=== PATIENT | female | born 1945 | race Caucasian/White ===

== ENCOUNTER 2023-07-30 09:13 | Outpatient (OUT) | payer MEDICARE, OTHER, SELFPAY ==
--- NOTE | 2023-07-30 09:42 | XR_ITS ---
The [address] [address] Patient Name: RAQUEL DEL VALLE MRN: [id number] date: 1945 Sex: F Assigned Patient Location: [facility] Current Patient Location: Accession/Order Number: [id number] Exam Date: 07/30/2023 09:35 Report Date: 07/31/2023 06:53 At the request of: KARL KENNEDY Procedure: XR hand RT min 3V PROCEDURE: XR hand RT min 3V HISTORY: Right Hand Pain M79.641 , acute; no known injury COMPARISON: None. FINDINGS: BONES:No fracture, acute abnormality, or significant arthropathy. SOFT TISSUES:No visible soft tissue swelling. EFFUSION:None visible. OTHER: Negative. XR/XR hand RT min 3V IMPRESSION: 1. No acute bone abnormality. 2. Mild age-related changes. No significant degenerative joint disease or erosive changes. Electronically authenticated by: MELLY PATE Date: 07/31/2023 06:53
== END 2023-07-30 09:14 | disposition home or self-care (01) ==
LOC: RAD 09:19
PROVIDERS: PCP Family Medicine; Visit Provider Family Medicine
DX: M79.641 Pain in right hand (principal)
CPT/HCPCS: 73130

== ENCOUNTER 2024-01-28 09:49 | Outpatient (OUT) | payer MEDICARE, OTHER, SELFPAY ==
--- NOTE | 2024-01-28 09:58 | MM_ITS ---
Patient Name: RAQUEL DEL VALLE MR#: [id number] : 1945 Exam Date: 01/28/2024 Ordering Doctor: DR Becca Jolly M.D. RADIOLOGY REPORT PROCEDURE: MM TOMOSYNTHESIS SCREENING BI COMPARISON: MG MAMM DIAGNOSTIC 3D SOPHIA CAD, 02/19/2021. MG MAMM SCREEN 3D SOPHIA CAD, 01/23/2023. INDICATIONS: screening Calculator Name NCI Breast Cancer Risk Assessment Tool 5 Year Breast Cancer Risk n/a% Lifetime Breast Cancer Risk n/a% Personal Breast Cancer Yes, Right lumpectomy, age 69 Personal Ovarian Cancer No Treatments None Family Cancers None LOCATION: [facility] BREAST COMPOSITION: Extremely dense, which lowers the sensitivity of mammography. FINDINGS: DIAGNOSTIC CATEGORY 2--BENIGN FINDING. NO CHANGE FROM COMPARISON. Scattered benign-appearing nodules are present. Scattered benign-appearing calcifications are present. Scattered benign-appearing lymph nodes are present. RIGHT BREAST: No significant suspicious finding. Stable asymmetrically small. Stable area of architectural distortion deep to a linear scar marker with multiple surgical clips LEFT BREAST: No significant suspicious finding. RECOMMENDATIONS: ROUTINE MAMMOGRAM AND CLINICAL EVALUATION IN 12 MONTHS. PLEASE NOTE: A NORMAL MAMMOGRAM DOES NOT EXCLUDE THE POSSIBILITY OF BREAST CANCER. A CLINICALLY SUSPICIOUS PALPABLE LUMP SHOULD BE BIOPSIED. Dictated by: Carlos A Kamara MD on 01/28/2024 at 11:47 Approved by: Carlos A Kamara MD on 01/28/2024 at 11:49
== END 2024-01-28 09:50 | disposition home or self-care (01) ==
LOC: MAMMO 09:50
PROVIDERS: PCP Family Medicine; Visit Provider Family Medicine
DX: Z12.31 Encounter for screening mammogram for malignant neoplasm of breast (principal); Z85.3 Personal history of malignant neoplasm of breast
CPT/HCPCS: 77063; 77067

== ENCOUNTER 2024-02-02 09:16 | Emergency (ER) | payer MEDICARE, OTHER, SELFPAY ==
[2024-02-02] VITALS (16 sets, daily range): BP systolic 133–164; BP diastolic 79–91; PULSE 63–70; O2SAT 95–99; BMI 26.0
--- NOTE | 2024-02-02 09:30 | ECG_ITS ---
The [facility] Test Date: 2024-02-02 Pat Name: RAQUEL DEL VALLE Department: Room: - Gender: Female Picker Packer: : 1945 Requested By: KARL KENNEDY Order Number: [id number] Reading MD: JAIRO MOREL Measurements Intervals [place] Rate: 62 P: 73 WA: 204 QRS: 43 QRSD: 82 T: 71 QT: 408 QTc: 413 Interpretive Statements 1100 Sinus rhythm 0102 ARTIFACT PRESENT 9110 normal ECG Compared to ECG 01/29/2022 11:47:11 No significant changes Electronically Signed On 02-02-2024 23:06:28 EDT by JAIRO MOREL
--- NOTE | 2024-02-02 09:31 | ED_ITS ---
HPI HPI - General Adult General Chief complaint: Neuro Symptoms/Deficit Stated complaint: CVA SYMPTOMS Time Seen by Provider: 02/02/24 09:24 Source: patient Mode of arrival: walk-in Limitations: no limitations History of Present Illness HPI narrative: 78-year-old female presents from her PCPs office for a 1 month history of tingling on the left side of her face and left arm. It is continuous. She does not have a headache and there is been no trauma. She had remote neck surgery and has hardware present. Sometimes she will have involuntary muscle contractions in her left arm and in particular hand. She has no symptoms in her legs. Related Data Home Medications ?Medication ?Instructions ?Recorded ?Confirmed aspirin 81 mg tablet,delayed 81 mg PO DAILY 02/02/24 02/02/24 release atenolol 25 mg tablet 50 mg PO DAILY 02/02/24 02/02/24 clopidogrel 75 mg tablet 75 mg PO DAILY 02/02/24 02/02/24 lisinopril 5 mg tablet 5 mg PO DAILY 02/02/24 02/02/24 Allergies Allergy/AdvReac Type Severity Reaction Status Date / Time codeine AdvReac Intermediate Vomiting Verified 02/02/24 09:32 Opioid HPI Opioid Management Most Recent Opioid Data: No Data to Display Review of Systems ROS Narrative A ten point review of systems is negative except as noted above. Exam Narrative Exam Narrative: Nurses note and vital signs reviewed and patient is not hypoxic. General: The patient appears well and in no apparent distress. Patient is resting comfortably on cart. Skin: Warm, dry, no pallor noted. There is no rash noted. Head: Normocephalic, atraumatic Eye: Normal conjunctiva, no drainage Ears, Nose, Mouth, and Throat: oral mucosa is moist. Nares patent. Cardiovascular: Regular Rate and Rhythm Respiratory: Patient is in no distress, no accessory muscle use, lungs are clear to auscultation, no wheezing, rales or rhonchi Back: non-tender GI: Soft and nontender Musculoskeletal: The patient has no evidence of calf tenderness, no pitting edema, symmetrical pulses noted bilaterally Neurological: A&O x4, normal speech; cranial nerves II through XII are intact. Upper and lower extremity strength 5 out of 5 and symmetric. She has subjective tingling in her left arm and the left side of her face. Psychiatric: Cooperative Constitutional Vital Signs, click to edit/add: Last Vital Signs Resp 16 02/02/24 09:24 BP 153/81 H 02/02/24 09:24 Pulse Ox 99 02/02/24 09:24 O2 Del Method Room Air 02/02/24 09:24 Course Vital Signs Vital signs: Vital Signs Respiratory Rate 16 02/02/24 09:24 Blood Pressure 153/81 H 02/02/24 09:24 Pulse Oximetry 99 02/02/24 09:24 Oxygen Delivery Method Room Air 02/02/24 09:24 Respiratory Rate 16 02/02/24 09:24 Blood Pressure 153/81 H 02/02/24 09:24 Pulse Oximetry 99 02/02/24 09:24 Oxygen Delivery Method Room Air 02/02/24 09:24 Medical Decision Making MDM Narrative Medical decision making narrative: The patient's workup including CT C-spine and CT brain is negative. Findings are discussed with the patient's PCP and the patient is being referred to neurology for follow-up. Treatment diagnosis and follow-up were discussed thoroughly with the patient. Differential Diagnosis Differential Diagnosis: Paresthesia, stroke, cervical disc disease Lab Data Lab results reviewed: Yes I reviewed the patient's lab results Labs: Lab Results 02/02/24 Range/Units 09:42 WBC 6.2 (4.0-11.0) 10^3/uL RBC 4.24 (4.20-5.40) 10^6/uL Hgb 12.4 (12.0-16.0) g/dL Hct 39.3 (36.0-48.0) % MCV 92.7 (81.0-99.0) fL MCH 29.2 (26.7-34.0) pg MCHC 31.6 (29.9-35.2) g/dL RDW 12.7 (11.0-15.0) % Plt Count 206 (150-450) 10^3/uL MPV 11.8 (9.5-13.5) fL Neut % (Auto) 58.9 (43.0-75.0) % Lymph % (Auto) 30.8 (20.5-60.0) % Citrus % (Auto) 7.9 (1.7-12.0) % Eos % (Auto) 1.0 (0.9-7.0) % Baso % (Auto) 1.1 (0.2-2.0) % Neut # (Auto) 3.7 (1.4-6.5) 10^3/uL Lymph # (Auto) 1.9 (1.2-3.8) 10^3/uL Citrus # (Auto) 0.5 (0.3-0.8) 10^3/uL Eos # (Auto) 0.1 (0.0-0.7) 10^3/uL Baso # (Auto) 0.1 (0.0-0.1) 10^3/uL Abs Immat Gran (auto) 0.02 (0.00-0.03) 10^3/uL Imm/Tot Granulo (auto) 0.3 (0.0-0.5) % Sodium 142 (136-145) mmol/L Potassium 4.3 (3.5-5.1) mmol/L Chloride 106 (98-107) mmol/L Carbon Dioxide 26.8 (21.0-32.0) mmol/L Anion Gap 13.5 BUN 16.0 (7.0-18.0) mg/dL Creatinine 0.90 (0.55-1.02) mg/dL Est GFR ( Amer) >60 (>=60) Est GFR (Non-Af Amer) >60 (>=60) BUN/Creatinine Ratio 17.8 Glucose 100 (74-106) mg/dL Calcium 9.7 (8.5-10.1) mg/dL Imaging Data CT scan - head: Radiologist's impression: ITS Impressions Cervical Spine CT 02/02/24 10:04 IMPRESSION: No acute abnormality of the cervical spine. Chronic changes as above. Consider further evaluation with nonemergent cervical spine MRI without and with contrast given the patient's symptomatology. Electronically authenticated by: MIRANDA HALL Date: 02/02/2024 10:[address] 02/02/24 10:04 IMPRESSION: 1. No acute intracranial abnormality. MRI is more sensitive for the evaluation of acute ischemia. 2. Senescent changes. Electronically authenticated by: MIRANDA HERNANDEZ Date: 02/02/2024 10:18 ECG Data Attestation: I personally reviewed and interpreted this ECG as follows: (EKG on my interpretation shows sinus rhythm without acute change) Discharge Plan Discharge Stand Alone Forms: Portal Instructions Chief Complaint: Neuro Symptoms/Deficit Clinical Impression: Paresthesia Patient Disposition: Home, Self-Care Time of Disposition Decision: 11:18 Mode of Transportation: Private Vehicle Prescriptions / Home Meds: No Action clopidogrel 75 mg tablet 75 mg PO DAILY atenolol 25 mg tablet 50 mg PO DAILY lisinopril 5 mg tablet 5 mg PO DAILY aspirin 81 mg tablet,delayed release (DR/EC) 81 mg PO DAILY Print Language: Japanese Instructions: Paresthesia (ED) Additional Instructions: Dr. Jolly is referring you to a neurologist and they will be contacting you about an appointment time. Referrals: Becca Jolly MD [Primary Care Provider] - 1 week
[2024-02-02 09:57] LABS: Basophils Absolute Auto 0.1 10^3/uL (0.0-0.1); Basophils Percent Auto 1.1 % (0.2-2.0); Eosinophils Absolute Auto 0.1 10^3/uL (0.0-0.7); Hematocrit 39.3 % (36.0-48.0); Hemoglobin 12.4 g/dL (12.0-16.0); Immature Granulocytes Abs Auto 0.02 10^3/uL (0.00-0.03); Immature Granulocytes Pct Auto 0.3 % (0.0-0.5); Lymphocytes Absolute Auto 1.9 10^3/uL (1.2-3.8); Lymphocytes Percent Auto 30.8 % (20.5-60.0); Mean Corpuscular HGB Conc 31.6 g/dL (29.9-35.2); Mean Corpuscular Hemoglobin 29.2 pg (26.7-34.0); Mean Corpuscular Volume 92.7 fL (81.0-99.0); Mean Platelet Volume 11.8 fL (9.5-13.5); Monocytes Absolute Auto 0.5 10^3/uL (0.3-0.8); Monocytes Percent Auto 7.9 % (1.7-12.0); Neutrophils Absolute Auto 3.7 10^3/uL (1.4-6.5); Neutrophils Percent Auto 58.9 % (43.0-75.0); Platelet Count 206 10^3/uL (150-450); Red Blood Count 4.24 10^6/uL (4.20-5.40); Red Cell Distribution Width 12.7 % (11.0-15.0); White Blood Count 6.2 10^3/uL (4.0-11.0)
[2024-02-02 10:04] LABS: Anion Gap 13.5; BUN Creatinine Ratio 17.8; Calcium 9.7 mg/dL (8.5-10.1); Carbon Dioxide 26.8 mmol/L (21.0-32.0); Chloride 106 mmol/L (98-107); Estimated GFR (African America >60 (>=60); Estimated GFR (Non-African Ame >60 (>=60); Glucose 100 mg/dL (74-106); Potassium 4.3 mmol/L (3.5-5.1); Sodium 142 mmol/L (136-145)
--- NOTE | 2024-02-02 10:04 | CT_ITS ---
The [address] [address] Patient Name: RAQUEL DEL VALLE MRN: [id number] date: 1945 Sex: F Assigned Patient Location: ER Current Patient Location: ER Accession/Order Number: [id number] Exam Date: 02/02/2024 09:56 Report Date: 02/02/2024 10:18 At the request of: GEORGINA NICOLAS Procedure: CT head/brain wo con EXAM: CT head/brain wo con HISTORY: Left arm and left face paresthesia COMPARISON: None. TECHNIQUE: Axial soft tissue and bone windows through the calvarium with coronal and sagittal reformats. CT dose reduction technique was used including Automated Exposure Control. Findings: The paranasal sinuses and mastoid air cells are well aerated. No air-fluid levels. No extra-axial fluid collection. No intra-axial or extra-axial bleed. Redemonstrated is a small region of cortical calcification within the posterior left frontal lobe which may relate to laminar necrosis. No mass effect or midline shift. The dhillon-white matter differentiation is preserved. There are are subtle white matter low attenuation lesions which are nonspecific but commonly attributed to chronic small vessel ischemic disease. The brain parenchymal volume is reduced yet likely age-appropriate. The ventricles are nondilated. The basal cisterns are patent. The craniovertebral junction is unremarkable. CT/CT head/brain wo con IMPRESSION: 1. No acute intracranial abnormality. MRI is more sensitive for the evaluation of acute ischemia. 2. Senescent changes. Electronically authenticated by: MIRANDA HERNANDZE Date: 02/02/2024 10:18
--- NOTE | 2024-02-02 10:04 | CT_ITS ---
The [address] [address] Patient Name: RAQUEL DEL VALLE MRN: [id number] date: 1945 Sex: F Assigned Patient Location: ER Current Patient Location: ER Accession/Order Number: [id number] Exam Date: 02/02/2024 09:56 Report Date: 02/02/2024 10:30 At the request of: GEORGINA NICOLAS Procedure: CT cervical spine wo con EXAM: CT cervical spine wo con HISTORY: Left arm paresthesia, previous surgery COMPARISON: MRI from 06/27/2021. TECHNIQUE: CT cervical spine wo con FINDINGS: SKULL BASE AND CERVICOCRANIAL JUNCTION: Visualized portions of skull base including occipital bone and occipital condyles are normal. No evidence of skull base fracture. ATLANTODENTAL INTERVAL: Normal (<3mm). BASION-DENS INTERVAL: Normal (<10mm). VERTEBRA: No fracture. ACDF changes spanning C3-C6 with interbody spacers at the intervening levels. DISC SPACES AND FACET JOINTS: No acute injury. Severe degenerative disc height loss and associated discogenic vertebral endplate change at C3-C7. PREVERTEBRAL SOFT TISSUES: Normal. ALIGNMENT: Kyphotic angulation of the cervical spine centered at C6. CT/CT cervical spine wo con IMPRESSION: No acute abnormality of the cervical spine. Chronic changes as above. Consider further evaluation with nonemergent cervical spine MRI without and with contrast given the patient's symptomatology. Electronically authenticated by: MIRANDA HALL Date: 02/02/2024 10:30
== END 2024-02-02 11:48 | disposition home or self-care (01) ==
PROVIDERS: Emergency Provider Emergency Medicine; PCP Family Medicine
DX: R20.2 Paresthesia of skin (principal); Z79.82 Long term (current) use of aspirin; Z79.899 Other long term (current) drug therapy
CPT/HCPCS: 36415; 70450; 72125; 80048; 85025; 93005; 99285

== ENCOUNTER 2024-07-01 19:37 | Emergency (ER) | payer MEDICARE, OTHER, SELFPAY ==
[2024-07-01 20:00] VITALS: BP 178/95; PULSE 68; TEMP 36.8; O2SAT 95; BMI 25.5
--- NOTE | 2024-07-01 20:18 | CT_ITS ---
[address] [address] Patient Name: RAQUEL DEL VALLE MRN: [id number] date: 1945 Sex: F Assigned Patient Location: ER Current Patient Location: [facility] Accession/Order Number: [id number] Exam Date: 07/01/2024 20:30 Report Date: 07/01/2024 21:32 At the request of: TRACY MCDUFFIE Procedure: CT cervical spine wo con EXAM: CT cervical spine wo con HISTORY: Fall with laceration above the left eyebrow. TECHNIQUE: Axial CT scans through the cervical spine were obtained without contrast administration. Sagittal and coronal reconstruction images were obtained. Dose reduction techniques were achieved by using: automated exposure control and/or adjustment of mA and /or kV according to patient size and/or the use of an iterative reconstruction technique. COMPARISON: CT of cervical spine on 02/02/2024. CT of the chest on 01/29/2021. FINDINGS: No acute fracture or posttraumatic malalignment is shown. Reversal of cervical lordosis is present. Solid anterior cervical fusion from C3 to C6 with placement of disc spacers, anterior plate and screws. Moderate stenosis of bilateral neural foramina at C4-C5 and C5-C6 secondary to decreased disc height and uncovertebral hypertrophy without interval change. Posterior endplate spur at C5-C6 results in mild central spinal stenosis without interval change. At C6-C7, decreased disc height is unchanged. Posterior discovertebral complex results in moderate to severe central spinal stenosis without interval change. Moderate to severe stenosis of bilateral C6-C7 neural foramina secondary to decreased disc height and uncovertebral hypertrophy is unchanged. The prevertebral soft tissue space appears normal. Visualized intracranial contents appear normal. The left thyroid nodule has minimally increased from about 1.4 x 1.4 cm on 01/29/2021 to the current size of bile 1.2 x 1.6 cm, likely due to a benign process. No adenopathy in the neck. Visualized lung apices are clear. CT/CT cervical spine wo con IMPRESSION: No acute fracture or posttraumatic malalignment. Reversal of cervical lordosis, likely due to positioning or muscle spasm. Solid anterior cervical fusion from C3 to C6. Mild central spinal stenosis at C5-C6 is unchanged. At the C6-C7, posterior discovertebral complex results in moderate-severe central spinal stenosis without interval change. Moderate to severe stenosis of bilateral C6-C7 neural foramina without change. Electronically authenticated by: SALOMÓN THOMPSON Date: 07/01/2024 21:32
--- NOTE | 2024-07-01 20:18 | CT_ITS ---
The [address] [address] Patient Name: RAQUEL DEL VALLE MRN: [id number] date: 1945 Sex: F Assigned Patient Location: ER Current Patient Location: ER Accession/Order Number: [id number] Exam Date: 07/01/2024 20:30 Report Date: 07/01/2024 21:07 At the request of: TRACY MCDUFFIE Procedure: CT head/brain wo con EXAM: CT head/brain wo con, CT facial bones wo con HISTORY: Fall with a laceration above the left eyebrow. TECHNIQUE: Axial CT scans through the head and maxillofacial structures were obtained without IV contrast administration. Coronal and sagittal reformations were performed. Dose reduction techniques were achieved by using: automated exposure control and/or adjustment of mA and /or kV according to patient size and/or the use of an iterative reconstruction technique. HEAD CT COMPARISON: 02/02/2024. FINDINGS: The cerebral hemispheres have normal white and dhillon matter and corticomedullary differentiation. To the limit of CT, the posterior fossa appears unremarkable. The ventricular system and cortical sulci are normal for the patient's age. No area of abnormal mass-effect or edema or intracranial hemorrhage. CT/CT head/brain wo con IMPRESSION: No acute intracranial process. -- MAXILLOFACIAL CT FINDINGS: No acute maxillofacial fracture is present. Paranasal sinuses are clear. Left periorbital soft tissue contusion superiorly. The intraorbital contents appear normal. Visualized coroner/medical examiner spaces appear normal. Parapharyngeal spaces appear clear. The visualized neck shows no adenopathy. The craniovertebral junction appears normal. Middle ear cavities are clear. Mastoids are clear. IMPRESSION: No acute maxillofacial fracture. Left periorbital soft tissue contusion superiorly. Electronically authenticated by: SALOMÓN THOMPSON Date: 07/01/2024 21:07
--- NOTE | 2024-07-01 20:18 | CT_ITS ---
The [address] [address] Patient Name: RAQUEL DEL VALLE MRN: [id number] date: 1945 Sex: F Assigned Patient Location: ER Current Patient Location: ER Accession/Order Number: [id number] Exam Date: 07/01/2024 20:30 Report Date: 07/01/2024 21:07 At the request of: TRACY MCDUFFIE Procedure: CT facial bones wo con EXAM: CT head/brain wo con, CT facial bones wo con HISTORY: Fall with a laceration above the left eyebrow. TECHNIQUE: Axial CT scans through the head and maxillofacial structures were obtained without IV contrast administration. Coronal and sagittal reformations were performed. Dose reduction techniques were achieved by using: automated exposure control and/or adjustment of mA and /or kV according to patient size and/or the use of an iterative reconstruction technique. HEAD CT COMPARISON: 02/02/2024. FINDINGS: The cerebral hemispheres have normal white and dhillon matter and corticomedullary differentiation. To the limit of CT, the posterior fossa appears unremarkable. The ventricular system and cortical sulci are normal for the patient's age. No area of abnormal mass-effect or edema or intracranial hemorrhage. CT/CT facial bones wo con IMPRESSION: No acute intracranial process. -- MAXILLOFACIAL CT FINDINGS: No acute maxillofacial fracture is present. Paranasal sinuses are clear. Left periorbital soft tissue contusion superiorly. The intraorbital contents appear normal. Visualized patternmaker grader spaces appear normal. Parapharyngeal spaces appear clear. The visualized neck shows no adenopathy. The craniovertebral junction appears normal. Middle ear cavities are clear. Mastoids are clear. IMPRESSION: No acute maxillofacial fracture. Left periorbital soft tissue contusion superiorly. Electronically authenticated by: SALOMÓN THOMPSON Date: 07/01/2024 21:07
--- NOTE | 2024-07-01 20:20 | ED.FALL1 ---
HPI HPI - Fall General Chief Complaint: Fall Stated Complaint: FALL Time Seen by Provider: 07/01/24 20:12 Source: patient Mode of arrival: walk-in Limitations: no limitations History of Present Illness HPI Narrative: patient fell forward walking up cement stairs striking her face. lac to left eyebrow and zygoma. No LOC. Also sustained minor abrasion left knee. States only mild left knee pain and able to ambulate normally. States her tetanus is UTD. No complaint of neck pain or extremity numbness or weakness. Normal vision Related Data Home Medications ?Medication ?Instructions ?Recorded ?Confirmed aspirin 81 mg tablet,delayed 81 mg PO DAILY 02/02/24 07/01/24 release atenolol 25 mg tablet 50 mg PO DAILY 02/02/24 07/01/24 clopidogrel 75 mg tablet 75 mg PO DAILY 02/02/24 07/01/24 lisinopril 5 mg tablet 5 mg PO DAILY 02/02/24 07/01/24 Allergies Allergy/AdvReac Type Severity Reaction Status Date / Time codeine AdvReac Intermediate Vomiting Verified 07/01/24 20:00 Opioid HPI Opioid Management Most Recent Pain and Opioid Data: No Data to Display Review of Systems ROS Status of ROS 10 or more systems reviewed and unremarkable except as noted in history and below PFSH PFSH Social History Little interest or pleasure in doing things: not at all Feeling down, depressed, or hopeless: not at all Exam Constitutional Vital Signs, click to edit/add: Last Vital Signs Temp 98.3 F 07/01/24 20:00 Pulse 68 07/01/24 20:00 Resp 18 07/01/24 20:00 BP 178/95 H 07/01/24 20:00 Pulse Ox 95 07/01/24 20:00 O2 Del Method Room Air 07/01/24 20:00 Common normals: no apparent distress, average body habitus, oriented x3, no limitations, healthy appearing, alert and well nourished [facility] Common normals: hearing grossly normal bilaterally Face and sinus images: 1. lac left eyebrow 2. lac left zygoma Eye Common normals: PERRL, EOMs intact bilaterally and conjunctivae normal Neck & C-Spine Common normals: full ROM Respiratory Common normals: normal respiratory effort, no retractions, no use of accessory muscles and clear to auscultation bilaterally Cardio Common normals: regular rate, regular rhythm, S1 normal heart sound and S2 normal heart sound GI Common normals: Normal to inspection, nondistended, normoactive bowel sounds present, soft to palpation and non-tender Extremity Common normals: normal to inspection and full ROM Neuro Common normals: oriented x3, CN's II-XII intact bilaterally, moves all extremities and no focal motor deficits Psych Appearance: grossly normal Course Vital Signs Vital signs: Vital Signs Temperature 98.3 F 07/01/24 20:00 Pulse Rate 68 07/01/24 20:00 Respiratory Rate 18 07/01/24 20:00 Blood Pressure 178/95 H 07/01/24 20:00 Pulse Oximetry 95 07/01/24 20:00 Oxygen Delivery Method Room Air 07/01/24 20:00 Temperature 98.3 F 07/01/24 20:00 Pulse Rate 68 07/01/24 20:00 Respiratory Rate 18 07/01/24 20:00 Blood Pressure 178/95 H 07/01/24 20:00 Pulse Oximetry 95 07/01/24 20:00 Oxygen Delivery Method Room Air 07/01/24 20:00 MDM - Fall MDM Narrative Medical decision making narrative: presents after fall walking up cement stairs and striking her face. sustained 2 left facial laceration( left eyebrown and zygoma). Minor abrasion left knee. xray left knee not ordered as it is minor injury CT face, BRAIN and C-spine pending CT results returned without acute findings. Patient discharged home Imaging Data Chest x-ray: Radiologist's impression: ITS Impressions Cervical Spine CT 07/01/24 20:18 IMPRESSION: No acute fracture or posttraumatic malalignment. Reversal of cervical lordosis, likely due to positioning or muscle spasm. Solid anterior cervical fusion from C3 to C6. Mild central spinal stenosis at C5-C6 is unchanged. At the C6-C7, posterior discovertebral complex results in moderate-severe central spinal stenosis without interval change. Moderate to severe stenosis of bilateral C6-C7 neural foramina without change. Electronically authenticated by: SALOMÓN THOMPSON Date: 07/01/2024 21:[address] 07/01/24 20:18 IMPRESSION: No acute intracranial process. -- MAXILLOFACIAL CT FINDINGS: No acute maxillofacial fracture is present. Paranasal sinuses are clear. Left periorbital soft tissue contusion superiorly. The intraorbital contents appear normal. Visualized oyster opener spaces appear normal. Parapharyngeal spaces appear clear. The visualized neck shows no adenopathy. The craniovertebral junction appears normal. Middle ear cavities are clear. Mastoids are clear. IMPRESSION: No acute maxillofacial fracture. Left periorbital soft tissue contusion superiorly. Electronically authenticated by: [employer] THOMPSON Date: 07/01/2024 21:[address] 07/01/24 20:18 IMPRESSION: No acute intracranial process. -- MAXILLOFACIAL CT FINDINGS: No acute maxillofacial fracture is present. Paranasal sinuses are clear. Left periorbital soft tissue contusion superiorly. The intraorbital contents appear normal. Visualized oyster opener spaces appear normal. Parapharyngeal spaces appear clear. The visualized neck shows no adenopathy. The craniovertebral junction appears normal. Middle ear cavities are clear. Mastoids are clear. IMPRESSION: No acute maxillofacial fracture. Left periorbital soft tissue contusion superiorly. Electronically authenticated by: [employer] THOMPSON Date: 07/01/2024 21:07 Discharge Plan Discharge Chief Complaint: Fall Clinical Impression: Abrasion of knee, left, Face lacerations, Head injury Patient Disposition: Home, Self-Care Prescriptions / Home Meds: No Action clopidogrel 75 mg tablet 75 mg PO DAILY atenolol 25 mg tablet 50 mg PO DAILY lisinopril 5 mg tablet 5 mg PO DAILY aspirin 81 mg tablet,delayed release (DR/EC) 81 mg PO DAILY Print Language: Indonesian Instructions: Laceration (ED), Head Injury (ED), Abrasion (ED) Additional Instructions: have wound rechecked in 2-3 days and stitches removed in 5-6 days Referrals: Becca Jolly MD [Primary Care Provider] - 1 week Procedures ED Procedure Instructions Procedures Procedures: facial la 2.3 cm lac left eye brow. 1% lidocaine with epi. site cleaned with betadine and rinsed with saline. Closed with # 4 5.0 nylon stitches left zygoma lac. 12mm superficial. repaired with # 2 5.0 nylon stitches. no complications
[2024-07-01] MEDS: LIDOCAINE HCL 1%-EPINEPHRINE 1:100,000 20 ML MDV INJ (20:47)
--- NOTE | 2024-07-01 20:56 | PC.NURSE ---
Laceration above left eye, bleeding controlled, area cleansed with Hibicleanse and ice applied at site.
== END 2024-07-01 22:04 | disposition home or self-care (01) ==
PROVIDERS: Emergency Provider Internal Medicine; PCP Family Medicine
DX: S01.112A Laceration without foreign body of left eyelid and periocular area, initial encounter (principal); S80.212A Abrasion, left knee, initial encounter; S01.81XA Laceration without foreign body of other part of head, initial encounter; S09.90XA Unspecified injury of head, initial encounter; W10.9XXA Fall (on) (from) unspecified stairs and steps, initial encounter
CPT/HCPCS: 12013; 70450; 70486; 72125; 99284

== ENCOUNTER 2024-07-23 12:09 | Outpatient (OUT) | payer MEDICARE, OTHER, SELFPAY ==
--- NOTE | 2024-07-23 12:14 | XR_ITS ---
The [address] [address] Patient Name: RAQUEL DEL VALLE MRN: [id number] date: 1945 Sex: F Assigned Patient Location: [facility] Current Patient Location: Accession/Order Number: [id number] Exam Date: 07/23/2024 12:20 Report Date: 07/25/2024 08:06 At the request of: RONALD LEWIS Procedure: XR knee RT 4V PROCEDURE: XR knee RT 4V HISTORY: Right Knee Pain, Recent Fall COMPARISON: None. FINDINGS: BONES:Moderate narrowing of the medial joint space and likely involving the anterior joint space.. Large periarticular degenerative osteophytes involving all 3 compartments. No fracture, dislocation, bone lesion. SOFT TISSUES:No visible soft tissue swelling. EFFUSION:Moderate joint effusion. OTHER: Negative. XR/XR knee RT 4V IMPRESSION: 1. Moderate to marked degenerative changes and moderate joint effusion. 2. No appreciable acute bone abnormality. Electronically authenticated by: MELLY PATE Date: 07/25/2024 08:06
== END 2024-07-23 12:10 | disposition home or self-care (01) ==
LOC: RAD 12:10
PROVIDERS: PCP Family Medicine; Visit Provider Nurse Practitioner Family
DX: M25.561 Pain in right knee (principal); Z91.81 History of falling
CPT/HCPCS: 73564

== ENCOUNTER 2024-11-25 11:38 | Emergency (ER) | payer MEDICARE, OTHER, SELFPAY ==
[2024-11-25 11:47] VITALS: BP 172/101; PULSE 84; TEMP 36.9; O2SAT 95; BMI 25.1
--- OUTSIDE RECORDS SUMMARY | 2024-11-25 11:47 | XMS_ITS | CCD ---
Author Organization [facility] Care Team Providers Care Child Care Sitter Name Role Phone PHYSICIAN, DEFAULT Unavailable Unavailable PHYSICIAN, DEFAULT Unavailable Unavailable MD Karl Kennedy Primary Care Provider MD Jos Kennedy Attending Provider Jos Kennedy Unavailable MD Karl Kennedy Primary Care Provider MD Jos Kennedy Attending Provider [phone] Karl Kennedy Primary Care Unavailable Jos Kennedy Attending Unavailable Jos Kennedy Admitting Unavailable Karl Kennedy Primary Care Unavailable Jos Kennedy Attending Unavailable Jos Kennedy Admitting Unavailable Karl Kennedy Primary Care Unavailable KennedyJos E Admitting Unavailable Jos Kennedy Attending Unavailable Jos Kennedy Admitting Unavailable Karl Kennedy Primary Care Unavailable Jos Kennedy Attending Unavailable Jos Kennedy E Admitting Unavailable Karl Kennedy Primary Care Unavailable Jos Kennedy Attending Unavailable Jos Kennedy E Admitting Unavailable Karl Kennedy Primary Care Unavailable Jos Kennedy Attending Unavailable Karl Kennedy Unavailable Karl Kennedy MD Primary Care Provider REQUEST, NONE LISTED Primary Care Unavaila ble KENNEDY, DR KARL Neumann Admitting Unavailable KENNEDY, DR KARL Neumann Attending Unavailable KENNEDY, DR KARL Neumann Consulting Unavailable REQUEST, NONE LISTED Primary Care Unavaila ble KARASIK ., DR ALVARADO Admitting Unavailabl e KARASIK ., DR ALVARADO Attending Unavailabl e KARASIK ., DR ALVARADO Consulting Unavailabl e MISC, DR HINKLE Admitting Unavailable REQUEST, NONE LISTED Primary Care Unavaila ble MISC, DR HINKLE Attending Unavailable REQUEST, NONE LISTED Primary Care Unavaila ble KARASIK ., DR ALVARADO Admitting Unavailabl e KARASIK ., DR ALVARADO Attending Unavailabl e KARASIK ., DR ALVARADO Consulting Unavailabl e CONCEPCION, DR DAVIS Rodriguez Consulting Unavailable RIO, DR MELLY Prado Consulting Unavailable RUBY SULLIVAN Referring Unavailab le KENNEDY, AKRL E Primary Care Unavailable RUBY SULLIVAN Attending Unavailab le BRENT, KARL E Primary Care Unavailable BRENT, KARL Neumann Primary Care Unavailable RUBY SULLIVAN Attending Unavailab CHRISTIANO Bunn Referring Unavailable RUBY SULLIVAN Attending Unavailab le KENNEDY, KARL E Primary Care Unavailable NATE, RUBY KHALIL Attending Unavailab le KENNEDY, KARL E Primary Care Unavailable RUBY SULLIVAN Referring Unavailab le KENNEDY, KARL E Primary Care Unavailable Rubi Jain Unavailable Karl Kennedy MD Primary Care Provider [phone] TOM EVANS Attending Unavailable KARL KENNEDY Referring Unavailable TOM EVANS Referring Unavailable APLINGCHRISTINA Attending Unavailable KARL KENNEDY Referring Unavailable APLINGCHRISTINA Referring Unavailable RAMAN RODRIGES Attending Unavailable APLINGCHRISTINA Referring Unavailable APLINGCHRISTINA Attending Unavailable Allergies Allergy Classification Reported Allergen(s) Allergy Type Date of Onset Reaction(s) Facility (20 sources) Codeine; Translations: [codeine] Drug Allergy 12-22-19 16 Vomiting [facility] (9 sources) Codeine Drug Allergy 06-28-20 14 Unknown [facility] [email or web address] Other (9 sources) Vicodin HP *ANALGESICS - OPIOID* Propensity to adverse reactions Unknown [facility] [email or web address] Other (7 sources) Acetaminophen Drug Allergy 02-02-20 24 Unknown Reaction [facility] (13 sources) HYDROcodone Drug Allergy 02-02-20 24 Unknown Reaction [facility] Medications Current Medications Medication Drug Class(es) Dates Sig (Normalized) Sig (Original) aspirin 81 mg delayed release oral tablet (20 sources) Platelet Aggregation Inhibitor, Nonsteroidal Anti-inflammatory Drug Start: 09-20-2021 take 81 mg by mouth once daily in the morning Aspirin Active 81 MG PO Every morning September 20, 2021 1:00am take 1 tablet by luly th every twenty-four hours Aspirin 81 MG 1 tablet Orally Once a day Active Comment on above: Take 81 mg by mouth once daily. cefdinir 300 mg oral capsule (3 sources) Cephalosporin Antibacterial Start: 3 Cefdinir 300 MG as directed Orally bid for 7 days Nov, Active clopidogrel 75 mg oral tablet (20 sources) P2Y12 Platelet Inhibitor Start: 4 End: take 1 tablet by mouth once daily Clopidogrel Active 0 .ROUTE .COMPLEX May 21, 2024 1:57pm Take 1 tablet by mouth once daily Start: 05-15-2024 End: 05-21-2024 take 1 tablet by mouth once daily Clopidogrel Discontinued 0 .ROUTE .COMPLEX May 15, 2024 7:39am May 21, 2024 11:13am Take 1 tablet by mouth once daily Start: 09-20-2021 End: 05-15-2024 take 1 tablet by mouth once daily clopidogrel (Plavix) 75 MG tablet Take 75 mg by mouth Daily 01/30/2024 Active Comment on above: Take 75 mg by mouth once daily. Diclofenac (9 sources) Nonsteroidal Anti-inflammatory Drug Voltaren 1 % apply 1 -2 grams to affected area Externally up to four times daily for 30 days Active Voltaren 1 % belem ly 1-2 grams to affected area Externally up to four times daily for 30 days Active Completed/Discontinued Medications Medication Drug Class(es) Dates Sig (Normalized) Sig (Original) atenolol 25 mg oral tablet (20 sources) beta-Adrenergic Syeda Start: 09-20-2021 End: 05-21-2024 take 25 mg by mouth twice daily Atenolol Discontinued 25 MG PO Twice daily 180 May 21, 2024 11:13am May 21, 2024 1:58pm take 1 tablet by mouth once kyle y atenolol (TENORMIN) 25 mg tablet Take 25 mg by mouth once daily. 0 Active Comment on above: Take 25 mg by mouth once daily. Azithromycin (5 sources) Macrolide Antimicrobial Start: 02-16-2024 End: 07-23-2024 Azithromycin Discontinued 0 PO .COMPLEX February 16, 2024 12:00am July 23, 2024 11:32am For 250 mg dose pack: take 500 mg today (day 1), then 250 mg for 4 days (days 2-5) PO Start: 02-16-2024 Azithromycin A ctive 0 PO .COMPLEX 6 February 16, 2024 12:00am For 250 mg dose pack: take 500 mg today (day 1), then 250 mg for 4 days (days 2-5) PO cephalexin 500 mg oral capsule (9 sources) Cephalosporin Antibacterial Start: 10-02-2021 End: 01-30-2024 take 500 mg by mouth three times daily Cephalexin Discontinued 500 MG PO Three times daily October 02, 2021 1:00am January 30, 2024 10:41am cyclobenzaprine hydrochloride 10 mg oral tablet (9 sources) Muscle Relaxant Start: 10-02-2021 End: 01-30-2024 take 10 mg by mouth three times daily Cyclobenzaprine Discontinued 10 MG PO Three times daily October 02, 2021 1:00am January 30, 2024 10:41am ibuprofen 600 mg oral tablet (5 sources) Nonsteroidal Anti-inflammatory Drug Start: 04-25-2023 take 1 tablet by mouth every eight hours as needed ibuprofen (MOTRIN) 600 mg tablet Take 1 tablet by mouth every 8 hours as needed for pain. 21 tablet 0 04/25/2023 Active Ibuprofen Active Comment on above: Take 1 tablet by luly th every 8 hours as needed for pain. lisinopril 5 mg oral tablet (20 sources) Angiotensin Converting Enzyme Inhibitor Start: 2018 End: 2023 take 5 mg by mouth once daily in the morning Lisinopril Discontinued 5 MG PO Every morning September 20, 2021 1:00am May 21, 2024 11:13am 1 ml methylPREDNISolone acetate 40 mg/ml injection (4 sources) Corticosteroid Start: 2023 End: 2023 methylPREDNISolone acetate (DEPO-Medrol) injection 40 mg Start: 07-28-2024 End: 07-28-2024 40 mg, Intra-articular, Once PRN Procedure, Starting on Fri07/28/24 at 0941, For 1 dose oxyCODONE hydrochloride 5 mg oral tablet (11 sources) Opioid Agonist Start: 04-25-2023 take 1 tablet by mouth every eight hours as needed for pain oxyCODONE IR (ROXICODONE) 5 mg immediate release tablet Indications: Post-op pain Take 1 tablet by mouth every 8 hours as needed for pain. 9 tablet 0 04/25/2023 Active Start: 10-02-2021 End: 01-30-2024 take 5-10 mg by mouth every six hours Oxycodone Discontinued 5 - 10 MG PO Q6H 40 8 October 02, 2021 January 30, 2024 10:41am Comment on above: Take 1 tablet by luly th every 8 hours as needed for pain. sennosides, nursing home 8.6 mg oral tablet (2 sources) Start: 3 take 1 tablet by mouth twice daily Senna 8.6 mg tab Take 1 tablet by mouth twice daily. 60 tablet 1 04/25/2023 Active Comment on above: Take 1 tablet by luly th twice daily. triamcinolone acetonide 40 mg/ml injectable suspension (3 sources) Corticosteroid Start: 3 Kenalog-40 Jul, 40 mg Problems Active Problems Problem Classification Problem Date Documented Date Episodic/Chronic Abdominal pain (20 sources) Unspecified abdominal pain; Translations: [Generalized abdominal pain] Episodic Anxiety disorders (9 sources) Generalized anxiety disorder; Translations: [Generalized anxiety disorder] Chronic Cancer of breast (20 sources) Malignant neoplasm of female breast; Translations: [Malignant neoplasm of unspecified site of right female breast] Onset: 02-05-2017 02-05-2017 Chronic Chronic obstructive pulmonary disease and bronchiectasis (4 sources) Bronchitis; Translations: [Bronchitis, not specified as acute or chronic] 02-16-2024 Episodic Deficiency and other anemia (9 sources) Anemia; Translations: [Anemia, unspecified] Episodic Diabetes mellitus without complication (9 sources) Hyperglycemia; Translations: [Hyperglycemia, unspecified] Episodic Esophageal disorders (9 sources) Haas's esophagus; Translations: [Haas's esophagus without dysplasia] Chronic Essential hypertension (14 sources) Hypertensive disorder; Translations: [Essential (primary) hypertension] Onset: 04-09-2023 Chronic Fluid and electrolyte disorders (9 sources) Hypokalemia; Translations: [Hypokalemia] Episodic Genitourinary symptoms and ill-defined conditions (18 sources) Dysuria; Translations: [Painful micturition, unspecified] Onset: 02-27-2018 Resolved: 01-23-2022 Episodic Immunizations and screening for infectious disease (1 source) Encounter for screening for human papillomavirus (HPV); Translations: [ENC SCREENING HUMAN PAPILLOMAVIRUS] Onset: 01-22-2023 Episodic Malaise and fatigue (13 sources) Fatigue; Translations: [Chronic fatigue, unspecified] Chronic Malaise and fatigue (14 sources) Other fatigue; Translations: [Fatigue] Onset: 12-27-2022 Episodic Noninfectious gastroenteritis (9 sources) Non-infective enteritis and colitis; Translations: [Noninfective gastroenteritis and colitis, unspecified] Episodic Osteoarthritis (15 sources) Osteoarthritis; Translations: [Unspecified osteoarthritis, unspecified site] 07-27-2024 Chronic Other aftercare (9 sources) History and physical examination, follow-up; Translations: [Encounter for follow-up examination after completed treatment for conditions other than malignant neoplasm] Episodic Other aftercare (2 sources) Surgical follow-up; Translations: [Encounter for removal of sutures] 07-12-2024 Episodic Other aftercare (2 sources) Encounter for removal of sutures; Translations: [Encounter for removal of sutures] 07-12-2024 Episodic Other and unspecified benign neoplasm (9 sources) Polyp of colon; Translations: [Polyp of colon] Episodic Other bone disease and musculoskeletal deformities (1 source) Other specified disorders of bone density and structure, unspecified site; Translations: [OTH D/O BONE DEN STRUCT UNS SITE] Onset: 01-31-2023 Episodic Other circulatory disease (9 sources) Elevated blood-pressure reading without diagnosis of hypertension; Translations: [Elevated blood-pressure reading, without diagnosis of hypertension] Episodic Other circulatory disease (6 sources) History of transient ischemic attack; Translations: [Personal history of transient ischemic attack (TIA), and cerebral infarction without residual deficits] 02-07-2024 Episodic Other circulatory disease (5 sources) Personal history of transient ischemic attack (TIA), and cerebral infarction without residual deficits; Translations: [Personal history of transient ischemic attack (TIA), and cerebral infarction without residual deficits] 02-02-2024 Episodic Other connective tissue disease (2 sources) Radial styloid tenosynovitis [de Quervain] Episodic Other connective tissue disease (2 sources) Pain in right hand Episodic Other connective tissue disease (3 sources) Dupuytren contracture of right palm; Translations: [Palmar fascial fibromatosis [Dupuytren]] Episodic Other connective tissue disease (1 source) Palmar fascial fibromatosis [Dupuytren] Episodic Other ear and sense organ disorders (9 sources) Cholesteatoma of attic; Translations: [Cholesteatoma of attic, unspecified ear] Episodic Other female genital disorders (8 sources) Vaginal bleeding; Translations: [Abnormal uterine and vaginal bleeding, unspecified] Onset: 04-02-2023 Chronic Other female genital disorders (1 source) Hypertrophy of uterus Episodic Other female genital disorders (9 sources) Other noninflammatory disorders of ovary, fallopian tube and broad ligament; Translations: [Other noninflammatory disorders of ovary, fallopian tube and broad ligament] Episodic Other female genital disorders (9 sources) Hypertrophy of uterus; Translations: [Hypertrophy of uterus] Episodic Other hereditary and degenerative nervous system conditions (20 sources) Myelopathy due to another disorder; Translations: [Myelopathy in diseases classified elsewhere] Chronic Other injuries and conditions due to external causes (2 sources) History of fall; Translations: [History of falling] 07-23-2024 Episodic Other injuries and conditions due to external causes (2 sources) History of falling; Translations: [History of fall] 07-23-2024 Episodic Other lower respiratory disease (9 sources) Lung field abnormal; Translations: [Other nonspecific abnormal finding of lung field] Episodic Other lower respiratory disease (9 sources) Chronic cough; Translations: [Chronic cough] Episodic Other nervous system disorders (9 sources) Cervical myelopathy; Translations: [Disease of spinal cord, unspecified] 10-02-2021 Chronic Other nervous system disorders (9 sources) Hereditary disorder of nervous system; Translations: [Hereditary and idiopathic neuropathy, unspecified] Chronic Other nervous system disorders (6 sources) Numbness of face; Translations: [Anesthesia of skin] 02-07-2024 Episodic Other nervous system disorders (6 sources) Numbness of upper limb; Translations: [Anesthesia of skin] 02-07-2024 Episodic Other nervous system disorders (6 sources) Anesthesia of skin; Translations: [Disturbance of skin sensation] 02-02-2024 Episodic Other non-traumatic joint disorders (8 sources) Pain in right knee; Translations: [Right knee pain] 07-23-2024 Episodic Other non-traumatic joint disorders (1 source) Effusion of right knee joint; Translations: [Effusion, right knee] 07-27-2024 Episodic Other nutritional; endocrine; and metabolic disorders (9 sources) Overweight; Translations: [Overweight] Episodic Other nutritional; endocrine; and metabolic disorders (9 sources) Abnormal weight loss; Translations: [Abnormal weight loss] Episodic Other screening for suspected conditions (not mental disorders or infectious disease) (20 sources) Endometrium thickened; Translations: [Abnormal findings on diagnostic imaging of other specified body structures] Chronic Other screening for suspected conditions (not mental disorders or infectious disease) (8 sources) Encounter for screening mammogram for malignant neoplasm of breast; Translations: [Encounter for screening for malignant neoplasm of cervix] Onset: 01-16-2023 Episodic Other upper respiratory infections (1 source) Acute maxillary sinusitis, unspecified Episodic Residual codes; unclassified (1 source) Asymptomatic menopausal state; Translations: [ASYMPTOMATIC MENOPAUSAL STATE] Onset: 01-31-2023 Episodic Residual codes; unclassified (1 source) Postoperative state; Translations: [Other specified postprocedural states] 05-28-2023 Episodic Residual codes; unclassified (9 sources) Tobacco user; Translations: [Tobacco use] Episodic Residual codes; unclassified (9 sources) Postprocedural state finding; Translations: [Other specified postprocedural states] Episodic Spondylosis; intervertebral disc disorders; other back problems (20 sources) Intervertebral disc disorder of cervical region with myelopathy; Translations: [Cervical disc disorder at C4-C5 level with myelopathy] Onset: 07-24-2021 Resolved: 04-18-2022 Chronic Spondylosis; intervertebral disc disorders; other back problems (9 sources) Neck pain; Translations: [Cervicalgia] Episodic Thyroid disorders (9 sources) Simple goiter; 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 Transient cerebral ischemia (5 sources) Transient cerebral ischemia; Translations: [Transient cerebral ischemic attack, unspecified] Onset: 04-04-2023 Chronic Unclassified (1 source) Cervical disc disorder at C6-C7 level with myelopathy; Translations: [Cervical disc disorder at C6-C7 level with myelopathy] Onset: 07-18-2022 Unclassified (1 source) M50.022 - Cervical disc disorder at C5-C6 level with myelopathy; Translations: [M50.022 - Cervical disc disorder at C5-C6 level with myelopathy] Onset: 04-18-2022 Unclassified (1 source) M50.023 - Cervical disc disorder at C6-C7 level with myelopathy; Translations: [M50.023 - Cervical disc disorder at C6-C7 level with myelopathy] Onset: 01-10-2022 Unclassified (1 source) M50.021 - Cervical disc disorder at C4-C5 level with myelopathy; Translations: [M50.021 - Cervical disc disorder at C4-C5 level with myelopathy] Onset: 10-01-2021 Unclassified (1 source) Z01.812 - Encounter for preprocedural laboratory examination; Translations: [Z01.812 - Encounter for preprocedural laboratory examination] Onset: 09-20-2021 Past or Other Problems Problem Classification Problem Date Documented Da te Episodic/Chronic Acute bronchitis (9 sources) Acute bronchitis; Translations: [Acute bronchitis, unspecified] Onset: 06-28-2014 Episodic Acute posthemorrhagic anemia (9 sources) Acute posthemorrhagic anemia; Translations: [Acute posthemorrhagic anemia] Onset: 01-22-2016 Episodic Conditions associated with dizziness or vertigo (18 sources) Dizziness; Translations: [Dizziness and giddiness] Onset: 03-03-2024 07-15-2024 Episodic Gastrointestinal hemorrhage (9 sources) Hemorrhage of rectum and anus; Translations: [Hemorrhage of anus and rectum] Onset: 09-23-2018 Resolved: 01-23-2022 Episodic Other circulatory disease (9 sources) History of cerebrovascular accident without residual deficits; Translations: [Personal history of transient ischemic attack (TIA), and cerebral infarction without residual deficits] Onset: 06-28-2014 Episodic Results Test Name Value Interpretation Reference Range Facility XR Knee - bilateral AP W sta ndingon 07-29-2024 Imaging Result: Xrays AP B/L WB of the knees performed on July 28, 2024 reveals bone on bone medial compartment and osteophytes lateral compartment of the right knee. LT knee medial compartment narrowing with less than 50% joint space and osteophytes lateral compartment. No fractures appreciated. Impressions Arthritis bilateral knees greatest in the medial compartments. Christina Paris DRAFTER [employer]OLOGICAL [facility] XR Knee - bilateral AP W sta ndingOrdered By: Navi Camacho on 07-29-2024 [facility] Work Phone: No Panel Informationon 07-28 Christina Paris, TATYANA 07/29/2024 11:44 AM L Inj/Asp: R knee on 07/28/2024 9:41 AM Indications: pain Details: 20 G needle, anterolateral approach Medications: 40 mg methylPREDNISolone acetate 40 MG/ML UTILIZING ASEPTIC TECHNIQUE PT GIVEN INJECTION IN RIGHT KNEE, NEUROVASC INTACT S/P INJ, TOLERATED WELL Procedure, treatment alternatives, risks and benefits explained, specific risks discussed. Consent was given by the patient. [facility] XR Knee - bilateral AP W sta ndingon 07-28-2024 Radiology Study observation (narrative) [facility] Basophils Auto (Bld) [#/Vol] on 02-02-2024 Basophils (Bld) [#/Vol] 0.1 10 3/uL 0.0-0.1 [facility] Basophils/100 WBC Auto (Bld) on 02-02-2024 Basophils/100 WBC (Bld) 1.1 % 0.2-2.0 [facility] Eosinophils/100 WBC Auto (Bl d)on 02-02-2024 Eosinophils/100 WBC (Bld) 1.0 % 0.9-7.0 [facility] Erythrocyte distribution wid th Auto (RBC) [Ratio]on 02-02-2024 Erythrocyte distribution width (RBC) [Ratio] 12.7 % 11.0-15.0 [facility] Estimated glomerular filtrat ion rate (GFR) non- Americanon 02-02-2024 GFR/1.73 sq M.predicted among non-blacks MDRD (S/P/Bld) [Vol rate/Area] mL/min/{1.73_m2} >=60 [facility] Hematocrit Auto (Bld) [Volum e fraction]on 02-02-2024 Hematocrit (Bld) [Volume fraction] 39.3 % 36.0-48.0 [facility] Hemoglobin [Mass/volume] in Bloodon 02-02-2024 Hemoglobin (Bld) [Mass/Vol] 12.4 g/dL 12.0-16.0 [facility] Laboratory - Chemistry and C hemistry - challengeon 02-02-2024 Calcium [Mass/Vol] 9.7 mg/dL 8.5-10.1 [facility] Chloride [Moles/Vol] 106 mmol/L 98-107 [facility] CO2 [Moles/Vol] 26.8 mmol/L 21.0-32.0 [facility] Creatinine [Mass/Vol] 0.90 mg/dL 0.55-1.02 [facility] GFR/1.73 sq M.predicted MDRD (S/P/Bld) [Vol rate/Area] mL/min/{1.73_m2} >=60 [facility] Glucose [Mass/Vol] 100 mg/dL 74-106 [facility] Potassium [Moles/Vol] 4.3 mmol/L 3.5-5.1 [facility] Sodium [Moles/Vol] 142 mmol/L 136-145 [facility] Urea nitrogen [Mass/Vol] 16.0 mg/dL 7.0-18.0 [facility] Urea nitrogen/Creatinine [Mass ratio] 17.8 mg/mg [facility] Laboratory - Hematology and Cell countson 02-02-2024 Immature granulocytes/100 WBC (Bld) 0.3 % 0.0-0.5 [facility] Leukocytes [#/volume] correc master for nucleated erythrocytes in Blood by Automated counon 02-02-2024 WBC corrected for nucl RBC Auto (Bld) [#/Vol] 6.2 10 3/uL 4.0-11.0 [facility] Lymphocytes Auto (Bld) [#/Vo l]on 02-02-2024 Lymphocytes (Bld) [#/Vol] 1.9 10 3/uL 1.2-3.8 [facility] Lymphocytes/100 WBC Auto (Bl d)on 02-02-2024 Lymphocytes/100 WBC (Bld) 30.8 % 20.5-60.0 [facility] MCH Auto (RBC) [Entitic mass ]on 02-02-2024 MCH (RBC) [Entitic mass] 29.2 pg 26.7-34.0 [facility] MCHC Auto (RBC) [Mass/Vol]on 02-02-2024 MCHC (RBC) [Mass/Vol] 31.6 g/dL 29.9-35.2 [facility] MCV Auto (RBC) [Entitic vol] on 02-02-2024 MCV (RBC) [Entitic vol] 92.7 fL 81.0-99.0 [facility] Monocytes Auto (Bld) [#/Vol] on 02-02-2024 Monocytes (Bld) [#/Vol] 0.5 10 3/uL 0.3-0.8 [facility] Monocytes/100 WBC Auto (Bld) on 02-02-2024 Monocytes/100 WBC (Bld) 7.9 % 1.7-12.0 [facility] Neutrophils Auto (Bld) [#/Vo l]on 02-02-2024 Neutrophils (Bld) [#/Vol] 3.7 10 3/uL 1.4-6.5 [facility] Neutrophils/100 WBC Auto (Bl d)on 02-02-2024 Neutrophils/100 WBC (Bld) 58.9 % 43.0-75.0 [facility] No Panel Informationon 02-01 Eosinophils # (Auto) 0.1 10 3/uL 0.0-0.7 [facility] Immature Granulocyte # (Auto) 0.02 10 3/uL 0.00-0.03 [facility] Platelet mean volume Auto (B ld) [Entitic vol]on 02-02-2024 Platelet mean volume (Bld) [Entitic vol] 11.8 fL 9.5-13.5 [facility] Platelets Auto (Bld) [#/Vol] on 02-02-2024 Platelets (Bld) [#/Vol] 206 10 3/uL 150-450 [facility] RBC Auto (Bld) [#/Vol]on RBC (Bld) [#/Vol] 4.24 10 6/uL 4.20-5.40 [facility] Serum or plasma anion gap de terminationon 02-02-2024 Anion gap [Moles/Vol] 13.5 mmol/L [facility] CNPNon 09-16-2023 YEMI Telephone (REFAIR) FARRAH DEL VALLE ([id number]) 1945 F Date Time Provider Department 09/16/23 NATALIA LIMA During your visit today, we recorded the following information about you: Rhiannon Vines 09/16/2023 3:24 PM Signed IRB# [id number]: Vascular events in patients undergoing same-day nonCardiac surgery - VALIANCE PI: Natalia Lima MD, LISBETH, FASA. Outcomes Research Department. Anesthesia Mica. [facility]. This is a research study note. Patient assessments recorded here should not guide either clinical care or clinical decision-making. I spoke with Farrah Del Valle regarding the 90-day follow-up for the VALIANCE study. The 90-day follow-up, 90-day Functional capacity, 90-day Quality of life, and 90-day Frailty forms were asked and completed by the patient over the phone. All other relevant forms were also completed if applicable to the patient. Everything was entered directly into [employer] during this telephone encounter. The study period is now complete. Rhianonn Vines Research Water/Wastewater Project Manager Outcomes Research [facility] Allergies As of Date: 09/16/2023 Noted Allergy Reaction CODEINE 02/22/2016 11 - Vomiting Date Reviewed: 04/25/2023 Reviewed by: Keesha Mccallum, ETELVINA - Fully Assessed Reason for Visit: Research Follow-Up [Other] Prescriptions as of 09/16/2023 - oxyCODONE IR (ROXICODONE) 5 mg immediate release tablet Take 1 tablet by mouth every 8 hours as needed for pain. - ibuprofen (MOTRIN) 600 mg tablet Take 1 tablet by mouth every 8 hours as needed for pain. - Senna 8.6 mg tab Take 1 tablet by mouth twice daily. - lisinopril (ZESTRIL, PRINIVIL) 5 mg tablet - clopidogrel (PLAVIX) 75 mg tablet Take 75 mg by mouth once daily. - atenolol (TENORMIN) 25 mg tablet Take 25 mg by mouth once daily. - aspirin, enteric coated (ASPIRIN, ENTERIC COATED) 81 mg EC tablet Take 81 mg by mouth once daily. Problem List As Of Date 09/16/2023 Noted Resolved Malignant neoplasm of right female breast (HCC)*02/05/2017 Malignant neoplasm of lower-inner quadrant of r*06/11/2017 Malignant neoplasm involving both nipple and ar*10/01/2017 Vaginal bleeding [N93.9] 04/02/2023 TIA (transient ischemic attack) [G45.9] 04/04/2023 Hypertension [I10] 04/09/2023 Encounter Status:Closed by RHIANNON VINES on 09/16/23 [facility] CNOVSPon 05-28-2023 CNOVSP Visit (SP) Office (GYNOSA) FARRAH DEL VALLE ([id number]) 1945 F Date Time Provider Department 05/28/23 2:15 PM RUBY SULLIVAN During your visit today, we recorded the following information about you: Temperature Pulse Respiration Blood pressure 97.6 degrees 74/minute 18/minute 143/72 Weight 72.2 kg Ruby Sullivan MD 05/28/2023 3:03 PM Signed DATE OF SERVICE: 05/28/2023 REASON FOR VISIT: Thickened endometrium, post op follow up DIAGNOSIS: Thickened endometrium HPI: 1.Farrah Del Valle is a 77 year old female with pmh of HTN, breast CA, sensorineural hearing loss and TIA who was evaluated by FRAMING CONSULTANT for a thickened endometrium noted on CT on 11/2021 and on follow up US in 01/2022. [facility] completed on 02/11/22 with benign findings. Patient having persistent abdominal pain and intermittent pink vaginal discharge presents for discussion of management. She reports normal appetite, normal bowel movements. 2. 04/25/2023 SURGERY DATE OF LAST VISIT: 04/30/23 OBSTETRIC/ GYNECOLOGY HISTORY: Last Pap: 01/16/23 negative PAST MEDICAL HISTORY Diagnosis Date Hypertension TIA (transient ischemic attack) PAST SURGICAL HISTORY Procedure Laterality Date BACK SURGERY HX disc surgery BIOPSY BREAST right breast CHOLECYSTECTOMY HX Neck surgery 09/2021 Family History Problem Relation Age of Onset Lipids Mother Diabetes Father Ischemic Heart Disease Father Skin Cancer Maternal Uncle Breast cancer - right lumpectomy with right axillary biopsy - s/p adjuvant radiation RECENT PATHOLOGY: 04/25/2023 FINAL DIAGNOSIS Uterus, cervix, bilateral ovaries and fallopian tubes, hysterectomy with bilateral salpingo-oophorectomy: - Cervix: No significant pathologic abnormality. - Endometrium: Atrophy, benign endometrial polyp. - Myometrium: Adenomyosis, leiomyomas. - Left fallopian tube: No significant pathologic abnormality. - Left ovary: Epithelial inclusion cysts, stromal hyperplasia. - Right fallopian tube: Paratubal cyst. - Right ovary: Calcified fibroma in a background of stromal hyperplasia. 02/11/2022 RECENT IMAGING: Date: 03/05/2023 Date: 01/21/2022 12/08/2021 CT A/P HEALTH MAINTENANCE: Last mammogram: not discussed today Last colonoscopy: Patient reports that she had a colonoscopy in the past few years that was normal ECOG performance status ECOG PERFORMANCE STATUS: 0- Fully active, able to carry on all pre-disease performance w/o restriction. SUBJECTIVE/INTERVAL HISTORY: Farrah Del Valle reports that she feels well. No vaginal bleeding or discharge. No shortness of breath, cough, or chest pain. No abdominal pain, nausea, vomiting, diarrhea, or constipation. No dysuria, gross hematuria, urinary frequency, urinary urgency, or incontinence. Her ECOG performance status is zero (fully active, able to carry on all pre-disease performance without restriction). OBJECTIVE: VITALS: BP 143/72 Pulse 74 Temp (Src) 97.6 (Temporal) Resp 18 Wt 159 lb 3.2 oz (72.2kg) SpO2 97% GENERAL: alert, oriented, pleasant, and cooperative. HEENT: Normocephalic, atraumatic, and no lesions. ABDOMEN: Abdomen soft, non-tender PELVIC: External genitalia, anus and urethral meatus are normal in appearance and without lesions. Vagina normal in appearance on speculum examination. Vaginal cuff well healed Cervix surgically absent. LOWER EXTREMITIES: No pitting edema and no skin changes ASSESSMENT: 78 year old y/o female with PMH TIAs, HTN, on plavix, hx Breast cancer 2015 s/p lumpectomy and radiation presenting for further evaluation of persistent abdominal/pelvic pain and pink vaginal discharge. Presents s/p TLH, BSO, doing well post op, pathology reviewed, benign. Restarted on Plavix. Reviewed pathology benign. Doing well post op PLAN: Return to rigging helper onc prn for new or worsening symptoms Ruby Sullivan MD Allergies As of Date: 05/28/2023 Noted Allergy Reaction CODEINE 02/22/2016 11 - Vomiting Date Reviewed: 04/25/2023 Reviewed by: Keesha Mccallum RN - Fully Assessed Reason for Visit: Post Op [174] Primary Visit Diagnosis:Post-operati ve state [Z98.890] [Z98.890] Prescriptions as of 05/28/2023 - oxyCODONE IR (ROXICODONE) 5 mg immediate release tablet Take 1 tablet by mouth every 8 hours as needed for pain. - ibuprofen (MOTRIN) 600 mg tablet Take 1 tablet by mouth every 8 hours as needed for pain. - Senna 8.6 mg tab Take 1 tablet by mouth twice daily. - lisinopril (ZESTRIL, PRINIVIL) 5 mg tablet - clopidogrel (PLAVIX) 75 mg tablet Take 75 mg by mouth once daily. - atenolol (TENORMIN) 25 mg tablet Take 25 mg by mouth once daily. - aspirin, enteric coated (ASPIRIN, ENTERIC COATED) 81 mg EC tablet Take 81 mg by mouth once daily. Problem List As Of Date 05/28/2023 Noted Resolved Malignant neoplasm of right female breast (HCC)*02/05/2017 Malignant ne (more content not included)... Normal [facility] CNOVSPon 04-30-2023 CNOVS Visit (SP) Office (GYNOSA) FARRAH DEL VALLE ([id number]) 1945 F Date Time Provider Department 04/30/23 3:45 PM RUBY SULLIVAN During your visit today, we recorded the following information about you: Temperature Pulse Respiration Blood pressure 97.4 degrees 76/minute 16/minute 174/85 Weight Height 72.8 kg 1.702 m Ruby Sullivan MD 04/30/2023 4:35 PM Signed DATE OF SERVICE: 04/30/2023 REASON FOR VISIT: Thickened endometrium, post op follow up DIAGNOSIS: Thickened endometrium HPI: 1.Farrah Del Valle is a 77 year old female with pmh of HTN, breast CA, sensorineural hearing loss and TIA who was evaluated by FRAMING CONSULTANT for a thickened endometrium noted on CT on 11/2021 and on follow up US in 01/2022. [facility] completed on 02/11/22 with benign findings. Patient having persistent abdominal pain and intermittent pink vaginal discharge presents for discussion of management. She reports normal appetite, normal bowel movements. 2. 04/25/2023 SURGERY DATE OF LAST VISIT: 04/02/23 OBSTETRIC/ GYNECOLOGY HISTORY: Last Pap: 01/16/23 negative PAST MEDICAL HISTORY Diagnosis Date Hypertension TIA (transient ischemic attack) PAST SURGICAL HISTORY Procedure Laterality Date BACK SURGERY HX disc surgery BIOPSY BREAST right breast CHOLECYSTECTOMY HX Neck surgery 09/2021 Family History Problem Relation Age of Onset Lipids Mother Diabetes Father Ischemic Heart Disease Father Skin Cancer Maternal Uncle Breast cancer - right lumpectomy with right axillary biopsy - s/p adjuvant radiation RECENT PATHOLOGY: 04/25/2023 FINAL DIAGNOSIS Uterus, cervix, bilateral ovaries and fallopian tubes, hysterectomy with bilateral salpingo-oophorectomy: - Cervix: No significant pathologic abnormality. - Endometrium: Atrophy, benign endometrial polyp. - Myometrium: Adenomyosis, leiomyomas. - Left fallopian tube: No significant pathologic abnormality. - Left ovary: Epithelial inclusion cysts, stromal hyperplasia. - Right fallopian tube: Paratubal cyst. - Right ovary: Calcified fibroma in a background of stromal hyperplasia. 02/11/2022 RECENT IMAGING: Date: 03/05/2023 Date: 01/21/2022 12/08/2021 CT A/P HEALTH MAINTENANCE: Last mammogram: not discussed today Last colonoscopy: Patient reports that she had a colonoscopy in the past few years that was normal ECOG performance status ECOG PERFORMANCE STATUS: 0- Fully active, able to carry on all pre-disease performance w/o restriction. SUBJECTIVE/INTERVAL HISTORY: Farrah Del Valle is doing well since surgery. Off pain medication, no bleeding, reports some abdominal bruising. Tolerating regular diet without nasuea/vomiting. Her ECOG performance status is zero (fully active, able to carry on all pre-disease performance without restriction). OBJECTIVE: VITALS: BP 174/85[recheck[ Pulse 76 Temp (Src) 97.4 (Temporal) Resp 16 Ht 5' 7.008 (1.70m) Wt 160 lb 6.4 oz (72.8kg) SpO2 95% BMI 25.12 kg/(m2). GENERAL: alert, oriented, pleasant, and cooperative. HEENT: Normocephalic, atraumatic, and no lesions. ABDOMEN: Abdomen soft, non-tender, laparoscopic incisions healing well - significant bruising surrounding RLQ port site - denies pain in this area. PELVIC: deferred LOWER EXTREMITIES: No pitting edema and no skin changes ASSESSMENT: 78 year old y/o female with PMH TIAs, HTN, on plavix, hx Breast cancer 2015 s/p lumpectomy and radiation presenting for further evaluation of persistent abdominal/pelvic pain and pink vaginal discharge. Presents s/p TLH, BSO, doing well post op, pathology reviewed, benign. Restarted on Plavix. Significant bruising around RLQ site. Reviewed pathology benign. PLAN: Return for 4 week post op visit MD Sayra Durbin MA 04/30/2023 3:56 PM Signed Patient states she feels good, states no pain but very colorful in abdominal area. Sayra Hernandez MA Allergies As of Date: 04/30/2023 Noted Allergy Reaction CODEINE 02/22/2016 11 - Vomiting Date Reviewed: 04/25/2023 Reviewed by: Keesha Mccallum RN - Fully Assessed Reason for Visit: post op [Other] Primary Visit Diagnosis:Post-operati ve state [Z98.890] [Z98.890] Follow-up and Disposition History for Encounter Date Provider Department Center 04/30/2023 [id number], MICHELL*URI COELHO Prescriptions as of 04/30/2023 - oxyCODONE IR (ROXICODONE) 5 mg immediate release tablet Take 1 tablet by mouth every 8 hours as needed for pain. - ibuprofen (MOTRIN) 600 mg tablet Take 1 tablet by mouth every 8 hours as needed for pain. - Senna 8.6 mg tab Take 1 tablet by mouth twice daily. - lisinopril (ZESTRIL, PRINIVIL) 5 mg tablet - clopidogrel (PLAVIX) 75 mg tablet Take 75 mg by mouth once daily. - atenolol (TENORMIN) 25 mg tablet Take 25 mg by mouth once daily. - aspirin, enteric coated (ASPI (more content not included)... Normal [facility] 04-28-2023 CNPN Telephone (GYNML) FARRAH DEL VALLE ([id number]) 1945 F Date Time Provider Department 04/28/23 JENNY CONDON [facility] During your visit today, we recorded the following information about you: Jenny Condon RN 04/28/2023 11:30 AM Signed April 28, 2023 11:24 AM Patient called for post op follow up assessment. Reports she is doing well. Pain: Patient rates pain 4 on a scale of 0-10. 0 being no pain and 10 being worst pain imaginable. Patient states pain is tolerable. Diet: Patient is able tolerate fluids and normal diet. Bowel Movement: Patient is able to pass gas and has had a bowel movement. Voiding: Patient is able to void without difficult.. Vaginal Discharge: Denies heavy vaginal bleeding Skin Incision: Denies drainage, redness, or signs of infection. - radha present: No - sutures present: No - adhesive present: Yes - steri-strips present: No Medication: Denies questions or concerns about medication. Post op restrictions reviewed with patient including - activity- no heavy lifting, on pelvic rest - keep incision clean and dry. Ok to use mild antibacterial soap. - reviewed signs and symptoms to notify office including signs of infection, fever, heavy vaginal bleeding. - she is aware of post op appointment with Doctor Patient verbalized understanding and denies further questions at this time. Understands to call the office with further concerns/questions. Survivorship treatment summary initiated: path pending Jenny Condon RN Allergies As of Date: 04/28/2023 Noted Allergy Reaction CODEINE 02/22/2016 11 - Vomiting Date Reviewed: 04/25/2023 Reviewed by: Keesha Mccallum RN - Fully Assessed Reason for Visit: Post Op Follow Up [3947] Prescriptions as of 04/28/2023 - oxyCODONE IR (ROXICODONE) 5 mg immediate release tablet Take 1 tablet by mouth every 8 hours as needed for pain. - ibuprofen (MOTRIN) 600 mg tablet Take 1 tablet by mouth every 8 hours as needed for pain. - Senna 8.6 mg tab Take 1 tablet by mouth twice daily. - lisinopril (ZESTRIL, PRINIVIL) 5 mg tablet - clopidogrel (PLAVIX) 75 mg tablet Take 75 mg by mouth once daily. - atenolol (TENORMIN) 25 mg tablet Take 25 mg by mouth once daily. - aspirin, enteric coated (ASPIRIN, ENTERIC COATED) 81 mg EC tablet Take 81 mg by mouth once daily. Problem List As Of Date 04/28/2023 Noted Resolved Malignant neoplasm of right female breast (HCC)*02/05/2017 Malignant neoplasm of lower-inner quadrant of r*06/11/2017 Malignant neoplasm involving both nipple and ar*10/01/2017 Vaginal bleeding [N93.9] 04/02/2023 TIA (transient ischemic attack) [G45.9] 04/04/2023 Hypertension [I10] 04/09/2023 Encounter Status:Closed by JENNY CONDON on 04/28/23 [facility] ANES POSTPROC EVALon 023 ANES POSTPROC EVAL HNO ID: [id number] Author: Vincent Bradford MD Service: Anesthesiology Author Type: Physician Type: Anesthesia Postprocedure Evaluation Filed: 04/25/2023 12:50 PM Note Text: POST ANESTHESIA EVALUATION NOTE : 1945 Procedure Summary Date: 04/25/23 Room / Location: [facility] OR04 / [facility] OR Anesthesia Start: 1029 Anesthesia Stop: 1235 Procedure: LAPAROSCOPIC HYSTERECTOMY TOTAL FOR UTERUS 250 G OR LESS W/REMOVAL TUBE(S) AND/OR OVARY(S) (Bilateral: Pelvis) Diagnosis: Malignant neoplasm of lower-inner quadrant of right female breast, unspecified estrogen receptor status (HCC) Vaginal bleeding Thickened endometrium (Malignant neoplasm of lower-inner quadrant of right female breast, unspecified estrogen receptor status (HCC) [C50.311]) (Vaginal bleeding [N93.9]) (Thickened endometrium [R93.89]) Surgeons: Ruby Sullivan MD Responsible Provider: Vincent Bradford MD Anesthesia Type: general ASA Status: 3 Anesthesia Type: general Airway Type: ETT Last Vitals Vitals Value Taken Time BP 155/82 04/25/23 1245 Temp 36.8 04/25/23 1249 Pulse 57 04/25/23 1249 Resp 18 04/25/23 1249 SpO2 98 % 04/25/23 1249 Vitals shown include unvalidated device data. Post Anesthesia Patient Status Patient Evaluation: PACU. PACU/ICU Patient Condition: stable. Anticipated Disposition: phase 2 then home. Neurological Status: aware and responsive. Pulmonary Status: breathing comfortably on room air Airway Control: returned to baseline unsupported. Cardiovascular Status: stable. Pain Management: clinically adequate Postoperative Hydration: acceptable. Intraoperative Events: no significant anesthesia events Post Operative Nausea/Vomiting Status: no significant post operative nausea or vomiting Recommendation: continue current plan of care. Anesthesia Observations No Documentation SIGNATURE: Vincent Bradford MD PATIENT NAME: Farrah Del Valle DATE: April 25, 2023 TIME: 12:49 PM CSN: [id number] [facility] ANES PRE-OPon 04-25-2023 ANES PRE-OP HNO ID: [id number] Author: Vincent Bradford MD Service: Anesthesiology Author Type: Physician Type: Anesthesia Preprocedure Evaluation Filed: 04/25/2023 9:57 AM Note Text: ANESTHESIOLOGY DAY OF SURGERY NOTE : 1945 Procedure Information Date/Time: 04/25/23 1000 Procedure: LAPAROSCOPIC HYSTERECTOMY TOTAL FOR UTERUS 250 G OR LESS W/REMOVAL TUBE(S) AND/OR OVARY(S) (Bilateral: Pelvis) Location: [facility] OR04 / [facility] OR Surgeons: Ruby Sullivan MD Estimated body mass index is 25.37 kg/m? as calculated from the following: Height as of 04/04/23: 170.2 cm (5' 7 ). Weight as of 04/04/23: 73.5 kg (162 lb). Most recent hematocrit and potassium results: Hematocrit 42.5 04/04/2023 Potassium 3.8 04/04/2023 Relevant Problems CARDIO (+) Hypertension NEURO-PSYCH (+) TIA (transient ischemic attack) I - PHYSICAL EVALUATION AIRWAY Patient intubated: No. Tracheostomy tube not present Mallampati: II. TM distance: >3 FB. Neck ROM: full ROM without neurological symptoms. Mouth opening: adequate. Short neck: no. Thick neck: no DENTAL Dental findings: teeth intact. Dentures, upper: partial. Additional exam findings: yes. CARDIOVASCULAR Normal cardiovascular observations. Rhythm: regular PULMONARY Normal pulmonary observations. Breath sounds clear to auscultation. II - ANESTHESIA PLAN ASA Score: 3 Anesthetic Plan: general Airway type: ETT The patient is not a current smoker. NPO Status: adequate Beta Syeda Administration of chronic beta syeda medication planned. Monitoring Plan Monitoring plan: standard ASA. Post Procedure Analgesic Plan Postoperative analgesic plan: multimodal analgesia. Informed Consent Anesthetic risks, benefits, alternatives, personnel and consent discussed: yes. Patient / Responsible Alliance Party agrees to proceed: yes Patient / Surrogate agrees to blood products: Yes Significant changes in the patient condition since the History and Physical, not otherwise documented in primary service progress note: no. Potential Anesthesia issues that may suggest increased risk of complications or contraindication to planned procedure: none. Vitals Value Taken Time BP 175/84 04/25/23 0906 Pulse 68 04/25/23 0906 Resp 16 04/25/23 09 Temp 36.3 ?C (97.3 ?F) 04/25/23 09 SpO2 99 % 04/25/23 0906 Facility-Administered Medications as of 04/25/2023 Medication Dose Route Frequency - lidocaine (PF) 10 mg/mL (1 %) 1-2 mg injection (XYLOCAINE) 0.1-0.2 mL INTRADERMAL PRN - lactated ringers iv infusion 5-30 mL/hr INTRAVENOUS CONTINUOUS - NaCl 0.9% iv flush bag 20 mL INTRAVENOUS PRN - ceFAZolin iv piggyback 2 g in D5W (iso-osmotic) 100 mL (ANCEF) 2 g INTRAVENOUS Pre-Op Once Outpatient Medications as of 04/25/2023 Medication Sig - lisinopril (ZESTRIL, PRINIVIL) 5 mg tablet - atenolol (TENORMIN) 25 mg tablet Take 25 mg by mouth once daily. - clopidogrel (PLAVIX) 75 mg tablet Take 75 mg by mouth once daily. - aspirin, enteric coated (ASPIRIN, ENTERIC COATED) 81 mg EC tablet Take 81 mg by mouth once daily. I have interviewed and examined the patient. I have reviewed the medical record and/or the pre-anesthesia evaluation, pertinent labs, and test results. This contains updated information obtained within 48 hours of Surgery/Procedure. SIGNATURE: Vincent Bradford MD PATIENT NAME: Farrah Del Valle DATE: April 25, 2023 TIME: 9:45 AM CSN: [id number] [facility] NURSING PROGon 04-25-2023 NURSING PROG HNO ID: [id number] Author: Kira Nazario RN Service: Nursing Author Type: Registered Nurse Type: Nursing Progress Note Filed: 04/25/2023 3:07 PM Note Text: 1455: Page sent to Dr. Sullivan- PACU- Farrah Del Valle- just wanted to check when patient could resume plavix and aspirin? Thank you! Kira [id number] [phone]: Call returned from Dr. Sullivan- in for patient to resume Plavix and ASA abhay as long as she is feeling okay. Patient educated. [facility] NURSING PROG HNO ID: [id number] Author: Renay Bishop RN Service: Nursing Author Type: Registered Nurse Type: Nursing Progress Note Filed: 04/25/2023 8:52 AM Note Text: PATIENT EDUCATION TOPIC: PROCEDURE / SURGERY: Pre-op Teaching: Surgical Safety Principles READINESS TO LEARN COGNITIVE ABILITY: Alert and oriented MOTIVATION TO LEARN: Interested FAMILY SUPPORT: Unable to assess - Family not present INSTRUCTION PROVIDED TO: Patient PATIENT LEARNS BEST BY: Individual Instruction FACTORS AFFECTING LEARNING: None PHYSICAL LIMITATIONS AFFECTING LEARNING: None LEARNING RESPONSE DIAGNOSIS: ADULT: Well Adult PATIENT/FAMILY RESPONSE: Information received as demonstrated by interest and questions METHOD OF INSTRUCTION: Individual instruction FOLLOW-UP PLAN: Complete - No need for follow-up INSTRUCTIONAL AIDS USED: NA SUPPLEMENTAL MATERIAL PROVIDED TO PATIENT: None REFERRAL (RECOMMENDATION): None Electronically Signed By: Renay Bishop [facility] OPERATIVE NOon 04-25-2023 OPERATIVE NO HNO ID: [id number] Author: Ruby Sullivan MD Service: Gynecology Oncology Author Type: Physician Type: Operative Report Filed: 04/25/2023 12:21 PM Note Text: OPERATIVE/PROCEDURE REPORT LOG ID: [id number] SURGERY/PROCEDURE DATE: 04/25/2023 INCISION/PROCEDURE START TIME: 11:04 AM INCISION CLOSE/PROCEDURE END TIME: 12:17 PM SURGEON(S)/PROCEDURALI ST(S) AND DOBBY LOOM FIXER(S): Surgeon(s) and Role: * Ruby Sullivan MD - Primary Physician Water/Wastewater Project Manager: Jasmyn Goldberg PA-C; Debby Lauren PA-C certified medical technician assistant : Debby Lauren SURGERY/PROCEDURE(S): Total laparoscopic hysterectomy with bilateral salpingo-oophorectomy ANESTHESIA: Choice - Anesthesia Consult INDICATION FOR PROCEDURE: 78 y/o female with history of recurrent endometrial polyps and pelvic pain presents for definitive surgical management. INTRAOPERATIVE FINDINGS: Exam under anesthesia revealed normal vagina and cervix, cystocele and moderate prolapse of the cervix. Intraabdominal exam was normal without evidence of extrauterine disease. Normal appearing tubes ovaries and uterus. Following hysterectomy endometrium was grossly examined with benign appearing polyp noted without any visible myometrial invasion in this area. SURGERY/PROCEDURE DETAILS: After informed consent was obtained patient was taken to the operating room and placed under general anesthesia. She was positioned in dorsal lithotomy position with legs in earnestine stirrups with care taken to avoid excessive pressure on the lateral leg or hyperextension/flexion of the hip. Arms were tucked at the side padded and secured. She was prepped and draped in a normal sterile fashion. Saul catheter was placed into the bladder. Patient received prophylactic antibiotics prior to incision. SCDs were in place for DVT prophylaxis. Surgical time out was performed confirming patient and procedure. Findings from exam under anesthesia were as above. A speculum was placed into the vagina and cervix grasped with single tooth tenaculum. The uterus sounded to 8cm and was serially dilated. A rn hemodialysis uterine manipulator was carefully placed into the endometrial cavity without complication. We then turned attention to the abdomen, due to prior midline vertical infraumbilical incision, A 5mm incision was made in the LUQ after injection of marcaine. Veress needle was used for entry into the peritoneal cavity on a single attempt and abdomen was insufflated up to 15mmhg. A 5mm port was placed under direct visualization. Initial survey of the abdomen was noted as above. One additional 5mm port was placed in the left lower quadrant, one additional 5mm port was placed on the right lower quadrant and one additional 5mm port was placed on the in the umbilicus under direct visualization with care taken to avoid the inferior epigastric vasculature. Following this a peritoneal incision was made lateral to the left gonadal vessels to enter the retroperitoneal space. The left ureter was identified and the IP ligament was ligated and transected using ligasure device above the ureter, the posterior leaf of the broad ligament was taken down towards the uterus. The left round ligament was then ligated and transected and the anterior leaf of the broad ligament was taken down towards the bladder. The uterine artery was skeletonized, ligated and transected at the level of the colpotomy cup. Dissection occurred in the same fashion on the right side. Uterine artery pedicles were lateralized away from the colpotomy cup . Bladder flap was taken down below the level of the colpotomy cup. A colpotomy was then created using monopolar energy. The uterus,cervix, tubes and ovaries were delivered through the vagina and sent to pathology. The vagina was closed laparoscopically in a running fashion with 0 vloc suture. The pelvis was thoroughly irrigated and hemostasis was achieved without difficulty. Abdomen was deflated, all ports were removed from the abdomen, Skin was closed with 4-0 monocryl in a running fashion. Counts were correct x 2 at the end of the procedure, patient tolerated the procedure well and was transferred to PACU in stable condition. PRE-OP/PRE-PROCEDURE DIAGNOSIS: Endometrial polyp, pelvic pain POST-OP/POST-PROCEDURE DIAGNOSIS: Same as Preop ESTIMATED BLOOD LOSS: 20 mls SPECIMENS: ID Type Source Tests Collected by Time Destination A : Tissue UTERUS, CERVIX, BILATERAL FALLOPIAN TUBES AND BILATERAL OVARIES SURGICAL PATHOLOGY Ruby Sullivan MD 04/25/2023 11:54 AM IMPLANTABLE DEVICES: NONE DRAINS: None HEMOSTATIC AGENTS: None COMPLICATIONS: None PARTICIPATION IN SURGERY/PROCEDURE: I/primary surgeon/proceduralist performed the procedure with assistance. Debby ANDERS assisted with visulization and as needed for the entire procedure. No qualified resident/fellow was available. SIGNATURE: Ruby Sullivan MD PATIENT NAME: Farrah Del Valle DATE: April 25, (more content not included)... [facility] PT EDon 04-25-2023 PT ED HNO ID: [id number] Author: Keesha Mccallum RN Service: Nursing Author Type: Registered Nurse Type: Patient Education Filed: 04/25/2023 3:23 PM Note Text: PATIENT EDUCATION TOPIC: PROCEDURE / SURGERY: Post-op Teaching: Med Administration, Symptom Management, and Wound Care PATIENT NAME: Farrah Del Valle PATIENT LOCATION: [facility] OR POOL/[facility] OR POOL READINESS TO LEARN COGNITIVE ABILITY: Alert and oriented MOTIVATION TO LEARN: Interested FAMILY SUPPORT: High - Very involved in pt care INSTRUCTION PROVIDED TO: Patient PATIENT LEARNS BEST BY: Written Instruction - Hand-outs FACTORS AFFECTING LEARNING: None PHYSICAL LIMITATIONS AFFECTING LEARNING: None LEARNING RESPONSE DIAGNOSIS: ADULT: Well Adult PATIENT/FAMILY RESPONSE: Verbalizes understanding of: POST-OPERATIVE INSTRUCTIONS-Correct actions to take to reduce postoperative complications METHOD OF INSTRUCTION: Written instruction - handouts FOLLOW-UP PLAN: Patient instructed to call with any further issues INSTRUCTIONAL AIDS USED: NA SUPPLEMENTAL MATERIAL PROVIDED TO PATIENT: Post op discharge instructions REFERRAL (RECOMMENDATION): None Electronically Signed By: Keesha Mccallum [facility] SURGICAL PATHOLOGYon 023 CASE REPORT [facility] Comment on above: Order Comment: Speci men Type: TISSUE SPECIMEN Ordering Facility: [facility] Address: [address] [place] [id number] Result Comment: Surg ica Pathology Report Case: [id number] Authorizing Provider: Ruby Sullivan MD Collected: 04/25/2023 11:54 AM Ordering Location: [facility] Received: 04/25/2023 12:27 PM Operating Room Pathologist: Lissy Mace MD Specimen: UTERUS, CERVIX, BILATERAL FALLOPIAN TUBES AND BILATERAL OVARIES Performed By: #### S #### [facility] CLIA [id number] [address] [facility] [id number] [facility] CLIA [id number] CLINICAL HISTORY [facility] Comment on above: Order Comment: Speci men Type: TISSUE SPECIMEN Ordering Facility: [facility] Address: [address] [place] [phone] Result Comment: Pre- op diagnosis: Malignant neoplasm of lower-inner quadrant of right female breast, unspecified estrogen receptor status (HCC) [C50.311] Vaginal bleeding [N93.9] Thickened endometrium [R93.89] Performed By: #### S #### [facility] CLIA [id number] [facility] LABORATORY CLIA [id number] [address] [place] [address] FINAL DIAGNOSIS Normal [facility] Comment on above: Order Comment: Speci men Type: TISSUE SPECIMEN Ordering Facility: [facility] Address: [address] [address] Result Comment: Uter us, cervix, bilateral ovaries and fallopian tubes, hysterectomy with bilateral salpingo-oophorectomy: - Cervix: No significant pathologic abnormality. - Endometrium: Atrophy, benign endometrial polyp. - Myometrium: Adenomyosis, leiomyomas. - Left fallopian tube: No significant pathologic abnormality. - Left ovary: Epithelial inclusion cysts, stromal hyperplasia. - Right fallopian tube: Paratubal cyst. - Right ovary: Calcified fibroma in a background of stromal hyperplasia. Performed By: #### S #### [facility] CLIA [id number] [address] [place] [address] LABORATORY CLIA [id number] [address] [place] [address] OF [facility] FINAL PERFORMING LAB Normal [facility] Comment on above: Order Comment: Speci men Type: TISSUE SPECIMEN Ordering Facility: [facility] Address: [address] [address] Result Comment: Diag nostic interpretation performed at [place] [address] CLIA# [id number] Daycare Assistant: Mark Dave M.D. Performed By: #### S #### [facility] CLIA [id number] [address] [place] [address] [place] [facility] CLIA [id number] [address] [place] GROSS DESCRIPTION Normal [facility] Comment on above: Order Comment: Speci men Type: TISSUE SPECIMEN Ordering Facility: [facility] Address: [place] [address] Result Comment: A. U TERUS, CERVIX, BILATERAL FALLOPIAN TUBES AND BILATERAL OVARIES Received fresh designated uterus, cervix, bilateral fallopian tubes and bilateral ovaries is a previously opened in the OR uterus with attached cervix that weighs 168 g and measures 10 x 6 x 4 cm. The ectocervix is pink-garcia and smooth. The cervical os is round. The endocervical canal is pink-garcia and smooth measuring 3.5 cm in greatest dimension. The endometrial cavity measures 5.2 x 3.8 cm. The endometrium is pink-garcia hemorrhagic and thickened with a gelatinous polyp that measures 1.5 cm in greatest dimension. The polyp is located on the anterior endometrial wall, 4.5 cm from the lower uterine segment. The endometrium measures 0.3 cm in thickness. The myometrium measures 2.5 cm in thickness. The serosal surface is pink-garcia and smooth. Attached to the uterus is the left fallopian tube that measures 3.5 cm in length and 0.4 cm in diameter. The outer surface is pink-garcia and smooth. The fimbriated end is unremarkable. Sectioning through the tube reveals a patent lumen. Attached to the fallopian tube is an ovary that measures 1.5 x 1.2 x 1 cm. The outer surface is garcia and smooth. Sectioning through the ovary reveals unremarkable ovarian parenchyma. Also attached to the uterus is the right fallopian tube that measures 1.5 cm in length and 0.6 cm in diameter. The outer surface is pink-garcia and smooth. The fimbriated end is unremarkable. Sectioning through the tube reveals a patent lumen. Attached to the fallopian tube is an ovary that measures 2 x 1.8 x 1.5 cm. The outer surface is garcia-white and smooth. Sectioning to the ovary reveals a cyst that measures 0.6 cm in greatest dimension. Within the cyst clear serous fluid. There are areas of calcification present. Remaining ovarian parenchyma is unremarkable. [employer] Specialist sections are submitted as follows: A1. Endocervical canal 12:00. A2. Endocervical canal 6:00. A3-A5. Anterior endomyometrium with entire polyp. A6. Posterior endomyometrium with serosa. A7. 3 largest intramural nodules. A8-A9. Entire left fallopian tube. A10-A11. Entire left ovary. A12-A13. Entire right fallopian tube. A14-A17. Entire right ovary. WE April 25, 2023 12:57 PM Gross examination performed at [facility], [address] [place] [address] Performed By: #### S #### [facility] CLIA [id number] LABORATORY CLIA [id number] [address] [place] [address] Campbell 04-18-2023 CNPN Telephone (GYNML) FARRAH DEL VALLE ([id number]) 1945 F Date Time Provider Department 04/18/23 JENNY CONDON [facility] During your visit today, we recorded the following information about you: Jenny Condon RN 04/18/2023 11:14 AM Signed Attempted to call pt for preop teaching. Phone number not set up for VM. Will try back later. Janie Lopez RN 04/21/2023 10:22 AM Signed Procedure: lap Hyster BSO Physician: Nate Location: [facility]: [phone] Date AND Time: 04/25/23 MEDICAL CLEARANCE: No CARDIAC CLEARANCE: your ADMINISTRATIVE SERVICES ASSISTANT PRE ADMISSION TESTING: Yes THE FOLLOWING WAS EVALUATED Motivation To Learn: Interested Family/Significant Other Support: Unable to assess - Family not present Cognitive Ability: Alert and oriented Patient Learns Best By: Individual Instruction Written Instruction - Hand-outs Verbal Instruction Multiple Methods The Following Influencing Factors Were Barriers To This Education Session: None The Following Physical Limitations Were Barriers To This Education Session: None Instruction Provided To: Patient MEDICATION INFORMATION ASPIRIN and ADVIL can make you more prone to bleeding after surgery. Please STOP taking these medications at least (5) days before and for (3) days after surgery or procedure. Some common medications that contain ASPIRIN or act like Aspirin are TO BE AVOIDED: This is a list of the medications you should avoid: Advill Celebrex Motrin Aggrenox Clinoril Naprosyn(naproxen) Agrylin NSAIDS Pepto-Bismol Aleve Ecotrin Persantine Daniela-Sussex Excedrin Plaquenil Anacin Heparin Plavix Ascriptin Herbals Pletal Aspergum Ibuprofen Ticlid Radha Indocin Trental Bextra Midol Vanquish Bufferin Gingko Biloba Vitamin E (MVI) STOP Plavix: x 7 days MEDICATIONS YOU MAY SUBSTITUTE Anacin 3 Fioricet * Tylenol with codeine * Darvocet N 100 * Plenadol Percocet * Datril Sine-Aide Tylenol Excedrin PM (*Denotes prescription needed to obtain these medications) Learning Topic: Procedure/Surgery: Instructions reviewed for arrival time, parking and admission. Specific topics reviewed and discussed with all surgical patients include: No eating, drinking, or smoking after midnight prior to surgery. Medications as prescribed by anesthesia or the physician. dalila Review of information contained in surgical packet Pre-operative and intra-operative general activities were reviewed including: Holding Area, assessments, surgical positioning, and Family Waiting Area. Written post-operative instructions were given to the patient regarding post-op activity, pain control, symptoms to report. Post-operative instructions provided and reviewed with patient/family: ACTIVITY - No heavy lifting (>5-10 lbs), no pushing/pulling, OK to climb stairs DRIVING - No driving while taking prescription pain medication, or within 24 hours of anesthesia, OK to ride in a car. DIET - Advance diet as tolerated and as ordered by MD, drink 8 glasses of water a day, eat a diet high in protein and fiber unless otherwise directed by MD. CATHETER - Will be inserted during surgery, you may go home with a catheter. If you go home with a catheter you will have to come back to the office for a voiding trial, UTI symptoms reviewed and patient instructed to notify MD of any of these symptoms. INCISION CARE - Keep incision clean and dry, radha to be removed 7-10 days after surgery, steristrips do not need to be removed by MD BATHING - OK to shower after surgery unless otherwise directed by MD, no tub baths. PAIN MEDICATION - IV pain medication after surgery, IV ADVERTISING LAYOUT WORKER if ordered by MD, discharged home with a prescription for PO pain medication, pain management after surgery, side effects of pain medication (including constipation, dizziness, drowsiness, and medication interactions). DVT PROPHYLAXIS - Early ambulation, SCDs, injectable anticoagulants (heparin, lovenox, etc) RESPIRATORY - Incentive spirometer, coughing/deep breathing exercises, ambulation. RETURN TO WORK - As directed by physician, please send any FMLA papers to physician's safety deposit supervisor. SYMPTOMS TO NOTIFY MD - Fever, chills, nausea, vomiting, increased or severe pain, heavy vaginal bleeding, foul smelling vaginal drainage, pain or swelling in extremities. URGENT SYMPTOMS - Call 911 or go to ER if any shortness of breath, difficulty breathing, or chest pain. HOW TO CONTACT PHYSICIAN - Physician's office phone number given to patient, if after hours patient instructed to call plastic molding operator and ask for the doctor spinning bath person. Patient and family have phone number to call 24 hours/day. Patient Evaluation: Verbalizes understanding Patient and/or family express understanding of upcoming surgery and the operative process. Questions answered. Follow Up Plan: Follow up as directed by MD. Supplemental Material Gi (more content not included)... Normal [facility] CONFIRM BLOOD TYPEon 023 ABO O [facility] Rh Nom (Bld) Positive [facility] CBC panel Auto (Bld)on 04-04 Erythrocyte distribution width (RBC) [Ratio] 12.7 % Normal 11.5-15.0 [facility] Comment on above: Order Comment: Speci men Type: BLOOD SPECIMENOrdering Facility: [facility] Address: [address] [place] [address] Performed By: #### 5 8410-2 ####[facility] [id number] [place] [address] [place] Hematocrit (Bld) [Volume fraction] 42.5 % Normal 36.0-46.0 [facility] Comment on above: Order Comment: Speci men Type: BLOOD SPECIMENOrdering Facility: [facility] Address: [address] [address] Performed By: #### 5 8410-2 ####[facility] [id number] [place] [address] [place] Hemoglobin (Bld) [Mass/Vol] 13.5 g/dL Normal 11.5-15.5 [facility] Comment on above: Order Comment: Speci men Type: BLOOD SPECIMENOrdering Facility: [facility] Address: [address] [address] Performed By: #### 5 8410-2 ####[facility] [id number] [place] [address] [place] MCH (RBC) [Entitic mass] 29.3 pg Normal 26.0-34.0 [facility] Comment on above: Order Comment: Speci men Type: BLOOD SPECIMENOrdering Facility: [facility] Address: [address] Performed By: #### 5 8410-2 ####[facility] [id number] [place] [address] [place] MCHC (RBC) [Mass/Vol] 31.8 g/dL Normal 30.5-36.0 [facility] Comment on above: Order Comment: Speci men Type: BLOOD SPECIMENOrdering Facility: [facility] Address: [address] Performed By: #### 5 8410-2 ####[facility] [id number] [place] [address] [place] MCV (RBC) [Entitic vol] 92.4 fL Normal 80.0-100.0 [facility] Comment on above: Order Comment: Speci men Type: BLOOD SPECIMENOrdering Facility: [facility] Address: [address] [place], [place] [address] Performed By: #### 5 8410-2 ####[facility] [id number] [place] [address] [place] Nucleated RBC (Bld) [#/Vol] 10*3/uL Normal <0.01 [facility] Comment on above: Order Comment: Speci men Type: BLOOD SPECIMENOrdering Facility: [facility] Address: [address] [place] [address] Performed By: #### 5 8410-2 ####[facility] [id number] [place] [address] [place] Platelet mean volume (Bld) [Entitic vol] 11.5 fL Normal 9.0-12.7 [facility] Comment on above: Order Comment: Speci men Type: BLOOD SPECIMENOrdering Facility: [facility] Address: [address] [place] [address] Performed By: #### 5 8410-2 ####[facility] [id number] [place] [address] [place] Platelets (Bld) [#/Vol] 234 10*3/uL Normal 150-400 [facility] Comment on above: Order Comment: Speci men Type: BLOOD SPECIMENOrdering Facility: [facility] Address: [address] [place], [place] [address] Performed By: #### 5 8410-2 ####[facility] [id number] [place] [address] [place] RBC (Bld) [#/Vol] 4.60 10*6/uL Normal 3.90-5.20 [facility] Comment on above: Order Comment: Speci men Type: BLOOD SPECIMENOrdering Facility: [facility] Address: [address] [place], [place] [address] Performed By: #### 5 8410-2 ####[facility] [id number] [place] [address] [place] WBC (Bld) [#/Vol] 6.72 10*3/uL Normal 3.70-11.00 [facility] Comment on above: Order Comment: Speci men Type: BLOOD SPECIMENOrdering Facility: [facility] Address: [address] [place] [address] Performed By: #### 5 8410-2 ####[facility] [id number] [address] OF [facility] CONFIRM BLOOD TYPEon 023 ABO O Normal [facility] Comment on above: Order Comment: Speci men Type: BLOOD SPECIMENOrdering Facility: [facility] Address: [address] [place] [address] Performed By: #### C ONABO ####[facility] BLOOD BANKCLIA [id number] [place] [address] [place] Rh Nom (Bld) Positive Normal [facility] Comment on above: Order Comment: Speci men Type: BLOOD SPECIMENOrdering Facility: [facility] Address: [address] [place] [address] Performed By: #### C ONABO ####[facility] BLOOD BANKCLIA [id number] [place] [address] [place] Comprehensive metabolic 2000 panelon 04-04-2023 Albumin [Mass/Vol] 4.1 g/dL Normal 3.9-4.9 [facility] Comment on above: Order Comment: Speci men Type: BLOOD SPECIMENOrdering Facility: [facility] Address: [address] [place], [place] [address] Performed By: #### 2 4323-8 ####[facility] [id number] [address] [place] ALP [Catalytic activity/Vol] 88 U/L Normal 34-123 [facility] Comment on above: Order Comment: Speci men Type: BLOOD SPECIMENOrdering Facility: [facility] Address: [address] Performed By: #### 2 4323-8 ####[facility] [id number] [place] [address] [place] ALT [Catalytic activity/Vol] 10 U/L Normal 7-38 [facility] Comment on above: Order Comment: Speci men Type: BLOOD SPECIMENOrdering Facility: [facility] Address: [address] Performed By: #### 2 4323-8 ####[facility] [id number] [place] [address] [place] Anion gap [Moles/Vol] 11 mmol/L Normal 9-18 [facility] Comment on above: Order Comment: Speci men Type: BLOOD SPECIMENOrdering Facility: [facility] Address: [address] [place], [place] [address] Performed By: #### 2 4323-8 ####[facility] [id number] [place] [address] [place] AST [Catalytic activity/Vol] 14 U/L Normal 13-35 [facility] Comment on above: Order Comment: Speci men Type: BLOOD SPECIMENOrdering Facility: [facility] Address: [address] [place], [place] [address] Performed By: #### 2 4323-8 ####[facility] [id number] [place] [address] [place] Bilirubin [Mass/Vol] 0.9 mg/dL Normal 0.2-1.[address] [facility] Comment on above: Order Comment: Speci men Type: BLOOD SPECIMENOrdering Facility: [facility] Address: [address] Performed By: #### 2 4323-8 ####[facility] [id number] [place] [address] [place] Calcium [Mass/Vol] 9.7 mg/dL Normal 8.5-10.2 [facility] Comment on above: Order Comment: Speci men Type: BLOOD SPECIMENOrdering Facility: [facility] Address: [address] [place] [address] Performed By: #### 2 4323-8 ####[facility] [id number] [place] [address] [place] Chloride [Moles/Vol] 106 mmol/L High 97-[address] [facility] Comment on above: Order Comment: Speci men Type: BLOOD SPECIMENOrdering Facility: [facility] Address: [address] [place] [address] Performed By: #### 2 4323-8 ####[facility] [id number] [place] [address] [place] CO2 [Moles/Vol] 25 mmol/L Normal 22-30 [facility] Comment on above: Order Comment: Speci men Type: BLOOD SPECIMENOrdering Facility: [facility] Address: [address] [place], [place] [address] Performed By: #### 2 4323-8 ####[facility] [id number] [place] [address] [place] Creatinine [Mass/Vol] 0.80 mg/dL Normal 0.58-0.96 [facility] Comment on above: Order Comment: Speci men Type: BLOOD SPECIMENOrdering Facility: [facility] Address: [address] [place], [place] [address] Performed By: #### 2 4323-8 ####[facility] [id number] [place] [address] [place] ESTIMATED GLOMERULAR FILTRATION RATE 76 mL/min/1.73m??? Normal >=60 [facility] Comment on above: Order Comment: Speci men Type: BLOOD SPECIMENOrdering Facility: [facility] Address: [address] [address] Result Comment: Allison mated Glomerular Filtration Rate (eGFR) is calculated using the 2020 CKD-EPI creatinine equation. This equation utilizes serum creatinine, sex, and age as parameters. The creatinine assay has traceable calibration to isotope dilution-mass spectrometry. Refer to KDIGO guidelines for clinical interpretation. In patients with unstable renal function, e.g. those with acute kidney injury, the eGFR may not accurately reflect actual GFR. Performed By: #### 2 4323-8 ####[facility] [id number] [place] [address] [place] Glucose [Mass/Vol] 89 mg/dL Normal 74-99 [facility] Comment on above: Order Comment: Nova au Type: BLOOD SPECIMENOrdering Facility: [facility] Address: [address] [place] [address] Result Comment: The [place] Diabetes Association (ADA) provides guidance for cutoff values for fasting glucose and random glucose. The ADA defines fasting as no caloric intake for at least 8 hours. Fasting plasma glucose results between 100 to 125 mg/dL indicate increased risk for diabetes (prediabetes). Fasting plasma glucose results greater than or equal to 126 mg/dL meet the criteria for diagnosis of diabetes. In the absence of unequivocal hyperglycemia, results should be confirmed by repeat testing. In a patient with classic symptoms of hyperglycemia or hyperglycemic crisis, random plasma glucose results greater than or equal to 200 mg/dL meet the criteria for diagnosis of diabetes. Reference: Standards of Medical Care in Diabetes 2016, [place] [employer]. Diabetes Care. 2016.39(Suppl 1). Performed By: #### 2 4323-8 ####[facility] [id number] [place] [address] [place] Potassium [Moles/Vol] 3.8 mmol/L Normal 3.7-5.1 [facility] Comment on above: Order Comment: Nova au Type: BLOOD SPECIMENOrdering Facility: [facility] Address: [address] [address] Performed By: #### 2 4323-8 ####[place] [facility] [id number] [address] [place] Protein [Mass/Vol] 6.8 g/dL Normal 6.3-8.0 [facility] Comment on above: Order Comment: Speci men Type: BLOOD SPECIMENOrdering Facility: [facility] Address: [address] [place] [address] Performed By: #### 2 4323-8 ####[place] [facility] [id number] [address] [place] Sodium [Moles/Vol] 142 mmol/L Normal 136-144 [facility] Comment on above: Order Comment: Speci men Type: BLOOD SPECIMENOrdering Facility: [facility] Address: [address] [place] [address] Performed By: #### 2 4323-8 ####[facility] [facility] [id number] [address] [place] Urea nitrogen [Mass/Vol] 14 mg/dL Normal 7-21 [facility] Comment on above: Order Comment: Speci men Type: BLOOD SPECIMENOrdering Facility: [facility] Address: [address] [place] [address] Performed By: #### 2 4323-8 ####[facility] [facility] [id number] [address] [place] HISTORY PHYSICALon HISTORY PHYSICAL HNO ID: [id number] Author: Karina Juarez APRN.KENYATTA Service: ? Author Type: Nurse Practitioner Type: HANDP Filed: 04/09/2023 2:26 PM Note Text: HISTORY AND PHYSICAL EXAMINATION SERVICE DATE: 04/04/2023 SERVICE TIME: 2:24 PM PRIMARY CARE PHYSICIAN: Karl Kennedy MD REASON FOR VISIT: Farrah Del Valle is a 78 year old female who is scheduled for Procedure(s) (LRB): LAPAROSCOPIC HYSTERECTOMY TOTAL FOR UTERUS 250 G OR LESS W/REMOVAL TUBE(S) AND/OR OVARY(S) (Bilateral) at the request of Dr. Ruby Sullivan for consultation. My final recommendation will be communicated back to the requesting physician by way of shared medical record or letter. The patient has the following: ACTIVE PROBLEM LIST Malignant Neoplasm of Right Female Breast (Hcc) Malignant Neoplasm of Lower-Inner Quadrant of Right Female Breast (Hcc) Malignant Neoplasm Involving Both Nipple and Areola of Right Breast in Female (Hcc) Vaginal Bleeding Tia (Transient Ischemic Attack) Hypertension Subjective CHIEF COMPLAINT: Vaginal bleeding, thickened endometrium, HPI: 78 year old year old presents to [facility] for evaluation. Patient was seen by FRAMING CONSULTANT for thickened endometrium. She had a DANDC 01/2022. She reports persistent abdominal pain and intermittent pink discharge. Has elected for surgical intervention. PAST MEDICAL HISTORY Diagnosis Date Hypertension TIA (transient ischemic attack) PAST SURGICAL HISTORY Procedure Laterality Date BACK SURGERY HX disc surgery BIOPSY BREAST right breast CHOLECYSTECTOMY HX FAMILY HISTORY Problem Relation Age of Onset Lipids Mother Diabetes Father Ischemic Heart Disease Father Skin Cancer Maternal Uncle SOCIAL HISTORY: Social History Tobacco Use Smoking status: Never Smokeless tobacco: Never Vaping Use Vaping Use: Never used Substance Use Topics Alcohol use: No Drug use: No Prior to Admission medications as of 04/04/23 1442 Medication Sig Last Dose Taking lisinopril (ZESTRIL, PRINIVIL) 5 mg tablet Taking Yes clopidogrel (PLAVIX) 75 mg tablet Take 75 mg by mouth once daily. Taking Yes atenolol (TENORMIN) 25 mg tablet Take 25 mg by mouth once daily. Taking Yes aspirin, enteric coated (ASPIRIN, ENTERIC COATED) 81 mg EC tablet Take 81 mg by mouth once daily. Taking Yes No medication comments found. ALLERGIES Allergen Reactions Codeine Vomiting COVID VACCINATION STATUS: Fully vaccinated REVIEW OF SYSTEMS: PAIN ASSESSMENT: General: No weight loss, malaise or fevers. Neuro: Negative for Headaches Seizures Stroke-residual deficit Stroke-No residual deficit +TIA Respiratory: No history of current cough or dyspnea, or pneumonia in the past 6 weeks. No history of respiratory/pulmonary symptoms or problems. Cardiovascular: Negative for Recent FL, Angina, Chest Pain, PVD, DVT/PE +HTN GI: No history of GI symptoms or problems. No history of esophageal varices, recent ascites, or ETOH greater than 2 drinks per day. : No history of dysuria, frequency or incontinence,, stones or chronic kidney disease FRAMING CONSULTANT: See HPI : Denies, No LMP recorded. Patient is postmenopausal. Endocrine: No history of diabetes. Has not taken steroids within the past 30 days. No history of endocrinological symptoms or problems. Hematology: Chronic anti-coagulation / platelet meds (Aspirin, Plavix) Oncology: + Lumpectomy Right Psych: No history of psychiatric symptoms or problems. Musculoskeletal: Negative for joint pain or swelling, back pain or muscle pain. Skin: Negative for lesions, rash and itching. Objective PHYSICAL EXAM: VITALS: BP 157/79 Pulse 66 Temp (Src) 97.2 (Temporal) Resp 14 Ht 5' 7 (1.70m) Wt 162 lb (73.5kg) SpO2 98% BMI 25.37 kg/(m2). General: Alert and oriented Skin: Normal color, no rash, no lesions. HEENT: EOM, pupils equal, round and reactive. Cardiovascular: Normal S1 AND S2, no rubs, murmurs or gallops. No JVD. Pulse regular. Lungs: Normal breath sounds, no wheezes or crackles. Extremities: No deformity, no edema or tenderness, no joint swelling or clubbing. Neurological: Normal cognition and motor skills. Pulses: Radial pulses normal +2. Diagnostic tests reviewed for today's visit: Lab Value Units Date High Low HB 13.5 g/dL 04/04/2023 15.5 11.5 HCT 42.5 % 04/04/2023 46.0 36.0 WBC 6.72 k/uL 04/04/2023 11.00 3.70 PLT 234 k/uL 04/04/2023 400 150 NA 142 mmol/L 04/04/2023 144 136 K 3.8 mmol/L 04/04/2023 5.1 3.7 GLUC 89 mg/dL 04/04/2023 99 74 BUN 14 mg/dL 04/04/2023 21 7 CREAT 0.80 mg/dL 04/04/2023 0.96 0.58 PTSEC No results within date range. INR No results within date range. APTT No results within date range. ALT 10 U/L 04/04/2023 38 7 AST 14 U/L 04/04/2023 35 13 TBILI 0.9 mg/dL 04/04/2023 1.3 0.2 TSH No results within date range. Assessment/Plan TIA (transient ischemic attack) Assessment: No deficits On DAPT Follows with PCP Hypertension Assessment: Stab (more content not included)... Normal [facility] TYPE AND SCREEN,30 DAYon ABO O Normal [facility] Comment on above: Order Comment: Speci men Type: BLOOD SPECIMEN [facility] Address: [address] [place] [address] Performed By: #### T SCR30 #### [facility] CLIA [id number] HISTORICAL AB SCR STATUS Negative Normal [facility] Comment on above: Order Comment: Speci men Type: BLOOD SPECIMEN [facility]ing [facility] Address: [address] [place] [address] Performed By: #### T SCR30 #### [facility] CLIA [id number] [address] Rh Nom (Bld) Positive Normal [facility] Comment on above: Order Comment: Speci men Type: BLOOD SPECIMEN [facility]ing [facility] Address: [address] [place] [address] Performed By: #### T SCR30 #### [facility] CLIA [id number] [address] CNOVSPon 04-02-2023 CNOVSP Visit (SP) Office (GYNOSA) FARRAH DEL VALLE ([id number]) 1945 F Date Time Provider Department 04/02/23 2:00 PM RUBY SULLIVAN During your visit today, we recorded the following information about you: Temperature Pulse Respiration Blood pressure 97.4 degrees 71/minute 18/minute 153/83 Weight 74.1 kg Ruby Sullivan MD 04/02/2023 2:37 PM Signed DATE OF SERVICE: 04/02/2023 REASON FOR VISIT: Thickened endometrium, review US, review medical clearance pre operatively DIAGNOSIS: Thickened endometrium HPI: 1Sabino Del Valle is a 77 year old female with pmh of HTN, breast CA, sensorineural hearing loss and TIA who was evaluated by FRAMING CONSULTANT for a thickened endometrium noted on CT on 11/2021 and on follow up US in 01/2022. An DANDC ECC completed on 02/11/22 with benign findings. Patient having persistent abdominal pain and intermittent pink vaginal discharge presents for discussion of management. She reports normal appetite, normal bowel movements. Last visit with Dr. Cordoba on 02/04/23: DATE OF LAST VISIT: 02/26/23 Patient states pain comes and goes. She hasn't been active so no pain today.no discharge or bleeding. No trouble with going to the bathroom OBSTETRIC/ GYNECOLOGY HISTORY: Last Pap: 01/16/23 negative PAST MEDICAL HISTORY Diagnosis Date Hypertension TIA (transient ischemic attack) PAST SURGICAL HISTORY Procedure Laterality Date BACK SURGERY HX disc surgery BIOPSY BREAST right breast CHOLECYSTECTOMY HX Neck surgery 09/2021 Family History Problem Relation Age of Onset Lipids Mother Diabetes Father Ischemic Heart Disease Father Skin Cancer Maternal Uncle Breast cancer - right lumpectomy with right axillary biopsy - s/p adjuvant radiation RECENT PATHOLOGY: 02/11/2022 RECENT IMAGING: Date: 03/05/2023 Date: 01/21/2022 12/08/2021 CT A/P HEALTH MAINTENANCE: Last mammogram: not discussed today Last colonoscopy: Patient reports that she had a colonoscopy in the past few years that was normal ECOG performance status ECOG PERFORMANCE STATUS: 0- Fully active, able to carry on all pre-disease performance w/o restriction. SUBJECTIVE/INTERVAL HISTORY: Farrah Del Valle reports that she is having persistent abdominal pain that now is shooting through her lower abdomen. Reports intermittent pain. Reports pink vaginal discharge. No shortness of breath, cough, or chest pain. No abdominal pain, nausea, vomiting, diarrhea, or constipation. No dysuria, gross hematuria, urinary frequency, urinary urgency, or incontinence. Her ECOG performance status is 1 (restricted in physically strenuous activity but ambulatory and able to carry out work of a light or sedentary nature). OBJECTIVE: VITALS: BP 153/83 Pulse 71 Temp (Src) 97.4 (Temporal) Resp 18 Wt 163 lb 6.4 oz (74.1kg) SpO2 95% GENERAL: alert, oriented, pleasant, and cooperative. HEENT: Normocephalic, atraumatic, and no lesions. ASSESSMENT: 78 year old y/o female with PMH TIAs, HTN, on plavix, hx Breast cancer 2015 s/p lumpectomy and radiation presenting for further evaluation of persistent abdominal/pelvic pain and pink vaginal discharge. Last endometrial assessment was ~13 months ago with DANDC completed for thickened endometrium with showed benign endometrial polyps. Patient was scheduled for hysterectomy w/Dr. Cordoba due to ongoing symptoms however he recently is moving practice [place] and she presents today for further discussion of management. Reviewed repeat sono today showing persistent 2cm endometrium. Patient having persistent symptoms of lower abdominal pain and pink discharge. Discussed option for repeat DANDC for polyp removal (consistent with last biopsy) vs definitive management with hysterectomy. Patient opts for definitive management. We discussed the r/b/a to surgery in detail and informed consent was obtained. Will stop plavix 7d pre op Medical clearance from PCP scanned into chart. PLAN: OR at Pre op labs ordered PAT to be scheduled Ruby Sullivan MD Medical Decision Making: Problems: Moderate: 1+ chronic illnesses with change Data: Unique test result(s) reviewed: 1 Unique test(s) ordered: 3+ Risk: High: Decision on elective major surgery w/ risk factors Medical Decision Making Level: 4 - Moderate Letter sent to referring providers including note from today's office visit: MD Christiano Lynch MD [address] [place] [address] [place] [address] Allergies As of Date: 04/02/2023 Noted Allergy Reaction CODEINE 02/22/2016 11 - Vomiting Date Reviewed: 04/02/2023 Reviewed by: Mandy Chan - Fully Assessed Reason for Visit: Pelvic Pain [282] Primary Visit Diagnosis:Pre-op exam [Z01.818] Other Visit Diagnoses:Thickened endometrium [R93.89 (ICD-10-CM)] [R93.89] Vaginal bleeding [N93.9 (ICD-10-CM)] [N93.9] Order( (more content not included)... Normal [facility] 03-14-2023 CNPN Telephone (HEMASA) IVONFARRAH William ([id number]) 1945 F Date Time Provider Department 03/14/23 RUBY SULLIVAN HEMASA During your visit today, we recorded the following information about you: Ed[facility] 03/14/2023 11:12 AM Signed Pre-op clearance note from Dr. Kennedy is scanned now. Mary Beth Gamez APRN.[employer] 03/18/2023 4:44 PM Signed Left voicemail on Dr. Kennedy's nurse clinical line regarding pre-op clearance- office visit clarification. Will await returned call. Mary Beth Gamez APRN.[employer]IC March 18, 2023 4:44 PM Edel Chan RN 03/21/2023 9:14 AM Signed Spoke to Esther at office of Dr. Kennedy. She said she faxed over updated office note 03/20/2023. Confirmed fax # and it was incorrect. Correct fax # provided and she will fax over now. Edel Chan RN 03/21/2023 3:40 PM Signed LVM on nurse clinical line of Dr. Kennedy, requesting clearance to stop Plavix for 7 days prior to upcoming surgery, letter can be faxed, # provided Edel Chan RN 04/01/2023 10:09 AM Signed LVM on nurse clinical line of Dr. Kennedy, requesting clearance to stop Plavix for 7 days prior to upcoming surgery, letter can be faxed, # provided Denise Hamm RN 04/08/2023 9:46 AM Addendum Per 04/04/23 PAT note from Karina Juarez CNP Per PCP: Will stop plavix 7d pre op. Spoke with patient and she is aware. Allergies As of Date: 03/14/2023 Noted Allergy Reaction CODEINE 02/22/2016 11 - Vomiting Date Reviewed: 02/26/2023 Reviewed by: Mandy Chan - Fully Assessed Reason for Visit: Pre-op Clearance Note [Other] Prescriptions as of 04/08/2023 - lisinopril (ZESTRIL, PRINIVIL) 5 mg tablet - clopidogrel (PLAVIX) 75 mg tablet Take 75 mg by mouth once daily. - atenolol (TENORMIN) 25 mg tablet Take 25 mg by mouth once daily. - aspirin, enteric coated (ASPIRIN, ENTERIC COATED) 81 mg EC tablet Take 81 mg by mouth once daily. Problem List As Of Date 03/14/2023 Noted Resolved Malignant neoplasm of right female breast (HCC)*02/05/2017 Malignant neoplasm of lower-inner quadrant of r*06/11/2017 Malignant neoplasm involving both nipple and ar*10/01/2017 Encounter Status:Closed by MARY BETH GAMEZ on 03/18/23 [facility] CNOVSPon 02-26-2023 CNOVS Visit (SP) Office (GYNOSA) FARRAH DEL VALLE ([id number]) 1945 F Date Time Provider Department 02/26/23 10:00 AM RUBY SULLIVAN During your visit today, we recorded the following information about you: Temperature Pulse Respiration Blood pressure 97.1 degrees 64/minute 18/minute 173/81 Weight 73.9 kg Ruby Sullivan MD 02/26/2023 12:44 PM Signed DATE OF SERVICE: 02/26/2023 REASON FOR VISIT: Thickened endometrium Consultation requested by Dr. Cordoba. My final recommendations will be communicated back to the requesting physician by way of shared Medical record or letter to requesting physician via US mail. DIAGNOSIS: Thickened endometrium HPI: Farrah Del Valle is a 77 year old female with pmh of HTN, breast CA, sensorineural hearing loss and TIA who was evaluated by FRAMING CONSULTANT for a thickened endometrium noted on CT on 11/2021 and on follow up US in 01/2022. An DANDC ECC completed on 02/11/22 with benign findings. Patient having persistent abdominal pain and intermittent pink vaginal discharge presents for discussion of management. She reports normal appetite, normal bowel movements. Last visit with Dr. Cordoba on 02/04/23: DATE OF LAST VISIT: NA OBSTETRIC/ GYNECOLOGY HISTORY: Last Pap: 01/16/23 negative PAST MEDICAL HISTORY Diagnosis Date Hypertension TIA (transient ischemic attack) PAST SURGICAL HISTORY Procedure Laterality Date BACK SURGERY HX disc surgery BIOPSY BREAST right breast CHOLECYSTECTOMY HX Neck surgery 09/2021 Appendix during c/s Family History Problem Relation Age of Onset Lipids Mother Diabetes Father Ischemic Heart Disease Father Skin Cancer Maternal Uncle Breast cancer - right lumpectomy with right axillary biopsy - s/p adjuvant radiation RECENT PATHOLOGY: 02/11/2022 RECENT IMAGING: Date: 01/21/2022 12/08/2021 CT A/P HEALTH MAINTENANCE: Last mammogram: not discussed today Last colonoscopy: Patient reports that she had a colonoscopy in the past few years that was normal ECOG performance status ECOG PERFORMANCE STATUS: 0- Fully active, able to carry on all pre-disease performance w/o restriction. OBJECTIVE: VITALS: BP 173/81 Pulse 64 Temp 97.1 Resp 18 Wt 163 lb (73.9kg) SpO2 95% GENERAL: alert, oriented, pleasant, and cooperative. HEENT: Normocephalic, atraumatic, and no lesions. ASSESSMENT: 77 year old y/o female with PMH TIAs, HTN, on plavix, hx Breast cancer 2015 s/p lumpectomy and radiation presenting for further evaluation of persistent abdominal/pelvic pain and pink vaginal discharge. Last endometrial assessment was ~13 months ago with DANDC completed for thickened endometrium with showed benign endometrial polyps. Patient was scheduled for hysterectomy w/Dr. Cordoba due to ongoing symptoms however he recently is moving practice out of [place] and she presents today for further discussion of management. I reviewed outside pathology ,ultrasound report and office records. Patient describing mid abdominal pain which I discussed may not be related to her gynecologic organs. We discussed r/b/a of laparoscopic hysterectomy. Patient is on plavix but is unsure why - I discussed the need for medical clearance for laparoscopic hysterectomy from her PCP Dr. Karl Kennedy and plan for plavix perioperatively. In the interim I recommend repeat ultrasound given her last imaging was >1 year ago. PLAN: Pelvic ultrasound Recommend follow up with PCP for medical clearance prior to surgery Return to review sono and further discuss management pending medical clearance Ruby Sullivan MD Medical Decision Making: Problems: Moderate: 1+ chronic illnesses with change Data: Unique source(s) for external note(s) reviewed: 1 Unique test result(s) reviewed: 2 Risk: High: Decision on elective major surgery w/ risk factors Medical Decision Making Level: 4 - Moderate Letter sent to referring providers including note from today's office visit: MD Christiano Lynch MD [address] [place] [address] [place] [address] Referring Provider: CHRISTIANO CORDOBA [[id number]] Allergies As of Date: 02/26/2023 Noted Allergy Reaction CODEINE 02/22/2016 11 - Vomiting Date Reviewed: 02/26/2023 Reviewed by: Mandy Chna - Fully Assessed Reason for Visit: Consult [173] Primary Visit Diagnosis:Pelvic pain [R10.2] Other Visit Diagnoses:Thickened endometrium [R93.89] Vaginal spotting [N93.9 (ICD-10-CM)] [N93.9] Order(s): FEMALE PELVIS TRANSVAG [9002737] Order #: [id number] FUTURE FEMALE PELVIS TRANSABD COMPLETE [[id number]] Order #: [id number] FUTURE Follow-up and Disposition History for Encounter Date Provider Department Center 02/26/2023 [id number], MICHELL*[facility] [place] [facility] Prescriptions as of 02/26/2023 - lisinopril (ZESTRIL, PRINIVIL) 5 mg tablet - clopidogrel (PLAVIX) 75 mg tablet Take (more content not included)... Normal [facility] 02-26-2023 KENYATTAN Telephone (NCCAP) FARRAH DEL VALLE ([id number]) 1945 F Date Time Provider Department 02/26/23 RUBY SULLIVAN During your visit today, we recorded the following information about you: Aura Krishna 02/26/2023 1:[address] Sullivan is asking if we can send Dr. Karl Kennedy a letter that she is requesting medical clearance for a laparoscopic hysterectomy. Drea: The doctor would like you to request records from Dr. Karl Kennedy. Edel [facility] 02/26/2023 1:26 PM Signed Letter faxed to Dr. Kennedy. Aura Krishna 03/11/2023 7:25 AM Signed PSS: Please call Dr. Karl Kennedy's office to see if the patient has been scheduled for a medical clearance appt. Then send to Drea to request the progress note/letter. Denise Montaño 03/11/2023 8:41 AM Signed Lvm with Dr Karl Kennedy's office at to call back to see if patient was scheduled for patient medical clearance appointment. Denise Montaño 03/11/2023 2:26 PM Signed Spoke to Ines at Dr Karl Kennedy's office AND she stated she would give the letter to Dr Kennedy to review. They will call patient to schedule AND call us back with appointment date AND time. Denise Montaño 03/11/2023 2:34 PM Signed Spoke to Ines AND she scheduled patient for 03/13/2023@8:30 am for medical clearance. DREA: Can you get the progress note/letter from Dr Kennedy's office once complete?? Denise Montaño Allergies As of Date: 02/26/2023 Noted Allergy Reaction CODEINE 02/22/2016 11 - Vomiting Date Reviewed: 02/26/2023 Reviewed by: Mandy Chan - Fully Assessed Reason for Visit: Request Outside Medical Records [[id number]] Prescriptions as of 03/11/2023 - lisinopril (ZESTRIL, PRINIVIL) 5 mg tablet - clopidogrel (PLAVIX) 75 mg tablet Take 75 mg by mouth once daily. - atenolol (TENORMIN) 25 mg tablet Take 25 mg by mouth once daily. - aspirin, enteric coated (ASPIRIN, ENTERIC COATED) 81 mg EC tablet Take 81 mg by mouth once daily. Problem List As Of Date 02/26/2023 Noted Resolved Malignant neoplasm of right female breast (HCC)*02/05/2017 Malignant neoplasm of lower-inner quadrant of r*06/11/2017 Malignant neoplasm involving both nipple and ar*10/01/2017 Encounter Status:Closed by EDEL OLGUIN on 02/26/23 Normal [facility] OUTSIDE SURG PATH SLIDE REVI EWon 02-21-2023 CASE REPORT Normal [facility] Comment on above: Order Comment: Speci men Type: SLIDEOrdering Facility: [facility] Review Address: , , Result Comment: Surg ical Pathology Report Case: [id number] Authorizing Provider: Ruby Sullivan MD Collected: 02/21/2023 10:36 AM Ordering Location: [facility] Main Received: 02/21/2023 10:35 AM Pathologist: Nir Crook MD Specimen: SLIDE(S), 4 SLIDES ([id number]) Performed By: #### L [id number] ####[facility] [id number] [address] FINAL DIAGNOSIS Normal [facility] Comment on above: Order Comment: Speci men Type: SLIDEOrdering Facility: [facility] Review Address: , , Result Comment: 4 sl ides ([id number], 02/11/2022) A. Endocervix, curettings: - Benign squamous and endocervical epithelium. B. Endometrium, curettings: - Benign endometrial polyp. ACV/rw 02/21/2023 Performed By: #### L [id number] ####[facility] [facility] [id number] [address] OF [facility] FINAL PERFORMING LAB Normal [facility] Comment on above: Order Comment: Speci men Type: SLIDEOrdering Facility: [facility] Outside Review Address: , , Result Comment: Diag nostic interpretation performed at [facility], [address] [address] CLIA# [id number] Daycare Assistant: Mark Dave M.D. Performed By: #### L [id number] ####[facility] [facility] [id number] ED [facility] [id number] [id number] [place] MG MAMM SCREEN 3D SOPHIA CADon 01-23-2023 MG MAMM SCREEN 3D SOPHIA CAD Patient: FARRAH DEL VALLE Exam Date: 01/23/2023 : 1945 Gender:F Ordering : DR CHRISTIANO CORDOBA . Admission #: [id number] Family : Order #: [id number] CLICK HERE TO VIEW EXAM RADIOLOGY REPORT PROCEDURE: MAMMOGRAM SCREENING 3D BILATERAL CAD COMPARISON: MG MAMM SOPHIA DIAG W CAD, 02/22/2020. MG MAMM DIAGNOSTIC 3D SOPHIA CAD, 02/19/2021. INDICATIONS: Screening mammography Calculator Name NCI Breast Cancer Risk Assessment Tool 5 Year Breast Cancer Risk n/a% Lifetime Breast Cancer Risk n/a% Personal Breast Cancer Yes, Right lumpectomy, age 69 Personal Ovarian Cancer No Treatments None Family Cancers None LOCATION: [facility] BREAST COMPOSITION: Extremely dense, which lowers the sensitivity of mammography. FINDINGS: DIAGNOSTIC CATEGORY 2--BENIGN FINDING. NO CHANGE FROM COMPARISON. Scattered benign-appearing nodules are present. Scattered benign-appearing calcifications are present. Scattered benign-appearing lymph nodes are present. RIGHT BREAST: No significant suspicious finding. Area of architectural distortion deep to a linear scar marker with surgical clips, stable postsurgical change. Right breast is asymmetrically small, stable LEFT BREAST: No significant suspicious finding. RECOMMENDATIONS: ROUTINE MAMMOGRAM AND CLINICAL EVALUATION IN 12 MONTHS. PLEASE NOTE: A NORMAL MAMMOGRAM DOES NOT EXCLUDE THE POSSIBILITY OF BREAST CANCER. A CLINICALLY SUSPICIOUS PALPABLE LUMP SHOULD BE BIOPSIED. Dictated by: Davis Kamara MD on 01/23/2023 at 10:06 Approved by: Davis Kamara MD on 01/23/2023 at 10:13 Normal [facility] PAP ACOG PANEL 2: 30 to 65on 01-23-2023 . . Normal [facility] Comment on above: Performed By: #### [id number] #### [facility] [address] [place] [address] Dr. Cristian Raza Age Gdln ACOG Testing Comment Normal [facility] Comment on above: Result Comment: <21 or >65 or no age provided Performed By: #### [id number] #### [facility] [address] [place] [address] Dr. Cristian Raza DIAGNOSIS: Comment Normal [facility] Comment on above: Result Comment: NEGA TIVE FOR INTRAEPITHELIAL LESION OR MALIGNANCY. CELLULAR CHANGES ASSOCIATED WITH ATROPHY ARE PRESENT. Performed By: #### [id number] #### [facility] [address] [place] [address] Dr. Cristian Raza Methodology: Comment [facility] Comment on above: Result Comment: This liquid based ThinPrep(R) pap test was screened with the use of an image guided system. Performed By: #### [id number] #### [facility] [address] [place] [address] Dr. Cristian Raza Note: Comment [facility] Comment on above: Result Comment: The Pap smear is a screening test designed to aid in the detection of premalignant and malignant conditions of the uterine cervix. It is not a diagnostic procedure and should not be used as the sole means of detecting cervical cancer. Both false-positive and false-negative reports do occur. . Performed By: #### [id number] #### [facility] [address] [place] [address] Dr. Cristian Raza Performed by: Comment Normal [facility] Comment on above: Result Comment: Dagmar Calvo, Curator [employer] (ASCP) Performed By: #### [id number] #### [facility] [address] [place] [address] Dr. Cristian Raza Specimen adequacy: Comment [facility] Comment on above: Result Comment: Sati sfactory for evaluation. Endocervical and/or squamous metaplastic cells (endocervical component) are present. Performed By: #### [id number] #### [facility] [address] [place] [address] Dr. Cristian Raza XR DEXA BONE DENSITYon 01-23 XR DEXA BONE DENSITY EXAMINATION: XR DEX A BONE DENSITY, 01/23/2023 8:21 AM EDT HISTORY: Menopause present COMPARISON: None. TECHNIQUE: Dual-energy X-ray absorptiometry (DEXA) bone density study performed for the axial skeleton. FINDINGS: SPINE ANALYSIS: Average bone mineral density is 1.174 g/cm2. T-score (standard deviation relative to young adult mean): 0.0 . HIP ANALYSIS: Lowest bone mineral density is within the left femoral neck, 0.796 g/cm2. T-score (standard deviation relative to young adult mean): -1.7 . IMPRESSION: [employer] Classification: Osteopenia - Moderate Fracture Risk Electronically authenticated by: MELLY PATE Date: 2023-01-23 09:35 Normal [facility] CBC AUTO DIFFon 12-27-2022 BASO # 0.1 103/ul Normal 0.0-0.1 [facility] Comment on above: Performed By: #### C BC #### [facility] [address] [place] [address] Dr. Cristian Raza Basophils/100 WBC (Bld) 0.8 % Normal 0.2-2.0 [facility] Comment on above: Performed By: #### C BC #### [facility] [address] [address] [address] Cristian Raza EO # 0.1 103/ul Normal 0.0-0.7 [facility] Comment on above: Performed By: #### C BC #### [facility] [address] [address] [address] Cirstian Raza Eosinophils/100 WBC (Bld) 0.9 % Normal 0.9-7.0 [facility] Comment on above: Performed By: #### C BC #### [facility] [address] [address] [address] Cristian Raza Erythrocyte distribution width (RBC) [Ratio] 12.7 % Normal 11.0-15.0 [facility] Comment on above: Performed By: #### C BC #### [facility] [address] [place] [address] Dr. Cristian Raza Hematocrit (Bld) [Volume fraction] 39.7 % Normal 36.0-48.0 [facility] Comment on above: Performed By: #### C BC #### [facility] [address] [address] [address] Cristian Raza Hemoglobin (Bld) [Mass/Vol] 13.3 g/dL Normal 12.0-16.0 [facility] Comment on above: Performed By: #### C BC #### [facility] [address] [address] [address] Cristian Raza IG # 0.02 10e3/ul Normal 0.00-0.03 [facility] Comment on above: Performed By: #### C BC #### [facility] [address] [place] [address] Dr. Cristian Raza IG % 0.2 % Normal 0.0-0.5 [facility] Comment on above: Performed By: #### C BC #### [facility] [address] [place] [address] Dr. Cristian Raza LYMPH # 2.2 103/ul Normal 1.2-3.8 [facility] Comment on above: Performed By: #### C BC #### [facility] [address] [place] [address] Dr. Cristian Raza Lymphocytes/100 WBC (Bld) 26.5 % Normal 20.5-60.0 [facility] Comment on above: Performed By: #### C BC #### [facility] [address] [place] [address] Dr. Cristian Raza MANUAL DIFF REQ NO Normal [facility] Comment on above: Performed By: #### C BC #### [facility] [address] [place] [address] Dr. Cristian Raza MCH (RBC) [Entitic mass] 29.5 pg Normal 26.7-34.0 [facility] Comment on above: Performed By: #### C BC #### [facility] [address] [place] [address] Dr. Cristian Raza MCHC (RBC) [Mass/Vol] 33.5 g/dL Normal 29.9-35.2 [facility] Comment on above: Performed By: #### C BC #### [facility] [address] [address] [address] Cristian Raza MCV (RBC) [Entitic vol] 88.0 fL Normal 81.0-99.0 [facility] Comment on above: Performed By: #### C BC #### [facility] [address] [address] [address] Cristian Raza MONO # 0.5 103/ul Normal 0.3-0.8 [facility] Comment on above: Performed By: #### C BC #### [facility] [address] [place] [address] Dr. Cristian Raza Monocytes/100 WBC (Bld) 6.4 % Normal 1.7-12.0 [facility] Comment on above: Performed By: #### C BC #### [facility] [address] [place] [address] Dr. Cristian Raza NEUT # 5.5 103/ul Normal 1.4-6.5 [facility] Comment on above: Performed By: #### C BC #### [facility] [address] [place] [address] Dr. Cristian Raza Neutrophils/100 WBC (Bld) 65.2 % Normal 43.0-75.0 [facility] Comment on above: Performed By: #### C BC #### [facility] [address] [place] [address] Dr. Cristian Raza Platelet mean volume (Bld) [Entitic vol] 11.0 fL Normal 9.5-13.5 [facility] Comment on above: Performed By: #### C BC #### [facility] [address] [place] [address] Dr. Cristian Raza PLT 264 103/ul Normal 150-450 [facility] Comment on above: Performed By: #### C BC #### [facility] [address] [place] [address] Dr. Cristian Raza RBC 4.51 106/ul Normal 4.20-5.40 [facility] Comment on above: Performed By: #### C BC #### [facility] [address] [place] [address] Dr. Cristian Raza WBC 8.4 103/ul Normal 4.0-11.0 [facility] Comment on above: Performed By: #### C BC #### [facility] [address] [place] [address] Dr. Cristian Raza PROF 14(COMP METB)on 023 Albumin [Mass/Vol] 3.6 g/dL Normal 3.4-5.0 [facility] Comment on above: Performed By: #### T SH, CMP #### [facility] [address] [place] [address] Dr. Cristian Raza Albumin/Globulin [Mass ratio] 1.0 {ratio} Normal [facility] Comment on above: Performed By: #### T SH, CMP #### [facility] [address] [place] [address] Dr. Cristian Raza ALP [Catalytic activity/Vol] 84 U/L Normal 46-116 [facility] Comment on above: Performed By: #### T SH, CMP #### [facility] [address] [place] [address] Dr. Cristian Raza ALT [Catalytic activity/Vol] 16 U/L Normal 14-59 [facility] Comment on above: Performed By: #### T SH, CMP #### [facility] [address] [place] [address] Dr. Cristian Raza Anion gap [Moles/Vol] 13.4 mmol/L Normal [facility] Comment on above: Performed By: #### T SH, CMP #### [facility] [address] [place] [address] Dr. Cristian Raza AST [Catalytic activity/Vol] 16 U/L Normal 15-37 [facility] Comment on above: Performed By: #### T SH, CMP #### [facility] [address] [place] [address] Dr. Cristian Raza Bilirubin [Mass/Vol] 0.9 mg/dL Normal 0.2-1.0 [facility] Comment on above: Performed By: #### T SH, CMP #### [facility] [address] [address] [address] Cristian Raza Calcium [Mass/Vol] 9.5 mg/dL Normal 8.5-10.1 [facility] Comment on above: Performed By: #### T SH, CMP #### [facility] [address] [address] [address] Cristian Raza Chloride [Moles/Vol] 110 mmol/L Critically high 98-107 [facility] Comment on above: Performed By: #### T SH, CMP #### [facility] [address] [address] [address] Cristian Raza CO2 [Moles/Vol] 26.5 mmol/L Normal 21.0-32.0 [facility] Comment on above: Performed By: #### T SH, CMP #### [facility] [address] [address] [address] Cristian Raza Creatinine [Mass/Vol] 0.94 mg/dL Normal 0.55-1.02 [facility] Comment on above: Performed By: #### T SH, CMP #### [facility] [address] [address] [address] Cristian Raza EGFR-AF MALAYSIAN >60 Normal >=60 [facility] Comment on above: Performed By: #### T SH, CMP #### [facility] [address] [address] [address] Cristian Raza EGFR-NON AF MALAYSIAN 58 mL/min/1.73m2 Critically low >=60 [facility] Comment on above: Performed By: #### T SH, CMP #### [facility] [address] [address] [address] Cristian Raza Globulin (S) [Mass/Vol] 3.6 g/dL Normal [facility] Comment on above: Performed By: #### T SH, CMP #### [facility] [address] [address] [address] Cristian Raza Glucose [Mass/Vol] 122 mg/dL Critically high 74-106 [facility] Comment on above: Performed By: #### T SH, CMP #### [facility] [address] [address] [address] Cristian Raza Potassium [Moles/Vol] 3.9 mmol/L Normal 3.5-5.1 [facility] Comment on above: Performed By: #### T SH, CMP #### [facility] [address] [address] [address] Cristian Raza Protein [Mass/Vol] 7.2 g/dL Normal 6.4-8.2 [facility] Comment on above: Performed By: #### T SH, CMP #### [facility] [address] [address] [address] Cristian Raza Sodium [Moles/Vol] 146 mmol/L Critically high 136-145 [facility] Comment on above: Performed By: #### T SH, CMP #### [facility] [address] [place] [address] Dr. Cristian Raza Urea nitrogen [Mass/Vol] 12.0 mg/dL Normal 7.0-18.0 [facility] Comment on above: Performed By: #### T SH, CMP #### [facility] [address] [address] [address] Cristian Raza Urea nitrogen/Creatinine [Mass ratio] 12.8 mg/mg Normal [facility] Comment on above: Performed By: #### T SH, CMP #### [facility] [address] [place] [address] Dr. Cristian Raza TSHon 12-27-2022 TSH 1.044 uIU/mL Normal 0.358-3.740 [facility] Comment on above: Performed By: #### T SH, CMP #### [facility] [address] [place] [address] Dr. Cristian Raza XR cerv spine AP/LAT/FLX/EXT on 07-18-2022 XR cerv spine AP/LAT/FLX/EXT [facility] Main [address] [address] XRay Report Signed Patient: Farrah Del Valle MR#: [id number] : 1945 Acct:[id number] Age/Sex: 77 / F ADM Date: 07/18/22 Loc: XD Room: Type: [facility] CLI Attending Dr: Jos Kennedy MD Copies to: Jos Kennedy MD Ordering Provider: Jos Kennedy MD Date of Service: 07/18/22 XR/XR cerv spine AP/LAT/FLX/EXT: M50.023 CERVICAL SPINE 4 views: CLINICAL HISTORY: Follow-up from surgery. COMPARISON: Cervical spine 04/18/2022 FINDINGS: Anterior fusion C3-C6 without radiographic complication. Moderate disc space narrowing C6-7, unchanged. No pathological motion. Diffuse facet joint degenerative change. XR/XR cerv spine AP/LAT/FLX/EXT IMPRESSION: NO EVIDENCE OF HARDWARE COMPLICATION. Impression dictated by: Chintan Saha Jr., D.O.07/18/2022 10:16 AM Dictation Location: [place] [address] Transcribed By: [facility] 07/18/22 1016 Dictated By: Chintan Saha Jr, DO 07/18/22 1015 Signed By: 07/18/22 1016 [facility] XR cerv spine AP/LAT/FLX/EXT on 04-18-2022 XR cerv spine AP/LAT/FLX/EXT [facility] Main [place] [address] [place] [address] XRay Report Signed Patient: Farrah Del Valle MR#: [id number] : 1945 Acct:[id number] Age/Sex: 77 / F ADM Date: 04/18/22 Loc: XD Room: Type: [facility] CLI Attending Dr: Jos Kennedy MD Copies to: Jos Kennedy MD Ordering Provider: Jos Kennedy MD Date of Service: 04/18/22 XR/XR cerv spine AP/LAT/FLX/EXT: M50.022 AP with lateral neutral, flexion and extension views of thecervical spine HISTORY: Status post ACDF C3-C6 COMPARISON: 01/10/22 Bony alignment unchanged. C3-C6 anterior interbody fusion changes are stable. No hardware failure. No acute cervical spine fracture identified. Mild C6-7 degenerative retrolisthesis measures 3 mm. Advanced C6-7 spondylosis identified. This is unchanged. Facets are in adequate alignment. No hypermobility seen with flexion and extension views. The dens is intact. The craniocervical junction is unremarkable. No paraspinal soft tissue abnormality seen. XR/XR cerv spine AP/LAT/FLX/EXT IMPRESSION: No hypermobility. Stable postsurgical changes. Stable C6-7 degenerative changes. Impression dictated by: Dick Turcios M.D.04/18/2022 9:08 AM Dictation Location: [place] [address] Transcribed By: [facility] 04/18/22 0908 Dictated By: Dick Turcios DO 04/18/22 0900 Signed By: 04/18/22 0908 Normal [facility] XR cervical spine 2Von 01-10 XR cervical spine 2V [facility] Main [place] [address] [place] [address] XRay Report Signed Patient: Farrah Del Valle MR#: [id number] : 1945 Acct:[id number] Age/Sex: 76 / F ADM Date: 01/10/22 Loc: XD Room: Type: [facility] Attending Dr: Jos Kennedy MD Ordering Provider: Jos Kennedy MD Date of Service: 01/10/22 XR/XR cervical spine 2V: M50.023 Copies to: Jos Kennedy MD CERVICAL SPINE - 2 VIEWS COMPARISON: 06/11/2021 and 10/01/2021 (intraoperative) CLINICAL DATA: Follow-up cervical fusion. AP and lateral views were obtained. There is an anterior plate and screws extending from C3 through C6. There is grafting material within the intervening disc spaces. There are no developing fractures. There is straightening of the normal cervical lordosis. There is still 2 to 3 mm of retrolisthesis of C6 on C7 where moderate disc space narrowing and mild endplate spurring are again noted. There is posterior endplate spurring at C5-6. There is mild facet disease. There is slight prevertebral soft tissue swelling anterior to the plate when compared to the prior. XR/XR cervical spine 2V IMPRESSION: POSTOPERATIVE AND DEGENERATIVE CHANGES, DESCRIBED. Impression dictated by: Sofia Bailey M.D.01/10/2022 2:43 PM Dictation Location: [facility]IO-PC-02 Transcribed By: [facility] 01/10/221442 Dictated By: Sofia Bailey MD 01/10/221435 Signed By: 01/10/221442 [facility] Fabien 10-01-2021 L -- ---- Specimen: [id number] Received: 10/01/21 Status: PRETTY Roblero Num: [id number] Spec Type: Surgical Subm Dr: Jos Kennedy MD Tissues: A Disc - Intervertebral/Lumbar/ Cervical (CERVICAL DISC) Procedures: HE Stain, Gross/Micro L3 ---- Patient Age/Sex Location Account Attending Physician ---- Farrah Del Valle 76/F 4N [id number] Jos Kennedy MD ---- SPEC NUM: [id number] RECD: 10/01/21 STATUS: PRETTY ROBLERO NUM: [id number] KELSEY: 10/01/21 [facility] DR: Jos Kennedy MD ENTERED: 10/01/[address] [facility] DR: SPEC TYPE: Surgical DEPT: S ORDERED: HE Stain, Gross/Micro L3 ORDERED: HE Stain, Gross/Micro L3 Pathological Diagnosis Cervical intervertebral disc, excision: - Fibrocartilage showing degenerative and reactive changes - Fragments of benign bone and skeletal muscle Clinical Information C3-C6 stenosis Gross Description Received in 10% neutral buffered formalin, labeled with the patient's name, number and cervical disc is a 3.5 x 3.5 x 0.7 cm aggregate of garcia-white, rubbery, ragged and slightly cauterized fibrous tissue. [employer] sections are submitted in one cassette labeled A1. (SM/JS) Microscopic Description One glass slide with H E stained material has been examined. The microscopic findings support the above pathologic diagnosis. [id number] ---- ---- Specimen: [id number] Received: 10/01/21 Status: PRETTY Roblero Num: [id number] Spec Type: Surgical Subm Dr: Jos Kennedy MD Tissues: A Disc - Intervertebral/Lumbar/ Cervical (CERVICAL DISC) Procedures: HE Stain, Gross/Micro L3 ---- Patient: Farrah Del Valle [id number] (Continued) ---- Signed (signature on file) Alaina Reyes MD 10/02/21 1725 [facility] XR cervical spine 1Von 10-01 XR cervical spine 1V [facility] [place] [address] XRay Report Signed Patient: Farrah Del Valle MR#: [id number] : 1945 Acct:[id number] Age/Sex: 76 / F ADM Date: 10/01/21 Loc: [place] Room: Type: [facility] Attending Dr: Jos Kennedy MD Ordering Provider: Jos Kennedy MD Date of Service: 10/01/21 XR/XR cervical spine 1V: ACF C3-C6 Copies to: Jos Kennedy MD XR cervical spine 1V 10/01/2021 12:43 PM SIGNS AND SYMPTOMS: ACF C3-C6 PROTOCOLS: Intraoperative views of the cervical spine COMPARISON: None FINDINGS: Intraoperative views of the cervical spine demonstrate hardware localization at the level of the C3-C4 intervertebral disc. Number of images: 1 Fluoroscopic time: 2 seconds. XR/XR cervical spine 1V IMPRESSION: Intraoperative views of the cervical spine demonstrate hardware localization at the level of the C3- C4 intervertebral disc. Impression dictated by: Don Lanier M.D.10/01/2021 5:12 PM Dictation Location: [place] [address] Transcribed By: [facility] 10/01/211711 Dictated By: Don Lanier II, MD 10/01/211708 Signed By: 10/01/211711 Normal [facility] COVID-19 FRMCon 09-27-2021 SARS-CoV-2 (COVID-19) RNA EDMUNDO+probe Ql (Unsp spec) Negative Normal Negative [facility] Comment on above: Order Comment: Healt hcare Worker?: N Result Comment: Testing for SARS-CoV-2 by RT-PCR This test was developed and its performance characteristics determined by [employer] and validated at the [facility]. This test has not been FDA cleared or approved. This test has been authorized by FDA under an Emergency Use Authorization (EUA). This test has been validated in accordance with the FDA's Guidance Document (Policy for Diagnostics Testing in Laboratories Certified to Perform High Complexity Testing under CLIA prior to Emergency Use Authorization for Coronavirus Disease-2019 during the Public Health Emergency) issued on January 20, 2020. This test is only authorized for the duration of time the declaration that circumstances exist justifying the authorization of the emergency use of in vitro diagnostic tests for detection of SARS-CoV-2 virus and/or diagnosis of COVID-19 infection under section 564(b)(1) of the Act, 21 U.S.C. 360bbb-3(b)(1), unless the authorization is terminated or revoked sooner. PERFORMED BY: [place] [address] PATHOLOGIST [employer]ER [employer]ERRAPIN ALAINA REYES M.D. Performed By: #### C OVID 19 [facility] #### [address] Basic Metabolic Panelon 12- Calcium [Mass/Vol] 9.2 mg/dL Normal 8.2-10.2 [facility] Comment on above: Result Comment: PERF ORMED BY: [place] [id number] PATHOLOGIST FISHER TERRAPIN ALAINA REYES M.D. Performed By: #### C BC, BMP #### [address] Chloride [Moles/Vol] 107 mmol/L Normal 95-114 [facility] Comment on above: Performed By: #### C BC, BMP #### [address] CO2 [Moles/Vol] 24.2 mmol/L Normal 22.0-30.0 [facility] Comment on above: Performed By: #### C BC, BMP #### [address] Creatinine [Mass/Vol] 0.89 mg/dL Normal 0.44-1.03 [facility] Comment on above: Performed By: #### C BC, BMP #### [address] Estimated GFR ( Vladislav > 60 Normal [facility] Comment on above: Result Comment: GFR estimated reference range: According to KDOQI guidelines, <60 ml/min/1.73m2 is sufficient to diagnose a patient with chronic kidney disease. Performed By: #### C BC, BMP #### [address] Estimated GFR (Non- Am > 60 Normal [facility] Comment on above: Performed By: #### C BC, BMP #### [address] Glucose [Mass/Vol] 83 mg/dL Normal 70-100 [facility] Comment on above: Result Comment: [place] om Glucose Reference Range is dependent on time and content of last meal. Glucose of more than 200 mg/dL in a nonstressed, ambulatory subject supports the diagnosis of Diabetes Mellitus. ADA recommended reference range Performed By: #### C BC, BMP #### [address] Potassium [Moles/Vol] 3.7 mmol/L Normal 3.5-5.1 [facility] Comment on above: Performed By: #### C BC, BMP #### [address] Sodium [Moles/Vol] 140 mmol/L Normal 136-146 [facility] Comment on above: Performed By: #### C BC, BMP #### [address] Urea nitrogen [Mass/Vol] 14 mg/dL Normal 9-23 [facility] Comment on above: Performed By: #### C BC, BMP #### [address] Complete Blood Count Auto Di ffon 09-20-2021 Basophils (Bld) [#/Vol] 0.1 10*3/uL Normal 0.0-0.2 [facility] Comment on above: Result Comment: PERF ORMED BY: [place] [address] PATHOLOGIST FISHER TERRAPIN ALAINA REYES M.D. Performed By: #### C BC, BMP #### [address] Basophils/100 WBC (Bld) 0.8 % Normal . [facility] Comment on above: Performed By: #### C BC, BMP #### [address] Eosinophils (Bld) [#/Vol] 0.0 10*3/uL Normal 0.0-0.45 [facility] Comment on above: Performed By: #### C BC, BMP #### [address] Eosinophils/100 WBC (Bld) 0.6 % Normal . [facility] Comment on above: Performed By: #### C BC, BMP #### [address] Erythrocyte distribution width (RBC) [Ratio] 13.3 % Normal 11.9-15.3 [facility] [facility] Comment on above: Performed By: #### C BC, BMP #### [address] [place] [address] [place] Hematocrit (Bld) [Volume fraction] 39.9 % Normal 34.0-46.4 [facility] Comment on above: Performed By: #### C BC, BMP #### [facility] [address] Hemoglobin (Bld) [Mass/Vol] 13.5 g/dL Normal 11.8-15.4 [facility] Comment on above: Performed By: #### C BC, BMP #### [facility] [address] [place] [address] [place] Lymphocytes (Bld) [#/Vol] 2.2 10*3/uL Normal 1.00-4.8 [facility] Comment on above: Performed By: #### C BC, BMP #### [address] Lymphocytes/100 WBC (Bld) 29.2 % Normal . [facility] Comment on above: Performed By: #### C BC, BMP #### [address] MCH (RBC) [Entitic mass] 29.5 pg Normal 24.7-34.3 [facility] Comment on above: Performed By: #### C BC, BMP #### [address] MCV (RBC) [Entitic vol] 87.3 fL Normal 80-100 [facility] Comment on above: Performed By: #### C BC, BMP #### [address] Mean Corpuscular HGB Conc 33.8 g/dL Normal 32.0-35.0 [facility] Comment on above: Performed By: #### C BC, BMP #### [address] Monocytes (Bld) [#/Vol] 0.5 10*3/uL Normal 0.0-0.8 [facility] Comment on above: Performed By: #### C BC, BMP #### [address] [place] [address] [place] Monocytes/100 WBC (Bld) 6.8 % Normal . [facility] Comment on above: Performed By: #### C BC, BMP #### [facility] [address] Neutrophils (Bld) [#/Vol] 4.6 10*3/uL Normal 1.8-7.7 [facility] Comment on above: Performed By: #### C BC, BMP #### [facility] [address] Neutrophils/100 WBC (Bld) 62.6 % Normal . [facility] Comment on above: Performed By: #### C BC, BMP #### [facility] [address] Nucleated RBC/100 WBC (Bld) [Ratio] 0.0 % Normal 0-0.5 [facility] Comment on above: Performed By: #### C BC, BMP #### [facility] [address] Platelet mean volume (Bld) [Entitic vol] 9.4 fL Normal 6.3-10.7 [facility] Comment on above: Performed By: #### C BC, BMP #### [facility] [address] [place] [address] [place] Platelets (Bld) [#/Vol] 217 10*3/uL Normal 150-450 [facility] Comment on above: Performed By: #### C BC, BMP #### [facility] [address] [place] [address] [place] RBC (Bld) [#/Vol] 4.57 10*6/uL Normal 3.60-5.00 [facility] Comment on above: Performed By: #### C BC, BMP #### [facility] [address] [place] [address] [place] WBC (Bld) [#/Vol] 7.4 10*3/uL Normal 4.5-11.0 [facility] Comment on above: Performed By: #### C BC, BMP #### [facility] [address] [place] [id number] [facility] Vital Signs Date Time Vital Sign Value Performing Clinician Facility 07-23-2024 11:040 Body height 168.91 cm [facility] 07-23-2024 11:040 Body mass index (BMI) [Ratio] 25.1 kg/m2 [facility] 07-23-2024 11:040 Body weight 71.75 kg [facility] 07-23-2024 11:040 Diastolic blood pressure 80 mm[Hg] [facility] 07-23-2024 11:040 Heart rate 68 /min [facility] 07-23-2024 11:040 SaO2% (BldA) [Mass fraction] 97 % [facility] 07-23-2024 11:040 Systolic blood pressure 144 mm[Hg] [facility] 07-12-2024 11:450400 Body height 168.91 cm [facility] 07-12-2024 11:45-0400 Body mass index (BMI) [Ratio] 25.2 kg/m2 [facility] 07-12-2024 11:45-0400 Body weight 72 kg [facility] 07-09-2024 11:040 Body height 168.91 cm [facility] 07-09-2024 11:21-0400 Body mass index (BMI) [Ratio] 25.2 kg/m2 [facility] 07-09-2024 11:21-0400 Body weight 72.12 kg [facility] 07-09-2024 11:21-0400 Diastolic blood pressure 89 mm[Hg] [facility] 07-09-2024 11:-0400 Heart rate 64 /min [facility] 07-09-2024 11:0400 Systolic blood pressure 150 mm[Hg] [facility] 02-16-2024 11:090400 Body height 168.91 cm [facility] 02-16-2024 11:09-0400 Body mass index (BMI) [Ratio] 25.6 kg/m2 [facility] 02-16-2024 11:09-0400 Body temperature 97.8 [degF] [facility] 02-16-2024 11:09-0400 Body weight 73.19 kg [facility] 02-16-2024 11:09-0400 Diastolic blood pressure 77 mm[Hg] [facility] 02-16-2024 11:09-0400 Heart rate 73 /min [facility] 02-16-2024 11:09-0400 SaO2% (BldA) [Mass fraction] 97 % [facility] 02-16-2024 11:09-0400 Systolic blood pressure 142 mm[Hg] [facility] 02-09-2024 11:07-0400 Body height 168.91 cm [facility] 02-09-2024 11:07-0400 Body mass index (BMI) [Ratio] 25.9 kg/m2 [facility] 02-09-2024 11:07-0400 Body weight 74.16 kg [facility] 02-09-2024 11:07-0400 Diastolic blood pressure 81 mm[Hg] [facility] 02-09-2024 11:07-0400 Heart rate 63 /min [facility] 02-09-2024 11:07-0400 Systolic blood pressure 145 mm[Hg] [facility] 02-02-2024 08:42-0400 Body height 168.91 cm [facility] 02-02-2024 08:42-0400 Body mass index (BMI) [Ratio] 26.4 kg/m2 [facility] 02-02-2024 08:42-0400 Body weight 75.4 kg [facility] 02-02-2024 08:42-0400 Diastolic blood pressure 74 mm[Hg] [facility] 02-02-2024 08:42-0400 Heart rate 65 /min [facility] 02-02-2024 08:42-0400 Systolic blood pressure 155 mm[Hg] [facility] 06-10-2023 11:15-0400 Body height 168.91 cm Karl Kennedy Other [employer] Other 06-10-2023 11:15-0400 Body mass index (BMI) [Ratio] 24.48 kg/m2 Karl Kennedy Other [employer] Other 06-10-2023 11:15-0400 Body weight 69.85 kg Karl Kennedy Other [employer] Other 06-10-2023 11:15-0400 Diastolic blood pressure 80 mm[Hg] Karl Kennedy Other [employer] Other 06-10-2023 11:15-0400 SaO2% (BldA) [Mass fraction] 97 % Karlramiro Kennedy Other [employer] Other 06-10-2023 11:15-0400 Systolic blood pressure 124 mm[Hg] Karl Kennedy Other [employer] Other 05-28-2023 13:53-0400 Body temperature 97.59 [degF] Ruby Sullivan MD Work Phone: [facility] 05-28-2023 13:53-0400 Body weight 72.21 kg Ruby Sullivan MD Work Phone: [facility] 05-28-2023 13:53-0400 Diastolic blood pressure 72 mm[Hg] Ruby Sullivan MD Work Phone: [facility] 05-28-2023 13:53-0400 Heart rate 74 /min Ruby Sullivan MD Work Phone: [facility] 05-28-2023 13:53-0400 Respiratory rate 18 /min Ruby Sullivan MD Work Phone: [facility] 05-28-2023 13:53-0400 SaO2% (BldA) [Mass fraction] 97 % Ruby Sullivan MD Work Phone: [facility] 05-28-2023 13:53-0400 Systolic blood pressure 143 mm[Hg] Ruby Sullivan MD Work Phone: [facility] 04-04-2023 14:31-0400 Body height 170.2 cm Pacc 2 Work Phone: [facility] 04-04-2023 14:31-0400 Body temperature 97.2 [degF] Pacc 2 Work Phone: [facility] 04-04-2023 14:31-0400 Body weight 73.48 kg Pacc 2 Work Phone: [facility] 04-04-2023 14:31-0400 Diastolic blood pressure 79 mm[Hg] Pacc 2 Work Phone: [facility] 04-04-2023 14:31-0400 Heart rate 66 /min Pacc 2 Work Phone: [facility] 04-04-2023 14:31-0400 Respiratory rate 14 /min Pacc 2 Work Phone: [facility] 04-04-2023 14:31-0400 SaO2% (BldA) [Mass fraction] 98 % Pacc 2 Work Phone: [facility] 04-04-2023 14:31-0400 Systolic blood pressure 157 mm[Hg] Pacc 2 Work Phone: [facility] 04-02-2023 13:52-0400 Body temperature 97.39 [degF] Ruby Sullivan MD Work Phone: [facility] 04-02-2023 13:52-0400 Body weight 74.12 kg Ruby Sullivan MD Work Phone: [facility] 04-02-2023 13:52-0400 Diastolic blood pressure 83 mm[Hg] Ruby Sullivan MD Work Phone: [facility] 04-02-2023 13:52-0400 Heart rate 71 /min Ruby Sullivan MD Work Phone: [facility] 04-02-2023 13:52-0400 Respiratory rate 18 /min Ruby Sullivan MD Work Phone: [facility] 04-02-2023 13:52-0400 SaO2% (BldA) [Mass fraction] 95 % Ruby Sullivan MD Work Phone: [facility] 04-02-2023 13:52-0400 Systolic blood pressure 153 mm[Hg] Ruby Sullivan MD Work Phone: [facility] 01-07-2023 10:00-0400 Body height 170.18 cm Karl Kennedy Other [employer] Other 01-07-2023 10:00-0400 Body mass index (BMI) [Ratio] 24.59 kg/m2 Karl Kennedy Other [employer] Other 01-07-2023 10:00-0400 Body weight 71.22 kg Karl Kennedy Other [employer] Other 01-07-2023 10:00-0400 Diastolic blood pressure 80 mm[Hg] Karl Kennedy Other [employer] Other 01-07-2023 10:00-0400 SaO2% (BldA) [Mass fraction] 97 % Karl Kennedy Other [employer] Other 01-07-2023 10:00-0400 Systolic blood pressure 132 mm[Hg] Karl Kennedy Other [employer] Other 07-18-2022 10:00-0400 Body height 171.45 cm Jos Kennedy Other [employer] Other 07-18-2022 10:00-0400 Body mass index (BMI) [Ratio] 25.61 kg/m2 Jos Kennedy Other [employer] Other 07-18-2022 10:00-0400 Body weight 75.3 kg Jos Kennedy Other [employer] Other 04-18-2022 10:40-0400 Body height 171.45 cm Jos Kennedy Other [employer] Other 04-18-2022 10:40-0400 Body mass index (BMI) [Ratio] 25.67 kg/m2 Jos Kennedy Other [employer] Other 04-18-2022 10:40-0400 Body weight 75.48 kg Jos Kennedy Other [employer] Other 01-10-2022 12:40-0400 Body height 171.45 cm Jos Kennedy Other [employer] Other 01-10-2022 12:40-0400 Body mass index (BMI) [Ratio] 25.92 kg/m2 Jos Kennedy Other [employer] Other 01-10-2022 12:40-0400 Body weight 76.2 kg Jos Kennedy Other [employer] Other 07-24-2021 17:00-0400 Body height 171.45 cm Jos Kennedy Other [employer] Other 07-24-2021 17:00-0400 Body mass index (BMI) [Ratio] 25.92 kg/m2 Jos Kennedy Other [employer] Other 07-24-2021 17:00-0400 Body weight 76.2 kg Jos Kennedy Other [employer] Other 07-24-2021 17:00-0400 Diastolic blood pressure 77 mm[Hg] Jos Kennedy Other [employer] Other 07-24-2021 17:00-0400 Systolic blood pressure 129 mm[Hg] Jos Kennedy Other [employer] Other Encounters Encounter Date Encounter Type Care Provider Facility Start: 08-11-2024 End: 08-11-2024 Bamboo flowsheet Christina B Apling BENEFITS ASSISTANT Work Phone: [facility] Start: 08-11-2024 End: 08-11-2024 Bamboo flowsheet Christina B Apling BENEFITS ASSISTANT Work Phone: [facility] Start: 08-11-2024 End: 08-11-2024 ambulatory CHRISTINA B APLING Not Available Start: 08-11-2024 End: 08-11-2024 Office outpatient visit 10 minutes Christina B Apling BENEFITS ASSISTANT Work Phone: [facility] Comment on above: Arthritis of right k nee (Primary Dx); Right knee pain, unspecified chronicity Start: 07-28-2024 End: 07-28-2024 Bamboo flowsheet Christina B Apling BENEFITS ASSISTANT Work Phone: [facility] Start: 07-28-2024 End: 07-28-2024 Bamboo flowsheet Christina B Apling BENEFITS ASSISTANT Work Phone: [facility] Start: 07-28-2024 End: 07-28-2024 Office outpatient new 45 minutes Christina B Apling BENEFITS ASSISTANT Work Phone: [facility] Comment on above: Right knee pain, uns pecified chronicity (Primary Dx); Arthritis of right knee Start: 07-28-2024 End: 07-28-2024 ambulatory Raman Rodriges PT Work Phone: [facility] Comment on above: Arthritis of right k nee (Primary Dx) Start: 07-27-2024 ambulatory [facility] Work Phone: Start: 07-27-2024 Non-patient / Non-visit [facility] Work Phone: Start: 07-23-2024 End: 07-23-2024 ambulatory [facility] Work Phone: Start: 07-23-2024 End: 07-23-2024 Patient encounter procedure [facility] Work Phone: Start: 07-12-2024 End: 07-12-2024 ambulatory [facility] Work Phone: Start: 07-12-2024 End: 07-12-2024 Patient encounter procedure [facility] Work Phone: Start: 07-09-2024 End: 07-09-2024 ambulatory [facility] Work Phone: Start: 07-09-2024 End: 07-09-2024 Patient encounter procedure [facility] Work Phone: Start: 03-19-2024 End: 03-19-2024 ambulatory TOM C WINDNAGEL Not Available Start: 03-03-2024 End: 03-03-2024 ambulatory TOM C WINDNAGEL Not Available Start: 02-16-2024 End: 02-16-2024 ambulatory [facility] Work Phone: Start: 02-16-2024 End: 02-16-2024 Patient encounter procedure [facility] Work Phone: Start: 02-09-2024 End: 02-09-2024 ambulatory [facility] Work Phone: Start: 02-09-2024 End: 02-09-2024 Patient encounter procedure [facility] Work Phone: Start: 02-02-2024 End: 02-02-2024 ambulatory [facility] Work Phone: Start: 02-02-2024 End: 02-02-2024 Patient encounter procedure [facility] Work Phone: Start: 11-05-2023 End: 11-05-2023 ambulatory Karl Brent Other [employer] Other Start: 11-05-2023 Telephone encounter Karl Brent [employer] Start: 10-15-2023 End: 10-15-2023 ambulatory Karl Kennedy Other [employer] Other Start: 10-15-2023 Telephone encounter Karl Kennedy [facility] Start: 08-06-2023 End: 08-06-2023 ambulatory Rubi Jain Other [employer] Other Start: 08-06-2023 Office outpatient ne w 30 minutes Rubi Jain [facility] Start: 08-01-2023 End: 08-01-2023 ambulatory Karl Kennedy Other [employer] Other Start: 08-01-2023 Telephone encounter Karl Kennedy [facility] Start: 07-31-2023 End: 07-31-2023 ambulatory Karl Brent Other [employer] Other Start: 07-31-2023 Telephone encounter Karl Kennedy [facility] Start: 07-29-2023 End: 07-29-2023 ambulatory Karl Brent Other [employer] Other Start: 07-29-2023 Telephone encounter Karl Kennedy [facility] Start: 06-19-2023 End: 06-19-2023 ambulatory Karl Brent Other [employer] Other Start: 06-19-2023 Telephone encounter Karl Kennedy [facility] Start: 06-10-2023 End: 06-10-2023 ambulatory Karl Brent Other [employer] Other Start: 06-10-2023 Office outpatient vi sit 15 minutes Karl WOOD [facility] Start: 05-28-2023 End: 05-28-2023 ambulatory RUBY SULLIVAN Facility:[facility] Start: 05-28-2023 End: 05-28-2023 ambulatory Ruby Sullivan MD Work Phone: Gynecology Oncology Comment on above: Post-operative state [Z98.890] (Primary Dx) Start: 05-28-2023 End: 05-28-2023 Patient encounter procedure Ruby Sullivan MD Work Phone: [facility] Start: 04-30-2023 End: 04-30-2023 ambulatory RUBY SULLIVAN Facility:[facility] Start: 04-28-2023 Telephone encounter Jenny Condon RN Gynecology Comment on above: Post Op Follow Up Start: 04-18-2023 Telephone encounter Jenny Condon RN Gynecology Comment on above: Pre-Op Teaching Start: 04-04-2023 End: 04-05-2023 ambulatory RUBY SULLIVAN Facility:[facility] Start: 04-04-2023 Encounter for other preprocedural examination RUBY SULLIVAN [facility] Start: 04-04-2023 End: 04-04-2023 Admission to establishment [facility] [place] 2 Work Phone: [facility] Start: 04-04-2023 End: 04-04-2023 ambulatory Pac [place] 2 Work Phone: Pre Anesthesia Comment on above: Pre-op evaluation (P rimary Dx); TIA (transient ischemic attack); Hypertension, unspecified type Start: 04-04-2023 End: 04-04-2023 Preprocedural examination done Pac [place] 2 Work Phone: Pre Anesthesia Start: 04-02-2023 End: 04-02-2023 ambulatory Ruby Sullivan MD Work Phone: Gynecology Oncology Comment on above: Pre-op exam (Primary Dx); Thickened endometrium [R93.89 (ICD-10-CM)]; Vaginal bleeding [N93.9 (ICD-10-CM)] Start: 04-02-2023 End: 04-02-2023 Patient encounter procedure Ruby Sullivan MD Work Phone: [facility] Start: 04-02-2023 End: 04-02-2023 Preprocedural examination done Ruby Sullivan MD Work Phone: Gynecology Oncology Start: 03-05-[address] [facility] Facility :[facility] Start: 02-26-2023 Telephone encounter Ruby Sullivan MD Work Phone: Cancer Appts Comment on above: Request Outside [facility] Records Start: 02-26-2023 End: 02-27-2023 ambulatory KARL KENNEDY Facility:[facility] Start: 01-23-2023 End: 01-24-2023 ambulatory NONE LISTED REQUEST Facility:[facility] Start: 01-16-2023 End: 01-16-2023 ambulatory NONE LISTED REQUEST Facility:[facility] Start: 01-07-2023 End: 01-07-2023 ambulatory Karl Kennedy Other [employer] Other Start: 01-07-2023 Office outpatient vi sit 15 minutes Karl Kennedy [facility] Start: 12-31-2022 End: 12-31-2022 ambulatory Karl Kennedy Other [employer] Other Start: 12-31-2022 Telephone encounter Karl Kennedy [facility] Start: 12-27-2022 End: 12-28-2022 ambulatory NONE LISTED REQUEST Facility:[facility] Start: 12-25-2022 End: 12-25-2022 ambulatory Jos Kennedy Other [employer] Other Start: 12-25-2022 Telephone encounter Jos Kennedy [facility] Start: 12-11-2022 (Televisit) Televisit Karl Longo [facility] Start: 12-11-2022 End: 12-11-2022 ambulatory Karl Kennedy Other [employer] Other Start: 07-18-2022 Office outpatient vi sit 15 minutes Jos Kennedy [facility] Start: 07-18-2022 End: 07-18-2022 ambulatory Karl Thien Brent [place] [employer] Other Start: 05-16-2022 Adult health examination Mala a Brent Other [employer] Other Start: 05-16-2022 Pre-procedure evalua tion check Karl Kennedy Other [employer] Other Start: 05-16-2022 Problem, abnormal examination Karl Brent Other [employer] Other Start: 04-18-2022 Office outpatient vi sit 15 minutes Jos Kennedy [facility] Start: 04-18-2022 End: 04-18-2022 ambulatory Karl Thien Brent [place] [employer] Other Start: 04-18-2022 End: 04-18-2022 Patient encounter procedure MD Karl Kennedy Work Phone: [facility] Start: 01-10-2022 Postop follow up vis it related to original px Jos Kennedy [facility] Start: 01-10-2022 End: 01-10-2022 ambulatory Jos Kennedy [facility] [email or web address] Other Start: 01-10-2022 End: 01-10-2022 Patient encounter procedure MD Karl Kennedy Work Phone: [facility] Start: 10-08-2021 End: 10-08-2021 ambulatory Jos Kennedy Other [employer] Other Start: 10-08-2021 Telephone encounter Josthien Kennedy [facility] Start: 10-01-2021 Admission to same da y surgery center Jos Kennedy [facility] Start: 10-01-2021 End: 10-02-2021 ambulatory Jos Kennedy [facility] [email or web address] Other Start: 09-27-2021 End: 09-27-2021 ambulatory Jos Kennedy Facility:[facility] Start: 09-20-2021 End: 09-20-2021 ambulatory Karl Kennedy Facility:[facility] Start: 07-24-2021 Office outpatient ne w 60 minutes Jos Kennedy [facility] Start: 03-18-2018 End: 03-19-2018 Ambulatory DEFAULT PHYSICIAN Facility:[facility] Procedures Date Procedure Procedure Detail Performing Clinician Start: 07-28-2024 Arthrocentesis aspir &/inj major jt/bursa w/o us Christina Paris BENEFITS ASSISTANT Work Phone: Start: 07-28-2024 Radiologic exam both knees standing anteropost Christina Paris BENEFITS ASSISTANT Work Phone: Start: 04-04-2023 Antibody screen SARAHI SULLIVAN Comment on above: Order Comment: Speci men Type: BLOOD SPECIMEN Ordering Facility: [facility] Address: [address] [place] [address] Performed By: #### T [id number] #### CC MAIN BLOOD BANK [facility] [id number] [place] [address] Start: 04-18-2022 X-ray of cervical spine MD Karl Kennedy Work Phone: Start: 01-10-2022 X-ray of cervical spine MD Karl Kennedy Work Phone: Plan of Treatment Date Care Activity Detail Author Start: 04-04-2026 DIABETES SCREEN DIABETES SCREEN [facility] Start: 08-11-2024 End: 08-11-2024 Patient encounter procedure 08/11/2024 9:45 AM EDT Office Visit [facility] [address] [facility] [address] [place] [address] Christina Paris, BENEFITS ASSISTANT [address] [place] [address] [facility] Start: 07-28-2024 End: 07-28-2024 Patient encounter procedure 07/28/2024 8:30 AM EDT Office Visit [facility] [address] [facility] [address] [place] [id number] Christina Paris BENEFITS ASSISTANT [address] [facility] [address] [place] [address] Right knee pain, unspecified chronicity (Primary Dx); Arthritis of right knee [facility] Comment on above: Right knee pain, uns pecified chronicity (Primary Dx); Arthritis of right knee Start: 07-27-[address] Patient [address] [facility] Work Phone: Start: 06-20-2024 Influenza vaccination Influenza Vacc ine (#1) [facility] Start: 02-07-[address] [facility] Work Phone: Start: 06-20-2023 Influenza vaccination [facility] Start: 04-02-2023 End: 06-02-2023 CBC panel - Blood by Automated count CBC Lab Routine Pre-op exam Expected: 04/02/2023, Expires: 06/02/2023 [facility] Work Phone: Comment on above: Expected: 04/02/2023 , Expires: 06/02/2023 Start: 04-02-2023 End: 06-02-2023 Comprehensive metabolic 2000 panel - Serum or Plasma COMP METABOLIC PANEL Lab Routine Pre-op exam Expected: 04/02/2023, Expires: 06/02/2023 [facility] Work Phone: Comment on above: Expected: 04/02/2023 , Expires: 06/02/2023 Start: 04-02-2023 End: 06-02-2023 TYPE AND SCREEN,30 DAY TYPE AND SCREEN,30 DAY Blood Bank Routine Pre-op exam Expected: 04/02/2023, Expires: 06/02/2023 [facility] Work Phone: Comment on above: Expected: 04/02/2023 , Expires: 06/02/2023 Start: 10-20-2022 ADVANCE DIRECTIVE DISCUSSION ADVANCE DIRECTIVE DISCUSSION [facility] Start: 10-20-2022 DEPRESSION ASSESSMENT DEPRESSION ASS ESSMENT [facility] Start: 04-14-2021 COVID-19 VACCINE (2 - Booster for Teresa series) COVID-19 VACCINE (2 - Booster for Teresa series) [facility] Start: 2011 BONE DENSITY BONE DENSITY [facility] Start: 2011 Pneumococcal Vaccine : 65+ Years (1 of 1 - PCV) Pneumococcal Vaccine: 65+ Years (1 of 1 - PCV) [facility] Start: 2011 PNEUMOCOCCAL: 65+ (1 - PCV) PNEUMOCOCCAL: 65+ (1 - PCV) [facility] Start: 1996 SHINGRIX VACCINE (1 of 2) SHINGRIX VACCINE (1 of 2) [facility] Start: 1991 DIABETES SCREEN DIABETES SCREEN [facility] Start: 1965 Urine microalbumin profile DTAP,TDAP,TD (1 - Tdap) [facility] Start: 1964 ANNUAL PCP TEAM BETA TESTER MAREK DISEASE VISIT ANNUAL PCP TEAM CHRONIC DISEASE VISIT [facility] Start: 1964 BP CONTROLLED (<130/80) BP CON TROLLED (<130/80) [facility] Start: 1964 HEPATITIS C SCREENING HEPATITIS C [facility] Patient referral [facility] Work Phone: XR Knee - right 4 Views [facility] Immunizations Immunization Date Immunization Notes Care Provider Fa adelitaty 09-20-2020 influenza virus vacc ine, unspecified formulation Christina Paris NP Work Phone: [facility] 08-15-2016 influenza, high dose seasonal, preservative-free Ruby Sullivan MD Work Phone: [facility] Payers Date Payer Category Payer Self-pay [id number] 2015 Private Health Insurance [id number] 2008 Medicare [id number] 1959 Medicare [id number] 1959 Private Health Insurance [id number] 1946 Unknown [id number] 2.16.84 [id number] 1946 Unknown [id number] 2.16.84 [id number] 1946 Unknown [id number] 2.16.84 0.1.454166.3.579.2.593 1946 Unknown [id number] 2.16.84 0.1.998501.3.579.2.593 1946 Unknown [id number] 2.16.84 0.1.548263.3.579.2.1259 1946 Unknown [id number] 2.16.84 0.1.334242.3.579.2.1259 1946 Unknown [id number] 2.16.84 0.1.619956.3.579.2.1259 1946 Unknown [id number] 2.16.84 0.1.059310.3.579.2.1259 1946 Unknown [id number] 2.16.84 0.1.850113.3.579.2.1259 1946 Unknown [id number] 2.16.84 0.1.506176.3.579.2.1259 Unknown Unknown [id number] 2.16.8 40.1.098007.3.579.2.531 Unknown [id number] 2.16.8 [id number] Unknown [id number] 2.16.8 40.1.804572.3.579.2.531 Unknown [id number] 2.16.8 40.1.519027.3.579.2.531 Unknown [id number] 2.16.8 40.1.279900.3.579.2.531 Unknown [id number] 2.16.8 [id number] Social History Date Type Detail Facility Start: 10-01-2021 End: 03-03-2024 Tobacco smoking status NHIS Never smoked tobacco (finding) [facility] Start: 1945 Sex Assigned At Female F [facility] Start: 04-04-2023 End: 07-28-2024 Sex Assigned At [facility] Start: 02-22-2016 End: 03-03-2024 Tobacco use and exposure Smokeless tobacco non-user [facility] Start: 02-26-2023 End: 05-28-2023 Alcohol intake Current non-drinker of alcohol (finding) [facility] Start: 1945 Sex Assigned At Not on file [facility] Start: 04-04-2023 End: 07-28-2024 History of Social function [facility] Adult Depression Screening Assessment 0 [facility] Start: 07-28-2024 End: 08-11-2024 Alcoholic beverage intake Ex-drinker (finding) [facility] Medical Equipment Procedure Code Equipment Code Equipment Origin al Text Equipment Identifier Dates Spinal fixation plate, non-bioabsorbable ()[id number] FDA Start: 10-01-2021 Intervertebral-b tanner internal spinal fixation system [id number] FDA Start: 10-01-2021 Intervertebral-b tanner internal spinal fixation system ()[id number] FDA Start: 10-01-2021 Intervertebral-b tanner internal spinal fixation system ()[id number] FDA Start: 10-01-2021 Spinal fixation plate, non-bioabsorbable ()[id number] FDA Start: 10-01-2021 Clinical Notes 07-24-2021 to 08-11-2024 Christina Paris NP - 08/11/2024 9:45 AM EDArleth Paris NP - 07/28/2024 8:30 AM EDT Note Date & Type Note Facility 08-11-2024 History of Presen t illness Narrative Images from the original note were not included. Subjective Patient ID: Dominga Del Valle is a 79 y.o. female. RT Knee Pain Recent fall *Edel Tao referral 2 weeks s/p FWW and depo medrol injection (07/28/24) with 85-90% improvement, doing a lot better but knee is stiff often, notes she tries to move and bend it a lot. Notes the medicine shop called and told her and said the walker is over $100 so she did not get it. She is pleased with the improvement at this point. Pt states she fell about 5 weeks ago landing on her left side and had to get stitches in her head. Denies hitting or landing on the RT knee. She started having RT knee pain last Friday (07/23/24), denies any other injury. She saw Dr. Stanley on 07/23/24 and had xrays and was referred to ortho. States her daughter had her try to use crutches but she was unable to navigate them. Denies pain at rest. Occas gets a stiffness anterior medial in the knee. Notes she has sciatica and pain has been radiating up her thigh lately. The groin pain has resolved. She is taking Tyl prn, notes she has not needed it in the past week. Admits icy hot with relief. Describes pain as throbbing and can be sharp with certain movements and WB, this has resolved. Admits swelling in knee, this has resolved. Denies N/T. Notes she barely can sleep due to other issues, states the knee does not wake her up. [place]: PCP 07/23/24, XR/TBH/ right knee 07/23/2024, XR AP B/L WB NOMS 07/28/24, TYL, ice, crutches, FWW, depo medrol injection 07/28/24 Objective Ortho Exam Knee Musculoskeletal Exam Inspection Right Erythema: none Effusion: none Edema: mild Ecchymosis: none Deformity: none Alignment: normal Palpation Right Crepitus: patellofemoral Tenderness: none Range of Motion Right Active extension: 0 Active flexion: 115 Neurovascular Neurovascular additional comments: Negative homans sign Assessment/Plan Encounter Diagnoses: ICD-10-CM 1. Arthritis of right knee M17.11 2. Right knee pain, unspecified chronicity M25.561 Activities as tolerated, f/U prn documented in this encounter [facility] 07-28-2024 History of Presen t illness Narrative Associated Order(s): L Inj/Asp: R knee Post-Procedure Diagnose(s): Arthritis of right knee Images from the original note were not included. Subjective Patient ID: Dominga Del Valle is a 79 y.o. female. RT Knee Pain Recent fall *Edel Tao referral She goes by Dominga Pt states she fell about 3 weeks ago landing on her left side and had to get stitches in her head. Denies hitting or landing on the RT knee. She started having RT knee pain last Friday (07/23/24), denies any other injury. She saw Dr. Stanley on 07/23/24 and had xrays and was referred to ortho. States her daughter had her try to use crutches but she was unable to navigate them. Pain is diffuse in knee, mainly anterior today. States pain became constant this past Friday (07/23/24). Notes she has sciatica and pain has been radiating up her thigh and buttock lately. She is taking Tyl for pain. Admits ice pack and states the hot water from her shower gave her relief. Has not used gerson wrap or voltaren. Describes pain as throbbing and can be sharp with certain movements and WB. She limps from the pain. Pain at rest 8/10. Pain at worst 10+/10 walking and certain positions. Admits swelling diffuse in knee. Denies N/T. Admits waking at night, notes she barely can sleep. Notes since she has been limping she has been having a lot of groin pain. [place]: PCP 07/23/24, XR/TBH/ right knee 07/23/2024, XR AP B/L WB NOMS 07/28/24, TYL, ice, crutches Objective Ortho Exam Knee Musculoskeletal Exam Gait Limp: right Inspection Right Erythema: none Effusion: mild Edema: none Ecchymosis: none Deformity: none Alignment: normal Palpation Right Tenderness: present Medial joint line: moderate Range of Motion Right Active extension: 10 Active flexion: 100 Strength Right Extension: 4-/5. Flexion: 4-/5. Instability Right Varus stress grade: normal Valgus stress grade: normal Neurovascular Neurovascular additional comments: Negative homans sign I reviewed the pcp note from , recommended P.T., bracing, gerson wrap, voltaren gel, elevation and ice I reviewed the xrays of the right knee done at [facility] on 07/23/24 reveals moderate arthritis in all three compartments, no fractures noted. L Inj/Asp: R knee on 07/28/2024 9:41 AM Indications: pain Details: 20 G needle, anterolateral approach Medications: 40 mg methylPREDNISolone acetate 40 MG/ML UTILIZING ASEPTIC TECHNIQUE PT GIVEN INJECTION IN RIGHT KNEE, NEUROVASC INTACT S/P INJ, TOLERATED WELL Procedure, treatment alternatives, risks and benefits explained, specific risks discussed. Consent was given by the patient. Assessment/Plan Encounter Diagnoses: ICD-10-CM 1. Right knee pain, unspecified chronicity M25.561 XR knees anteroposterior standing bilateral 2. Arthritis of right knee M17.11 Ambulatory referral to Physical Therapy Discussion of options, pt notes she would like an injection, side effects of bleeding and infection discussed, would like to proceed with the injection, using aspectic technique 40 mg of depo medrol was injected into the right lateral knee, pt tolerated well, bandaid applied, may do activities as tolerated, f/u in 2 weeks. Discussed warmth and also voltaren gel, sent to [facility] today for gait training and [facility] for assistive device, will order a FWW and will fax to [facility] in [place] documented in this encounter [facility] 08-06-2023 Evaluation note Encounter Date Diagnosis Assessment Notes Jul, Dupuytren's contracture of right hand (ICD-10 - M72.0) Patient does appear to have a right-hand contracture, patient is advised to watch her symptoms at this time. Jul, Tendinitis, de Quervain's (ICD-10 - M65.4) Radiographs of the hand was reviewed with the patient today, along with a physical examination. We discussed treatment starting with conservative treatment which includes use of a cortisone injection to reduce inflammation. We performed an injection at the tendon sheath. This was performed under sterile technique. No adverse reactions noted. [employer] Other 10-10-2023 Evaluation note* Encounter Date Diagnosis Assessment Notes Treatment Notes Treatment Clinical Notes Jul, Right hand pain (ICD-10 - M79.641) [employer] Other 08-31-2023 Evaluation note* Encounter Date Diagnosis Assessment Notes Treatment Notes Treatment Clinical Notes May, Right hand pain (ICD-10 - M79.641) [employer] Other 08-22-2023 Evaluation note* Encounter Date Diagnosis Assessment Notes Treatment Notes Treatment Clinical Notes May, De Quervain's tenosynovitis, right (ICD-10 - M65.4) Handout given on problem. Declines ortho referral for potential injection. Try voltaren and heat topically. [employer] Other 08-09-2023 NoteHNO ID: [id number] Author: Ruby Sullivan MD Service: ? Author Type: Physician Type: Progress Notes Filed: 05/28/2023 3:03 PM Note Text: DATE OF SERVICE: 05/28/2023 REASON FOR VISIT: Thickened endometrium, post op follow up DIAGNOSIS: Thickened endometrium HPI: 1.Farrah Del Valle is a 77 year old female with pmh of HTN, breast CA, sensorineural hearing loss and TIA who was evaluated by [facility] for a thickened endometrium noted on CT on 11/2021 and on follow up US in 01/2022. [facility] with benign findings. Patient having persistent abdominal pain and intermittent pink vaginal discharge presents for discussion of management. She reports normal appetite, normal bowel movements. 2. 04/25/2023 SURGERY DATE OF LAST VISIT: 04/30/23 OBSTETRIC/ GYNECOLOGY HISTORY: Last Pap: 01/16/23 negative PAST MEDICAL HISTORY Diagnosis Date Hypertension TIA (transient ischemic attack) PAST SURGICAL HISTORY Procedure Laterality Date BACK SURGERY HX disc surgery BIOPSY BREAST right breast CHOLECYSTECTOMY HX Neck surgery 09/2021 Family History Problem Relation Age of Onset Lipids Mother Diabetes Father Ischemic Heart Disease Father Skin Cancer Maternal Uncle Breast cancer - right lumpectomy with right axillary biopsy - s/p adjuvant radiation RECENT PATHOLOGY: 04/25/2023 FINAL DIAGNOSIS Uterus, cervix, bilateral ovaries and fallopian tubes, hysterectomy with bilateral salpingo-oophorectomy: - Cervix: No significant pathologic abnormality. - Endometrium: Atrophy, benign endometrial polyp. - Myometrium: Adenomyosis, leiomyomas. - Left fallopian tube: No significant pathologic abnormality. - Left ovary: Epithelial inclusion cysts, stromal hyperplasia. - Right fallopian tube: Paratubal cyst. - Right ovary: Calcified fibroma in a background of stromal hyperplasia. 02/11/2022 RECENT IMAGING: Date: 03/05/2023 Date: 01/21/2022 12/08/2021 CT A/P HEALTH MAINTENANCE: Last mammogram: not discussed today Last colonoscopy: Patient reports that she had a colonoscopy in the past few years that was normal ECOG performance status ECOG PERFORMANCE STATUS: 0- Fully active, able to carry on all pre-disease performance w/o restriction. SUBJECTIVE/INTERVAL HISTORY: Farrah Del Valle reports that she feels well. No vaginal bleeding or discharge. No shortness of breath, cough, or chest pain. No abdominal pain, nausea, vomiting, diarrhea, or constipation. No dysuria, gross hematuria, urinary frequency, urinary urgency, or incontinence. Her ECOG performance status is zero (fully active, able to carry on all pre-disease performance without restriction). OBJECTIVE: VITALS: BP 143/72 Pulse 74 Temp (Src) 97.6 (Temporal) Resp 18 Wt 159 lb 3.2 oz (72.2kg) SpO2 97% GENERAL: alert, oriented, pleasant, and cooperative. HEENT: Normocephalic, atraumatic, and no lesions. ABDOMEN: Abdomen soft, non-tender PELVIC: External genitalia, anus and urethral meatus are normal in appearance and without lesions. Vagina normal in appearance on speculum examination. Vaginal cuff well healed Cervix surgically absent. LOWER EXTREMITIES: No pitting edema and no skin changes ASSESSMENT: 78 year old y/o female with PMH TIAs, HTN, on plavix, hx Breast cancer 2015 s/p lumpectomy and radiation presenting for further evaluation of persistent abdominal/pelvic pain and pink vaginal discharge. Presents s/p TLH, BSO, doing well post op, pathology reviewed, benign. Restarted on Plavix. Reviewed pathology benign. Doing well post op PLAN: Return to rigging helper onc prn for new or worsening symptoms Ruby Sullivan, [facility]08-09-2023 History of Present illness Narrative* Ruby Sullivan MD - 05/28/2023 2:15 PM EDT Images from the original note were not included. DATE OF SERVICE: 05/28/2023 REASON FOR VISIT: Thickened endometrium, post op follow up DIAGNOSIS: Thickened endometrium HPI: 1.Farrah Del Valle is a 77 year old female with pmh of HTN, breast CA, sensorineural hearing loss and TIA who was evaluated by [facility] for a thickened endometrium noted on CT on 11/2021 and on follow up US in 01/2022. An [facility] ECC completed on 02/11/22 with benign findings. Patient having persistent abdominal pain and intermittent pink vaginal discharge presents for discussion of management. She reportsnormal appetite, normal bowel movements. 2. 04/25/2023 SURGERY DATE OF LAST VISIT: 04/30/23 OBSTETRIC/ GYNECOLOGY HISTORY: Last Pap: 01/16/23 negative PAST MEDICAL HISTORY Diagnosis Date Hypertension TIA (transient ischemic attack) PAST SURGICAL HISTORY Procedure Laterality Date BACK SURGERY HX disc surgery BIOPSY BREAST right breast CHOLECYSTECTOMY HX Neck surgery 09/2021 Family History Problem Relation Age of Onset Lipids Mother Diabetes Father Ischemic Heart Disease Father Skin Cancer Maternal Uncle Breast cancer - right lumpectomy with right axillary biopsy - s/p adjuvant radiation RECENT PATHOLOGY: 04/25/2023 FINAL DIAGNOSIS Uterus, cervix, bilateral ovaries and fallopian tubes, hysterectomy with bilateral salpingo-oophorectomy: - Cervix: No significant pathologic abnormality. - Endometrium: Atrophy, benign endometrial polyp. - Myometrium: Adenomyosis, leiomyomas. - Left fallopian tube: No significant pathologic abnormality. - Left ovary: Epithelial inclusion cysts, stromal hyperplasia. - Right fallopian tube: Paratubal cyst. - Right ovary: Calcified fibroma in a background of stromal hyperplasia. 02/11/2022 RECENT IMAGING: Date: 03/05/2023 Date: 01/21/2022 12/08/2021 CT A/P HEALTH MAINTENANCE: Last mammogram: not discussed today Last colonoscopy: Patient reports that she had a colonoscopy in the past few years that was normal ECOG performance status ECOG PERFORMANCE STATUS: 0- Fully active, able to carry on all pre-disease performance w/o restriction. SUBJECTIVE/INTERVAL HISTORY: Farrah Del Valle reports that she feels well. No vaginal bleeding or discharge. No shortness of breath, cough, or chest pain. No abdominal pain, nausea, vomiting, diarrhea,or constipation. No dysuria, gross hematuria, urinary frequency, urinary urgency, or incontinence. Her ECOG performance status is zero (fully active, able to carry on all pre-disease performance without restriction). OBJECTIVE: VITALS: BP 143/72 Pulse 74 Temp (Src) 97.6 (Temporal) Resp 18 Wt 159 lb 3.2 oz (72.2kg) SpO2 97% GENERAL: alert, oriented, pleasant, and cooperative. HEENT: Normocephalic, atraumatic, and no lesions. ABDOMEN: Abdomen soft, non-tender PELVIC: External genitalia, anus and urethral meatus are normal in appearance and without lesions. Vagina normal in appearance on speculum examination. Vaginal cuff well healed Cervix surgically absent. LOWER EXTREMITIES: No pitting edema and no skin changes ASSESSMENT: 78 year old y/o female with PMH TIAs, HTN, on plavix, hx Breast cancer 2015 s/p lumpectomy and radiation presenting for further evaluation of persistent abdominal/pelvic pain and pink vaginal discharge. Presents s/p TLH, BSO, doing well post op, pathology reviewed, benign. Restarted on Plavix. Reviewed pathology benign. Doing well post op PLAN: Return to rigging helper onc prn for new or worsening symptoms Ruby Sullivan MD [facility] NoteHNO ID: [id number] Author: Ruby Sullivan MD Service: ? Author Type: Physician Type: Progress Notes Filed: 04/30/2023 4:35 PM Note Text: DATE OF SERVICE: 04/30/2023 REASON FOR VISIT: Thickened endometrium, post op follow up DIAGNOSIS: Thickened endometrium HPI: 1.Farrah Del Valle is a 77 year old female with pmh of HTN, breast CA, sensorineural hearing loss and TIA who was evaluated by [facility] for a thickened endometrium noted on CT on 11/2021 and on follow up US in 01/2022. An [facility] ECC completed on 02/11/22 with benign findings. Patient having persistent abdominal pain and intermittent pink vaginal discharge presents for discussion of management. She reports normal appetite, normal bowel movements. 2. 04/25/2023 SURGERY DATE OF LAST VISIT: 04/02/23 OBSTETRIC/ GYNECOLOGY HISTORY: Last Pap: 01/16/23 negative PAST MEDICAL HISTORY Diagnosis Date Hypertension TIA (transient ischemic attack) PAST SURGICAL HISTORY Procedure Laterality Date BACK SURGERY HX disc surgery BIOPSY BREAST right breast CHOLECYSTECTOMY HX Neck surgery 09/2021 Family History Problem Relation Age of Onset Lipids Mother Diabetes Father Ischemic Heart Disease Father Skin Cancer Maternal Uncle Breast cancer - right lumpectomy with right axillary biopsy - s/p adjuvant radiation RECENT PATHOLOGY: 04/25/2023 FINAL DIAGNOSIS Uterus, cervix, bilateral ovaries and fallopian tubes, hysterectomy with bilateral salpingo-oophorectomy: - Cervix: No significant pathologic abnormality. - Endometrium: Atrophy, benign endometrial polyp. - Myometrium: Adenomyosis, leiomyomas. - Left fallopian tube: No significant pathologic abnormality. - Left ovary: Epithelial inclusion cysts, stromal hyperplasia. - Right fallopian tube: Paratubal cyst. - Right ovary: Calcified fibroma in a background of stromal hyperplasia. 02/11/2022 RECENT IMAGING: Date: 03/05/2023 Date: 01/21/2022 12/08/2021 CT A/P HEALTH MAINTENANCE: Last mammogram: not discussed today Last colonoscopy: Patient reports that she had a colonoscopy in the past few years that was normal ECOG performance status ECOG PERFORMANCE STATUS: 0- Fully active, able to carry on all pre-disease performance w/o restriction. SUBJECTIVE/INTERVAL HISTORY: Farrah Del Valle is doing well since surgery. Off pain medication, no bleeding, reports some abdominal bruising. Tolerating regular diet without nasuea/vomiting. Her ECOG performance status is zero (fully active, able to carry on all pre-disease performance without restriction). OBJECTIVE: VITALS: BP 174/85[recheck[ Pulse 76 Temp (Src) 97.4 (Temporal) Resp 16 Ht 5' 7.008 (1.70m) Wt 160 lb 6.4 oz (72.8kg) SpO2 95% BMI 25.12 kg/(m2). GENERAL: alert, oriented, pleasant, and cooperative. HEENT: Normocephalic, atraumatic, and no lesions. ABDOMEN: Abdomen soft, non-tender, laparoscopic incisions healing well - significant bruising surrounding RLQ port site - denies pain in this area. PELVIC: deferred LOWER EXTREMITIES: No pitting edema and no skin changes ASSESSMENT: 78 year old y/o female with PMH TIAs, HTN, on plavix, hx Breast cancer 2015 s/p lumpectomy and radiation presenting for further evaluation of persistent abdominal/pelvic pain and pink vaginal discharge. Presents s/p TLH, BSO, doing well post op, pathology reviewed, benign. Restarted on Plavix. Significant bruising around RLQ site. Reviewed pathology benign. PLAN: Return for 4 week post op visit Ruby Sullivan [facility]07-10-2023 Miscellaneous Notes* Telephone Encounter - Jenny Condon RN - 04/28/2023 11:23 AM EDT April 28, 2023 11:24 AM Patient called for post op follow up assessment. Reports she is doing well. Pain: Patient rates pain 4 on a scale of 0-10. 0 being no pain and 10 being worst pain imaginable. Patient states pain is tolerable. Diet: Patient is able tolerate fluids and normal diet. Bowel Movement: Patient is able to pass gas and has had a bowel movement. Voiding: Patient is able to void without difficult.. Vaginal Discharge: Denies heavy vaginal bleeding Skin Incision: Denies drainage, redness, or signs of infection. - radha present: No - sutures present: No - adhesive present: Yes - steri-strips present: No Medication: Denies questions or concerns about medication. Post op restrictions reviewed with patient including - activity- no heavy lifting, on pelvic rest - keep incision clean and dry. Ok to use mild antibacterial soap. - reviewed signs and symptoms to notify office including signs of infection, fever, heavy vaginal bleeding. - she is aware of post op appointment with Doctor Patient verbalized understanding and denies further questions at this time. Understands to call theoffice with further concerns/questions. Survivorship treatment summary initiated: path pending [place] Condon, RN [facility] NoteHNO ID: [id number] Author: Christopher Brooks APRN.CRNA Service: Anesthesiology Author Type: Nurse Manager [employer] Type: Anesthesia Procedure Notes Filed: 04/25/2023 11:01 AM Note Text: ANESTHESIOLOGY PROCEDURE NOTE PIV General Information Procedure Start Time/Medication Administration: 04/25/2023 10:50 AM Patient Location: OR Staffing BAG GRADER: Christopher Brooks APRN.BAG GRADER Performed by: HAMILTON Preparation Sterility Preparation: hand hygiene performed prior to procedure, surgical cap used, mask used, skin prep agent completely dried prior to procedure Site Prep: chlorhexidine Procedure Details Indication: need for IV access Needle Size/Type: 18 gauge angiocath Orientation: Left Location: Hand Imaging Guidance Used: No SIGNATURE: Christopher Brooks APRN.CRNA PATIENT NAME: Farrah Del Valle DATE: April 25, 2023 TIME: 11:00 AM CSN: [id number] NoteHNO ID: [id number] Author: Christopher Brooks APRN.CRNA Service: Anesthesiology Author Type: Nurse Manager Managed [employer] Type: Anesthesia Procedure Notes Filed: 04/25/2023 11:00 AM Note Text: ANESTHESIOLOGY PROCEDURE NOTE Airway General Information Procedure Start Time/Medication Administration: 04/25/2023 10:40 AM Patient location during procedure: OR Staffing BAG GRADER: Christopher Brooks APRN.BAG GRADER Performed by: HAMILTON Indications and Patient Condition Indications for airway management: anesthesia Preoxygenated: yes anesthesia circuit Method: sleep Difficult Mask: No Final Airway Details Final airway type: endotracheal airway Final Endotracheal Airway: ETT Cuffed: yes Successful intubation technique: direct laryngoscopy Devices used: Chandler and intubating stylet Endotracheal tube insertion site: oral Blade size: #3 ETT size (mm): 7.0 Measured from: lips Measurement (cm): 22 Placement verified by: chest auscultation and capnometry Cormack-Lehane Classification: grade I - full view of glottis Number of attempts at approach: 1 Airway not difficult SIGNATURE: Christopher Brooks APRN.CRNA PATIENT NAME: Farrah Del Valle DATE: April 25, 2023 TIME: 10:59 AM CSN: [id number] Miscellaneous Notes* Telephone Encounter - Jenny Condon RN - 04/18/2023 11:13 AM EDT Attempted to call pt for preop teaching. Phone number not set up for VM. Will try back later. documented in this encounterMer[facility] History and physical note * Karina Juarez APRN.KENYATTA - 04/04/2023 2:20 PM EDT HISTORY AND PHYSICAL EXAMINATION SERVICE DATE: 04/04/2023 SERVICE TIME: 2:24 PM PRIMARY CARE PHYSICIAN: Karl Kennedy MD REASON FOR VISIT: Farrah Del Valle is a 78 year old female who is scheduled for Procedure(s) (LRB): LAPAROSCOPIC HYSTERECTOMY TOTAL FOR UTERUS 250 G OR LESS W/REMOVAL TUBE(S) AND/OR OVARY(S) (Bilateral) at the request of Dr. Ruby uSllivan for consultation. My final recommendation will be communicated back to the requesting physician by way of shared medical record or letter. The patient has the following: ACTIVE PROBLEM LIST Malignant Neoplasm of Right Female Breast (Hcc) Malignant Neoplasm of Lower-Inner Quadrant of Right Female Breast (Hcc) Malignant Neoplasm Involving Both Nipple and Areola of Right Breast in Female (Hcc) Vaginal Bleeding Tia (Transient Ischemic Attack) Hypertension Subjective CHIEF COMPLAINT: Vaginal bleeding, thickened endometrium, HPI: 78 year old year old presents to [facility] for evaluation. Patient was seen by FRAMING CONSULTANT for thickened endometrium. She had a D&C 01/2022. She reports persistent abdominal pain and intermittent pink discharge. Has elected for surgical intervention. PAST MEDICAL HISTORY Diagnosis Date Hypertension TIA (transient ischemic attack) PAST SURGICAL HISTORY Procedure Laterality Date BACK SURGERY HX disc surgery BIOPSY BREAST right breast CHOLECYSTECTOMY HX FAMILY HISTORY Problem Relation Age of Onset Lipids Mother Diabetes Father Ischemic Heart Disease Father Skin Cancer Maternal Uncle SOCIAL HISTORY: Social History Tobacco Use Smoking status: Never Smokeless tobacco: Never Vaping Use Vaping Use: Never used Substance Use Topics Alcohol use: No Drug use: No Prior to Admission medications as of 04/04/23 1442 Medication Sig Last Dose Taking lisinopril (ZESTRIL, PRINIVIL) 5 mg tablet Taking Yes clopidogrel (PLAVIX) 75 mg tablet Take 75 mg by mouth once daily. Taking Yes atenolol (TENORMIN) 25 mg tablet Take 25 mg by mouth once daily. Taking Yes aspirin, enteric coated (ASPIRIN, ENTERIC COATED) 81 mg EC tablet Take 81 mg by mouth once daily. Taking Yes No medication comments found. ALLERGIES Allergen Reactions Codeine Vomiting COVID VACCINATION STATUS: Fully vaccinated REVIEW OF SYSTEMS: PAIN ASSESSMENT: General: No weight loss, malaise or fevers. Neuro: Negative for Headaches Seizures Stroke-residual deficit Stroke-No residual deficit +TIA Respiratory: No history of current cough or dyspnea, or pneumonia in the past 6 weeks. No history of respiratory/pulmonary symptoms or problems. Cardiovascular: Negative for Recent FL, Angina, Chest Pain, PVD, DVT/PE +HTN GI: No history of GI symptoms or problems. No history of esophageal varices, recent ascites, or ETOH greater than 2 drinks per day. : No history of dysuria, frequency or incontinence,, stones or chronic kidney disease FRAMING CONSULTANT: See HPI : Denies, No LMP recorded. Patient is postmenopausal. Endocrine: No history of diabetes. Has not taken steroids within the past 30 days. No history of endocrinological symptoms or problems. Hematology: Chronic anti-coagulation / platelet meds (Aspirin, Plavix) Oncology: + Lumpectomy Right Psych: No history of psychiatric symptoms or problems. Musculoskeletal: Negative for joint pain or swelling, back pain or muscle pain. Skin: Negative for lesions, rash and itching. Objective PHYSICAL EXAM: VITALS: BP 157/79 Pulse 66 Temp (Src) 97.2 (Temporal) Resp 14 Ht 5' 7 (1.70m) Wt 162 lb (73.5kg) SpO2 98% BMI 25.37 kg/(m^2). General: Alert and oriented Skin: Normal color, no rash, no lesions. HEENT: EOM, pupils equal, round and reactive. Cardiovascular: Normal S1 & S2, no rubs, murmurs or gallops. No JVD. Pulse regular. Lungs: Normal breath sounds, no wheezes or crackles. Extremities: No deformity, no edema or tenderness, no joint swelling or clubbing. Neurological: Normal cognition and motor skills. Pulses: Radial pulses normal +2. Diagnostic tests reviewed for today's visit: Lab Value Units Date High Low HB 13.5 g/dL 04/04/2023 15.5 11.5 HCT 42.5 % 04/04/2023 46.0 36.0 WBC 6.72 k/uL 04/04/2023 11.00 3.70 PLT 234 k/uL 04/04/2023 400 150 NA 142 mmol/L 04/04/2023 144 136 K 3.8 mmol/L 04/04/2023 5.1 3.7 GLUC 89 mg/dL 04/04/2023 99 74 BUN 14 mg/dL 04/04/2023 21 7 CREAT 0.80 mg/dL 04/04/2023 0.96 0.58 PTSEC No results within date range. INR No results within date range. APTT No results within date range. ALT 10 U/L 04/04/2023 38 7 AST 14 U/L 04/04/2023 35 13 TBILI 0.9 mg/dL 04/04/2023 1.3 0.2 TSH No results within date range. Assessment/Plan TIA (transient ischemic attack) Assessment: No deficits On DAPT Follows with PCP Hypertension Assessment: Stable on lisinopril and atenolol Follows with PCP METS: Do moderate work around the house such as vacuuming, sweeping floors, or carrying in groceries (3.50 METs) Climb a flight of stairs or walk up a hill (5.50 METs) Patient denies any chest pain or undue shortness of breath with the above physical activity. ASA Class: 3 ANESTHESIA FINDINGS: Intubation History: No history of difficult intubation Significant Anesthesia Considerations: None Airway Exam: General: Normal appearance Mallampati Score is CLASS II ULBT: Class II - Lower incisors can bite the upper lip below the ministerio line Neck: Normal appearance and function, Distance from hyoid to mentum during neck extension is at least 3 finger breaths Mouth: Normal tongue size and Mouth opening greater than 2 finger breaths Dentition: Partial (Upper) Airway History: No abnormal airway history STOP BANG Score: Criteria: Age over 50 (78 year old) Score = 1 PLAN This patient is optimally prepared for surgery. Per PCP: Will stop plavix 7d pre op (Per surgeon 04/02/2023 Pre-Op note) CONSULTS: Patient does not require consults for optimization at this time. The Following Tests/Procedures Have Been Initiated: Labs not indicated per [facility] protocol, EKG not indicated per [facility] protocol Planned Anesthetic: General Instructions Given to Patient: Instructions located in the after visit summary. Patient given verbal and written preop instructions and voices comprehension and compliance. SIGNATURE: Karina Juarez APRN.CNP PATIENT NAME: Farrah Del Valle DATE: April 04, 2023 TIME: 10:56 AM documented in this encounterMer[facility]06-16-2023 Instructions* Patient Instructions* Karina Juarez APRN.CNP - 04/04/2023 10:56 AM EDT PATIENT PREOPERATIVE INSTRUCTIONS You Surgeon has scheduled you for your procedure at this surgery center: [facility]: [phone] --[id number] [address]. Please check in on the1st floor at registration desk 6. Please read below carefully for your personalized instructions. Dietary Restrictions: - No solid food after midnight. - You may have 12 ounces of clear liquids (water, clear juices such as apple juice or gatorade, carbonated beverages, clear tea, black coffee, jello) until 2 hours before scheduled arrival at facility. Medications: Unless instructed differently below, stay on all of your medications until your surgery. Approved medications to take the morning of surgery with a sip of water: Atenolol DO NOT TAKE YOUR lisinopril THE NIGHT BEFORE OR MORNING OF SURGERY. If you start any new medications after today's visit, please contact the surgeon's office. Blood Thinning Medications: - Stop NSAIDS (Ibuprofen, Advil, Aleve, Motrin, Celebrex, Mobic, etc.) 7 days before surgery, as directed by your surgeon. - Stop Aspirin 7 days before surgery, as directed by your surgeon. - Stop Vitamin E, ALL multi-vitamins, herbals and dietary supplements 7 days before surgery. - You may take Tylenol (Acetaminophen) or any of your pain medications that do not contain aspirin or NSAIDS as needed. -Stop plavix 7 days prior to procedure Important Reminders: - Candy, mints, and tobacco products are NOT permitted the morning of surgery. - Hearing aids, dentures and glasses may be worn the morning of surgery. - NO jewelry, body piercings, makeup, hairpins or contacts are to be worn the day of surgery. If you develop symptoms such as a fever, cold, or flu, or have other changes to your health within TWO DAYS of scheduled surgery or the morning of surgery, please contact the surgery center above. Personal Belongings: -Please have photo ID and insurance cards. -If you do not have a copy of advance directives on file with us, please bring a copy with you on the day of surgery. - Leave ALL valuables and money at home or with family members. For Outpatient Procedures: - YOU MUST HAVE A RESPONSIBLE CORPORATE BOND TRADER TAKE YOU HOME. A NOUGAT CANDY MAKER HELPER OR SECURITY SYSTEM ADMINISTRATOR CANNOT BE MADE A RESPONSIBLE CORPORATE BOND TRADER. - We recommend that a responsible person stays with you overnight to take care of you. - You cannot stay in a hotel alone after outpatient surgery. You will not be permitted to have yoursurgery, if you do not have someone to take care of you. Arrival Time for Surgery: - The Surgery Center or hospital where you are having surgery will call the afternoon before surgery (or Friday for Friday surgery) with a scheduled arrival time. - If you have not heard by 4 pm, please contact the surgery center above. Please be aware that emergency situations arise, which may delay or change your surgical time. If this happens, we will notify you as soon as possible and regret any inconvenience. If you already have an Advance Directive, please fax a copy to [phone] or email to for it to be added to your chart. If you do not have an Advance Directive, you can find the appropriate form and more information at [email or web address]. We recommend that youcomplete the Advance Directive form found on the website and bring it with you the day of your surgery. It can be witnessed and scanned into your chart that day. Karina Juarez APRN.CNP documented in this encounterMer[facility]06-14-2023 NoteHNO ID: [id number] Author: Ruby Sullivan MD Service: ? Author Type: Physician Type: Progress Notes Filed: 04/02/2023 2:37 PM Note Text: DATE OF SERVICE: 04/02/2023 REASON FOR VISIT: Thickened endometrium, review US, review medical clearance pre operatively DIAGNOSIS: Thickened endometrium HPI: 1.Farrah Del Valle is a 77 year old female with pmh of HTN, breast CA, sensorineural hearing loss and TIA who was evaluated by FRAMING CONSULTANT for a thickened endometrium noted on CT on 11/2021 and on follow up US in 01/2022. An DANDC ECC completed on 02/11/22 with benign findings. Patient having persistent abdominal pain and intermittent pink vaginal discharge presents for discussion of management. She reports normal appetite, normal bowel movements. Last visit with Dr. Cordoba on 02/04/23: DATE OF LAST VISIT: 02/26/23 Patient states pain comes and goes. She hasn't been active so no pain today.no discharge or bleeding. No trouble with going to the bathroom OBSTETRIC/ GYNECOLOGY HISTORY: Last Pap: 01/16/23 negative PAST MEDICAL HISTORY Diagnosis Date Hypertension TIA (transient ischemic attack) PAST SURGICAL HISTORY Procedure Laterality Date BACK SURGERY HX disc surgery BIOPSY BREAST right breast CHOLECYSTECTOMY HX Neck surgery 09/2021 Family History Problem Relation Age of Onset Lipids Mother Diabetes Father Ischemic Heart Disease Father Skin Cancer Maternal Uncle Breast cancer - right lumpectomy with right axillary biopsy - s/p adjuvant radiation RECENT PATHOLOGY: 02/11/2022 RECENT IMAGING: Date: 03/05/2023 Date: 01/21/2022 12/08/2021 CT A/P HEALTH MAINTENANCE: Last mammogram: not discussed today Last colonoscopy: Patient reports that she had a colonoscopy in the past few years that was normal ECOG performance status ECOG PERFORMANCE STATUS: 0- Fully active, able to carry on all pre-disease performance w/o restriction. SUBJECTIVE/INTERVAL HISTORY: Farrah Del Valle reports that she is having persistent abdominal pain that now is shooting through her lower abdomen. Reports intermittent pain. Reports pink vaginal discharge. No shortness of breath, cough, or chest pain. No abdominal pain, nausea, vomiting, diarrhea, or constipation. No dysuria, gross hematuria, urinary frequency, urinary urgency, or incontinence. Her ECOG performance status is 1 (restricted in physically strenuous activity but ambulatory and able to carry out work of a light or sedentary nature). OBJECTIVE: VITALS: BP 153/83 Pulse 71 Temp (Src) 97.4 (Temporal) Resp 18 Wt 163 lb 6.4 oz (74.1kg) SpO2 95% GENERAL: alert, oriented, pleasant, and cooperative. HEENT: Normocephalic, atraumatic, and no lesions. ASSESSMENT: 78 year old y/o female with PMH TIAs, HTN, on plavix, hx Breast cancer 2015 s/p lumpectomy and radiation presenting for further evaluation of persistent abdominal/pelvic pain and pink vaginal discharge. Last endometrial assessment was ~13 months ago with DANDC completed for thickened endometrium with showed benign endometrial polyps. Patient was scheduled for hysterectomy w/Dr. Cordoba due to ongoing symptoms however he recently is moving practice [place] and she presents today for further discussion of management. Reviewed repeat sono today showing persistent 2cm endometrium. Patient having persistent symptoms of lower abdominal pain and pink discharge. Discussed option for repeat DANDC for polyp removal (consistent with last biopsy) vs definitive management with hysterectomy. Patient opts for definitive management. We discussed the r/b/a to surgery in detail and informed consent was obtained. Will stop plavix 7d pre op Medical clearance from PCP scanned into chart. PLAN: OR at Pre op labs ordered PAT to be scheduled Ruby Sullivan MD Medical Decision Making: Problems: Moderate: 1+ chronic illnesses with change Data: Unique test result(s) reviewed: 1 Unique test(s) ordered: 3+ Risk: High: Decision on elective major surgery w/ risk factors Medical Decision Making Level: 4 - Moderate Letter sent to referring providers including note from today's office visit: MD Christiano Lynch MD [address] [place] [address] [place] [address]ke[facility] History of Present illness Narrative* Ruby Sullivan MD - 04/02/2023 2:00 PM EDT Images from the original note were not included. DATE OF SERVICE: 04/02/2023 REASON FOR VISIT: Thickened endometrium, review US, review medical clearance pre operatively DIAGNOSIS: Thickened endometrium HPI: 1.Farrah Del Valle is a 77 year old female with pmh of HTN, breast CA, sensorineural hearing loss and TIA who was evaluated by FRAMING CONSULTANT for a thickened endometrium noted on CT on 11/2021 and on follow up US in 01/2022. An D&C ECC completed on 02/11/22 with benign findings. Patient having persistent abdominal pain and intermittent pink vaginal discharge presents for discussion of management. She reportsnormal appetite, normal bowel movements. Last visit with Dr. Cordoba on 02/04/23: DATE OF LAST VISIT: 02/26/23 Patient states pain comes and goes. She hasn't been active so no pain today.no discharge or bleeding. No trouble with going to the bathroom OBSTETRIC/ GYNECOLOGY HISTORY: Last Pap: 01/16/23 negative PAST MEDICAL HISTORY Diagnosis Date Hypertension TIA (transient ischemic attack) PAST SURGICAL HISTORY Procedure Laterality Date BACK SURGERY HX disc surgery BIOPSY BREAST right breast CHOLECYSTECTOMY HX Neck surgery 09/2021 Family History Problem Relation Age of Onset Lipids Mother Diabetes Father Ischemic Heart Disease Father Skin Cancer Maternal Uncle Breast cancer - right lumpectomy with right axillary biopsy - s/p adjuvant radiation RECENT PATHOLOGY: 02/11/2022 RECENT IMAGING: Date: 03/05/2023 Date: 01/21/2022 12/08/2021 CT A/P HEALTH MAINTENANCE: Last mammogram: not discussed today Last colonoscopy: Patient reports that she had a colonoscopy in the past few years that was normal ECOG performance status ECOG PERFORMANCE STATUS: 0- Fully active, able to carry on all pre-disease performance w/o restriction. SUBJECTIVE/INTERVAL HISTORY: Farrah Del Valle reports that she is having persistent abdominal pain that now is shooting through her lower abdomen. Reports intermittent pain. Reports pink vaginal discharge. No shortness of breath, cough, or chest pain. No abdominal pain, nausea, vomiting, diarrhea, or constipation. No dysuria, gross hematuria, urinary frequency, urinary urgency, or incontinence. HerECOG performance status is 1 (restricted in physically strenuous activity but ambulatory and able to carry out work of a light or sedentary nature). OBJECTIVE: VITALS: BP 153/83 Pulse 71 Temp (Src) 97.4 (Temporal) Resp 18 Wt 163 lb 6.4 oz (74.1kg) SpO2 95% GENERAL: alert, oriented, pleasant, and cooperative. HEENT: Normocephalic, atraumatic, and no lesions. ASSESSMENT: 78 year old y/o female with PMH TIAs, HTN, on plavix, hx Breast cancer 2015 s/p lumpectomy and radiation presenting for further evaluation of persistent abdominal/pelvic pain and pink vaginal discharge. Last endometrial assessment was ~13 months ago with D&C completed for thickened endometrium with showed benign endometrial polyps. Patient was scheduled for hysterectomy w/Dr. Cordoba due to ongoing symptoms however he recently is moving practice [place] of [place] and she presents today for further discussion of management. Reviewed repeat sono today showing persistent 2cm endometrium. Patient having persistent symptoms of lower abdominal pain and pink discharge. Discussed option for repeat D&C for polyp removal (consistent with last biopsy) vs definitive management with hysterectomy. Patient opts for definitive management. We discussed the r/b/a to surgery in detail and informed consent was obtained. Will stop plavix 7d pre op Medical clearance from PCP scanned into chart. PLAN: OR at Pre op labs ordered PAT to be scheduled Ruby Sullivan MD Medical Decision Making: Problems: Moderate: 1+ chronic illnesses with change Data: Unique test result(s) reviewed: 1 Unique test(s) ordered: 3+ Risk: High: Decision on elective major surgery w/ risk factors Medical Decision Making Level: 4 - Moderate Letter sent to referring providers including note from today's office visit: MD Christiano Lynch MD [address] [place] [address] [place] [address] documented in this encounterMer[facility]05-10-2023 Miscellaneous Notes* Telephone Encounter - [facility] - 02/26/2023 1:25 PM EDT Letter faxed to Dr. Kennedy. * Telephone Encounter - Aura Krishna - 02/26/2023 12:[address] Sullivan is asking if we can send Dr. Karl Kennedy a letter that she is requesting medical clearance for a laparoscopic hysterectomy. Drea: The doctor would like you to request records from Dr. Karl Kennedy. documented in this encounterMercy Health [facility]05-10-2023 NoteHNO ID: [id number] Author: Ruby Sullivan MD Service: ? Author Type: Physician Type: Progress Notes Filed: 02/26/2023 12:44 PM Note Text: DATE OF SERVICE: 02/26/2023 REASON FOR VISIT: Thickened endometrium Consultation requested by Dr. Cordoba. My final recommendations will be communicated back to the requesting physician by way of shared Medical record or letter to requesting physician via US mail. DIAGNOSIS: Thickened endometrium HPI: Farrah Del Valle is a 77 year old female with pmh of HTN, breast CA, sensorineural hearing loss and TIA who was evaluated by FRAMING CONSULTANT for a thickened endometrium noted on CT on 11/2021 and on follow up US in 01/2022. An DANDC ECC completed on 02/11/22 with benign findings. Patient having persistent abdominal pain and intermittent pink vaginal discharge presents for discussion of management. She reports normal appetite, normal bowel movements. Last visit with Dr. Cordoba on 02/04/23: DATE OF LAST VISIT: NA OBSTETRIC/ GYNECOLOGY HISTORY: Last Pap: 01/16/23 negative PAST MEDICAL HISTORY Diagnosis Date Hypertension TIA (transient ischemic attack) PAST SURGICAL HISTORY Procedure Laterality Date BACK SURGERY HX disc surgery BIOPSY BREAST right breast CHOLECYSTECTOMY HX Neck surgery 09/2021 Appendix during c/s Family History Problem Relation Age of Onset Lipids Mother Diabetes Father Ischemic Heart Disease Father Skin Cancer Maternal Uncle Breast cancer - right lumpectomy with right axillary biopsy - s/p adjuvant radiation RECENT PATHOLOGY: 02/11/2022 RECENT IMAGING: Date: 01/21/2022 12/08/2021 CT A/P HEALTH MAINTENANCE: Last mammogram: not discussed today Last colonoscopy: Patient reports that she had a colonoscopy in the past few years that was normal ECOG performance status ECOG PERFORMANCE STATUS: 0- Fully active, able to carry on all pre-disease performance w/o restriction. OBJECTIVE: VITALS: BP 173/81 Pulse 64 Temp 97.1 Resp 18 Wt 163 lb (73.9kg) SpO2 95% GENERAL: alert, oriented, pleasant, and cooperative. HEENT: Normocephalic, atraumatic, and no lesions. ASSESSMENT: 77 year old y/o female with PMH TIAs, HTN, on plavix, hx Breast cancer 2015 s/p lumpectomy and radiation presenting for further evaluation of persistent abdominal/pelvic pain and pink vaginal discharge. Last endometrial assessment was ~13 months ago with DANDC completed for thickened endometrium with showed benign endometrial polyps. Patient was scheduled for hysterectomy w/Dr. Cordoba due to ongoing symptoms however he recently is moving practice out of state and she presents today for further discussion of management. I reviewed outside pathology ,ultrasound report and office records. Patient describing mid abdominal pain which I discussed may not be related to her gynecologic organs. We discussed r/b/a of laparoscopic hysterectomy. Patient is on plavix but is unsure why - I discussed the need for medical clearance for laparoscopic hysterectomy from her PCP Dr. Karl Kennedy and plan for plavix perioperatively. In the interim I recommend repeat ultrasound given her last imaging was >1 year ago. PLAN: Pelvic ultrasound Recommend follow up with PCP for medical clearance prior to surgery Return to review sono and further discuss management pending medical clearance Ruby Sullivan MD Medical Decision Making: Problems: Moderate: 1+ chronic illnesses with change Data: Unique source(s) for external note(s) reviewed: 1 Unique test result(s) reviewed: 2 Risk: High: Decision on elective major surgery w/ risk factors Medical Decision Making Level: 4 - Moderate Letter sent to referring providers including note from today's office visit: MD Christiano Lynch MD [address] [place] [address] [place] [address]* Encounter Date Diagnosis Assessment Notes Treatment Notes Treatment Clinical Notes Dec, Right sided abdominal pain (ICD-10 - R10.9) Called Dr. Cordoba's office and made appt for 01/10 at 9:50 - gave information to pt Dec, Enlarged uterus (ICD-10 - N85.2) Followup w [facility] Dec, Chronic fatigue (ICD-10 - R53.82) Labs reassuring. Will followup here in 3 months. [employer] Other 2023 Evaluation note* Encounter Date Diagnosis Assessment Notes Treatment Notes Treatment Clinical Notes Dec, Fatigue, unspecified type (ICD-10 - R53.83) [employer] Other 02-22-2023 Evaluation note* Encounter Date Diagnosis Assessment Notes Treatment Notes Treatment Clinical Notes Nov, Acute non-recurrent maxillary sinusitis (ICD-10 - J01.00) Sinus infections can be triggered by a secondary infection from a viral URI or even seasonal allergies. Take medications as directed. Use saline nasal spray prior to presciption nasal spray. Take medications as directed, and complete all doses of medication even if you start to feel better. 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 There is still obvious bone grafts in place it is difficult to tell if there is full bone integration. The plate is not loose. There appears to be a fusion in place. Clinically the patient has absolutely no symptoms. At 9 months postop I will discharge her from my care I think she has made a reasonable recovery. We have a baseline picture to follow. Jun, Cervical disc disorder at C5-C6 level with myelopathy (ICD-10 - M50.022) Jun, Cervical disc disorder at C6-C7 level with myelopathy (ICD-10 - M50.023) [employer] Other 06-30-2022 Evaluation note* Encounter Date Diagnosis Assessment Notes Treatment Notes Treatment Clinical Notes Mar, Cervical disc disorder at C4-C5 level with myelopathy (ICD-10 - M50.021) The patient is now able to lift both arms over her head, she has minimal neck discomfort, if any. I have independently reviewed the AP and lateral cervical x-ray with flexion and extension, there is a question if the upper level at C4-5 is fused. The other segments look good. At this point I would like to see the patient 1 more time in 3 months with another dynamic neck x-ray I have told her to continue using her stimulator which she apparently has not been using in the recent past.The patient is otherwise very happy with her result Mar, Cervical disc disorder at C5-C6 level with myelopathy (ICD-10 - M50.022) Mar, Cervical disc disorder at C6-C7 level with myelopathy (ICD-10 - M50.023) [employer] Other 03-24-2022 Evaluation note* Encounter Date Diagnosis Assessment Notes Treatment Notes Treatment Clinical Notes Dec, Cervical disc disorder at C4-C5 level with myelopathy (ICD-10 - M50.021) 3 months postop the patient has good balance she has improved with surgical intervention. She had some weakness of the left deltoid which seems to be getting better; this was painless. Her voice was not perfect after surgery but is almost back to normal now. I showed her her pre and postoperative films I think she understands that the surgery has overall done well and she agrees. I will see her back in 3 months Dec, Cervical disc disorder at C5-C6 level with myelopathy (ICD-10 - M50.022) Dec, Cervical disc disorder at C6-C7 level with myelopathy (ICD-10 - M50.023) [employer] Other 10-05-2021 Evaluation note* Encounter Date Diagnosis Assessment Notes Treatment Notes Treatment Clinical Notes Jul, Cervical disc disorder at C4-C5 level with myelopathy (ICD-10 - M50.021) I have independently reviewed an MRI of the cervical spine and the report as well as the plain x-ray and the report. This patient has a cervical kyphosis with obvious spinal cord compression C4-5 C5-6 and C6-7 due to disc and osteophyte. Because of the anterior disease she needs an anterior approach C4-5 C5-6 C6-7 with structural allograft fusion and cervical discectomy. Anterior plate C4-7. I spent 60 minutes face to face with the patient reviewing imaging and discussing teatment options and risks and benefits of surgery. She fully understands the indication operation postop course risk and benefits of surgery to include potential paralysis nerve damage hoarseness or swallowing difficulty. Given all the above she understands and desires to proceed with surgical intervention. Jul, Cervical disc disorder at C5-C6 level with myelopathy (ICD-10 - M50.022) Jul, Cervical disc disorder at C6-C7 level with myelopathy (ICD-10 - M50.023) [facility] [email or web address] Other evaluation noteNo assessment information available [facility] Work Phone: evaluation noteNo InformationNortCommunity [facility] [email or web address] Other evaluation note* Diagnosis Pre-op exam- Primary Preoperative examination, unspecified Thickened endometrium [R93.89 (ICD-10-CM)] Nonspecific (abnormal) findings on radiological and other examination of genitourinary organs Vaginal bleeding [N93.9 (ICD-10-CM)] Other specified noninflammatory disorder of vagina documented [facility]* Diagnosis Vaginal bleeding- Primary Other specified noninflammatory disorder of vagina Malignant neoplasm of lower-inner quadrant of right female breast, unspecified estrogen receptor status (HCC) Thickened endometrium Nonspecific (abnormal) findings on radiological and other examination of genitourinary organs documented in this encounter [facility]* Diagnosis Pre-op evaluation- Primary Preoperative examination, unspecified TIA (transient ischemic attack) Unspecified transient cerebral ischemia Hypertension, unspecified type Malignant neoplasm of lower-inner quadrant of right female breast, unspecified estrogen receptor status (HCC) Vaginal bleeding Other specified noninflammatory disorder of vagina Thickened endometrium Nonspecific (abnormal) findings on radiological and other examination of genitourinary organs documented in [facility] encounter [facility]* Diagnosis Post-operative state [Z98.890]- Primary Other postprocedural status documented in this encounter [facility]* Diagnosis Onset Date Resolution Status History of TIA (transient ischemic attack) acute Left arm numbness acute Left facial numbness acute [facility] Work Phone: Evaluation note* Diagnosis Onset Date Resolution Status History of TIA (transient ischemic attack) acute Left arm numbness acute Left facial numbness acute History of TIA (transient ischemic attack) acute Left arm numbness acute Left facial numbness acute [facility] Work Phone: Evaluation note* Diagnosis Onset Date Resolution Status Dizziness acute History of TIA (transient ischemic attack) acute Visit for suture removal acu te History of recent fall acute Right knee pain acute [facility] Work Phone: Evaluation note* Diagnosis Arthritis of right knee- Primary [facility] Diagnosis Right knee pain, unspecified chronicity- Primary Arthritis of right knee documented in this encounter [facility]* Diagnosis Arthritis of right knee- Primary Right knee pain, unspecified chronicity documented in this encounter [facility] Narrative - Reported* Type Description Date Medical History Hypertension Medical History hyperlipidemia Medical History stroke Surgical History tubal ligation Surgical History back surgery Surgical History breast cancer Hospitalization History See Above [employer] [facility] [email or web address] Other [facility] [email or web address] Other History general Narrative - Reported* Type Description Date Medical History Hypertension Medical History hyperlipidemia Medical History stroke Surgical History tubal ligation Surgical History back surgery Surgical History breast cancer Surgical History Hyst BSO - 2022 - [place] [facility] Hospitalization History See Above [facility] [email or web address] Other Hospital Discharge instructionsAmbulatory Orders* Referral to Orthopedic Surgery Time Frame: 07/27/24, Location: [facility] Work Phone: Reason for referral (narrative)* Consultation (Routine) - Closed Specialty Diagnoses / Procedures Referred By Juvenal copeland Referred To Contact Physical Therapy Diagnoses Arthritis of right knee Procedures [place] OFFICE/OUTPATIENT [facility] HIGH MDM 60 MINUTES Christina [place] NP [address] [facility] [address] [place] [address] Raman Rodriges, PT 112 [facility] [address] [place] [address] Referral ID Status Reason Start Date Expiration Date V isits Requested Visits Authorized [id number] Closed Consult and Treat 07/28/2024 07/29/2024 10 1 * Clinic-Administered Medication (Routine) - Closed Specialty Diagnoses / Procedures Referred By Juvenal copeland Referred To Contact Orthopaedic Surgery Diagnoses Arthritis of right knee Procedures L Inj/Asp: R knee Christina [place] NP [address] [facility] [address] [place] [address] Referral ID Status Reason Start Date Expiration Date Visits Re quested Visits Authorized [id number] Closed 07/28/2024 01/24/[address] [facility] HealthcareReason for visit Narrative* Consultation (Routine) - Closed Specialty Diagnoses / Procedures Referred By Juvenal copeland Referred To Contact Physical Therapy Diagnoses Arthritis of right knee Procedures [place] OFFICE/OUTPATIENT [place] [facility]IGH MDM 60 MINUTES Christina [place], BENEFITS ASSISTANT [address] [place] [address] Raman Rodriges, PT [address] [place] [address] Referral ID Status Reason Start Date Expiration Date V isits Requested Visits Authorized [id number] Closed Consult and Treat 07/28/2024 01/24/[address] [facility] Healthcare Summary Purpose Family History No Family History Records Found Relationship Condition Age at Onset Recorded Date/T vivek father Calculus of kidney Unknown Not Specified History of hysterectomy Unknown sister Heart murmur Unknown sister Dementia Unknown Relationship Condition Age at Onset Recorded Date/T vivek father Calculus of kidney Unknown Not Specified History of hysterectomy Unknown sister Heart murmur Unknown sister Dementia Unknown father Unknown Not Specified Unknown Relationship Condition Age at Onset Recorded Date/T vivek father Calculus of kidney Unknown mother History of hysterectomy Unknown sister Heart murmur Unknown sister Dementia Unknown father Unknown mother Unknown Advance Directives No Advanced Directives Records Found Advance Directive Response Recorded Date/ Time Advance Directives No August 2:26pm Advance Directive Response Recorded Date/ Time Advance Directives No June 11:53am Chief Complaint and Reason for Visit Chief Complaint m50.023 Chief Complaint M50.022 Chief Complaint Dizziness Chief Complaint Dizziness tbh er follow up Reason for Visit History of TIA (dao sient ischemic attack) Left arm numbness Left facial numbness Chief Complaint Dizziness tb er follow up congestion, sick Reason for Visit History of TIA (dao sient ischemic attack) Left arm numbness Left facial numbness History of TIA (transient ischemic attack) Left arm numbness Left facial numbness Chief Complaint TBH, fall Chief Complaint TBH, fall Stiches Removal Chief Complaint TBH, fall Stiches Removal right knee pain/difficulty walking Reason for Visit Dizziness History of TIA (transient ischemic attack) Visit for suture removal History of recent fall Right knee pain Reason for Referral Reason *Waiting for appt [email or web address] - last OV. R hand/wrist pain. thanks Diagnosis 1 Right hand pain (M79 .641) Referral Organization [facility] Referring Provider First Name Karl Referring Provider Last Name Brent Referring Provider Specialty Family Medi cine Referred Organization [facility] Referred Provider Rubi Jain Referred Address [address] [facility] [address] [place],[address] Referred Provider Specialty Orthopedic S urgery Referral Priority Routine General Notes Rowan Mustafa 02:06:01 PM >recieved today, sent P2P Additional Source Comments INFORMATION SOURCE (unrecogn ized section and content) DATE CREATED AUTHOR 04/08/2018 [facility] DATE CREATED AUTHOR AUTHOR'S ORGANIZ ATION 07/31/2022 [facility] DATE CREATED AUTHOR AUTHOR'S ORGANIZ ATION 02/28/2023 [facility] DATE CREATED AUTHOR AUTHOR'S ORGANIZ ATION 05/29/2023 [facility] DATE CREATED AUTHOR AUTHOR'S ORGANIZ ATION 09/18/2023 [facility] DATE CREATED AUTHOR AUTHOR'S ORGANIZ ATION 08/12/2024 [facility] d[facility] Specialists [employer] Care Teams (unrecognized sec tion and content) Team Status: Active Member Role Status Dates Karl Kennedy MD Primary Care Provider Active Team Status: Inactive Member Role Status Dates Karl Kennedy MD Primary Care Provide r, Attending Provider Active Start: February 02, 2024 End: February 02, 2024 Team Status: Inactive Member Role Status Dates Karl Kennedy MD Primary Care Provider Active Jos Kennedy MD Attending Provider Active Child Care Sitter Relationship Specialty Start Date End Date Karl Kennedy MD [address] [place] [address] PCP - General Family Medicine 02/15/16 Child Care Sitter Relationship Specialty Start Date End Date Karl Kennedy MD [address] [place] [phone] PCP - General Family Medicine 02/15/16 Child Care Sitter Relationship Specialty Start Date End Date Karl Kennedy MD [address] [facility] [place] [phone] PCP - General Family Medicine 02/15/16 Child Care Sitter Relationship Specialty Start Date End Date Karl Kennedy MD [address] [facility] [place] [phone] PCP - General Family Medicine 02/15/16 Child Care Sitter Relationship Specialty Start Date End Date Karl Kennedy MD [address] [facility] [place] [phone] PCP - General Family Medicine 02/15/16 Child Care Sitter Relationship Specialty Start Date End Date Karl Kennedy MD [address] [facility] [place] [address] PCP - General Family Medicine 02/15/16 Child Care Sitter Relationship Specialty Start Date End Date Karl Kennedy MD [address] [facility] [place] [address] PCP - General Family Medicine 02/15/16 Team Status: Inactive Member Role Status Dates Karl Kennedy MD Primary Care Provide r, Attending Provider Active Start: February 09, 2024 End: February 09, 2024 Team Status: Inactive Member Role Status Dates Karl Kennedy MD Primary Care Provide r, Attending Provider Active Start: February 16, 2024 End: February 16, 2024 Team Status: Inactive Member Role Status Dates Karl Kennedy MD Primary Care Provide r, Attending Provider Active Start: July 09, 2024 End: July 09, 2024 Team Status: Inactive Member Role Status Dates Karl Kennedy MD Primary Care Provide r, Attending Provider Active Start: July 12, 2024 End: July 12, 2024 Team Status: Inactive Member Role Status Dates Karl Kennedy MD Primary Care Provider Active Start: July 23, 2024 End: July 23, 2024 JUSTIN Stewart Attending Provider Act tita Start: July 23, 2024 End: July 23, 2024 Team Status: Active Member Role Status Dates Karl Kennedy MD Primary Care Provider Active Start: July 27, 2024 Edel Tao APRN NP-Therese Attending Provider Act tita Start: July 27, 2024 Child Care Sitter Relationship Specialty Start Date End Date Karl Kennedy MD [address] [place] [facility] [address] PCP - General Family Medicine 03/03/24 Child Care Sitter Relationship Specialty Start Date End Date Karl Kennedy MD [address] [place] [facility] [address] PCP - General Family Medicine 03/03/24 Child Care Sitter Relationship Specialty Start Date End Date Karl Kennedy MD [address] [place] [facility] [address] PCP - General Family Medicine 03/03/24 Child Care Sitter Relationship Specialty Start Date End Date Karl Kennedy MD [address] [place] [facility] [address] PCP - General Family Medicine 03/03/24 Child Care Sitter Relationship Specialty Start Date End Date Karl Kennedy MD [address] [place] [facility] [address] PCP - General Family Medicine 03/03/24 Goals (unrecognized section and content) Goals may be documented in a n alternate sectionNo InformationNo InformationNo InformationGoals may be documented in an alternate sectionNo InformationNo InformationNo InformationNo InformationNo InformationNo InformationNo InformationNo InformationNo InformationNo InformationNo InformationNo InformationNo InformationNo InformationNo InformationNo InformationNo InformationGoals may be documented in an alternate sectionGoals may be documented in an alternate sectionGoals may be documented in an alternate sectionGoals may be documented in an alternate sectionGoals may be documented in an alternate sectionGoals may be documented in an alternate sectionGoals may be documented in an alternate section REASON FOR VISIT (unrecogniz ed section and content) Reason Comments Request Outside Medical Records Reason Comments Pelvic Pain Reason Comments Anesthesia Consult Reason Comments Pre-Op Teaching Reason Comments Post Op Follow Up Reason Comments Post Op Reason Comments Pain Specialty Diagnoses / Procedures Referred By Contac t Referred To Contact Orthopaedic Surgery Diagnoses Pain in right knee Unilateral primary osteoarthritis, right knee Procedures [place] [facility] Karl [place] MD [address] [place] [address] Navi Camacho, DO [address] [address] Referral ID Status Reason Start Date Expiration Date Visits Re quested Visits Authorized [id number] Closed 07/27/2024 01/23/2025 1 1 Reason Comments Follow-up Source Comments (unrecognize d section and content) In the event this informatio n is protected by the Federal Confidentiality of Alcohol and Drug Abuse Patient Records regulations: The Federal rules restrict any use of the information to criminally investigate or prosecute any alcohol or drug abuse patient.[facility] Hospital[facility] the event this information is protected by the Federal Confidentiality of Alcohol and Drug Abuse Patient Records regulations: The Federal rules restrict any use of the information to criminally investigate or prosecute any alcohol or drug abuse patient.[facility] HospitalIn the event this information is protected by the Federal Confidentiality of Alcohol and Drug Abuse Patient Records regulations: The Federal rules restrict any use of the information to criminally investigate or prosecute any alcohol or drug abuse patient.[facility] HospitalIn the event this information is protected by the Federal Confidentiality of Alcohol and Drug Abuse Patient Records regulations: The Federal rules restrict any use of the information to criminally investigate or prosecute any alcohol or drug abuse patient.[facility] HospitalIn the event this information is protected by the Federal Confidentiality of Alcohol and Drug Abuse Patient Records regulations: The Federal rules restrict any use of the information to criminally investigate or prosecute any alcohol or drug abuse patient.[facility] HospitalIn the event this information is protected by the Federal Confidentiality of Alcohol and Drug Abuse Patient Records regulations: The Federal rules restrict any use of the information to criminally investigate or prosecute any alcohol or drug abuse patient.[facility] HospitalIn the event this information is protected by the Federal Confidentiality of Alcohol and Drug Abuse Patient Records regulations: The Federal rules restrict any use of the information to criminally investigate or prosecute any alcohol or drug abuse patient.[facility] FOR RECORDS PERTAINING TO PATIENTS WHO ARE OR HAVE BEEN ENROLLED IN A CHEMICAL DEPENDENCY/SUBSTANCEABUSE PROGRAM, SOME INFORMATION MAY BE OMITTED. This clinical summary was aggregated from multiple sources. Caution should be exercised in using it in the provision of clinical care. This summary normalizes information from multiple sources, and as a consequence, information in this document may materially change the coding, format and clinical context of patient data. In addition, data may be omitted in some cases. CLINICAL DECISIONS SHOULD BE BASED ON THE PRIMARY CLINICAL RECORDS. [facility] [employer] [facility]. provides no warranty or guarantee of the accuracy or completeness of information in this document.
--- NOTE | 2024-11-25 11:56 | CT_ITS ---
The [address] [address] Patient Name: RAQUEL DEL VALLE MRN: [id number] date: 1945 Sex: F Assigned Patient Location: ER Current Patient Location: ER Accession/Order Number: [id number] Exam Date: 11/25/2024 12:08 Report Date: 11/25/2024 12:33 At the request of: ANAIS STOUT Procedure: CT sinus wo con EXAM: CT sinus wo con HISTORY: sinusitis COMPARISON: None. TECHNIQUE: Axial noncontrast CT imaging of the paranasal sinuses was performed with coronal and sagittal reformats. This CT exam was performed using one or more of the following dose reduction techniques: Automated exposure control, adjustment of the MA and/or kV according to patient size, or use of iterative reconstruction technique. FINDINGS: Maxillary sinuses: Minimal mucosal thickening of the left maxillary sinus. The maxillary infundibulum are widely patent. Ethmoid sinus: Ethmoid sinuses are clear. Frontal sinuses: Frontal sinuses are clear. Frontal sinus drainage pathways are widely patent. Sphenoid sinus: Mild frothy secretion within the dependent right sphenoid sinus. The sphenoethmoidal recesses are widely patent. There is sellar pneumatization of the sphenoid sinus. No onodi cell. Nasal cavity/midline: There is moderate rightward nasal septal deviation. Partial paradoxical internal rotation of the right middle turbinate. Symmetric base of the olfactory fossa. The bilateral anterior ethmoid notches are protected. Additional comments: Intracranial atherosclerosis. Visualized portions of the intracranial structures otherwise appear unremarkable. The orbits are unremarkable. CT/CT sinus wo con IMPRESSION: 1. Mild paranasal sinus disease with mild frothy secretions involving the right sphenoid sinus and minimal mucosal thickening of the left maxillary sinus. While nonspecific this can be seen in the setting of acute sinusitis. 2. Paranasal sinus drainage pathways are widely patent. Electronically authenticated by: CATHY CM Date: 11/25/2024 12:33
[2024-11-25 12:15] LABS: Basophils Absolute Auto 0.1 10^3/uL (0.0-0.1); Basophils Percent Auto 0.5 % (0.2-2.0); Eosinophils Absolute Auto 0.1 10^3/uL (0.0-0.7); Eosinophils Percent Auto 0.5 % (0.9-7.0); Hematocrit 40.2 % (36.0-48.0); Hemoglobin 13.1 g/dL (12.0-16.0); Immature Granulocytes Abs Auto 0.03 10^3/uL (0.00-0.03); Immature Granulocytes Pct Auto 0.3 % (0.0-0.5); Lymphocytes Absolute Auto 1.7 10^3/uL (1.2-3.8); Mean Corpuscular HGB Conc 32.6 g/dL (29.9-35.2); Mean Corpuscular Hemoglobin 29.4 pg (26.7-34.0); Mean Corpuscular Volume 90.1 fL (81.0-99.0); Mean Platelet Volume 11.2 fL (9.5-13.5); Monocytes Absolute Auto 0.8 10^3/uL (0.3-0.8); Monocytes Percent Auto 7.2 % (1.7-12.0); Neutrophils Absolute Auto 8.6 10^3/uL (1.4-6.5); Neutrophils Percent Auto 76.5 % (43.0-75.0); Platelet Count 250 10^3/uL (150-450); Red Blood Count 4.46 10^6/uL (4.20-5.40); Red Cell Distribution Width 12.4 % (11.0-15.0); White Blood Count 11.2 10^3/uL (4.0-11.0)
[2024-11-25 12:23] LABS: SARS-CoV-2 Ag NEGATIVE (NEGATIVE)
[2024-11-25 12:24] LABS: Influenza Virus A Antigen Negative; Influenza Virus B Antigen Negative; Internal Control Within Normal Limits
[2024-11-25] MEDS: KETOROLAC TROMETHAMINE 30 MG/ML VIAL 15 MG IVP (12:26)
[2024-11-25] MEDS: CLINDAMYCIN PHOSPHATE/D5W 600 MG/50 ML PREMIX 100 MG IV (12:26)
[2024-11-25 12:31] LABS: Alanine Aminotransferase 13 U/L (14-59); Albumin Globulin Ratio 0.9; Albumin Level 3.4 g/dL (3.4-5.0); Alkaline Phosphatase 93 U/L (46-116); Anion Gap 14.6; Aspartate Amino Transferase 14 U/L (15-37); BUN Creatinine Ratio 10.4; Bilirubin Total 1.9 mg/dL (0.2-1.0); Calcium 9.4 mg/dL (8.5-10.1); Carbon Dioxide 26.1 mmol/L (21.0-32.0); Chloride 105 mmol/L (98-107); Estimated GFR (African America >60 (>=60 mL/min/1.73m^2); Estimated GFR (Non-African Ame 56 (>=60 mL/min/1.73m^2); Glucose 117 mg/dL (74-106); Potassium 3.7 mmol/L (3.5-5.1); Sodium 142 mmol/L (136-145); Total Protein 7.4 g/dL (6.4-8.2)
[2024-11-25 12:35] VITALS: O2SAT 96
--- NOTE | 2024-11-25 15:17 | ED_ITS ---
HPI HPI - General Adult General Chief complaint: Upper Respiratory Infection Stated complaint: URTI COMPLAINTS Time Seen by Provider: 11/25/24 11:45 Mode of arrival: walk-in History of Present Illness HPI narrative: Patient presents to ED complaining of not feeling well for the past month or so. She said she has had nasal discharge and runny nose and she has been blowing her nose a lot. She then reported that her nose became red and swollen and very tender. She also complains of pain in the upper dentition in the sides of her neck. She said she feels a lot of pressure in her face. She does not really have any shortness of cough. She reports some fever home she does not any fever here. No abdominal pain no UTI symptoms. Related Data Home Medications ?Medication ?Instructions ?Recorded ?Confirmed aspirin 81 mg tablet,delayed 81 mg PO DAILY 02/02/24 11/25/24 release atenolol 25 mg tablet 50 mg PO DAILY 02/02/24 11/25/24 clopidogrel 75 mg tablet 75 mg PO DAILY 02/02/24 11/25/24 lisinopril 5 mg tablet 5 mg PO DAILY 02/02/24 11/25/24 Previous Rx's ?Medication ?Instructions ?Recorded amoxicillin 875 mg-potassium 1 tab PO Q12H 10 days #20 tabs 11/25/24 clavulanate 125 mg tablet Allergies Allergy/AdvReac Type Severity Reaction Status Date / Time codeine AdvReac Intermediate Vomiting Verified 07/01/24 20:00 Opioid HPI Opioid Management Most Recent Opioid Data: Last Pain Scale 5 11/25/24 12:26 11/25/24 Last DEC Pain Assessment 11/25/24 12:26 Review of Systems ROS Status of ROS 10 or more systems reviewed and unremark able except as noted in history and below PFSH PFSH Social History Little interest or pleasure in doing things: not at all Feeling down, depressed, or hopeless: not at all Exam Narrative Exam Narrative: Time Seen: [] Vital Signs: [Per nurse's notes.] General: [Alert] Skin: [Warm, dry, no rash.] Nose is erythematous and inflamed and tender consistent with cellulitis Head: [Normocephalic, atraumatic.] Neck: [Supple, trachea midline.] Eye: [Pupils are equal, round and reactive to light, extraocular movements are intact, normal conjunctiva.] Ears, nose, mouth and throat: oral mucosa moist. No intranasal lesions appreciated patient does have facial tenderness in the maxillary sinuses Cardiovascular: [Regular rate and rhythm, no murmur.] Respiratory: [Lungs are clear to auscultation, respirations are non-labored, breath sounds are equal.] Chest wall: [No tenderness, no deformity.] Gastrointestinal: [Soft, nontender, non distended, normal bowel sounds.] MSK: 5 out of 5 muscle strength x 4 extremities no calf pain or edema Lymphatics: [No lymphadenopathy.] Psychiatric: [Cooperative, appropriate mood & affect.] Neurological: [Alert and oriented to person, place, time, and situation, no focal neurological deficit observed.] Constitutional Vital Signs, click to edit/add: Last Vital Signs Temp 98.5 F 11/25/24 11:47 Pulse 84 11/25/24 11:47 Resp 18 11/25/24 11:47 BP 172/101 H 11/25/24 11:47 Pulse Ox 96 11/25/24 12:35 O2 Del Method Room Air 11/25/24 12:35 Course Vital Signs Vital signs: Vital Signs Temperature 98.5 F 11/25/24 11:47 Pulse Rate 84 11/25/24 11:47 Respiratory Rate 18 11/25/24 11:47 Blood Pressure 172/101 H 11/25/24 11:47 Pulse Oximetry 95 11/25/24 11:47 Temperature 98.5 F 11/25/24 11:47 Pulse Rate 84 11/25/24 11:47 Respiratory Rate 18 11/25/24 11:47 Blood Pressure 172/101 H 11/25/24 11:47 Pulse Oximetry 96 11/25/24 12:35 Oxygen Delivery Method Room Air 11/25/24 12:35 Medical Decision Making MDM Narrative Medical decision making narrative: CT scan shows sinusitis. I gave patient a dose of clindamycin for the nasal genaro lulitis. Most likely she has cellulitis of her nose due to blowing her nose so much and now its become infected as well. Flu and COVID are negative. Labs are nonacute. Patient is to return to ED if worsening symptoms or if the antibiotics are not helping. The Augmentin should cover skin infection as well as sinusitis. I was trying to keep the antibiotics to a minimum as to not cause any C. difficile. However if 1 or both or not getting better please return to the emergency room or follow-up with family doctor for reevaluation. Patient is comfortable with care plan for home Differential Diagnosis Differential Diagnosis: Sinusitis cellulitis flu COVID pneumonia Lab Data Lab results reviewed: Yes I reviewed the patient's lab results Labs: Lab Results 11/25/24 11/25/24 Range/Units 12:01 12:05 WBC 11.2 H (4.0-11.0) 10^3/uL RBC 4.46 (4.20-5.40) 10^6/uL Hgb 13.1 (12.0-16.0) g/dL Hct 40.2 (36.0-48.0) % MCV 90.1 (81.0-99.0) fL MCH 29.4 (26.7-34.0) pg MCHC 32.6 (29.9-35.2) g/dL RDW 12.4 (11.0-15.0) % Plt Count 250 (150-450) 10^3/uL MPV 11.2 (9.5-13.5) fL Neut % (Auto) 76.5 H (43.0-75.0) % Lymph % (Auto) 15.0 L (20.5-60.0) % [facility] % (Auto) 7.2 (1.7-12.0) % Eos % (Auto) 0.5 L (0.9-7.0) % Baso % (Auto) 0.5 (0.2-2.0) % Neut # (Auto) 8.6 H (1.4-6.5) 10^3/uL Lymph # (Auto) 1.7 (1.2-3.8) 10^3/uL [facility] # (Auto) 0.8 (0.3-0.8) 10^3/uL Eos # (Auto) 0.1 (0.0-0.7) 10^3/uL Baso # (Auto) 0.1 (0.0-0.1) 10^3/uL Abs Immat Gran (auto) 0.03 (0.00-0.03) 10^3/uL Imm/Tot Granulo (auto) 0.3 (0.0-0.5) % Sodium 142 (136-145) mmol/L Potassium 3.7 (3.5-5.1) mmol/L Chloride 105 (98-107) mmol/L Carbon Dioxide 26.1 (21.0-32.0) mmol/L Anion Gap 14.6 BUN 10.0 (7.0-18.0) mg/dL Creatinine 0.96 (0.55-1.02) mg/dL Est GFR ( Amer) >60 (>=60 mL/min/1.73m^2) Est GFR (Non-Af Amer) 56 L (>=60 mL/min/1.73m^2) BUN/Creatinine Ratio 10.4 Glucose 117 H (74-106) mg/dL Calcium 9.4 (8.5-10.1) mg/dL Total Bilirubin 1.9 H (0.2-1.0) mg/dL AST 14 L (15-37) U/L ALT 13 L (14-59) U/L Alkaline Phosphatase 93 (46-116) U/L Total Protein 7.4 (6.4-8.2) g/dL Albumin 3.4 (3.4-5.0) g/dL Globulin 4.0 g/dL Albumin/Globulin Ratio 0.9 Influenza Type A Ag Negative Influenza Type B Ag Negative SARS-CoV-2 Ag (CV2AG) Negative (NEGATIVE) Imaging Data Chest x-ray: Radiologist's impression: ITS Impressions Sinuses CT 11/25/24 11:56 IMPRESSION: 1. Mild paranasal sinus disease with mild frothy secretions involving the right sphenoid sinus and minimal mucosal thickening of the left maxillary sinus. While nonspecific this can be seen in the setting of acute sinusitis. 2. Paranasal sinus drainage pathways are widely patent. Electronically authenticated by: CATHY CM Date: 11/25/2024 12:33 Discharge Plan Discharge Chief Complaint: Upper Respiratory Infection Clinical Impression: Sinusitis, Cellulitis of nasal tip Patient Disposition: Home, Self-Care Time of Disposition Decision: 13:05 Condition: Good Mode of Transportation: Private Vehicle Prescriptions / Home Meds: New amoxicillin-pot clavulanate 875-125 mg tablet 1 tab PO Q12H 10 Days Qty: 20 0RF No Action clopidogrel 75 mg tablet 75 mg PO DAILY atenolol 25 mg tablet 50 mg PO DAILY lisinopril 5 mg tablet 5 mg PO DAILY aspirin 81 mg tablet,delayed release (DR/EC) 81 mg PO DAILY Print Language: Pakistani Instructions: Sinusitis (ED) Referrals: Becca Jolly MD [Primary Care Provider] - 1 week Discharge Date/Time: 11/25/24 13:34
== END 2024-11-25 13:34 | disposition home or self-care (01) ==
PROVIDERS: Emergency Provider Emergency Medicine; PCP Family Medicine
DX: J34.0 Abscess, furuncle and carbuncle of nose (principal); J32.9 Chronic sinusitis, unspecified
CPT/HCPCS: 36415; 70486; 80053; 85025; 87804; 87811; 96365; 96375; 99285; J1885

== ENCOUNTER 2025-02-01 08:50 | Outpatient (OUT) | payer MEDICARE, OTHER, SELFPAY ==
--- NOTE | 2025-02-01 08:52 | MM_ITS ---
Patient Name: RAQUEL DEL VALLE MR#: [id number] : 1945 Exam Date: 02/01/2025 Ordering Doctor: DR Becca Jolly M.D. RADIOLOGY REPORT PROCEDURE: MM TOMOSYNTHESIS SCREENING BI COMPARISON: MM TOMOSYNTHESIS SCREENING BI, 01/28/2024. MG MAMM SCREEN 3D SOPHIA CAD, 01/23/2023. MG MAMM DIAGNOSTIC 3D SOPHIA CAD, 02/19/2021. MAMMO SOPHIA SCREEN, 12/30/2006. INDICATIONS: Screening Calculator Name NCI Breast Cancer Risk Assessment Tool 5 Year Breast Cancer Risk n/a% Lifetime Breast Cancer Risk n/a% Personal Breast Cancer Yes, Right lumpectomy, age 69 Personal Ovarian Cancer No Treatments None Family Cancers None LOCATION: [facility] BREAST COMPOSITION: There are scattered areas of fibroglandular density. FINDINGS: DIAGNOSTIC CATEGORY 1--NEGATIVE. LEFT BREAST: No significant suspicious finding. RIGHT BREAST: No significant suspicious finding. RECOMMENDATIONS: ROUTINE MAMMOGRAM AND CLINICAL EVALUATION IN 12 MONTHS. PLEASE NOTE: A NORMAL MAMMOGRAM DOES NOT EXCLUDE THE POSSIBILITY OF BREAST CANCER. A CLINICALLY SUSPICIOUS PALPABLE LUMP SHOULD BE BIOPSIED. Dictated by: Chintan Saha DO on 02/01/2025 at 16:01 Approved by: Chintan Saha DO on 02/01/2025 at 16:07
== END 2025-02-01 08:51 | disposition home or self-care (01) ==
LOC: MAMMO 08:50
PROVIDERS: PCP Family Medicine; Visit Provider Family Medicine
DX: Z12.31 Encounter for screening mammogram for malignant neoplasm of breast (principal); Z85.3 Personal history of malignant neoplasm of breast
CPT/HCPCS: 77063; 77067

== ENCOUNTER 2025-03-15 16:01 | Emergency (ER) | payer MEDICARE, OTHER, SELFPAY ==
--- OUTSIDE RECORDS SUMMARY | 2025-03-15 16:08 | XMS_ITS | Clinical Summary ---
Author Organization [facility] Address [address] [place] [address] Care Team Providers Care Clip Wrapper Name Role Phone Becca Jolly MD Primary Care Provider [phone] Allergies Active Allergy Reactions Criticality Noted Date Comments Codeine Vomiting 02/22/2016 Medications clopidogrel (PLAVIX) 75 mg tablet Take 75 mg by mouth once daily. Active atenolol (TENORMIN) 25 mg tablet Take 25 mg by mouth once daily. Active aspirin, enteric coated (ASPIRIN, ENTERIC COATED) 81 mg EC tablet Take 81 mg by mouth once daily. Active lisinopril (ZESTRIL, PRINIVIL) 5 mg tablet 1 01/15/2019 Active oxyCODONE IR (ROXICODONE) 5 mg immediate release tabletIndication s:Post-op pain Take 1 tablet by mouth every 8 hours as needed for pain. 9 tablet 04/25/2023 Active ibuprofen (MOTRIN) 600 mg tablet Take 1 tablet by mouth every 8 hours as needed for pain. 21 tablet 04/25/2023 Active Senna 8.6 mg tab Take 1 tablet by mouth twice daily. 60 tablet 1 04/25/2023 Active Active Problems Problem Noted Date Diagnosed Date Hypertension 04/09/2023 Assessment & Plan (04/09/2023 2:20 PM EDT): Assessment: Stable on lisinopril and atenolol Follows with PCP TIA (transient ischemic attack) 04/04/2023 Assessment & Plan (04/09/2023 2:19 PM EDT): Assessment: No deficits On DAPT Follows with PCP Vaginal bleeding 04/02/2023 Malignant neoplasm involving both nipple and areola of right breast in female 10/01/2017 Malignant neoplasm of lower- inner quadrant of right female breast 06/11/2017 Malignant neoplasm of right female breast 2016 Immunizations Immunization Administration Dates Next Due influenza (HD-IIV3) vaccine, age 65+ yr, high dose, trivalent, PF (FLUZONE HIGH-DOSE) 08/15/2016 Family History Medical History Relation Comments Diabetes Father Ischemic Heart Disease Father Skin Cancer Maternal Uncle Lipids Mother Relation Status Comments Father Maternal Uncle Mother Social History Tobacco Use Types Packs/Day Years Used Date Smoking Tobacco: Never Smokeless Tobacco: Never Tobacco Cessation:Counseling Given: Not Answered Alcohol Use Standard Drinks/Week Comments No 0 (1 standard drink = 0.6 oz pur e alcohol) PHQ-2 Answer Date Recorded PHQ-2 score 0 02/28/2020 Area Deprivation Index Answer Date Thony rded National Score (1-100), lower number is lower ri sk 86 04/04/2023 State Score (1-10), lower number is lower risk 8 04/04/2023 Data from: https://www.neighborhoodatlas.medicine.[facility].edu/. Last address used for calculation [address] [facility] 04/04/2023 Comments No Sex and Gender Information Value Date Recorded Sex Assigned at Not on file Legal Sex Female 10:45 AM EDT Gender Identity Not on file Sexual Orientation Not on file Last Filed Vital Signs Vital Sign Reading Time Taken Comments Blood Pressure 143/72 05/28/2023 1:53 PM EDT Pulse 74 05/28/2023 1:53 PM EDT Temperature 36.4 C (97.6 F) 05/28/2023 1:53 PM EDT Respiratory Rate 18 05/28/2023 1:53 PM EDT Oxygen Saturation 97% 05/28/2023 1:53 PM EDT Inhaled Oxygen Concentration - - Weight 72.2 kg (159 lb 3.2 oz) 05/28/2023 1:53 P M EDT Height 170.2 cm (5' 7.01 ) 04/30/2023 3:49 PM ED T Body Mass Index 24.93 04/30/2023 3:49 PM EDT Plan of Treatment Health Maintenance Due Date Last Done Comments Annual PCP Team Chronic Dise ase Visit 1963 Anxiety Screening 1963 BP Controlled (<130/80) 1964 Depression Screening 1964 DTaP,Tdap,Td Vaccine (1 - Tdap) 1965 Pneumococcal Vaccine: 50+ (1 of 1 - PCV) 1996 Shingrix Vaccine (1 of 2) 1996 Bone Density Screening 2011 RSV Vaccine (1 - 1-dose 75+ series) 2021 Covid-19 Vaccine (2 - 2023-2 5 season) 2024 02/17/2021 Advance Directive Discussion 10/20/2024 Influenza Vaccine (Season Ended) 2025 09/20/2020, 12/07/2019, 08/15/2016 Diabetes Screening 04/04/2026 04/04/2023 Mammogram Screening Discontinued 01/23/2023 Procedures Procedure Name Priority Date/Time Associated Diagnosis Comments COMPREHENSIVE METABOLIC PANEL Routine 04/04/2023 3:05 PM EDT Pre-op exam from Last 3 Months or Most Recently Relevant to Health Maintenance Results * (ABNORMAL) COMP METABOLIC PANEL (04/04/2023 3:05 PM EDT) Protein, Total 6.8 6.3 - 8.0 g/dL 04/05/2023 12:03 AM T [facility] Albumin 4.1 3.9 - 4.9 g/dL 04/05/2023 12:03 AM [facility] Calcium, Total 9.7 8.5 - 10.2 mg/dL 04/05/2023 12:03 AM T [facility] Bilirubin, Total 0.9 0.2 - 1.3 mg/dL 04/05/2023 12:03 AM [facility] Alkaline Phosphatase 88 34 - 123 U/L 04/05/2023 12:03 AM T [facility] AST 14 13 - 35 U/L 04/05/2023 12:03 AM [facility] ALT 10 7 - 38 U/L 04/05/2023 12:03 AM [facility] Glucose 89 74 - 99 mg/dL 04/05/2023 12:03 AM [facility] Comment: The [place] Diabetes Association (ADA) provides guidance for cutoff [...] Standards of Medical Care in Diabetes 2016, [place] [employer] Association. Diabetes Care. 2016.39(Suppl 1). BUN 14 7 - 21 mg/dL 04/05/2023 12:03 AM [facility] Creatinine 0.80 0.58 - 0.96 mg/dL 04/05/2023 12:03 AM [facility] Sodium 142 136 - 144 mmol/L 04/05/2023 12:03 AM [facility] Potassium 3.8 3.7 - 5.1 mmol/L 04/05/2023 12:03 AM [facility] Chloride 106(H) 97 - 105 mmol/L 04/05/2023 12:03 AM [facility] CO2 25 22 - 30 mmol/L 04/05/2023 12:03 AM [facility] Anion Gap 11 9 - 18 mmol/L 04/05/2023 12:03 AM [facility] Estimated Glomerular Filtration Rate 76 >=60 mL/min/1.7 3m 04/05/2023 12:03 AM [facility] Comment:Estimated Glomerular Filtration Rate (eGFR) is calculated using the 2020 CKD-EPI creatinine equation. This equation utilizes serum creatinine, sex, and age as parameters. The creatinine assay has traceable calibration to isotope dilution- mass spectrometry. Refer to KDIGO guidelines for clinical interpretation. In patients with unstable renal function, e.g. those with acute kidney injury, the eGFR may not accurately reflect actual GFR. Blood BLOOD SPECIMEN / Unknown Venipuncture / Unknown 04/04/2023 3:05 PM EDT 04/04/2023 3:09 PM EDT us Xuan Sullivan MD LABORATORY Final R esult [facility] [address] [place] [address], [place] from Last 3 Months or Most Recently Relevant to Health Maintenance Insurance MEDICARE [address] CHOICE PLUS Care Teams Clip Wrapper Relationship Specialty Start Date End Date Becca Jolly MD [address] [facility] [place] [id number] PCP - General Family Medicine 02/15/16
--- OUTSIDE RECORDS SUMMARY | 2025-03-15 16:08 | XMS_ITS | Encounter Summary ---
Author Organization [facility] Address [address] [place], [place] [id number] Care Team Providers Care Stunt Driver Name Role Phone Becca Jolly MD Primary Care Provider Source Comments In the event this information is protected by the Federal Confidentiality of Alcohol and Drug AbusePatient Records regulations: The Federal rules restrict any use of the information to criminally investigate or prosecute any alcohol or drug abuse patient.[facility] Encounter Details Date Type Department Care Team (Late st Contact Info) Description 02/21/2023 Lab Requisition [facility] [place] [address] Xuan Sullivan MD [address] [place] [address] Person encountering health services to consult on behalf of another person Social History Tobacco Use Types Packs/Day Years Used Date Smoking Tobacco: Never Smokeless Tobacco: Never Alcohol Use Standard Drinks/Week Comments No 0 (1 standard drink = 0.6 oz pur e alcohol) PHQ-2 Answer Date Recorded PHQ-2 score 0 02/28/2020 Area Deprivation Index Answer Date Thony rded National Score (1-100), lower number is lower ri sk Not on file 09/27/2020 State Score (1-10), lower number is lower risk N ot on file 09/27/2020 Data from: https://www.neighborhoodatlas.medicine.[facility]/. Last address used for calculation Not on file 09/27/2020 Comments No Sex and Gender Information Value Date Recorded Sex Assigned at Not on file Legal Sex Female 10:45 AM EDT Gender Identity Not on file Sexual Orientation Not on file documented as of this encounter Plan of Treatment Not on file documented as of this encounter Procedures Procedure Name Priority Date/Time Associated Diagnosis Comments OUTSIDE SURG PATH SLIDE REVIEW Routine 02/21/2023 10:36 AM EDT Person encountering health services to consult on behalf of another person documented in this encounter Results * OUTSIDE SURG PATH SLIDE REVIEW (02/21/2023 10:36 AM EDT) Case Report Surgical Pathology Report Case: [id number] Authorizing Provider: Xuan Sullivan MD Collected: 02/21/2023 10:36 AM Ordering Location: [facility] Main Received: 02/21/2023 10:35 AM Pathologist: Nir Crook MD Specimen: SLIDE(S), 4 SLIDES ([id number]) 02/24/2023 10:29 AM EDT [facility] FINAL DIAGNOSIS 4 slides ([id number], 02/11/2022) A. Endocervix, curettings: - Benign squamous and endocervical epithelium. B. Endometrium, curettings: - Benign endometrial polyp. ACV/rw 02/21/2023 02/24/2023 10:29 AM EDT [facility] at 1029 EDT Performing Lab Diagnostic interpretation performed at [facility], [address] [place], [place] [address]IA# [id number] Truck Headlight Assembler: Mark Dave M.D. 02/24/2023 10:29 AM EDT [facility] Blocks or Slides MICROSCOPE SLIDE / Unknown 02/21/2023 10:36 AM EDT 02/21/2023 10:35 AM EDT us Xuan Sullivan MD SURGICAL PATHOLOGY Nila cardenas Result [facility] [address] [facility] [address] [place] [address], documented in this encounter Visit Diagnoses Diagnosis Person encountering health services to consult on behalf of another person Other person consulting on behalf of another person documented in this encounter Care Teams Stunt Driver Relationship Specialty Start Date End Date Becca Jolly MD [address] [place] [address] PCP - General Family Medicine 02/15/16 documented as of this encounter
--- OUTSIDE RECORDS SUMMARY | 2025-03-15 16:08 | XMS_ITS | Encounter Summary ---
Author Organization [facility] Address [address] [place] [address] Care Team Providers Care Construction Plumber Name Role Phone Becca Jolly MD Primary Care Provider [phone] Source Comments In the event this information is protected by the Federal Confidentiality of Alcohol and Drug AbusePatient Records regulations: The Federal rules restrict any use of the information to criminally investigate or prosecute any alcohol or drug abuse patient.[facility] Encounter Details Date Type Department Care Team (Latest Contact Info) Description 03/14/2023 H&P External-NonCCF Provider, External, PA-C Do not enter address information under generic External Provider. Social History Tobacco Use Types Packs/Day Years Used Date Smoking Tobacco: Never Smokeless Tobacco: Never Alcohol Use Standard Drinks/Week Comments No 0 (1 standard drink = 0.6 oz pur e alcohol) PHQ-2 Answer Date Recorded PHQ-2 score 0 02/28/2020 Area Deprivation Index Answer Date Thony rded National Score (1-100), lower number is lower ri sk 86 02/26/2023 State Score (1-10), lower number is lower risk 8 02/26/2023 Data from: https://www.neighborhoodatlas.medicine.[facility].edu/. Last address used for calculation [address] [facility] 02/26/2023 Comments No Sex and Gender Information Value Date Recorded Sex Assigned at Not on file Legal Sex Female 10:45 AM EDT Gender Identity Not on file Sexual Orientation Not on file documented as of this encounter Plan of Treatment Not on file documented as of this encounter Visit Diagnoses Not on filedocumented in this encounter Care Teams Construction Plumber Relationship Specialty Start Date End Date Becca Jolly MD [address] [place] [phone] PCP - General Family Medicine 02/15/16 documented as of this encounter
--- OUTSIDE RECORDS SUMMARY | 2025-03-15 16:08 | XMS_ITS | Clinical Summary ---
Author Organization [employer] Address [id number] [address] [place] [address] Care Team Providers Care Leather Sprayer Name Role Phone Becca Jolly MD Primary Care Provider Allergies Active Allergy Reactions Criticality Noted Date Comments Codeine Vomiting 02/22/2016 Medications aspirin 81 mg Take 81 mg by mouth daily. Active atenoloL (TENORMIN) 25 mg tablet 11/18/2020 Active clopidogreL (PLAVIX) 75 mg tablet Take 75 mg by mouth daily. 12/05/2020 Active lisinopriL (PRINIVIL,ZESTRI L) 20 mg tablet Take 20 mg by mouth daily. Active Active Problems Problem Noted Date Diagnosed Date Malignant neoplasm of lower- inner quadrant of right female breast 02/05/2017 Family History Relation Name Status Comments Father Mother Paternal Uncle Social History Tobacco Use Types Packs/Day Years Used Date Smoking Tobacco: Never Smokeless Tobacco: Never Alcohol Use Standard Drinks/Week Comments Never 0 (1 standard drink = 0.6 oz pur e alcohol) AUDIT-C Answer Date Recorded Q1: How often do you have a drink containing alc ohol? Never 01/02/2021 Average Number of Drinks Not on file 021 Frequency of Binge Drinking Not on file 12/18 Childcare Answer Date Recorded Childcare Unknown 03/25/2019 Employment Answer Date Recorded Employment Unknown 03/25/2019 Purpose - Life Answer Date Recorded Purpose and direction in life Unknown Comments Unknown Sex and Gender Information Value Date Recorded Sex Assigned at Not on file Legal Sex Female 3:55 PM EDT Gender Identity Not on file Sexual Orientation Not on file Last Filed Vital Signs Vital Sign Reading Time Taken Comments Blood Pressure - - Pulse - - Temperature - - Respiratory Rate - - Oxygen Saturation - - Inhaled Oxygen Concentration - - Weight 77.1 kg (170 lb) 01/02/2021 10:10 AM EDT Height 171.5 cm (5' 7.5 ) 01/02/2021 10:10 AM ED T Body Mass Index 26.23 01/02/2021 10:10 AM EDT Plan of Treatment Health Maintenance Due Date Last Done Comments Depression Screening 1957 Tobacco Screening 1957 DTaP,Tdap and Td Vaccines (1 - Tdap) 1965 Zoster (Shingles) Vaccine (1 of 2) 1965 Fall Risk Screening 2011 Colonoscopy 01/17/2021 01/18/2016 Influenza Vaccine 06/20/2025 08/15/2016 Medical Devices Not on file Procedures Procedure Name Priority Date/Time Associated Diagnosis Comments COLONOSCOPY Routine 01/18/2016 8:47 AM EDT from Last 3 Months or Most Recently Relevant to Health Maintenance Insurance MEDICARE [facility] Care Teams Leather Sprayer Relationship Specialty Start Date End Date Becca Jolly MD [address] [place] [address] PCP - General 01/25/19
--- OUTSIDE RECORDS SUMMARY | 2025-03-15 16:08 | XMS_ITS | Encounter Summary ---
Author Organization [facility] Address [address] [place] [id number] Care Team Providers Care Presentation Manager Name Role Phone Becca Jolly MD Primary Care Provider [phone] Source Comments In the event this information is protected by the Federal Confidentiality of Alcohol and Drug AbusePatient Records regulations: The Federal rules restrict any use of the information to criminally investigate or prosecute any alcohol or drug abuse patient.[facility] Encounter Details Date Type Department Care Team (Latest Contact Info) Description 02/14/2023 H&P External-NonCCF Provider, External, PA-C Do not [...] N ot on file 09/27/2020 Data from: [email or web address] Last address used for calculation Not on [...] on filedocumented in this encounter Care Teams Presentation Manager Relationship Specialty Start Date End Date Becca Jolly MD [address] [place] [id number] PCP - General Family Medicine 02/15/16 documented as of this encounter
[2025-03-15 16:12] VITALS: BP 177/98; PULSE 70; TEMP 36.8; O2SAT 98; BMI 21.9
--- NOTE | 2025-03-15 16:20 | CT_ITS ---
The [address] [address] Patient Name: RAQUEL DEL VALLE MRN: [id number] date: 1945 Sex: F Assigned Patient Location: ED.MAIN Current Patient Location: ED.MAIN Accession/Order Number: [id number] Exam Date: 03/15/2025 18:06 Report Date: 03/15/2025 18:15 At the request of: ALLY BURLESON Procedure: CT orbit BI wo con CT head/brain wo con, CT cervical spine wo con, CT orbit BI wo con 03/15/2025 4:53 PM SIGNS AND SYMPTOMS: Hit in right eye with ball, blurred vision TECHNIQUE:Multi-detector CT axial slices of the brain, orbits, and cervical spine were obtained without IV contrast. Helical,sagittal, coronal, and 3-D reconstructions of the cervical spine were performed. CT was performed with one or more of the following dose reduction techniques: Automated exposure control, adjustment of the mA and/or kV according to patient size, or use of iterative reconstruction technique. COMPARISON: 07/01/2024 FINDINGS: Noncontrast head CT: There is no shift of the midline structures, acute intracranial bleeding, mass effects, or evidence of acute ischemia. There is mild age related cortical atrophy. Mild periventricular white matter hypoattenuation is noted. The ventricular system is normal in size. The brainstem and the cerebellum are unremarkable. The visualized intraorbital contents, the visualized paranasal sinuses, and the infratemporal soft tissues show no acute abnormality. The osseous structures in the skull base and the calvarium show no abnormality. CT Orbits: Mass: None. Globes: Intact. Bony Orbit: Intact. Pre-septal soft tissues: There is preseptal soft tissue swelling overlying the right orbit. Optic Nerves and complex: Within normal limits. EOM's: Within normal limits. Lacrimal apparatus: Within normal limits. Orbital apex: Within normal limits. Cervical spine: There is preservation of the vertebral body heights. There is anterior and intervertebral fusion from C3 through C6. No hardware complication or malalignment. There is moderate disc height loss at C6-C7. No fractures or dislocations are seen. The alignment of the cervical spine is normal. The craniocervical junction and atlantoaxial joint are within normal limits. The prevertebral soft tissues are within normal limits. The paraspinous soft tissues are within normal limits. The lung apices are unremarkable. Heterogenous thyroid nodules are present bilaterally. This most likely represents multinodular goiter. CT/CT cervical spine wo con IMPRESSION: No acute intracranial pathology There is preseptal soft tissue swelling overlying the right orbit. No orbital fracture. No acute cervical spine injury. Degenerative and postoperative changes are noted as above. Impression dictated by: Don Lanier M.D. 03/15/2025 6:15 PM Dictation Location: [place] [address] Electronically authenticated by: [id number] Y Date: 03/15/2025 18:15
--- NOTE | 2025-03-15 16:20 | CT_ITS ---
The [address] [address] Patient Name: RAQUEL DEL VALLE MRN: [id number] date: 1945 Sex: F Assigned Patient Location: ED.MAIN Current Patient Location: ED.MAIN Accession/Order Number: [id number] Exam Date: 03/15/2025 18:06 Report Date: 03/15/2025 18:15 At the request of: ALLY BURLESON Procedure: CT orbit BI wo con CT head/brain wo con, CT cervical spine wo con, CT orbit BI wo con 03/15/2025 4:53 PM SIGNS AND SYMPTOMS: Hit in right eye with ball, blurred vision TECHNIQUE:Multi-detector CT axial slices of the brain, orbits, and cervical spine were obtained without IV contrast. Helical,sagittal, coronal, and 3-D reconstructions of the cervical spine were performed. CT was performed with one or more of the following dose reduction techniques: Automated exposure control, adjustment of the mA and/or kV according to patient size, or use of iterative reconstruction technique. COMPARISON: 07/01/2024 FINDINGS: Noncontrast head CT: There is no shift of the midline structures, acute intracranial bleeding, mass effects, or evidence of acute ischemia. There is mild age related cortical atrophy. Mild periventricular white matter hypoattenuation is noted. The ventricular system is normal in size. The brainstem and the cerebellum are unremarkable. The visualized intraorbital contents, the visualized paranasal sinuses, and the infratemporal soft tissues show no acute abnormality. The osseous structures in the skull base and the calvarium show no abnormality. CT Orbits: Mass: None. Globes: Intact. Bony Orbit: Intact. Pre-septal soft tissues: There is preseptal soft tissue swelling overlying the right orbit. Optic Nerves and complex: Within normal limits. EOM's: Within normal limits. Lacrimal apparatus: Within normal limits. Orbital apex: Within normal limits. Cervical spine: There is preservation of the vertebral body heights. There is anterior and intervertebral fusion from C3 through C6. No hardware complication or malalignment. There is moderate disc height loss at C6-C7. No fractures or dislocations are seen. The alignment of the cervical spine is normal. The craniocervical junction and atlantoaxial joint are within normal limits. The prevertebral soft tissues are within normal limits. The paraspinous soft tissues are within normal limits. The lung apices are unremarkable. Heterogenous thyroid nodules are present bilaterally. This most likely represents multinodular goiter. CT/CT orbit BI wo con IMPRESSION: No acute intracranial pathology There is preseptal soft tissue swelling overlying the right orbit. No orbital fracture. No acute cervical spine injury. Degenerative and postoperative changes are noted as above. Impression dictated by: Don Lanier M.D. 03/15/2025 6:15 PM Dictation Location: [place] [address] Electronically authenticated by: [id number] Y Date: 03/15/2025 18:15
--- NOTE | 2025-03-15 16:20 | CT_ITS ---
The [address] [address] Patient Name: RAQUEL DEL VALLE MRN: [id number] date: 1945 Sex: F Assigned Patient Location: ED.MAIN Current Patient Location: ED.MAIN Accession/Order Number: [id number] Exam Date: 03/15/2025 18:06 Report Date: 03/15/2025 18:15 At the request of: ALLY BURLESON Procedure: CT orbit BI wo con CT head/brain wo con, CT cervical spine wo con, CT orbit BI wo con 03/15/2025 4:53 PM SIGNS AND SYMPTOMS: Hit in right eye with ball, blurred vision TECHNIQUE:Multi-detector CT axial slices of the brain, orbits, and cervical spine were obtained without IV contrast. Helical,sagittal, coronal, and 3-D reconstructions of the cervical spine were performed. CT was performed with one or more of the following dose reduction techniques: Automated exposure control, adjustment of the mA and/or kV according to patient size, or use of iterative reconstruction technique. COMPARISON: 07/01/2024 FINDINGS: Noncontrast head CT: There is no shift of the midline structures, acute intracranial bleeding, mass effects, or evidence of acute ischemia. There is mild age related cortical atrophy. Mild periventricular white matter hypoattenuation is noted. The ventricular system is normal in size. The brainstem and the cerebellum are unremarkable. The visualized intraorbital contents, the visualized paranasal sinuses, and the infratemporal soft tissues show no acute abnormality. The osseous structures in the skull base and the calvarium show no abnormality. CT Orbits: Mass: None. Globes: Intact. Bony Orbit: Intact. Pre-septal soft tissues: There is preseptal soft tissue swelling overlying the right orbit. Optic Nerves and complex: Within normal limits. EOM's: Within normal limits. Lacrimal apparatus: Within normal limits. Orbital apex: Within normal limits. Cervical spine: There is preservation of the vertebral body heights. There is anterior and intervertebral fusion from C3 through C6. No hardware complication or malalignment. There is moderate disc height loss at C6-C7. No fractures or dislocations are seen. The alignment of the cervical spine is normal. The craniocervical junction and atlantoaxial joint are within normal limits. The prevertebral soft tissues are within normal limits. The paraspinous soft tissues are within normal limits. The lung apices are unremarkable. Heterogenous thyroid nodules are present bilaterally. This most likely represents multinodular goiter. CT/CT head/brain wo con IMPRESSION: No acute intracranial pathology There is preseptal soft tissue swelling overlying the right orbit. No orbital fracture. No acute cervical spine injury. Degenerative and postoperative changes are noted as above. Impression dictated by: Don Lanier M.D. 03/15/2025 6:15 PM Dictation Location: [place] [address] Electronically authenticated by: [id number] Y Date: 03/15/2025 18:15
--- NOTE | 2025-03-15 16:20 | ED.GENADUL1 ---
HPI HPI - General Adult General Chief complaint: Eye Problems Stated complaint: INJURY TO R EYE, REDNESS Time Seen by Provider: 03/15/25 16:19 Source: patient Mode of arrival: walk-in Limitations: no limitations History of Present Illness HPI narrative: 80 year old female presents to the ED for bilateral eye itching. Onset 03/13/25 for the itching to the right eye and today for the itching to the left eye. Reports she was accidentally struck with a ball to her right eye area on 03/11/25 while playing with her great granddaughter. Denies LOC. Denies vision changes. Denies dizziness, N/V. Reports mild soreness to the right side of her neck. She has bruising, discomfort to her right orbital area. Denies epistaxis. Denies pain to her nose and jaw. Denies change in her bite. Related Data Home Medications ?Medication ?Instructions ?Recorded ?Confirmed aspirin 81 mg tablet,delayed 81 mg PO DAILY 02/02/24 03/15/25 release atenolol 25 mg tablet 50 mg PO DAILY 02/02/24 03/15/25 clopidogrel 75 mg tablet 75 mg PO DAILY 02/02/24 03/15/25 lisinopril 5 mg tablet 5 mg PO DAILY 02/02/24 03/15/25 Previous Rx's ?Medication ?Instructions ?Recorded ofloxacin 0.3 % eye drops (Ocuflox) 2 drp ophthalmic (eye) Q6H 10 days 03/15/25 #5 mL Allergies Allergy/AdvReac Type Severity Reaction Status Date / Time codeine AdvReac Intermediate Vomiting Verified 03/15/25 16:20 Opioid HPI Opioid Management Most Recent Opioid Data: Last Pain Scale 5 11/25/24, 12:26 Review of Systems ROS Constitutional Denies: fever, chills or fatigue Eyes Reports: eye discomfort and eye discharge; Denies: change in vision, blind spots or light sensitivity Ears, nose, mouth, and throat Reports: neck pain; Denies: throat pain Cardiovascular Denies: chest pain Respiratory Denies: shortness of breath Gastrointestinal Denies: abdominal pain, nausea or vomiting Musculoskeletal Reports: neck pain; Denies: back pain or extremity pain Integumentary/Breast Reports: skin tenderness; Denies: rash Neurological Denies: headache, numbness in extremities, weakness in extremities or dizziness PFSH PFSH Social History Little interest or pleasure in doing things: not at all Feeling down, depressed, or hopeless: not at all Exam Constitutional Vital Signs, click to edit/add: Last Vital Signs Temp 98.3 F 03/15/25 16:12 Pulse 70 03/15/25 16:12 Resp 18 03/15/25 16:12 BP 177/98 H 03/15/25 16:12 Pulse Ox 98 03/15/25 16:12 O2 Del Method Room Air 03/15/25 16:12 HENMO Common normals: external ears normal, moist oral mucous membranes and oropharynx normal Nose: external nose normal Mouth: oral and palatal mucosa normal, lip normal and tongue normal Eye Common normals: PERRL and EOMs intact bilaterally Periorbital: periorbital findings abnormal right periorbital swelling (Minimal), periorbital tenderness and periorbital ecchymosis Conjunctiva: conjunctiva abnormal right (Crusting, yellow drainage noted to right eye area. ) conjunctival injection, discharge and subconjunctival hemorrhage (lateral) Cornea: fluorescein used Other: Right eye was anesthetized with tetracaine, stained with a fluorescein strip, and examined with the wood's lamp. No corneal abrasion was noted. No FB noted. Full ROM to bilateral eyes. Superficial-appearing laceration lateral to right eye. No active bleeding or drainage. Neck & C-Spine Common normals: supple Cervical spine: no cervical spine tenderness, no paracervical muscle tenderness and no paracervical muscle spasm Chest Chest: symmetrical chest wall rise Respiratory Common normals: normal respiratory effort Effort & inspection: able to speak in complete sentences and symmetric chest movement Cardio Common normals: regular rate and regular rhythm Back & Pelvis Thoracic spine/upper back: no thoracic spinal tenderness and no paraspinal muscle tenderness Lumbar spine/lower back: no lumbar spinal tenderness and no paraspinal muscle tenderness Neuro Common normals: oriented x3, CN's II-XII intact bilaterally, moves all extremities and no focal motor deficits Sensorium/orientation: awake and alert Speech: speech normal Gait (neuro): normal gait Course Vital Signs Vital signs: Vital Signs Temperature 98.3 F 03/15/25 16:12 Pulse Rate 70 03/15/25 16:12 Respiratory Rate 18 03/15/25 16:12 Blood Pressure 177/98 H 03/15/25 16:12 Pulse Oximetry 98 03/15/25 16:12 Oxygen Delivery Method Room Air 03/15/25 16:12 Temperature 98.3 F 03/15/25 16:12 Pulse Rate 70 03/15/25 16:12 Respiratory Rate 18 03/15/25 16:12 Blood Pressure 177/98 H 03/15/25 16:12 Pulse Oximetry 98 03/15/25 16:12 Oxygen Delivery Method Room Air 03/15/25 16:12 Medical Decision Making MDM Narrative Medical decision making narrative: CT scans of the head, orbit, and cervical spine were completed. Results showed preseptal soft tissue swelling overlying the right orbit. Findings were discussed with the patient. No corneal abrasion was noted. A prescription was provided for ocuflox. Follow up with pcp and ophthalmology for a recheck, further evaluation and treatment. Medical Records Medical records reviewed: Yes I reviewed the patient's medical records Imaging Data CT: Attestation: I have reviewed the pertinent imaging results. Radiologist's impression: ITS Impressions Cervical Spine CT 03/15/25 16:20 IMPRESSION: No acute intracranial pathology There is preseptal soft tissue swelling overlying the right orbit. No orbital fracture. No acute cervical spine injury. Degenerative and postoperative changes are noted as above. Impression dictated by: Don Lanier M.D. 03/15/2025 6:15 PM Dictation Location: [email or web address] Electronically authenticated by: [id number] Y Date: 03/15/2025 18:[address] 03/15/25 16:20 IMPRESSION: No acute intracranial pathology There is preseptal soft tissue swelling overlying the right orbit. No orbital fracture. No acute cervical spine injury. Degenerative and postoperative changes are noted as above. Impression dictated by: Don Lanier M.D. 03/15/2025 6:15 PM Dictation Location: [email or web address] Electronically authenticated by: [id number] Y Date: 03/15/2025 18:[address] 03/15/25 16:20 IMPRESSION: No acute intracranial pathology There is preseptal soft tissue swelling overlying the right orbit. No orbital fracture. No acute cervical spine injury. Degenerative and postoperative changes are noted as above. Impression dictated by: Don Lanier M.D. 03/15/2025 6:15 PM Dictation Location: [place] [address] Electronically authenticated by: [id number] Y Date: 03/15/2025 18:15 Discharge Plan Discharge Chief Complaint: Eye Problems Clinical Impression: Head injury, Contusion of face, Facial laceration, Subconjunctival hemorrhage, Conjunctivitis Patient Disposition: Home, Self-Care Time of Disposition Decision: 19:04 Condition: Good Mode of Transportation: Private Vehicle Prescriptions / Home Meds: New ofloxacin [Ocuflox] 0.3 % drops 2 drp ophthalmic (eye) Q6H 10 Days Qty: 5 0RF Rx Instructions: start on day 3 of therapy No Action clopidogrel 75 mg tablet 75 mg PO DAILY atenolol 25 mg tablet 50 mg PO DAILY lisinopril 5 mg tablet 5 mg PO DAILY aspirin 81 mg tablet,delayed release (DR/EC) 81 mg PO DAILY Print Language: Japanese Instructions: Laceration (ED), Head Injury (ED), Facial Contusion (ED), Conjunctivitis (ED) Additional Instructions: Follow up with an stitchdown toe former for a recheck, further evaluation and treatment. Return to the ER for worsening symptoms. [facility] [address] [facility] [address] ?[place], [place] Referrals: Becca Jolly MD [Primary Care Provider, Family Practice] - 1 week
--- NOTE | 2025-03-15 16:31 | PC.NURSE ---
Pt presents to ER for right eye pain and itching Pt was struck while wearing glasses by a ball thrown by a 2 year old on Friday (03/11/25) Pt's upper and lower lids are inflamed and red, sclera is bloodshot as well as conjunctiva Small laceration to the outer right corner Pt states bilateral eye itchiness that has gotten worse over the last several days Pt complains of pain to the entire right orbit as well as down the right side of her face, ear, and neck Pt states her vision is not effected but is blurry due to the extra tear production
[2025-03-15] MEDS: TETRACAINE HCL 0.5% OP SOL 80 DROP/4 ML BOTTLE OP (19:09)
[2025-03-15] MEDS: FLUORESCEIN SODIUM 1 MG STRIP OP (19:09)
== END 2025-03-15 19:18 | disposition home or self-care (01) ==
PROVIDERS: Emergency Provider Emergency Medicine; PCP Family Medicine
DX: S00.83XA Contusion of other part of head, initial encounter (principal); W21.00XA Struck by hit or thrown ball, unspecified type, initial encounter; S09.90XA Unspecified injury of head, initial encounter; H11.31 Conjunctival hemorrhage, right eye; H10.9 Unspecified conjunctivitis
CPT/HCPCS: 70450; 70480; 72125; 99285

== ENCOUNTER 2025-06-28 09:52 | Outpatient (RCR) | payer MEDICARE, OTHER, SELFPAY | END 2025-07-01 07:39 | disposition home or self-care (01) | LOC: PT 09:52 | PROVIDERS: PCP Family Medicine; Visit Provider Family Medicine | DX: H81.13 Benign paroxysmal vertigo, bilateral (principal) | CPT/HCPCS: 97112; 97162 ==

== ENCOUNTER 2025-07-07 13:56 | Outpatient (OUT) | payer MEDICARE, OTHER, SELFPAY ==
--- OUTSIDE RECORDS SUMMARY | 2025-07-07 09:45 | XMS_ITS | Continuity of Care Document ---
Author Organization [facility] Address [address] [place] [address] Phone Care Team Providers Care Vending Technician Name Role Phone Becca Jolly MD Primary Care Provider Becca Jolly MD Attending Provider Care Teams Patient Care Team Team Status: Active Member Role Status Dates Becca Jolly MD Primary Care Provider Active Visit Care Team Team Status: Inactive Member Role Status Dates Becca Jolly MD Primary Care Provider Active Start: June 23, 2025 End: June 23, 2025 Becca Jolly MD Attending Provider Active St art: June 23, 2025 End: June 23, 2025 Patient Care Team Team Status: Inactive Member Role Status Dates Becca Jolly MD Primary Care Provider Active Start: July 07, 2025 End: July 07, 2025 Becca Jolly MD Attending Provider Active St art: July 07, 2025 End: July 07, 2025 Chief Complaint and Reason for Visit Chief Complaint Admit Date Wellness June 23, 2025 9:23am left thumb and wrist pain June 1:15pm Reason for Visit Admit Date BPV (benign positional vertigo) Septembe r 2024 9:23am History of TIA (transient ischemic attac k) June 23, 2025 9:23am Medicare annual wellness visit, subseque nt June 23, 2025 9:23am Left hand pain July 07, 2025 1:15pm Left wrist pain July 07, 2025 1:15pm Reason for Referral Referring Provider Name Referring Provider Address Referring Provider Phone Referral Date Requested Appointment Date Referral Reason Becca Jolly [address] [facility] [address] Work Phone: July 07, 2025 M79.642 - Pain in left hand,M25.532 - Pain in left wrist June M79.642 - Pain in left hand,M25.532 - Pain in left wrist Allergies, Adverse Reactions, Alerts Allergen Type Severity Reaction Last Updated Verified Status acetaminophen Allergy Unknown Unknown Reaction Septe mber 2024 1:21pm Yes Active codeine Allergy Unknown Vomiting June 1:21pm Yes Active hydrocodone Allergy Unknown Unknown Reaction Septemb er 2024 1:21pm Yes Active Social History Smoking Status Status Start Date End Date Date of Observa tion Never smoked tobacco (finding) July 09, 2024 11:53am Observation Status Observation Response Date of Response Legal Sex Female (finding) Sex Assigned At Female 1945 Family History Relationship Condition Age at Onset Recorded Date/T vivek father Calculus of kidney Unknown mother History of hysterectomy Unknown sister Heart murmur Unknown sister Dementia Unknown father Unknown mother Unknown Problems Active Problems Medical Problem Onset Date Status Comments Knee effusion, right Unknown Active Left hand pain Unknown Active Medicare annual wellness visit, subsequent Unknown Active BPV (benign positional vertigo) Unknown Active Dizziness Unknown Active History of recent fall Unknown Active Goiter Unknown Active Right knee pain Unknown Active Left facial numbness Unknown Active Degenerative arthritis of right knee Unknown Acti ve Left arm numbness Unknown Active Left wrist pain Unknown Active History of TIA (transient ischemic attack) Unknown Active Bronchitis Unknown Active Inactive/Resolved Problems Medical Problem Onset Date Status Comments Sinusitis, acute maxillary Unknown Resolved Preseptal cellulitis Unknown Resolved Visit for suture removal Unknown Resolved Cervical myelopathy Unknown Resolved Problem List clean-up per request of Phys. EHR Cmte Right conjunctivitis Unknown Resolved Medications Medication Status Dose Units Route Directions Qty Days St art Date Stop Date End Date Instructions Adherence Clopidogrel 75 mg tablet Discont inued 0 .ROUTE .COMPLEX May 15, 2024 7:39am Augus t 2023 11:13 am Take 1 tablet by mouth once daily Atenolol 25 mg tablet Discont inued 25 MG PO Twice daily 180 May 21, 2024 11:13a m Augus t 2023 1:58p m Clopidogrel 75 mg tablet Discont inued 0 .ROUTE .COMPLEX May 21, 2024 11:13a m Augus t 2023 1:58p m Take 1 tablet by mouth once daily Lisinopril 5 mg tablet Discont inued 5 MG PO Every morning May 21, 2024 11:13a m Augus t 2023 1:58p m Atenolol 25 mg tablet Discont inued 25 MG PO Twice daily May 21, 2024 1:57pm 2023 9:24a m Clopidogrel 75 mg tablet Discont inued 0 .ROUTE .COMPLEX 90 May 21, 2024 1:57pm Octob er 2023 9:04p m Take 1 tablet by mouth once daily Lisinopril 5 mg tablet Discont inued 5 MG PO Every morning May 21, 2024 1:57pm 2023 9:24a m Clopidogrel 75 mg tablet Discont inued [facility] .[facility] .[facility] 9[facility]04pm Octua ry 2024 3:47p m Take 1 tablet by mouth once daily Atenolol 25 mg tablet Discont inued 0 .ROUTE .COMPLEX 60 [facility] er 2023 9:24am [facility] matthew 2023 10:31 pm Take 1 tablet by mouth twice daily Lisinopril 5 mg tablet Discont inued 0 .ROUTE .COMPLEX 30 [facility] er 2023 9:24am [facility] mat[facility]w 2023 10:31 pm Take 1 tablet by mouth once daily Atenolol 25 mg tablet Discont inued 0 .ROUTE .COMPLEX 60 [facility] er 2023 10:31p m February 09, 2025 12:38 pm Take 1 tablet by mouth twice daily Lisinopril 5 mg tablet Discont inued 0 .ROUTE .COMPLEX 30 [facility] er 2023 10:31p m February 09, 2025 12:38 pm Take 1 tablet by mouth once daily Clopidogrel 75 mg tablet Discont inued 0 .ROUTE .COMPLEX 90 Octuar y 2024 3:47pm February 09, 2025 12:38 pm Take 1 tablet by mouth once daily Atenolol 25 mg tablet Discont inued 0 .ROUTE .COMPLEX 60 February 09, 2025 12:38p m Augus t 2024 3:25p m Take 1 tablet by mouth twice daily Clopidogrel 75 mg tablet Discont inued 0 .ROUTE .COMPLEX February 09, 2025 12:38p m May 10, 2025 3:53p m Take 1 tablet by mouth once daily Lisinopril 5 mg tablet Discont inued 0 .ROUTE .COMPLEX 30 February 09, 2025 12:38p m Augus 2024 3:25p m Take 1 tablet by mouth once daily Clopidogrel 75 mg tablet Active 0 .ROUTE .COMPLEX May 10, 2025 3:53pm Take 1 tablet by mouth once daily Complies with drug therapy Lisinopril 5 mg tablet Active 0 .ROUTE .COMPLEX 90 June 07, 2025 3:25pm Take 1 tablet by mouth once daily Complies with drug therapy Atenolol 25 mg tablet Active 0 .ROUTE .COMPLEX 180 June 07, 2025 3:25pm Take 1 tablet by mouth twice daily Complies with drug therapy Atenolol 25 mg tablet Discont inued 25 MG PO Twice daily [facility] 2020 1:00am [facility] 2023 11:13 am Clopidogrel 75 mg tablet Discont inued 75 MG PO Every morning [facility] 2020 1:00am January 30, 2024 10:40 am On Hold: Resume on 10/08/21. Aspirin 81 mg Tablet,Nahomy yed Release (Dr/Ec) Active 81 MG PO Every morning [facility] 2020 1:00am Complies with drug therapy Lisinopril 5 mg tablet Discont inued 5 MG PO Every morning [facility] 2020 1:00am [facility] 2023 11:13 am Cephalexin 500 mg capsule Discont inued 500 MG PO Three times daily 15 [facility] 2020 1:00am January 30, 2024 10:41 am Oxycodone 5 mg Tablet Discont inued 5 - 10 MG PO Q6H as needed for Pain 40 8 [facility] 2020January 30, 2024 10:41 am Cyclobenzap rine 10 mg tablet Discont inued 10 MG PO Three times daily as needed for back spasms 30 [facility] 2020 1:00am January 30, 2024 10:41 am Clopidogrel 75 mg tablet Discont inued 75 MG PO Daily January 30, 2024 12:00a m May 15, 2024 7:39a m Sulfamethox azole-Trime thoprim (Bactrim Ds) 800-160 mg tablet Discont inued 1 TAB PO Twice daily December 24, 2024 1:00am March 18, 2025 1:35p m Neomycin-Po lymyxin B-Dexameth 3.5mg/mL-10 ,000 unit/mL-0.1 % drops,suspe nsion Discont inued 1 DROPS [facility] Every 6 hours March 18, 2025 12:00a m Septe mber 2024 10:12 am Azithromyci n 250 mg tablet Discont inued 0 PO .COMPLEX 6 February 16, 2024 12:00a m Octob er 2023 11:32 am For 250 mg dose pack: take 500 mg today (day 1), then 250 mg for 4 days (days 2-5) PO Immunizations Immunization Event Date Not Given Reason Dose Number Rn Flight Lot Number Vaccine Information Statement (VIS) Detail Administration Location Fluzone TIV High-Dose 65YR+ June 23, 2025 [id number] [facility] Medical Equipment Device Date Implanted Device Details Spinal fixation plate, non-bioabsorbable October 01, 2021 TRINA: ()[id number] Issuing Agency: [facility] Device Id: [id number] Spinal fixation plate, non-bioabsorbable October 01, 2021 TRINA: ()[id number] Issuing Agency: [facility] Device Id: [id number] Spinal fixation plate, non-bioabsorbable October 01, 2021 TRINA: ()[id number] Issuing Agency: [facility] Device Id: [id number] Spinal fixation plate, non-bioabsorbable October 01, 2021 TRINA: ()[id number] Issuing Agency: [facility] Device Id: [id number] Spinal fixation plate, non-bioabsorbable October 01, 2021 TRINA: ()[id number] Issuing Agency: [facility] Device Id: [id number] Spinal fixation plate, non-bioabsorbable October 01, 2021 TRINA: ()[id number] Issuing Agency: [facility] Device Id: [id number] Spinal fixation plate, non-bioabsorbable October 01, 2021 TRINA: ()[id number] Issuing Agency: [facility] Device Id: [id number] Spinal fixation plate, non-bioabsorbable October 01, 2021 TRINA: ()[id number] Issuing Agency: [facility] Device Id: [id number] Spinal fixation plate, non-bioabsorbable October 01, 2021 TRINA: ()[id number] Issuing Agency: [facility] Device Id: [id number] Intervertebral-body internal spinal fixation system October 01, 2021 TRINA: ()[id number] Issuing Agency: [facility] Device Id: [id number] Expiration Date: 2025-03-16 Serial Number: [id number] Intervertebral-body internal spinal fixation system October 01, 2021 TRINA: ()[id number] Issuing Agency: [facility] Device Id: [id number] Expiration Date: 2025-04-02 Serial Number: [id number] Intervertebral-body internal spinal fixation system October 01, 2021 TRINA: ()[id number] Issuing Agency: [facility] Device Id: [id number] Expiration Date: 2025-04-11 Vital Signs Vital Reading Result Reference Range Collection Date/Time Height 66.5 [in_i] June 23, 2025 9:35am Weight 70.76 kg June 23, 2025 9:35am Heart Rate 67 /min 60-100 June 23, 2025 9:35am BP Systolic 164 mm[Hg] 100-140 June 23, 2025 9:35am BP Diastolic 74 mm[Hg] 60-100 June 23, 2025 9:35am BMI (Body Mass Index) 24.7 kg/m2 2024 9:35am Height 66.5 [in_i] July 07, 2025 1:18pm Weight 68.15 kg July 07, 2025 1:18pm Heart Rate 76 /min 60-100 July 07, 2025 1:18pm BP Systolic 146 mm[Hg] 100-140 July 07, 2025 1:18pm BP Diastolic 82 mm[Hg] 60-100 July 07, 2025 1:18pm BMI (Body Mass Index) 23.8 kg/m2 2024 1:18pm Advance Directives Advance Directive Response Recorded Date/ Time Advance Directives No June 11:53am Insurance Providers Guarantor Farrah Arellano Address [address] [facility] [address] [facility] [address] Contact Info. Home Phone: Payer Policy Id Subscriber's Name Subscriber Id Malissa ctive Date Expiration Date Medicare [id number] Farrah Arellano [id number] [facility] [id number] Farrah Arellano [id number] Self Pay Self N/A Encounters Encounter Location(s) Arrival/Admit Date Discharge/Depart Date Provider(s) Departed Physician/Prov ider Office Visit -[facility] June 23, 2025 9:23am June 23, 2025 10:24am Becca Jolly MD Departed Physician/Prov ider Office Visit -[facility] July 07, 2025 1:15pm July 07, 2025 1:45pm Becca Jolly MD Recent Diagnosis Onset Date Admit Date BPV (benign positional vertigo) Unknown June 23, 2025 9:23am History of TIA (transient ischemic attack) Unkno wn June 23, 2025 9:23am Medicare annual wellness visit, subsequent Unkno wn June 23, 2025 9:23am Left hand pain Unknown July 07, 2025 1:15pm Left wrist pain Unknown July 07, 2025 1:15pm Assessments Diagnosis Onset Date Resolution Status Admit Date BPV (benign positional vertigo) acute June 23, 2 025 9:23am History of TIA (transient ischemic attack) acute June 23, 2025 9:23am Medicare annual wellness visit, subsequent acute June 23, 2025 9:23am Left hand pain acute July 07, 2025 1:15pm Left wrist pain acute July 07, 2025 1:15pm Plan of Treatment Author Becca Jolly [facility] Authored June 23, 2025 12:38pm Personalized health advice w as given to the beneficiary to health education of preventative counseling services or programs aimed at reducing identified risk factors and improving self-management or community-based lifestyle interventions to reduce health risks and promote self-management and wellness, including physical activity and nutrition. Order for PT faxed to [facility] w pt's demographics. stable. continue present medications. Future Tests Future scheduled test information is unavailable Pending Tests Test Name Ordered Date Scheduled Date XR hand LT min 3V* July 07, 2025 1:36pm XR wrist LT min 3V* July 07, 2025 1:36pm Future Visits Future appointment information is unavailable Referrals to Other Providers Reason for Referral Referral Start Date Provider Provider Contact Information Provider Address M79.642 - Pain in left hand,M25.532 - Pain in left wrist July 07, 2025 [facility] Work Phone: [facility] [place] [facility] [address] Future Procedures Future procedure information is unavailable Future Medications Future medication information is unavailable Patient Instructions Patient instructions are unavailable Hospital Discharge Instructions Ambulatory Orders* Referral to Orthopedic Surgery Location: None Selected
--- OUTSIDE RECORDS SUMMARY | 2025-07-07 14:00 | XMS_ITS | Clinical Summary ---
Author Organization [employer] [facility] Address [id number] [address] [place] [address] Care Team Providers Care Supervisor In Charge Name Role Phone Becca Jolly MD Primary Care Provider [phone] Allergies Active Allergy Reactions Criticality Noted Date [...] Recently Relevant to Health Maintenance Insurance MEDICARE [facility] Care Teams Supervisor In Charge Relationship Specialty Start Date End Date Becca Jolly MD [address] [place] [address] PCP - General 01/25/19
--- OUTSIDE RECORDS SUMMARY | 2025-07-07 14:00 | XMS_ITS | Encounter Summary ---
Author Organization [facility] Address [address] [place] [address] Care Team Providers Care Dining Room Hostess Name Role Phone Becca Jolly MD Primary Care Provider [phone] Source Comments In the event this information is protected by the Federal Confidentiality of Alcohol and Drug AbusePatient Records regulations: The Federal rules restrict any use of the information to criminally investigate or prosecute any alcohol or drug abuse patient.[facility] Encounter Details Date Type Department Care [...] is lower risk 8 02/26/2023 Data from: https://www.neighborhoodatlas.medicine.[facility].edu/. Last address used for calculation [address] [facility] 02/26/2023 Comments No Sex and Gender Information Value Date Recorded Sex Assigned at Not on file Legal Sex Female 10:45 AM EDT Gender Identity Not on file Sexual Orientation Not on file documented as of this encounter Plan of Treatment Not on file documented as of this encounter Visit Diagnoses Not on filedocumented in this encounter Care Teams Dining Room Hostess Relationship Specialty Start Date End Date Becca Jolly MD [address] [place] [address] PCP - General Family Medicine 02/15/16 documented as of this encounter
--- OUTSIDE RECORDS SUMMARY | 2025-07-07 14:00 | XMS_ITS | Encounter Summary ---
Author Organization [facility] Address [address] [place] [address] Care Team Providers Care Rubber Compounder Formulator Name Role Phone Becca Jolly MD Primary Care Provider [phone] Source Comments In the event this information is protected by the Federal Confidentiality of Alcohol and Drug AbusePatient Records regulations: The Federal rules restrict any use of the information to criminally investigate or prosecute any alcohol or drug abuse patient.[facility] Encounter Details Date Type Department Care Team [...] N ot on file 09/27/2020 Data from: https://www.neighborhoodatlas.medicine.[facility].edu/. Last address used for calculation Not [...] on filedocumented in this encounter Care Teams Rubber Compounder Formulator Relationship Specialty Start Date End Date Becca Jolly MD [address] [place] [address] PCP - General Family Medicine 02/15/16 documented as of this encounter
--- OUTSIDE RECORDS SUMMARY | 2025-07-07 14:00 | XMS_ITS | Clinical Summary ---
Author Organization [facility] Address [address] [place] [address] Care Team Providers Care Branch Services Manager Name Role Phone Becca Jolly MD Primary Care Provider [phone] Allergies Active Allergy Reactions Criticality Noted Date [...] is lower risk 8 04/04/2023 Data from: https://www.neighborhoodatlas.medicine.[facility].edu/. Last address used for calculation [address] [facility] 04/04/2023 Comments No Sex and Gender [...] Dise ase Visit 1963 Anxiety Screening 1963 Depression Screening 1963 DTaP,Tdap,Td Vaccine (1 - Tdap) 1965 Pneumococcal Vaccine: 50+ (1 of 1 - PCV) 1996 Shingrix Vaccine (1 of 2) 1996 Medicare Annual Wellness Visit 04/19/2008 Bone Density Screening 2011 RSV Vaccine (1 - 1-dose 75+ series) 2021 Advance Directive Discussion 10/20/2024 Influenza Vaccine (#1) 2025 0, 12/07/2019, 08/15/2016 Diabetes Screening 04/04/2026 04/04/2023 Mammogram Screening Discontinued 01/23/2023 Procedures Procedure Name Priority Date/Time Associated Diagnosis Comments COMPREHENSIVE METABOLIC PANEL Routine 04/04/2023 3:05 PM EDT Pre-op exam from Last 3 Months or Most Recently Relevant to Health Maintenance Results * (ABNORMAL) COMP METABOLIC PANEL (04/04/2023 3:05 PM EDT) Protein, Total 6.8 6.3 - 8.0 g/dL 04/05/2023 12:03 AM [facility] Albumin 4.1 3.9 - 4.9 g/dL 04/05/2023 12:03 AM [facility] Calcium, Total 9.7 8.5 - 10.2 mg/dL 04/05/2023 12:03 AM [facility] Bilirubin, Total 0.9 0.2 - 1.3 mg/dL 04/05/2023 12:03 AM [facility] Alkaline Phosphatase 88 34 - 123 U/L 04/05/2023 12:03 AM T [facility] AST 14 13 - 35 U/L 04/05/2023 12:03 AM [facility] ALT 10 7 - 38 U/L 04/05/2023 12:03 AM [facility] Glucose 89 74 - 99 mg/dL 04/05/2023 12:03 AM [facility] Comment: The [place] Diabetes Association (ADA) provides guidance for cutoff [...] Standards of Medical Care in Diabetes 2016, [place] Diabetes Association. Diabetes Care. 2016.39(Suppl 1). BUN 14 7 - 21 mg/dL 04/05/2023 12:03 AM [facility] Creatinine 0.80 0.58 - 0.96 mg/dL 04/05/2023 12:03 AM [facility] Sodium 142 136 - 144 mmol/L 04/05/2023 12:03 AM [facility] Potassium 3.8 3.7 - 5.1 mmol/L 04/05/2023 12:03 AM [facility] Chloride 106(H) 97 - 105 mmol/L 04/05/2023 12:03 AM [facility] CO2 25 22 - 30 mmol/L 04/05/2023 12:03 AM [facility] Anion Gap 11 9 - 18 mmol/L 04/05/2023 12:03 AM [facility] Estimated Glomerular Filtration Rate 76 >=60 mL/min/1.7 3m 04/05/2023 12:03 AM [facility] Comment:Estimated Glomerular Filtration Rate (eGFR) is [...] Xuan Sullivan MD LABORATORY Final R esult [facility] [address] [facility] [address] [place] [address], [place] from Last 3 Months or Most Recently Relevant to Health Maintenance Insurance MEDICARE [address] [employer] Care Teams Branch Services Manager Relationship Specialty Start Date End Date Becca Jolly MD [address] [place] [address] PCP - General Family Medicine 02/15/16
--- OUTSIDE RECORDS SUMMARY | 2025-07-07 14:00 | XMS_ITS | Clinical Summary ---
Author Organization [facility] Address [address] [place] [address] Care Team Providers Care Shell Shop Supervisor Name Role Phone Eleno Patiño DO Unavailable [phone] Margot Trujillo AUD Unavailable [phone] Becca Jolly MD Primary Care Provider [phone] Allergies Active Allergy Reactions Criticality Noted Date Comments Codeine 07/23/2024 Other Reaction(s): Vomiting Hydrocodone 07/23/2024 Other Reaction(s): Unknown Reaction Medications clopidogrel (Plavix) 75 MG tablet Take 75 mg by mouth Daily 4 Active atenolol (Tenormin) 25 MG tablet Take 25 mg by mouth in the morning and 25 mg before bedtime. Active aspirin (ASPIR) 81 MG EC tablet Take 81 mg by mouth Daily Active lisinopril 5 MG tablet Take 5 mg by mouth Daily Active fluticasone (Flonase) 50 MCG/ACT nasal sprayIndication s:ETD (Eustachian tube dysfunction), bilateral Administer 2 sprays into each nostril Daily Shake gently. Before first use, prime pump. After use, clean tip and replace cap. 48 g 3 5 02/09/20 26 Active Active Problems Problem Noted Date Diagnosed Date Asymmetrical hearing loss 02/07/2025 Asymmetrical sensorineural hearing loss 02/08/20 25 Bilateral tinnitus 02/07/2025 Bronchitis 02/07/2025 Cholesteatoma of attic 02/07/2025 Chronic reactive otitis externa of right ear Enlarged uterus 02/07/2025 History of recent fall 02/07/2025 History of TIA (transient ischemic attack) 02/07 Degenerative arthritis of right knee 02/07/2025 Left arm numbness 02/07/2025 Left facial numbness 02/07/2025 Mixed conductive and sensorineural hearing loss of left ear 02/07/2025 Pelvic pain 02/07/2025 Right knee pain 02/07/2025 Sensorineural hearing loss, unilateral, right ear, with unrestricted hearing on the contralateral side 02/07/2025 Sinusitis, acute maxillary 02/07/2025 Thickened endometrium 02/07/2025 Visit for suture removal 02/07/2025 Vertigo 03/03/2024 Postural lightheadedness 03/03/2024 Hypertension 04/09/2023 TIA (transient ischemic attack) 04/04/2023 Vaginal bleeding 04/02/2023 Malignant neoplasm involving both nipple and areola of right breast in female 10/01/2017 Malignant neoplasm of lower- inner quadrant of right female breast 02/05/2017 Family History Medical History Relation Name Comments Cancer Father Relation Name Status Comments Father Social History Tobacco Use Types Packs/Day Years Used Date Smoking Tobacco: Never Smokeless Tobacco: Never Alcohol Use Standard Drinks/Week Comments Not Currently 0 (1 standard drink = 0.6 oz pur e alcohol) Comments Unknown Sex and Gender Information Value Date Recorded Sex Assigned at Not on file Legal Sex Female 6:39 PM EDT Gender Identity Not on file Sexual Orientation Not on file Last Filed Vital Signs Vital Sign Reading Time Taken Comments Blood Pressure 136/82 02/08/2025 2:39 PM EDT Pulse 70 02/08/2025 2:39 PM EDT Temperature - - Respiratory Rate - - Oxygen Saturation 98% 03/03/2024 1:18 PM EDT Inhaled Oxygen Concentration - - Weight 69.9 kg (154 lb) 02/08/2025 2:39 PM EDT Height 168.9 cm (5' 6.5 ) 02/08/2025 2:39 PM EDT Body Mass Index 24.48 02/08/2025 2:39 PM EDT Plan of Treatment Health Maintenance Due Date Last Done Comments Influenza Vaccine (#1) 2025 4, 09/20/2020, 12/07/2019, Additional history exists Pneumococcal Vaccine: 65+ Years Completed 4 Insurance MEDICARE [facility] Care Teams Shell Shop Supervisor Relationship Specialty Start Date End Date Becca Jolly MD [address] [place] [address] PCP - General Family Medicine 02/08/25 Eleno Patiño DO [address] [place] [address] Otolaryngology 02/01/25 Margot Trujillo AUD [address] [place] [address] Audiology 02/01/25
--- OUTSIDE RECORDS SUMMARY | 2025-07-07 14:00 | XMS_ITS | Encounter Summary ---
Author Organization [facility] Address [address] [place], [place] [id number] Care Team Providers Care Transit Operations Supervisor Name Role Phone Becca Jolly MD Primary Care Provider [phone] Source Comments In the event this information is protected by the Federal Confidentiality of Alcohol and Drug AbusePatient Records regulations: The Federal rules restrict any use of the information to criminally investigate or prosecute any alcohol or drug abuse patient.[facility] Encounter Details Date Type Department Care Team (Late st Contact Info) Description 02/21/2023 Lab Requisition [facility] [place] [address] Xuan Sullivan MD [address] [place] [address] Person encountering health services to [...] N ot on file 09/27/2020 Data from: [email or web address] Last address used for calculation Not [...] EDT) Case Report Surgical Pathology Report Case: [id number] Authorizing Provider: Xuan Sullivan MD Collected: 02/21/2023 10:36 AM Ordering Location: [facility] Received: 02/21/2023 10:35 AM Pathologist: Nir Crook MD Specimen: SLIDE(S), 4 SLIDES ([id number]) 02/24/2023 10:29 AM EDT [facility] FINAL DIAGNOSIS 4 slides ([id number], 02/11/2022) A. Endocervix, curettings: - Benign squamous and endocervical epithelium. B. Endometrium, curettings: - Benign endometrial polyp. ACV/rw 02/21/2023 02/24/2023 10:29 AM EDT [facility] at 1029 EDT Performing Lab Diagnostic interpretation performed at [facility], [address] [place], [place] [address]IA# [id number] Hot Die Press Feeder: Mark Dave M.D. 02/24/2023 10:29 AM EDT [facility] Blocks or Slides MICROSCOPE SLIDE / Unknown 02/21/2023 10:36 AM EDT 02/21/2023 10:35 AM EDT us Xuan Sullivan MD SURGICAL PATHOLOGY Nila cardenas Result [facility] [address] [facility] [address] [place] [address], documented in this encounter Visit Diagnoses Diagnosis Person encountering health services to consult on behalf of another person Other person consulting on behalf of another person documented in this encounter Care Teams Transit Operations Supervisor Relationship Specialty Start Date End Date Becca Jolly MD [address] [place] [address] PCP - General Family Medicine 02/15/16 documented as of this encounter
--- NOTE | 2025-07-07 14:07 | XR_ITS ---
The [address] [address] Patient Name: RAQUEL DEL VALLE MRN: [id number] date: 1945 Sex: F Assigned Patient Location: [facility] Current Patient Location: [facility] Accession/Order Number: [id number] Exam Date: 07/07/2025 14:28 Report Date: 07/07/2025 23:22 At the request of: KARL KENNEDY MD Procedure: XR hand LT min 3V XR wrist LT min 3V, XR hand LT min 3V 07/07/2025 2:34 PM SIGNS AND SYMPTOMS: ^Left Wrist Pain PROTOCOL: 3 views of the left wrist and left hand COMPARISON: None FINDINGS: Left hand: There is mild diffuse osteopenia. There is mild narrowing of the distal interphalangeal joints. There is no fracture or dislocation. No significant soft tissue swelling. Left wrist: The radiocarpal joint and carpal rows are preserved. No fracture or dislocation. There is diffuse osteopenia. XR/XR hand LT min 3V IMPRESSION: Left hand: No acute bony injury. Mild degenerative changes are noted in the distal interphalangeal joints. Left wrist: No fracture or dislocation. Impression dictated by: Don Lanier M.D. 07/07/2025 11:22 PM Dictation Location: [place] [address] Electronically authenticated by: [id number] Y Date: 07/07/2025 23:22
--- NOTE | 2025-07-07 14:07 | XR_ITS ---
The [address] [address] Patient Name: RAQUEL DEL VALLE MRN: [id number] date: 1945 Sex: F Assigned Patient Location: [facility] Current Patient Location: [facility] Accession/Order Number: [id number] Exam Date: 07/07/2025 14:28 Report Date: 07/07/2025 23:22 At the request of: KARL KENNEDY MD Procedure: XR hand LT min 3V XR wrist LT min 3V, XR hand LT min 3V 07/07/2025 2:34 PM SIGNS AND SYMPTOMS: ^Left Wrist Pain PROTOCOL: 3 views of the left wrist and left hand COMPARISON: None FINDINGS: Left hand: There is mild diffuse osteopenia. There is mild narrowing of the distal interphalangeal joints. There is no fracture or dislocation. No significant soft tissue swelling. Left wrist: The radiocarpal joint and carpal rows are preserved. No fracture or dislocation. There is diffuse osteopenia. XR/XR wrist LT min 3V IMPRESSION: Left hand: No acute bony injury. Mild degenerative changes are noted in the distal interphalangeal joints. Left wrist: No fracture or dislocation. Impression dictated by: Don Lanier M.D. 07/07/2025 11:22 PM Dictation Location: [place] [address] Electronically authenticated by: [id number] Y Date: 07/07/2025 23:22
--- OUTSIDE RECORDS SUMMARY | 2025-07-07 14:11 | XMS_ITS | CCD ---
Author Organization [facility] Care Team Providers Care New Home Sales Consultant Name Role Phone PHYSICIAN, DEFAULT Unavailable Unavailable PHYSICIAN, DEFAULT Unavailable Unavailable MD Karl Kennedy Primary Care Provider MD Jos Kennedy Attending Provider [phone] Jos Kennedy Unavailable MD Karl Kennedy Primary Care Provider MD Jos Kennedy Attending Provider [phone] Karl Kennedy Unavailable Karl Kennedy MD Primary Care Provider REQUEST, DR NONE LISTED Primary Care Unavaila ble KENNEDY, DR KARL Neumann Admitting Unavailable KENNEDY, DR KARL Neumann Attending Unavailable KENNEDY, DR KARL Neumann Consulting Unavailable REQUEST, DR SINGH LISTED Primary Care Unavaila ble KARASIK ., DR ALVARADO Admitting Unavailabl e KARASIK ., DR ALVARADO Attending Unavailabl e KARASIK ., DR ALVARADO Consulting Unavailabl e MISC, DR HINKLE Admitting Unavailable REQUEST, DR SINGH LISTED Primary Care Unavaila ble MISC, DR HINKLE Attending Unavailable REQUEST, DR SINGH LISTED Primary Care Unavaila ble KARASIK ., DR ALVARADO Admitting Unavailabl e KARASIK ., DR ALVARADO Attending Unavailabl e KARASIK ., DR ALVARADO Consulting Unavailabl e WEST, DR DAVIS Rodriguez Consulting Unavailable ZIEBER, DR MELLY Prado Consulting Unavailable RUBY SULLIVAN Referring Unavailab le KARL KENNEDY Primary Care Unavailable RUBY SULLIVAN Attending Unavailab le KARL KENNEDY Primary Care Unavailable KARL KENNEDY Primary Care Unavailable RUBY SULLIVAN Attending Unavailab le CHRISTIANO CORDOBA Referring Unavailable RUBY SULLIVAN Attending Unavailab le KARL KENNEDY Primary Care Unavailable RUBY SULLIVAN Attending Unavailab le KARL KENNEDY Primary Care Unavailable RUBY SULLIVAN Referring Unavailab KARL Barnett Primary Care Unavailable Rubi Jain Unavailable Karl Kennedy MD Primary Care Provider Karl Kennedy MD Primary Care Provider Luisitowoodrowmary Eleno HARDY Unavailable Margot Mcmillan Unavailable [phone] Karl Kennedy MD Primary Care Provider Unavailable Primary Care Provider UnavailMARGOT Jean Attending Unavailable KARL KENNEDY Referring Unavailable CONNIE IVY Attending Unavailable KARL KENNEDY Referring Unavailable TOM CARMONA Attending Unavailable KARL KENNEDY Referring Unavailable TOM CARMONA Referring Unavailable APLINGCHRISTINA Attending Unavailable KARL KENNEDY Referring Unavailable APLINGCHRSITINA Referring Unavailable RAMAN RODRIGES Attending Unavailable APLCHRISTINA GARCIA Referring Unavailable APLCHRISTINA GARCIA Attending Unavailable Karl Kennedy MD Primary Care Provider [phone] Karl Kennedy MD Attending Provider [phone] Karl Kennedy Attending Unavailable Karl Kennedy Primary Care Unavailable Karl Kennedy Admitting Unavailable Allergies Allergy Classification Reported Allergen(s) Allergy Type Date of Onset Reaction(s) Facility (20 sources) Codeine; Translations: [codeine] Drug Allergy 6 Vomiting [facility] (9 sources) Codeine Drug Allergy 4 Unknown [facility] Other (9 sources) Vicodin HP *ANALGESICS - OPIOID* Propensity to adverse reactions Unknown [facility] Other (13 sources) Acetaminophen; Translations: [acetaminophen] Drug Allergy 4 Unknown Reaction [facility] (20 sources) HYDROcodone; Translations: [hydrocodone] Drug Allergy 4 Unknown Reaction [facility] Medications Current Medications Medication Drug Class(es) Dates Sig (Normalized) Sig (Original) aspirin 81 mg delayed release oral tablet (20 sources) Platelet Aggregation Inhibitor, Nonsteroidal Anti-inflammatory Drug Start: 09-20-2021 take 1 tablet by mouth once daily in the morning Aspirin 81 mg Tablet,Delayed Release (Dr/Ec) Active 81 MG PO Every morning September 20, 2021 1:00am Complies with drug therapy take 1 tablet by luly th every twenty-four hours Aspirin 81 MG 1 tablet Orally Once a day Active Comment on above: Take 81 mg by mouth once daily. atenolol 25 mg oral tablet (20 sources) beta-Adrenergic Syeda Start: 09-14-2024 End: 06-07-2025 take 1 tablet by mouth twice daily Atenolol 25 mg tablet Active 0 .ROUTE .COMPLEX 180 June 07, 2025 3:25pm Take 1 tablet by mouth twice daily Complies with drug therapy Start: 09-20-2021 End: 09-14-2024 take 1 tablet by mouth twice daily Atenolol 25 mg tablet Discontinued 25 MG PO Twice daily May 21, 2024 1:57pm September 14, 2024 9:24am take 1 tablet by luly th once daily atenolol (TENORMIN) 25 mg tablet Take 25 mg by mouth once daily. 0 Active Comment on above: Take 25 mg by mouth once daily. cefdinir 300 mg oral capsule (3 sources) Cephalosporin Antibacterial Start: Cefdinir 300 MG as directed Orally bid for 7 days Nov, Active clopidogrel 75 mg oral tablet (20 sources) P2Y12 Platelet Inhibitor Start: End: take 1 tablet by mouth once daily Clopidogrel 75 mg tablet Active 0 .ROUTE .COMPLEX May 10, 2025 3:53pm Take 1 tablet by mouth once daily Complies with drug therapy Start: 05-15-2024 End: 05-21-2024 take 1 tablet by mouth once daily Clopidogrel Discontinued 0 .ROUTE .COMPLEX May 15, 2024 7:39am May 21, 2024 11:13am Take 1 tablet by mouth once daily Start: 09-20-2021 End: 05-15-2024 take 1 tablet by mouth once daily Clopidogrel 75 mg tablet Discontinued 75 MG PO Daily January 30, 2024 12:00am May 15, 2024 7:39am Comment on above: Take 75 mg by mouth once daily. Diclofenac (9 sources) Nonsteroidal Anti-inflammatory Drug Voltaren 1 % apply 1 -2 grams to affected area Externally up to four times daily for 30 days Active Voltaren 1 % belem ly 1-2 grams to affected area Externally up to four times daily for 30 days Active fluticasone propionate 0.05 mg/actuat metered dose nasal spray (2 sources) Corticosteroid Start: 02-08-2025 End: 02-08-2026 take 2 spray(s) nasal route once daily fluticasone (Flonase) 50 MCG/ACT nasal spray Indications: ETD (Eustachian tube dysfunction), bilateral Administer 2 sprays into each nostril Daily Shake gently. Before first use, prime pump. After use, clean tip and replace cap. 48 g 3 02/08/2025 02/08/2026 Active lisinopril 5 mg oral tablet (20 sources) Angiotensin Converting Enzyme Inhibitor Start: 09-14-2024 End: 06-07-2025 take 1 tablet by mouth once daily Lisinopril 5 mg tablet Active 0 .ROUTE .COMPLEX June 07, 2025 3:25pm Take 1 tablet by mouth once daily Complies with drug therapy Start: 01-15-2019 End: 09-14-2024 take 1 tablet by mouth once daily in the morning Lisinopril 5 mg tablet Discontinued 5 MG PO Every morning September 20, 2021 1:00am May 21, 2024 11:13am Completed/Discontinued Medications Medication Drug Class(es) Dates Sig (Normalized) Sig (Original) azithromycin 250 mg oral tablet (10 sources) Macrolide Antimicrobial Start: 02-16-2024 End: 07-23-2024 Azithromycin 250 mg tablet Discontinued 0 PO .COMPLEX February 16, 2024 12:00am July 23, 2024 11:32am For 250 mg dose pack: take 500 mg today (day 1), then 250 mg for 4 days (days 2-5) PO Start: 02-16-2024 End: 07-23-2024 Azithromycin Discontinued 0 PO .COMPLEX February 16, 2024 12:00am July 23, 2024 11:32am For 250 mg dose pack: take 500 mg today (day 1), then 250 mg for 4 days (days 2-5) PO Start: 02-16-2024 Azithromycin A ctive 0 PO .COMPLEX February 16, 2024 12:00am For 250 mg dose pack: take 500 mg today (day 1), then 250 mg for 4 days (days 2-5) PO cephalexin 500 mg oral capsule (14 sources) Cephalosporin Antibacterial Start: 10-02-2021 End: 01-30-2024 take 1 capsule by mouth three times daily Cephalexin 500 mg capsule Discontinued 500 MG PO Three times daily October 02, 2021 1:00am January 30, 2024 10:41am cyclobenzaprine hydrochloride 10 mg oral tablet (14 sources) Muscle Relaxant Start: 10-02-2021 End: 01-30-2024 take 1 tablet by mouth three times daily as needed for muscle spasms Cyclobenzaprine 10 mg tablet Discontinued 10 MG PO Three times daily as needed for back spasms October 02, 2021 1:00am January 30, 2024 10:41am dexamethasone 1 mg/ml / neomycin 3.5 mg/ml / polymyxin b [id number] unt/ml ophthalmic suspension (3 sources) Aminoglycoside Antibacterial, Polymyxin-class Antibacterial, Corticosteroid Start: 03-18-2025 End: 06-23-2025 take 1 drop(s) into the eye(s) every six hours Neomycin-Polymyxin B-Dexameth 3.5mg/mL-10,000 unit/mL-0.1 % drops,suspension Discontinued 1 DROPS EYE-BOTH Every 6 hours March 18, 2025 12:00am June 23, 2025 10:12am Start: 03-18-2025 take 1 drop(s) into the eye(s) every six hours Neomycin-Polymyxin B-Dexameth 3.5mg/mL-10,000 unit/mL-0.1 % drops,suspension Active 1 DROPS EYE-BOTH Every 6 hours March 18, 2025 12:00am ibuprofen 600 mg oral tablet (5 sources) Nonsteroidal Anti-inflammatory Drug Start: 04-25-2023 take 1 tablet by mouth every eight hours as needed ibuprofen (MOTRIN) 600 mg tablet Take 1 tablet by mouth every 8 hours as needed for pain. 21 tablet 0 04/25/2023 Active Ibuprofen Active Comment on above: Take 1 tablet by luly th every 8 hours as needed for pain. 1 ml methylPREDNISolone acetate 40 mg/ml injection (4 sources) Corticosteroid Start: 07-28-20 End: 07-28-20 methylPREDNISolone acetate (DEPO-Medrol) injection 40 mg Start: 07-28-2024 End: 07-28-2024 40 mg, Intra-articular, Once PRN Procedure, Starting on Fri07/28/24 at 0941, For 1 dose oxyCODONE hydrochloride 5 mg oral tablet (16 sources) Opioid Agonist Start: 04-25-2023 take 1 tablet by mouth every eight hours as needed for pain oxyCODONE IR (ROXICODONE) 5 mg immediate release tablet Indications: Post-op pain Take 1 tablet by mouth every 8 hours as needed for pain. 9 tablet 0 04/25/2023 Active Start: 10-02-2021 End: 01-30-2024 take 5-10 mg by mouth every six hours as needed for pain Oxycodone 5 mg Tablet Discontinued 5 - 10 MG PO Q6H as needed for Pain 40 October 02, 2021 January 30, 2024 10:41am Comment on above: Take 1 tablet by luly th every 8 hours as needed for pain. sennosides, fdc 8.6 mg oral tablet (2 sources) Start: 023 take 1 tablet by mouth twice daily Senna 8.6 mg tab Take 1 tablet by mouth twice daily. 60 tablet 1 04/25/2023 Active Comment on above: Take 1 tablet by luly th twice daily. sulfamethoxazole 800 mg / trimethoprim 160 mg oral tablet (4 sources) Dihydrofolate Reductase Inhibitor Antibacterial, Sulfonamide Antimicrobial Start: 025 End: 025 take 1 tablet by mouth twice daily Sulfamethoxazole-Tr imethoprim (Bactrim Ds) 800-160 mg tablet Discontinued 1 TAB PO Twice daily December 24, 2024 1:00am March 18, 2025 1:35pm triamcinolone acetonide 40 mg/ml injectable suspension (3 sources) Corticosteroid Start: 023 Kenalog-40 Jul, 40 mg Problems Active Problems Problem Classification Problem Date Documented Date Episodic/Chronic Abdominal pain (20 sources) Unspecified abdominal pain; Translations: [Generalized abdominal pain] Onset: 02-07-2025 Episodic Anxiety disorders (9 sources) Generalized anxiety disorder; Translations: [Generalized anxiety disorder] Chronic Cancer of breast (20 sources) Malignant neoplasm of female breast; Translations: [Malignant neoplasm of unspecified site of right female breast] Onset: 02-05-2017 02-05-2017 Chronic Chronic obstructive pulmonary disease and bronchiectasis (13 sources) Bronchitis; Translations: [Bronchitis, not specified as acute or chronic] Onset: 02-07-2025 02-16-2024 Episodic Conditions associated with dizziness or vertigo (20 sources) Dizziness; Translations: [Dizziness and giddiness] Onset: 03-03-2024 07-15-2024 Episodic Deficiency and other anemia (9 sources) Anemia; Translations: [Anemia, unspecified] Episodic Diabetes mellitus without complication (9 sources) Hyperglycemia; Translations: [Hyperglycemia, unspecified] Episodic Esophageal disorders (9 sources) Haas's esophagus; Translations: [Haas's esophagus without dysplasia] Chronic Essential hypertension (18 sources) Hypertensive disorder; Translations: [Essential (primary) hypertension] Onset: 04-09-2023 Chronic Fluid and electrolyte disorders (9 sources) Hypokalemia; Translations: [Hypokalemia] Episodic Genitourinary symptoms and ill-defined conditions (18 sources) Dysuria; Translations: [Painful micturition, unspecified] Onset: 02-27-2018 Resolved: 01-23-2022 Episodic Immunizations and screening for infectious disease (1 source) Encounter for screening for human papillomavirus (HPV); Translations: [ENC SCREENING HUMAN PAPILLOMAVIRUS] Onset: 01-22-2023 Episodic Inflammation; infection of eye (except that caused by tuberculosis or sexually transmitteddisease) (3 sources) Conjunctivitis of right eye; Translations: [Unspecified conjunctivitis] 03-23-2025 Episodic Malaise and fatigue (13 sources) Fatigue; Translations: [Chronic fatigue, unspecified] Chronic Malaise and fatigue (14 sources) Other fatigue; Translations: [Fatigue] Onset: 12-27-2022 Episodic Noninfectious gastroenteritis (9 sources) Non-infective enteritis and colitis; Translations: [Noninfective gastroenteritis and colitis, unspecified] Episodic Osteoarthritis (20 sources) Osteoarthritis; Translations: [Unspecified osteoarthritis, unspecified site] Onset: 02-07-2025 07-27-2024 Chronic Other aftercare (9 sources) History and physical examination, follow-up; Translations: [Encounter for follow-up examination after completed treatment for conditions other than malignant neoplasm] Episodic Other aftercare (6 sources) Surgical follow-up; Translations: [Encounter for removal of sutures] 07-12-2024 Episodic Other aftercare (2 sources) Encounter for removal of sutures; Translations: [Encounter for removal of sutures] 07-12-2024 Episodic Other aftercare (5 sources) Removal of sutures done; Translations: [Encounter for removal of sutures] Onset: 02-07-2025 02-07-2025 Episodic Other and unspecified benign neoplasm (9 [...] diagnosis of hypertension] Episodic Other circulatory disease (15 sources) History of transient ischemic attack; Translations: [Personal history of transient ischemic attack (TIA), and cerebral infarction without residual deficits] Onset: 02-07-2025 02-07-2024 Episodic Other circulatory disease (5 sources) [...] Episodic Other ear and sense organ disorders (4 sources) Sensorineural hearing loss, bilateral; Translations: [Sensorineural hearing loss, bilateral] 02-01-2025 Chronic Other ear and sense organ disorders (4 sources) Asymmetrical hearing loss; Translations: [Other specified hearing loss, bilateral] Onset: 02-07-2025 02-07-2025 Chronic Other ear and sense organ disorders (4 sources) Asymmetrical sensorineural hearing loss; Translations: [Sensorineural hearing loss, bilateral] Onset: 02-07-2025 02-07-2025 Chronic Other ear and sense organ disorders (4 sources) Chronic non-infective otitis externa; Translations: [Other otitis externa, right ear] Onset: 02-07-2025 02-07-2025 Chronic Other ear and sense organ disorders (4 sources) Mixed conductive and sensorineural hearing loss of left ear; Translations: [Mixed conductive and sensorineural hearing loss, unilateral, left ear, with unrestricted hearing on the contralateral side] Onset: 02-07-2025 02-07-2025 Chronic Other ear and sense organ disorders (4 sources) Sensorineural hearing loss, unilateral, right ear, with unrestricted hearing on the contralateral side; Translations: [Sensorineural hearing loss, unilateral] Onset: 02-07-2025 02-07-2025 Chronic Other ear and sense organ disorders (13 sources) Cholesteatoma of attic; Translations: [Cholesteatoma of attic, unspecified ear] Onset: 02-07-2025 02-07-2025 Episodic Other ear and sense organ disorders (4 sources) Bilateral tinnitus; Translations: [Tinnitus, bilateral] Onset: 02-07-2025 02-07-2025 Episodic Other female genital disorders (12 sources) Vaginal bleeding; Translations: [Abnormal uterine and [...] uterus; Translations: [Hypertrophy of uterus] Episodic Other female genital disorders (4 sources) Enlarged uterus; Translations: [Hypertrophy of uterus] Onset: 02-07-2025 02-07-2025 Episodic Other hereditary and degenerative nervous system conditions (20 sources) Myelopathy due to another disorder; Translations: [Myelopathy in diseases classified elsewhere] Chronic Other injuries and conditions due to external causes (11 sources) History of fall; Translations: [History of falling] Onset: 02-07-2025 07-23-2024 Episodic Other injuries and conditions due to external causes (2 sources) History of falling; Translations: [History of fall] 07-23-2024 Episodic Other lower respiratory disease (9 sources) Lung field abnormal; Translations: [Other nonspecific abnormal finding of lung field] Episodic Other lower respiratory disease (9 sources) Chronic cough; Translations: [Chronic cough] Episodic Other nervous system disorders (14 sources) Cervical myelopathy; Translations: [Disease of spinal cord, unspecified] 10-02-2021 Chronic Comment on above: Problem List clean-u p per request of Phys. EHR Cmte Other nervous system disorders (9 sources) Hereditary disorder of nervous system; Translations: [Hereditary and idiopathic neuropathy, unspecified] Chronic Other nervous system disorders (1 source) Disorder of brain; Translations: [Other specified disorders of brain] 03-19-2024 Chronic Other nervous system disorders (15 sources) Numbness of face; Translations: [Anesthesia of skin] Onset: 02-07-2025 02-07-2024 Episodic Other nervous system disorders (15 sources) Numbness of upper limb; Translations: [Anesthesia of skin] Onset: 02-07-2025 02-07-2024 Episodic Other nervous system disorders (6 sources) Anesthesia of skin; Translations: [Disturbance of skin sensation] 02-02-2024 Episodic Other non-traumatic joint disorders (17 sources) Pain in right knee; Translations: [Right knee pain] Onset: 02-07-2025 07-23-2024 Episodic Other non-traumatic joint disorders (6 sources) Effusion of right knee joint; Translations: [Effusion, [...] diagnostic imaging of other specified body structures] Onset: 02-07-2025 Chronic Other screening for suspected conditions (not mental disorders or infectious disease) (8 sources) Encounter for screening mammogram for malignant neoplasm of breast; Translations: [Encounter for screening for malignant neoplasm of cervix] Onset: 01-16-2023 Episodic Other upper respiratory infections (12 sources) Acute maxillary sinusitis, unspecified; Translations: [Acute maxillary sinusitis] Onset: 02-07-2025 Episodic Otitis media and related conditions (2 sources) Dysfunction of bilateral eustachian tubes; Translations: [Unspecified Eustachian tube disorder, bilateral] 02-08-2025 Episodic Residual codes; unclassified (1 source) Asymptomatic menopausal state; Translations: [ASYMPTOMATIC MENOPAUSAL STATE] Onset: 01-31-2023 Episodic Residual codes; unclassified (1 source) Postoperative state; Translations: [Other specified postprocedural states] 05-28-2023 Episodic Residual codes; unclassified (9 sources) Tobacco user; Translations: [Tobacco use] Episodic Residual codes; unclassified (9 sources) Postprocedural state finding; Translations: [Other specified postprocedural states] Episodic Skin and subcutaneous tissue infections (4 sources) Preseptal cellulitis; Translations: [Periorbital cellulitis] 12-24-2024 Episodic Spondylosis; intervertebral disc disorders; other back problems (20 sources) Intervertebral disc disorder of cervical region with myelopathy; Translations: [Cervical disc disorder at C4-C5 level with myelopathy] Onset: 07-24-2021 Resolved: 04-18-2022 Chronic Spondylosis; intervertebral disc disorders; other back problems (9 sources) Neck pain; Translations: [Cervicalgia] Episodic Thyroid disorders (15 sources) Simple goiter; Translations: [Nontoxic diffuse goiter] Onset: 03-25-2025 03-18-2025 Chronic Transient cerebral ischemia (9 sources) Transient cerebral ischemia; Translations: [Transient cerebral ischemic attack, unspecified] Onset: 04-04-2023 Chronic Past or Other Problems Problem Classification Problem Date Documented Da te Episodic/Chronic Acute bronchitis (9 sources) Acute bronchitis; Translations: [Acute bronchitis, unspecified] Onset: 06-28-2014 Episodic Acute posthemorrhagic anemia (9 sources) Acute posthemorrhagic anemia; Translations: [Acute posthemorrhagic anemia] Onset: 01-22-2016 Episodic Gastrointestinal hemorrhage (9 sources) Hemorrhage of rectum and anus; Translations: [Hemorrhage of anus and rectum] Onset: 09-23-2018 Resolved: 01-23-2022 Episodic Other circulatory disease (9 sources) History of cerebrovascular accident without residual deficits; Translations: [Personal history of transient ischemic attack (TIA), and cerebral infarction without residual deficits] Onset: 06-28-2014 Episodic Results Test Name Value Interpretation Reference Range Facility thyroidon 03-25-[address] [address] Ultrasound Report Signed Patient: Farrah Del Valle MR#: [id number] : 1945 Acct:[id number] Age/Sex: 80 / F ADM Date: 03/25/25 Loc: Room: Type: [facility] Attending Dr: Karl Kennedy MD Ordering Provider: Karl Kennedy MD Date of Service: 03/25/25 US/US thyroid: E04.9 - Nontoxic goiter, unspecified Copies to: Karl Kennedy MD Thyroid Ultrasound HISTORY: Adnexal fullness. COMPARISON: None The RIGHT lobe measures 4.6 x 1.2 x 1.8cm. LEFT lobe measures 4.1 x 1.3 x 1.7 cm. Isthmus has an AP dimension of 0.2cm. The right superior hypoechoic nodule calcified component measures up to 11 mm. Right mid anechoic nodule measures up to 16 mm. Right inferior hypoechoic nodule at anechoic component measuring up to 11 mm. Left mid next echogenic nodule measures up to 11 mm. Left inferior next echogenic nodule measures up to 8 mm.. No microcalcifications identified. Symmetric blood flow of the thyroid gland identified. US/US thyroid IMPRESSION: Bilateral thyroid nodules measuring up to 1.6 cm. Predominantly cystic nodules. Consider 1 year follow-up assessment. Impression dictated by: Dick Turcios M.D. 03/25/2025 8:38 PM Dictation Location: [place] [address] Tech: Margot Kothari Transcribed By: GAVIN 03/25/252037 Dictated By: Dick Turcios DO 03/25/252034 Signed By: 03/25/252037 Normal [facility] No Panel Informationon 02-01 [employer] Audio indicated a moderate to severe sensorineural hearing loss in the right ear. The left exhibited a moderately-severe to severe sensorineural hearing loss, with a slight conductive component recorded at 4000 Hz. Hallpike: Yielded negative results in both positions tested. [facility] Basophils Auto (Bld) [#/Vol] on 11-25-2024 Basophils (Bld) [#/Vol] Automated basophil count 0.0-0.1 [facility] Basophils/100 WBC Auto (Bld) on 11-25-2024 Basophils/100 WBC (Bld) Automated basophil % 0.2-2.0 [facility] Eosinophils/100 WBC Auto (Bl d)on 11-25-2024 Eosinophils/100 WBC (Bld) Automated eosinophil % Low 0.9-7.0 [facility] Erythrocyte distribution wid th Auto (RBC) [Ratio]on 11-25-2024 Erythrocyte distribution width (RBC) [Ratio] Erythrocyte distribution width [Ratio] by Automated count 11.0-15.0 [facility] Estimated glomerular filtrat ion rate (GFR) non- Americanon 11-25-2024 GFR/1.73 sq M.predicted among non-blacks MDRD (S/P/Bld) [Vol rate/Area] Estimated glomerular filtration rate (GFR) non- Low >=60 mL/min/1.73m 2 [facility] Globulin Calc (S) [Mass/Vol] on 11-25-2024 Globulin (S) [Mass/Vol] Serum globulin measurement by calculation (mass/volume) [facility] Hematocrit Auto (Bld) [Volum e fraction]on 11-25-2024 Hematocrit (Bld) [Volume fraction] Hematocrit [Volume Fraction] of Blood by Automated count 36.0-48.0 [facility] Hemoglobin [Mass/volume] in Bloodon 11-25-2024 Hemoglobin (Bld) [Mass/Vol] Hemoglobin [Mass/volume] in Blood 12.0-16.0 [facility] Laboratory - Chemistry and C hemistry - challengeon 11-25-2024 Albumin [Mass/Vol] 3.4 g/dL 3.4-5.0 [facility] ALP [Catalytic activity/Vol] 93 U/L 46-116 [facility] ALT [Catalytic activity/Vol] 13 U/L Low 14-59 [facility] AST [Catalytic activity/Vol] 14 U/L Low 15-37 [facility] Bilirubin [Mass/Vol] 1.9 mg/dL High 0.2-1.0 [facility] Calcium [Mass/Vol] 9.4 mg/dL 8.5-10.1 [facility] Chloride [Moles/Vol] 105 mmol/L 98-107 [facility] CO2 [Moles/Vol] 26.1 mmol/L 21.0-32.0 [facility] Creatinine [Mass/Vol] 0.96 mg/dL 0.55-1.02 [facility] GFR/1.73 sq M.predicted MDRD (S/P/Bld) [Vol rate/Area] mL/min/{1.73_m2} >=60 mL/min/1.73m 2 [facility] Glucose [Mass/Vol] 117 mg/dL High 74-106 [facility] Potassium [Moles/Vol] 3.7 mmol/L 3.5-5.1 [facility] Protein [Mass/Vol] 7.4 g/dL 6.4-8.2 [facility] Sodium [Moles/Vol] 142 mmol/L 136-145 [facility] Urea nitrogen [Mass/Vol] 10.0 mg/dL 7.0-18.0 [facility] Urea nitrogen/Creatinine [Mass ratio] 10.4 mg/mg [facility] Laboratory - Hematology and Cell countson 11-25-2024 Immature granulocytes/100 WBC (Bld) 0.3 % 0.0-0.5 [facility] Laboratory - Microbiology an d Antimicrobial susceptibilityon 11-25-2024 SARS-CoV-2 (COVID-19) RNA EDMUNDO+probe Ql (Unsp spec) Negative NEGATIVE [facility] Comment on above: This test has not be en FDA cleared or approved, but has beenauthorized by the FDA under an Emergency Use Authorization(EUA) for use by authorized laboratories certified underIA that meet the requirements to perform moderate or highcomplexity testing. This test has been authorized only forthe detection of proteins from SARS-CoV-2, not for any otherviruses or pathogens. The emergency use of this test isauthorized for the duration of the declaration thatcircumstances exist justifying the authorization ofemergency use of in vitro diagnostic tests for detectionand/or diagnosis of Covid-19 under section 564(b)(1) of theAct, 21 U.S.C. 360bbb-3(b)(1), unless the declaration isterminated or authorization is revoked sooner. Leukocytes [#/volume] correc master for nucleated erythrocytes in Blood by Automated counon 11-25-2024 WBC corrected for nucl RBC Auto (Bld) [#/Vol] Leukocytes [#/volume] corrected for nucleated erythrocytes in Blood by Automated coun High 4.0-11.0 [facility] Lymphocytes Auto (Bld) [#/Vo l]on 11-25-2024 Lymphocytes (Bld) [#/Vol] Lymphocytes [#/volume] in Blood by Automated count 1.2-3.8 [facility] Lymphocytes/100 WBC Auto (Bl d)on 11-25-2024 Lymphocytes/100 WBC (Bld) Lymphocytes/100 leukocytes in Blood by Automated count Low 20.5-60.0 [facility] MCH Auto (RBC) [Entitic mass ]on 11-25-2024 MCH (RBC) [Entitic mass] MCH [Entitic mass] by Automated count 26.7-34.0 [facility] MCHC Auto (RBC) [Mass/Vol]on 11-25-2024 MCHC (RBC) [Mass/Vol] MCHC [Mass/volume] by Automated count 29.9-35.2 [facility] MCV Auto (RBC) [Entitic vol] on 11-25-2024 MCV (RBC) [Entitic vol] MCV [Entitic volume] by Automated count 81.0-99.0 [facility] Monocytes Auto (Bld) [#/Vol] on 11-25-2024 Monocytes (Bld) [#/Vol] Automated blood monocyte count 0.3-0.8 [facility] Monocytes/100 WBC Auto (Bld) on 11-25-2024 Monocytes/100 WBC (Bld) Automated monocyte % 1.7-12.0 [facility] Neutrophils Auto (Bld) [#/Vo l]on 11-25-2024 Neutrophils (Bld) [#/Vol] Neutrophils [#/volume] in Blood by Automated count High 1.4-6.5 [facility] Neutrophils/100 WBC Auto (Bl d)on 11-25-2024 Neutrophils/100 WBC (Bld) Automated neutrophil % High 43.0-75.0 [facility] No Panel Informationon 11-25 Eosinophils # (Auto) 0.1 10 3/uL 0.0-0.7 [facility] Immature Granulocyte # (Auto) 0.03 10 3/uL 0.00-0.03 [facility] Bedside Influenza Type A Antigen Negative [facility] Comment on above: Negative for Flu A p rotein antigen. Infection due to Flu Acannot be ruled out. Flu A antigen in the sample may bebelow the detection limit of the test. Bedside Influenza Type B Antigen Negative [facility] Comment on above: Negative for Flu B p rotein antigen. Infection due to Flu Bcannot be ruled out. Flu B antigen in the sample may bebelow the detection limit of the test. Platelet mean volume Auto (B ld) [Entitic vol]on 11-25-2024 Platelet mean volume (Bld) [Entitic vol] Platelet mean volume [Entitic volume] in Blood by Automated count 9.5-13.5 [facility] Platelets Auto (Bld) [#/Vol] on 11-25-2024 Platelets (Bld) [#/Vol] Platelets [#/volume] in Blood by Automated count 150-450 [facility] RBC Auto (Bld) [#/Vol]on RBC (Bld) [#/Vol] Erythrocytes [#/volu me] in Blood by Automated count 4.20-5.40 [facility] Serum or plasma albumin/glob ulin mass ratioon 11-25-2024 Albumin/Globulin [Mass ratio] Serum or plasma albumin/globulin mass ratio [facility] Serum or plasma anion gap de terminationon 11-25-2024 Anion gap [Moles/Vol] Serum or plasma anion gap determination [facility] XR Knee - bilateral AP W [...] greatest in the medial compartments. Christina Paris [facility] XR Knee - bilateral AP W sta ndingOrdered By: Navi Camacho on 07-29-2024 [facility] Work Phone: No Panel Informationon 07-28 Christina Paris NP 07/29/2024 11:44 AM L Inj/Asp: R knee on 07/28/2024 9:41 AM Indications: pain Details: 20 G needle, anterolateral approach Medications: 40 mg methylPREDNISolone acetate 40 MG/ML UTILIZING ASEPTIC TECHNIQUE PT GIVEN INJECTION IN RIGHT KNEE, NEUROVASC INTACT S/P INJ, TOLERATED WELL Procedure, treatment alternatives, risks and benefits explained, specific risks discussed. Consent was given by the patient. [facility] XR Knee - bilateral AP W sta ndingon 07-28-2024 Radiology Study observation (narrative) [facility] US Cerebral arterieson 03-23 Results reviewed [facility] Cerebral arteriesOrdered By: Melly Pérez on 03-23-2024 [facility] Work Phone: US Cerebral arterieson 03-19 Radiology Study observation (narrative) [facility] Basophils Auto (Bld) [#/Vol] on 02-02-2024 Basophils (Bld) [#/Vol] 0.1 10 3/uL 0.0-0.1 [facility] Basophils/100 WBC Auto (Bld) on 02-02-2024 Basophils/100 WBC (Bld) 1.1 % 0.2-2.0 [facility] Eosinophils/100 WBC Auto (Bl d)on 02-02-2024 Eosinophils/100 WBC (Bld) 1.0 % 0.9-7.0 [facility] Erythrocyte distribution wid th Auto (RBC) [Ratio]on 02-02-2024 Erythrocyte distribution width (RBC) [Ratio] 12.7 % 11.0-15.0 [facility] Estimated glomerular filtrat ion rate (GFR) non- Americanon 02-02-2024 GFR/1.73 sq M.predicted among non-blacks MDRD (S/P/Bld) [Vol rate/Area] mL/min/{1.73_m2} >=60 [facility] Hematocrit Auto (Bld) [Volum e fraction]on 02-02-2024 Hematocrit (Bld) [Volume fraction] 39.3 % 36.0-48.0 [facility] Hemoglobin [Mass/volume] in Bloodon 02-02-2024 Hemoglobin (Bld) [Mass/Vol] 12.4 g/dL 12.0-16.0 [facility] Laboratory - Chemistry and C hemistry - challengeon 02-02-2024 Calcium [Mass/Vol] 9.7 mg/dL 8.5-10.1 [facility] Chloride [Moles/Vol] 106 mmol/L 98-107 [facility] CO2 [Moles/Vol] 26.8 mmol/L 21.0-32.0 [facility] Creatinine [Mass/Vol] 0.90 mg/dL 0.55-1.02 [facility] GFR/1.73 sq M.predicted MDRD (S/P/Bld) [Vol rate/Area] mL/min/{1.73_m2} >=60 [facility] Glucose [Mass/Vol] 100 mg/dL 74-106 [facility] Potassium [Moles/Vol] 4.3 mmol/L 3.5-5.1 [facility] Sodium [Moles/Vol] 142 mmol/L 136-145 [facility] Urea nitrogen [Mass/Vol] 16.0 mg/dL 7.0-18.0 [facility] Urea nitrogen/Creatinine [Mass ratio] 17.8 mg/mg [facility] Laboratory - Hematology and Cell countson 02-02-2024 Immature granulocytes/100 WBC (Bld) 0.3 % 0.0-0.5 [facility] Leukocytes [#/volume] correc master for nucleated erythrocytes in Blood by Automated counon 02-02-2024 WBC corrected for nucl RBC Auto (Bld) [#/Vol] 6.2 10 3/uL 4.0-11.0 [facility] Lymphocytes Auto (Bld) [#/Vo l]on 02-02-2024 Lymphocytes (Bld) [#/Vol] 1.9 10 3/uL 1.2-3.8 [facility] Lymphocytes/100 WBC Auto (Bl d)on 02-02-2024 Lymphocytes/100 WBC (Bld) 30.8 % 20.5-60.0 [facility] MCH Auto (RBC) [Entitic mass ]on 02-02-2024 MCH (RBC) [Entitic mass] 29.2 pg 26.7-34.0 [facility] MCHC Auto (RBC) [Mass/Vol]on 02-02-2024 MCHC (RBC) [Mass/Vol] 31.6 g/dL 29.9-35.2 [facility] MCV Auto (RBC) [Entitic vol] on 02-02-2024 MCV (RBC) [Entitic vol] 92.7 fL 81.0-99.0 [facility] Monocytes Auto (Bld) [#/Vol] on 02-02-2024 Monocytes (Bld) [#/Vol] 0.5 10 3/uL 0.3-0.8 [facility] Monocytes/100 WBC Auto (Bld) on 02-02-2024 Monocytes/100 WBC (Bld) 7.9 % 1.7-12.0 [facility] Neutrophils Auto (Bld) [#/Vo l]on 02-02-2024 Neutrophils (Bld) [#/Vol] 3.7 10 3/uL 1.4-6.5 [facility] Neutrophils/100 WBC Auto (Bl d)on 02-02-2024 Neutrophils/100 WBC (Bld) 58.9 % 43.0-75.0 [facility] No Panel Informationon 02-01 Eosinophils # (Auto) 0.1 10 3/uL 0.0-0.7 [facility] Immature Granulocyte # (Auto) 0.02 10 3/uL 0.00-0.03 [facility] Platelet mean volume Auto (B ld) [Entitic vol]on 02-02-2024 Platelet mean volume (Bld) [Entitic vol] 11.8 fL 9.5-13.5 [facility] Platelets Auto (Bld) [#/Vol] on 02-02-2024 Platelets (Bld) [#/Vol] 206 10 3/uL 150-450 [facility] RBC Auto (Bld) [#/Vol]on RBC (Bld) [#/Vol] 4.24 10 6/uL 4.20-5.40 [facility] Serum or plasma anion gap de terminationon 02-02-2024 Anion gap [Moles/Vol] 13.5 mmol/L [facility] CNPNon 09-16-2023 CNPFermín Telephone (REFAIR) FARRAH DEL VALLE ([id number]) 1945 F Date Time Provider Department 09/16/23 NATALIA LIMA During your visit today, we recorded the following information about you: Rhiannon Vines 09/16/2023 3:24 PM Signed IRB# [id number]: Vascular events in patients undergoing same-day nonCardiac surgery - [facility] PI: Natalia Lima MD, LISBETH, FASA. Outcomes Research Department. Anesthesia Marlin. [facility]. This is a research study note. [...] the patient. Everything was entered directly into [employer] during this telephone encounter. The study period is now complete. Rhiannon Vines Research Skid Road Worker Outcomes Research [facility] Allergies As of Date: 09/16/2023 Noted Allergy Reaction CODEINE 02/22/2016 11 - Vomiting Date Reviewed: 04/25/2023 Reviewed by: Keesha Mccallum RN - Fully Assessed Reason for Visit: Research [...] Encounter Status:Closed by RHIANNON VINES on 09/16/23 [facility] CNOVSPon 05-28-2023 CNOVSP Visit (SP) Office (GYNOSA) FARRAH DEL VALLE ([id number]) 1945 F Date Time Provider Department 05/28/23 [...] loss and TIA who was evaluated by HOSTLER HELPER for a thickened endometrium noted on CT on 11/2021 and on follow up US in 01/2022. An [facility] ECC completed on 02/11/22 with benign findings. [...] Doing well post op PLAN: Return to merchandise buyer onc prn for new or worsening symptoms Ruby Sullivan MD Allergies As of Date: 05/28/2023 Noted Allergy Reaction CODEINE 02/22/2016 11 - Vomiting Date Reviewed: 04/25/2023 Reviewed by: Keesha Mccallum RN - Fully Assessed Reason for Visit: Post Op [174] Primary Visit Diagnosis:Post-operativ e state [Z98.890] [Z98.890] Prescriptions as of 05/28/2023 [...] Malignant ne (more content not included)... Normal [facility] CNOVSPon 04-30-2023 CNOVSP Visit (SP) Office (GYNOSA) FARRAH DEL VALLE ([id number]) 1945 F Date Time Provider Department 04/30/23 3:45 PM RUBY SULLIVAN During your visit today, we recorded the following information about you: Temperature Pulse Respiration Blood pressure 97.4 degrees 76/minute 16/minute 174/85 Weight Height 72.8 kg 1.702 m Ruby Sullivan MD 04/30/2023 4:35 PM Signed DATE OF SERVICE: 04/30/2023 REASON FOR VISIT: Thickened endometrium, post op follow up DIAGNOSIS: Thickened endometrium HPI: 1Sabino Del Valle is a 77 year old female with pmh of HTN, breast CA, sensorineural hearing loss and TIA who was evaluated by HOSTLER HELPER for a thickened endometrium noted on CT on 11/2021 and on follow up US in 01/2022. An [facility] ECC completed on 02/11/22 with benign findings. [...] for Visit: post op [Other] Primary Visit Diagnosis:Post-operativ e state [Z98.890] [Z98.890] Follow-up and Disposition History for Encounter Date Provider Department Center 04/30/2023 [id number], MICHELL*RUI COELHO Prescriptions as of 04/30/2023 - oxyCODONE [...] coated (ASPI (more content not included)... Normal [facility] 04-28-2023 CNPFermín Telephone (GYNML) FARRAH DEL VALLE ([id number]) 1945 F Date Time Provider Department 04/28/23 JENNY CONDON [facility] During your visit today, we recorded the [...] Encounter Status:Closed by JENNY CONDON on 04/28/23 [facility] ANES POSTPROC EVALon 04-25- 023 ANES POSTPROC EVAL HNO ID: [id number] Author: Vincent Bradford MD Service: Anesthesiology Author Type: Physician Type: Anesthesia Postprocedure Evaluation Filed: 04/25/2023 12:50 PM Note Text: POST ANESTHESIA EVALUATION NOTE : 1945 Procedure Summary Date: 04/25/23 Room / Location: OR04 / [facility] OR Anesthesia Start: 1029 [...] April 25, 2023 TIME: 12:49 PM CSN: [id number] [facility] ANES PRE-OPon 04-25-2023 ANES PRE-OP HNO ID: [id number] Author: Vincent Bradford MD Service: Anesthesiology Author [...] and consent discussed: yes. Patient / Responsible Libertarian agrees to proceed: yes Patient / Surrogate agrees to blood products: Yes Significant changes in the patient condition since the History and Physical, not otherwise documented in primary service progress note: no. Potential Anesthesia issues that may suggest increased risk of complications or contraindication to planned procedure: none. Vitals Value Taken Time BP 175/84 04/25/23 0906 Pulse 68 04/25/23 09 Resp 16 04/25/23905 Temp 36.3 ?C (97.3 ?F) 04/25/23905 SpO2 99 % 04/25/23905 Facility-Administered Medications as of 04/25/2023 Medication Dose [...] April 25, 2023 TIME: 9:45 AM CSN: [id number] [facility] NURSING PROGon 04-25-2023 NURSING PROG HNO ID: [id number] Author: Kira Nazario RN Service: Nursing Author Type: Registered Nurse Type: Nursing Progress Note Filed: 04/25/2023 3:07 PM Note Text: 145: Page sent to Dr. Sullivan- PACU- Farrah Del Valle- just wanted to check when patient could resume plavix and aspirin? Thank you! Kira [phone]: Call returned from Dr. Sullivan- michel for patient to resume Plavix and ASA abhay as long as she is feeling okay. Patient educated. [facility] NURSING PROG HNO ID: [id number] Author: Renay Bishop RN Service: Nursing Author [...] (RECOMMENDATION): None Electronically Signed By: Renay Bishop [facility] OPERATIVE NOon 04-25-2023 OPERATIVE NO HNO ID: [id number] Author: Ruby Sullivan MD Service: Gynecology Oncology Author Type: Physician Type: Operative Report Filed: 04/25/2023 12:21 PM Note Text: OPERATIVE/PROCEDURE REPORT LOG ID: [id number] SURGERY/PROCEDURE DATE: 04/25/2023 INCISION/PROCEDURE START TIME: 11:04 AM INCISION CLOSE/PROCEDURE END TIME: 12:17 PM SURGEON(S)/PROCEDURALIS T(S) AND MECHANICAL ENGINEERING MANAGER(S): Surgeon(s) and Role: * Ruby Sullivan MD - Primary Physician Skid Road Worker: Jasmyn Goldberg PA-C; Debby Lauren PA-C senior executive assistant : Debby Lauren SURGERY/PROCEDURE(S): Total laparoscopic [...] to 8cm and was serially dilated. A donation specialist uterine manipulator was carefully placed into the [...] DATE: April 25, (more content not included)... [facility] PT EDon 04-25-2023 PT ED HNO ID: [id number] Author: Keesha Mccallum RN Service: Nursing Author [...] (RECOMMENDATION): None Electronically Signed By: Keesha Mccallum [facility] SURGICAL PATHOLOGYon 023 CASE REPORT [facility] Comment on above: Order Comment: Speci men Type: TISSUE SPECIMEN Ordering Facility: [facility] Address: [address] [place] [id number] Result Comment: Surg ica Pathology Report Case: [id number] Authorizing Provider: Ruby Sullivan MD Collected: 04/25/2023 11:54 AM Ordering Location: [facility] Received: 04/25/2023 12:27 PM Operating Room Pathologist: Lissy Mace MD Specimen: UTERUS, CERVIX, BILATERAL FALLOPIAN TUBES AND BILATERAL OVARIES Performed By: #### S #### [facility] CLIA [id number] [facility] [address] LABORATORY CLIA [id number] [address] [place] [address] CLINICAL HISTORY Normal [facility] Comment on above: Order Comment: Speci men Type: TISSUE SPECIMEN Ordering Facility: [facility] Address: [address] [place] [address] Result Comment: Pre- op diagnosis: Malignant neoplasm of lower-inner quadrant of right female breast, unspecified estrogen receptor status (HCC) [C50.311] Vaginal bleeding [N93.9] Thickened endometrium [R93.89] Performed By: #### S #### [facility] CLIA [id number] [address] [place] [address] LABORATORY CLIA [id number] [address] [place] [address] FINAL DIAGNOSIS Normal [facility] Comment on above: Order Comment: Speci men Type: TISSUE SPECIMEN Ordering Facility: [facility] Address: [address] [place] [address] Result Comment: Uter us, cervix, bilateral ovaries [...] stromal hyperplasia. Performed By: #### S #### [facility] CLIA [id number] [address] [place] [address] LABORATORY CLIA [id number] [address] [place] [address] FINAL PERFORMING LAB Normal [facility] Comment on above: Order Comment: Speci men Type: TISSUE SPECIMEN Ordering Facility: [facility] Address: [address] [id number] Result Comment: Diag nostic interpretation performed at [facility], [address] [address] CLIA# [id number] Care Manager: Mark Dave M.D. Performed By: #### S #### [facility] CLIA [id number] [address] [facility] [id number] STATES OF [facility] LAB[facility] CLIA [id number] [address] GROSS DESCRIPTION Normal [facility] Comment on above: Order Comment: Speci men Type: TISSUE SPECIMEN Ordering Facility: [facility] Address: [address] Result Comment: A. U TERUS, CERVIX, BILATERAL [...] calcification present. Remaining ovarian parenchyma is unremarkable. Flexible Shaft Winder sections are submitted as follows: A1. Endocervical canal 12:00. A2. Endocervical canal 6:00. A3-A5. Anterior endomyometrium with entire polyp. A6. Posterior endomyometrium with serosa. A7. 3 largest intramural nodules. A8-A9. Entire left fallopian tube. A10-A11. Entire left ovary. A12-A13. Entire right fallopian tube. A14-A17. Entire right ovary. WE April 25, 2023 12:57 PM Gross examination performed at [facility], [address] [place] [address] Performed By: #### S #### [facility] CLIA [id number] [address] LABORATORY CLIA [id number] [address] [place] [address] [facility] 04-18-2023 CNPN Telephone (GYN) FARRAH DEL VALLE ([id number]) 1945 F Date Time Provider Department 04/18/23 JENNY CONDON During your visit today, we recorded the following information about you: Jenny Condon RN 04/18/2023 11:14 AM Signed Attempted to call pt for preop teaching. Phone number not set up for VM. Will try back later. Janie Lopez RN 04/21/2023 10:22 AM Signed Procedure: lap Hyster BSO Physician: Nate Location: [facility]: [phone] Date AND Time: 04/25/23 MEDICAL CLEARANCE: No CARDIAC CLEARANCE: your HOSE COUPLING JOINER PRE ADMISSION TESTING: Yes THE FOLLOWING WAS [...] Naprosyn(naproxen) Agrylin NSAIDS Pepto-Bismol Aleve Ecotrin Persantine Daniela-Galloway Excedrin Plaquenil Anacin Heparin Plavix Ascriptin Herbals [...] as prescribed by anesthesia or the physician. [email or web address] Review of information contained in surgical packet [...] - IV pain medication after surgery, IV POSTAL SUPERVISOR if ordered by MD, discharged home with a prescription for PO pain medication, pain management after surgery, side effects of pain medication (including constipation, dizziness, drowsiness, and medication interactions). DVT PROPHYLAXIS - Early ambulation, SCDs, injectable anticoagulants (heparin, lovenox, etc) RESPIRATORY - Incentive spirometer, coughing/deep breathing exercises, ambulation. RETURN TO WORK - As directed by physician, please send any FMLA papers to physician's statistical secretary. SYMPTOMS TO NOTIFY MD - Fever, chills, nausea, vomiting, increased or severe pain, heavy vaginal bleeding, foul smelling vaginal drainage, pain or swelling in extremities. URGENT SYMPTOMS - Call 911 or go to ER if any shortness of breath, difficulty breathing, or chest pain. HOW TO CONTACT PHYSICIAN - Physician's office phone number given to patient, if after hours patient instructed to call finish off operator and ask for the doctor dictaphone transcriber. Patient and family have phone number to call 24 hours/day. Patient Evaluation: Verbalizes understanding Patient and/or family express understanding of upcoming surgery and the operative process. Questions answered. Follow Up Plan: Follow up as directed by MD. Supplemental Material Gi (more content not included)... Normal [facility] CONFIRM BLOOD TYPEon 023 ABO O [facility] Rh Nom (Bld) Positive [facility] CBC panel Auto (Bld)on 04-04 Erythrocyte distribution width (RBC) [Ratio] 12.7 % Normal 11.5-15.0 [facility] Comment on above: Order Comment: Speci men Type: BLOOD SPECIMENOrdering Facility: [facility] Address: [address] Performed By: #### 5 8410-2 ####[facility] [id number] [address] [place] Hematocrit (Bld) [Volume fraction] 42.5 % Normal 36.0-46.0 [facility] Comment on above: Order Comment: Speci men Type: BLOOD SPECIMENOrdering Facility: [facility] Address: [address] Performed By: #### 5 8410-2 ####[facility] [id number] [place] [address] [place] Hemoglobin (Bld) [Mass/Vol] 13.5 g/dL Normal 11.5-15.5 [facility] Comment on above: Order Comment: Speci men Type: BLOOD SPECIMENOrdering Facility: [facility] Address: [address] [place], [place] [address] Performed By: #### 5 8410-2 ####[facility] [id number] [place] [address] [place] MCH (RBC) [Entitic mass] 29.3 pg Normal 26.0-34.0 [facility] Comment on above: Order Comment: Speci men Type: BLOOD SPECIMENOrdering Facility: [facility] Address: [address] [place], [place] [address] Performed By: #### 5 8410-2 ####[facility] [id number] [place] [address] [place] MCHC (RBC) [Mass/Vol] 31.8 g/dL Normal 30.5-36.0 [facility] Comment on above: Order Comment: Speci men Type: BLOOD SPECIMENOrdering Facility: [facility] Address: [address] [place], [place] [address] Performed By: #### 5 8410-2 ####[facility] LABCLIA [id number] [place] [address] [place] MCV (RBC) [Entitic vol] 92.4 fL Normal 80.0-100.0 [facility] Comment on above: Order Comment: Speci men Type: BLOOD SPECIMENOrdering Facility: [facility] Address: [address] [place], [place] [address] Performed By: #### 5 8410-2 ####[facility] [facility] LABIA [id number] [place] [address] [place] Nucleated RBC (Bld) [#/Vol] 10*3/uL Normal <0.01 [facility] Comment on above: Order Comment: Speci men Type: BLOOD SPECIMENOrdering Facility: [facility] Address: [address] [place], [place] [address] Performed By: #### 5 8410-2 ####[facility] LABIA [id number] [place] [address] [place] Platelet mean volume (Bld) [Entitic vol] 11.5 fL Normal 9.0-12.7 [facility] Comment on above: Order Comment: Speci men Type: BLOOD SPECIMENOrdering Facility: [facility] Address: [address] [place], [place] [address] Performed By: #### 5 8410-2 ####[facility] LABIA [id number] [place] [address] [place] Platelets (Bld) [#/Vol] 234 10*3/uL Normal 150-400 [facility] Comment on above: Order Comment: Speci men Type: BLOOD SPECIMENOrdering Facility: [facility] Address: [address] [place], [place] [address] Performed By: #### 5 8410-2 ####[facility] LABIA [id number] [place] [address] [place] RBC (Bld) [#/Vol] 4.60 10*6/uL Normal 3.90-5.20 [facility] Comment on above: Order Comment: Speci men Type: BLOOD SPECIMENOrdering Facility: [facility] Address: [address] [place] [address] Performed By: #### 5 8410-2 ####[facility] LABCLIA [id number] [place] [address] [place] WBC (Bld) [#/Vol] 6.72 10*3/uL Normal 3.70-11.00 [facility] Comment on above: Order Comment: Speci men Type: BLOOD SPECIMENOrdering Facility: [facility] Address: [address] [place] [address] Performed By: #### 5 8410-2 ####[facility] LABCLIA [id number] [address] STATES OF [facility] CONFIRM BLOOD TYPEon 023 ABO O Normal [facility] Comment on above: Order Comment: Speci men Type: BLOOD SPECIMENOrdering Facility: [facility] Address: [address] [place] [address] Performed By: #### C ONABO ####[facility] BLOOD BANKCLIA [id number] [place] [address] [place] Rh Nom (Bld) Positive Normal [facility] Comment on above: Order Comment: Speci men Type: BLOOD SPECIMENOrdering Facility: [facility] Address: [address] [place] [address] Performed By: #### C ONABO ####[facility] BLOOD BANKCLIA [id number] [place] [address] [place] Comprehensive metabolic 2000 panelon 04-04-2023 Albumin [Mass/Vol] 4.1 g/dL Normal 3.9-4.9 [facility] Comment on above: Order Comment: Speci men Type: BLOOD SPECIMENOrdering Facility: [facility] Address: [address] Performed By: #### 2 4323-8 ####[facility] LABCLIA [id number] [place] [address] [place] ALP [Catalytic activity/Vol] 88 U/L Normal 34-123 [facility] Comment on above: Order Comment: Speci men Type: BLOOD SPECIMENOrdering Facility: [facility] Address: [address] [place], [place] [address] Performed By: #### 2 4323-8 ####[facility] LABCLIA [id number] [address] [place] ALT [Catalytic activity/Vol] 10 U/L Normal 7-38 [facility] Comment on above: Order Comment: Speci men Type: BLOOD SPECIMENOrdering Facility: [facility] Address: [address] [place], [place] [address] Performed By: #### 2 4323-8 ####[facility] LABCLIA [id number] [place] [address] [place] Anion gap [Moles/Vol] 11 mmol/L Normal 9-18 [facility] Comment on above: Order Comment: Speci men Type: BLOOD SPECIMENOrdering Facility: [facility] Address: [address] [place], [place] [address] Performed By: #### 2 4323-8 ####[facility] LABCLIA [id number] [place] [address] [place] AST [Catalytic activity/Vol] 14 U/L Normal 13-35 [facility] Comment on above: Order Comment: Speci men Type: BLOOD SPECIMENOrdering Facility: [facility] Address: [address] [place], [place] [address] Performed By: #### 2 4323-8 ####[facility] LABCLIA [id number] [place] [address] [place] Bilirubin [Mass/Vol] 0.9 mg/dL Normal 0.2-1.3 [facility] Comment on above: Order Comment: Speci men Type: BLOOD SPECIMENOrdering Facility: [facility] Address: [address] [place] [address] Performed By: #### 2 4323-8 ####[facility] LABCLIA [id number] [place] [address] [place] Calcium [Mass/Vol] 9.7 mg/dL Normal 8.5-10.2 [facility] Comment on above: Order Comment: Speci men Type: BLOOD SPECIMENOrdering Facility: [facility] Address: [address] [place] [address] Performed By: #### 2 4323-8 ####[facility] LABCLIA [id number] [place] [address] [place] Chloride [Moles/Vol] 106 mmol/L High 97-105 [facility] Comment on above: Order Comment: Speci men Type: BLOOD SPECIMENOrdering Facility: [facility] Address: [address] [place] [address] Performed By: #### 2 4323-8 ####[facility] LABCLIA [id number] [place] [address] [place] CO2 [Moles/Vol] 25 mmol/L Normal 22-30 [facility] Comment on above: Order Comment: Speci men Type: BLOOD SPECIMENOrdering Facility: [facility] Address: [address] [place], [place] [address] Performed By: #### 2 4323-8 ####[facility] LABCLIA [id number] [place] [address] [place] Creatinine [Mass/Vol] 0.80 mg/dL Normal 0.58-0.96 [facility] Comment on above: Order Comment: Speci men Type: BLOOD SPECIMENOrdering Facility: [facility] Address: [address] [address] Performed By: #### 2 4323-8 ####[facility] LABCLIA [id number] [address] ESTIMATED GLOMERULAR FILTRATION RATE 76 mL/min/1.73m??? Normal >=60 [facility] Comment on above: Order Comment: Nova au Type: BLOOD SPECIMENOrdering Facility: [facility] Address: [address] [address] Result Comment: Allison mated Glomerular Filtration Rate [...] actual GFR. Performed By: #### 2 4323-8 ####[facility] LABIA [id number] [address] OF [facility] Glucose [Mass/Vol] 89 mg/dL Normal 74-99 [facility] Comment on above: Order Comment: Nova au Type: BLOOD SPECIMENOrdering Facility: [facility] Address: [address] [place] [address] Result Comment: The [place] Diabetes Association (ADA) provides guidance for cutoff [...] Standards of Medical Care in Diabetes 2016, [place] [employer]. Diabetes Care. 2016.39(Suppl 1). Performed By: #### 2 4323-8 ####[facility] LABCLIA [id number] [place] [address] [place] Potassium [Moles/Vol] 3.8 mmol/L Normal 3.7-5.1 [facility] Comment on above: Order Comment: Speci men Type: BLOOD SPECIMENOrdering Facility: [facility] Address: [address] [place] [address] Performed By: #### 2 4323-8 ####[facility] LABCLIA [id number] [place] [address] [place] Protein [Mass/Vol] 6.8 g/dL Normal 6.3-8.0 [facility] Comment on above: Order Comment: Speci men Type: BLOOD SPECIMENOrdering Facility: [facility] Address: [address] [place] [address] Performed By: #### 2 4323-8 ####[facility] LABIA [id number] [place] [address] [place] Sodium [Moles/Vol] 142 mmol/L Normal 136-144 [facility] Comment on above: Order Comment: Speci men Type: BLOOD SPECIMENOrdering Facility: [facility] Address: [address] [place] [address] Performed By: #### 2 4323-8 ####[facility] LABIA [id number] [place] [address] [place] Urea nitrogen [Mass/Vol] 14 mg/dL Normal 7-21 [facility] Comment on above: Order Comment: Speci men Type: BLOOD SPECIMENOrdering Facility: [facility] Address: [address] [place] [address] Performed By: #### 2 4323-8 ####[facility] LABIA [id number] [place] [address] [place] HISTORY PHYSICALon 3 HISTORY PHYSICAL HNO ID: [id number] Author: Karina Juarez APRN.HAND ZIPPER TRIMMER Service: ? Author Type: Nurse Practitioner Type: [...] PACC for evaluation. Patient was seen by HOSTLER HELPER for thickened endometrium. She had a DANDC [...] symptoms or problems. Cardiovascular: Negative for Recent MD, Angina, Chest Pain, PVD, DVT/PE +HTN GI: No history of GI symptoms or problems. No history of esophageal varices, recent ascites, or ETOH greater than 2 drinks per day. : No history of dysuria, frequency or incontinence,, stones or chronic kidney disease HOSTLER HELPER: See HPI : Denies, No LMP recorded. [...] Assessment: Stab (more content not included)... Normal [facility] TYPE AND SCREEN,30 DAYon ABO O Normal [facility] Comment on above: Order Comment: Nova au Type: BLOOD SPECIMEN [facility] Address: [address] [place] [address] Performed By: #### T SCR30 #### [facility] CLIA [id number] OF [facility] HISTORICAL AB SCR STATUS Negative Normal [facility] Comment on above: Order Comment: Nova au Type: BLOOD SPECIMEN [facility] Address: [address] [place] [address] Performed By: #### T SCR30 #### [facility] CLIA [id number] [address] [place] Rh Nom (Bld) Positive Normal [facility] Comment on above: Order Comment: Nova au Type: BLOOD SPECIMEN [facility] Address: [address] [place] [address] Performed By: #### T SCR30 #### [facility] CLIA [id number] [facility] [address] OF [place] CNOVSPon 04-02-2023 CNOVSP Visit (SP) Office (GYNOSA) FARRAH DEL VALLE ([id number]) 1945 F Date Time Provider Department 04/02/23 [...] loss and TIA who was evaluated by HOSTLER HELPER for a thickened endometrium noted on CT on 11/2021 and on follow up US in 01/2022. [facility] on [facility]11/22 with benign [...] today's office visit: MD Christiano Lynch MD [address] [place] [address] [place] [address] Allergies As of Date: 04/02/2023 Noted Allergy Reaction CODEINE 02/22/2016 11 - Vomiting Date Reviewed: 04/02/2023 Reviewed by: Mandy Chan - Fully Assessed Reason for Visit: Pelvic Pain [282] Primary Visit Diagnosis:Pre-op exam [Z01.818] Other Visit Diagnoses:Thickened endometrium [R93.89 (ICD-10-CM)] [R93.89] Vaginal bleeding [N93.9 (ICD-10-CM)] [N93.9] Order( (more content not included)... Normal [facility] 03-14-2023 CNPN Telephone (HEMASA) FARRAH DEL VALLE ([id number]) 1945 F Date Time Provider Department 03/14/23 RUBY SULLIVAN HEMASA During your visit today, we recorded the following information about you: [facility] 03/14/2023 11:12 AM Signed Pre-op clearance note from Dr. Kennedy is scanned now. Mary Beth Gamez APRN.[facility] 03/18/2023 4:44 PM Signed Left voicemail on Dr. Kennedy's nurse clinical line regarding pre-op clearance- office visit clarification. Will await returned call. Mary Beth Gamez APRN.[facility] March 18, 2023 4:44 PM Edel Chan [...] Status:Closed by MARY BETH GAMEZ on 03/18/23 [facility] CNOVSPon 02-26-2023 CNOVSP Visit (SP) Office (GYNOSA) FARRAH DEL VALLE ([id number]) 1945 F Date Time Provider Department 02/26/23 [...] loss and TIA who was evaluated by HOSTLER HELPER for a thickened endometrium noted on CT [...] today's office visit: MD Christiano Lynch MD [address] [place] [address] [place] [address] Referring Provider: CHRISTIANO CORDOBA [[id number]] Allergies As of Date: 02/26/2023 Noted Allergy Reaction CODEINE 02/22/2016 11 - Vomiting Date Reviewed: 02/26/2023 Reviewed by: Mandy Chan - Fully Assessed Reason for Visit: Consult [173] Primary Visit Diagnosis:Pelvic pain [R10.2] Other Visit Diagnoses:Thickened endometrium [R93.89] Vaginal spotting [N93.9 (ICD-10-CM)] [N93.9] Order(s):US FEMALE PELVIS TRANSVAG [[id number]] Order #: [id number] FUTURE US FEMALE PELVIS TRANSABD COMPLETE [[id number]] Order #: [id number] FUTURE Follow-up and Disposition History for Encounter Date Provider Department Center 02/26/2023 [id number], MICHELL*GYNOSA NC MELITON Prescriptions as of 02/26/2023 - lisinopril (ZESTRIL, PRINIVIL) 5 mg tablet - clopidogrel (PLAVIX) 75 mg tablet Take (more content not included)... Normal [facility] CNPNon 02-26-2023 CNPN Telephone (NCCAP) FARRAH DEL VALLE ([id number]) 1945 F Date Time Provider Department 02/26/23 RUBY SULLIVAN NCCAP During your visit today, we recorded the following information about you: Aura Krishna 02/26/2023 1:[address] Sullivan is asking if we can send Dr. Karl Kennedy a letter that she is requesting medical clearance for a laparoscopic hysterectomy. Drea: The doctor would like you to request records from Dr. Karl Kennedy. Edel [facility] 02/26/2023 1:26 PM Signed Letter faxed [...] Status:Closed by EDEL OLGUIN on 02/26/23 Normal [facility] OUTSIDE SURG PATH SLIDE REVI EWon 02-21-2023 CASE REPORT Normal [facility] Comment on above: Order Comment: Speci men Type: SLIDEOrdering Facility: [facility] Outside Review Address: , , Result Comment: Surg ical Pathology Report Case: [id number] Authorizing Provider: Ruby Sullivan MD Collected: 02/21/2023 10:36 AM Ordering Location: [facility] Main Received: 02/21/2023 10:35 AM Pathologist: Nir Crook MD Specimen: SLIDE(S), 4 SLIDES ([id number]) Performed By: #### L [id number] ####[facility] LABIA [id number] [address] STATES OF [facility] FINAL DIAGNOSIS Normal [facility] Comment on above: Order Comment: Speci men Type: SLIDEOrdering Facility: [facility] Outside Review Address: , , Result Comment: 4 sl ides ([id number], 02/11/2022) A. Endocervix, curettings: - Benign squamous and endocervical epithelium. B. Endometrium, curettings: - Benign endometrial polyp. ACV/rw 02/21/2023 Performed By: #### L [id number] ####[facility] LABCLIA [id number] [address] FINAL PERFORMING LAB Normal [facility] Comment on above: Order Comment: Speci men Type: SLIDEOrdering Facility: [facility] Outside Review Address: , , Result Comment: Diag nostic interpretation performed at [facility], [address] [id number] CLIA# [id number] Care Manager: Mark Dave M.D. Performed By: #### L [id number] ####[facility] LABCLIA [id number] [address] MG MAMM SCREEN 3D JAN CADon 01-23-2023 MG MAMM SCREEN 3D JAN CAD Patient: FARRAH DEL VALLE Exam Date: 01/23/2023 : 1945 Gender:F Ordering : DR CHRISTIANO CORDOBA . Admission #: [id number] Family : Order #: [id number] CLICK HERE TO VIEW EXAM RADIOLOGY REPORT PROCEDURE: MAMMOGRAM SCREENING 3D BILATERAL CAD COMPARISON: MG MAMM JAN DIAG W CAD, 02/22/2020. MG MAMM DIAGNOSTIC 3D JAN CAD, 02/19/2021. INDICATIONS: Screening mammography Calculator Name NCI Breast Cancer Risk Assessment Tool 5 Year Breast Cancer Risk n/a% Lifetime Breast Cancer Risk n/a% Personal Breast Cancer Yes, Right lumpectomy, age 69 Personal Ovarian Cancer No Treatments None Family Cancers None LOCATION: [facility] BREAST COMPOSITION: Extremely dense, which lowers the [...] Davis Kamara MD on 01/23/2023 at 10:13 [facility] PAP ACOG PANEL 2: 30 to 65on 01-23-2023 . . Normal [facility] Comment on above: Performed By: #### 4 [id number] #### [facility] [address] [place] [address] Dr. Cristian Raza Age Gdln ACOG Testing Comment Normal [facility] Comment on above: Result Comment: <21 or >65 or no age provided Performed By: #### 4 [id number] #### [facility] [address] [place] [address] Dr. Cristian Raza DIAGNOSIS: Comment [facility] Comment on above: Result Comment: NEGA TIVE FOR INTRAEPITHELIAL LESION OR MALIGNANCY. CELLULAR CHANGES ASSOCIATED WITH ATROPHY ARE PRESENT. Performed By: #### 4 [id number] #### [facility] [address] [place] [address] Dr. Cristian Raza Methodology: Comment [facility] Comment on above: Result Comment: This liquid based ThinPrep(R) pap test was screened with the use of an image guided system. Performed By: #### 4 [id number] #### [facility] [address] [place] [address] Dr. Cristian Raza Note: Comment [facility] Comment on above: Result Comment: The Pap smear is a screening test designed to aid in the detection of premalignant and malignant conditions of the uterine cervix. It is not a diagnostic procedure and should not be used as the sole means of detecting cervical cancer. Both false-positive and false-negative reports do occur. . Performed By: #### 4 [id number] #### [facility] [address] [place] [address] Dr. Cristian Raza Performed by: Comment Normal [facility] Comment on above: Result Comment: Dagmar Calvo, Stack Clerk (ASCP) Performed By: #### 4 [id number] #### [facility] [address] [place] [address] Dr. Cristian Raza Specimen adequacy: Comment Normal [facility] Comment on above: Result Comment: Sati sfactory for evaluation. Endocervical and/or squamous metaplastic cells (endocervical component) are present. Performed By: #### 4 [id number] #### [facility] [address] [place] [address] Dr. Cristian Raza XR DEXA BONE DENSITYon [...] MELLY PATE Date: 2023-01-23 09:35 Normal [facility] CBC AUTO DIFFon 12-27-2022 BASO # 0.1 103/ul Normal 0.0-0.1 [facility] Comment on above: Performed By: #### C BC #### [facility] [address] [place] [address] Dr. Cristian Raza Basophils/100 WBC (Bld) 0.8 % Normal 0.2-2.0 [facility] Comment on above: Performed By: #### C BC #### [facility] [address] [place] [address] Dr. Cristian Raza EO # 0.1 103/ul Normal 0.0-0.7 [facility] Comment on above: Performed By: #### C BC #### [facility] [address] [place] [address] Dr. Cristian Raza Eosinophils/100 WBC (Bld) 0.9 % Normal 0.9-7.0 [facility] Comment on above: Performed By: #### C BC #### [facility] [address] [place] [address] Dr. Cristian Raza Erythrocyte distribution width (RBC) [Ratio] 12.7 % Normal 11.0-15.0 [facility] Comment on above: Performed By: #### C BC #### [facility] [address] [place] [address] Dr. Cristian Raza Hematocrit (Bld) [Volume fraction] 39.7 % Normal 36.0-48.0 [facility] Comment on above: Performed By: #### C BC #### [facility] [address] [place] [address] Dr. Cristian Raza Hemoglobin (Bld) [Mass/Vol] 13.3 g/dL Normal 12.0-16.0 [facility] Comment on above: Performed By: #### C BC #### [facility] [address] [place] [address] Dr. Cristian Raza IG # 0.02 10e3/ul Normal 0.00-0.03 [facility] Comment on above: Performed By: #### C BC #### [facility] [address] [place] [address] Dr. Cristian Raza IG % 0.2 % Normal 0.0-0.5 [facility] Comment on above: Performed By: #### C BC #### [facility] [address] [place] [address] Dr. Cristian Raza LYMPH # 2.2 103/ul Normal 1.2-3.8 [facility] Comment on above: Performed By: #### C BC #### [facility] [address] [place] [address] Dr. Cristian Raza Lymphocytes/100 WBC (Bld) 26.5 % Normal 20.5-60.0 [facility] Comment on above: Performed By: #### C BC #### [facility] [address] [place] [address] Dr. Cristian Rzaa MANUAL DIFF REQ NO Normal [facility] Comment on above: Performed By: #### C BC #### [facility] [address] [place], [place] [id number] Dr. Cristian Raza MCH (RBC) [Entitic mass] 29.5 pg Normal 26.7-34.0 [facility] Comment on above: Performed By: #### C BC #### [facility] [address] [place] [address] Dr. Cristian Raza MCHC (RBC) [Mass/Vol] 33.5 g/dL Normal 29.9-35.2 [facility] Comment on above: Performed By: #### C BC #### [facility] [address] [place] [address] Dr. Cristian Raza MCV (RBC) [Entitic vol] 88.0 fL Normal 81.0-99.0 [facility] Comment on above: Performed By: #### C BC #### [facility] [address] [place] [address] Dr. Cristian Raza MONO # 0.5 103/ul Normal 0.3-0.8 [facility] Comment on above: Performed By: #### C BC #### [facility] [address] [place] [address] Dr. Cristian Raza Monocytes/100 WBC (Bld) 6.4 % Normal 1.7-12.0 [facility] Comment on above: Performed By: #### C BC #### [facility] [address] [place] [address] Dr. Cristian Raza NEUT # 5.5 103/ul Normal 1.4-6.5 [facility] Comment on above: Performed By: #### C BC #### [facility] [address] [place] [address] Dr. Cristian Raza Neutrophils/100 WBC (Bld) 65.2 % Normal 43.0-75.0 [facility] Comment on above: Performed By: #### C BC #### [facility] [address] [place] [address] Dr. Cristian Raza Platelet mean volume (Bld) [Entitic vol] 11.0 fL Normal 9.5-13.5 [facility] Comment on above: Performed By: #### C BC #### [facility] [address] [place] [address] Dr. Cristian Raza PLT 264 103/ul Normal 150-450 [facility] Comment on above: Performed By: #### C BC #### [facility] [address] [place] [address] Dr. Cristian Raza RBC 4.51 106/ul Normal 4.20-5.40 [facility] Comment on above: Performed By: #### C BC #### [facility] [address] [place] [address] Dr. Cristian Raza WBC 8.4 103/ul Normal 4.0-11.0 [facility] Comment on above: Performed By: #### C BC #### [facility] [address] [place] [address] Dr. Cristian Raza PROF 14(COMP METB)on 023 Albumin [Mass/Vol] 3.6 g/dL Normal 3.4-5.0 [facility] Comment on above: Performed By: #### T SH, CMP #### [facility] [address] [place] [address] Dr. Cristian Raza Albumin/Globulin [Mass ratio] 1.0 {ratio} Normal [facility] Comment on above: Performed By: #### T SH, CMP #### [facility] [address] [place] [address] Dr. Cristian Raza ALP [Catalytic activity/Vol] 84 U/L Normal 46-116 [facility] Comment on above: Performed By: #### T SH, CMP #### [facility] [address] [place] [address] Dr. Cristian Raza ALT [Catalytic activity/Vol] 16 U/L Normal 14-59 [facility] Comment on above: Performed By: #### T SH, CMP #### [facility] [address] [place] [address] Dr. Cristian Raza Anion gap [Moles/Vol] 13.4 mmol/L Normal [facility] Comment on above: Performed By: #### T JAVON, CMP #### [facility] [address] [place] [address] Dr. Cristian Raza AST [Catalytic activity/Vol] 16 U/L Normal 15-37 [facility] Comment on above: Performed By: #### T SH, CMP #### [facility] [address] [place] [address] Dr. Cristian Raza Bilirubin [Mass/Vol] 0.9 mg/dL Normal 0.2-1.0 [facility] Comment on above: Performed By: #### T SH, CMP #### [facility] [address] [place] [address] Dr. Cristian Raza Calcium [Mass/Vol] 9.5 mg/dL Normal 8.5-10.1 [facility] Comment on above: Performed By: #### T SH, CMP #### [facility] [address] [place] [address] Dr. Cristian Raza Chloride [Moles/Vol] 110 mmol/L Critically high 98-107 [facility] Comment on above: Performed By: #### T SH, CMP #### [facility] [address] [place] [address] Dr. Cristian Raza CO2 [Moles/Vol] 26.5 mmol/L Normal 21.0-32.0 [facility] Comment on above: Performed By: #### T SH, CMP #### [facility] [address] [place] [address] Dr. Cristian Raza Creatinine [Mass/Vol] 0.94 mg/dL Normal 0.55-1.02 [facility] Comment on above: Performed By: #### T SH, CMP #### [facility] [address] [place] [address] Dr. Cristian Raza EGFR-AF BULGARIAN >60 Normal >=60 [facility] Comment on above: Performed By: #### T SH, CMP #### [facility] [address] [place] [address] Dr. Cristian Raza EGFR-NON AF BULGARIAN 58 mL/min/1.73m2 Critically low >=60 [facility] Comment on above: Performed By: #### T SH, CMP #### [facility] [address] [place] [address] Dr. Cristian Raza Globulin (S) [Mass/Vol] 3.6 g/dL Normal [facility] Comment on above: Performed By: #### T JAVON, CMP #### [facility] [address] [place] [address] Dr. Cristian Raza Glucose [Mass/Vol] 122 mg/dL Critically high 74-106 [facility] Comment on above: Performed By: #### T JAVON, CMP #### [facility] [address] [address] [address] Cristian Raza Potassium [Moles/Vol] 3.9 mmol/L Normal 3.5-5.1 [facility] Comment on above: Performed By: #### T JAVON, CMP #### [facility] [address] [place] [address] Dr. Cristian Raza Protein [Mass/Vol] 7.2 g/dL Normal 6.4-8.2 [facility] Comment on above: Performed By: #### T JAVON, CMP #### [facility] [address] [place] [address] Dr. Cristian Raza Sodium [Moles/Vol] 146 mmol/L Critically high 136-145 [facility] Comment on above: Performed By: #### T JAVON, CMP #### [facility] [address] [place] [address] Dr. Cristian Raza Urea nitrogen [Mass/Vol] 12.0 mg/dL Normal 7.0-18.0 [facility] Comment on above: Performed By: #### T JAVON, CMP #### [facility] [address] [place] [address] Dr. Cristian Raza Urea nitrogen/Creatinine [Mass ratio] 12.8 mg/mg Normal [facility] Comment on above: Performed By: #### T JAVON, CMP #### [facility] [address] [place] [address] Dr. Cristian Raza TSHon 12-27-2022 TSH 1.044 uIU/mL Normal 0.358-3.740 [facility] Comment on above: Performed By: #### T JAVON, CMP #### [facility] [address] [place] [address] Dr. Cristian Raza Vital Signs Date Time Vital Sign Value Performing Clinician Facility 06-23-2025 09:35-0400 Body height 168.91 cm Karl Kennedy MD Work Phone: [facility] 06-23-2025 09:35-0400 Body mass index (BMI) [Ratio] 24.7 kg/m2 Karl Kennedy MD Work Phone: [facility] 06-23-2025 09:35-0400 Body weight 70.76 kg Karl Kennedy MD Work Phone: [facility] 06-23-2025 09:35-0400 Diastolic blood pressure 74 mm[Hg] Karl Kennedy MD Work Phone: [facility] 06-23-2025 09:35-0400 Heart rate 67 /min Karl Kennedy MD Work Phone: [facility] 06-23-2025 09:35-0400 Systolic blood pressure 164 mm[Hg] Karl Kennedy MD Work Phone: [facility] 03-18-2025 13:35-0400 Body height 168.91 cm [facility] 03-18-2025 13:35-0400 Body mass index (BMI) [Ratio] 24.2 kg/m2 [facility] 03-18-2025 13:35-0400 Body weight 69.11 kg [facility] 03-18-2025 13:35-0400 Diastolic blood pressure 81 mm[Hg] [facility] 03-18-2025 13:35-0400 Heart rate 72 /min [facility] 03-18-2025 13:35-0400 Respiratory rate 12 /min [facility] 03-18-2025 13:35-0400 SaO2% (BldA) [Mass fraction] 98 % [facility] 03-18-2025 13:35-0400 Systolic blood pressure 155 mm[Hg] [facility] 02-08-2025 14:39-0400 Body height 168.9 cm Connie Ivy MD Work Phone: [facility] 02-08-2025 14:39-0400 Body mass index (BMI) [Ratio] 24.48 kg/m2 Connie Ivy MD Work Phone: [facility] 02-08-2025 14:39-0400 Body weight 69.85 kg Connie Ivy MD Work Phone: [facility] 02-08-2025 14:39-0400 Diastolic blood pressure 82 mm[Hg] Connie Ivy MD Work Phone: [facility] 02-08-2025 14:39-0400 Heart rate 70 /min Connie Ivy MD Work Phone: [facility] 02-08-2025 14:39-0400 Systolic blood pressure 136 mm[Hg] Connie Ivy MD Work Phone: [facility] 12-24-2024 10:45-0500 Body height 168.91 cm [facility] 12-24-2024 10:45-0500 Body mass index (BMI) [Ratio] 24.7 kg/m2 [facility] 12-24-2024 10:45-0500 Body temperature 97.3 [degF] [facility] 12-24-2024 10:45-0500 Body weight 70.76 kg [facility] 12-24-2024 10:45-0500 Diastolic blood pressure 80 mm[Hg] [facility] 12-24-2024 10:45-0500 Heart rate 66 /min [facility] 12-24-2024 10:45-0500 Respiratory rate 18 /min [facility] 12-24-2024 10:45-0500 SaO2% (BldA) [Mass fraction] 95 % [facility] 12-24-2024 10:45-0500 Systolic blood pressure 122 mm[Hg] [facility] 11-30-2024 13:42-0500 Body height 168.91 cm [facility] 11-30-2024 13:42-0500 Body mass index (BMI) [Ratio] 24.5 kg/m2 [facility] 11-30-2024 13:42-0500 Body weight 69.85 kg [facility] 11-30-2024 13:42-0500 Diastolic blood pressure 84 mm[Hg] [facility] 11-30-2024 13:42-0500 Heart rate 75 /min [facility] 11-30-2024 13:42-0500 Systolic blood pressure 137 mm[Hg] [facility] 07-23-2024 11:26-0400 Body height 168.91 cm [facility] 07-23-2024 11:26-0400 Body mass index (BMI) [Ratio] 25.1 kg/m2 [facility] 07-23-2024 [id number] Body weight 71.75 kg [facility] 07-23-2024 11:26-0400 Diastolic blood pressure 80 mm[Hg] [facility] 07-23-2024 11:26-0400 Heart rate 68 /min [facility] 07-23-2024 11:26-0400 SaO2% (BldA) [Mass fraction] 97 % [facility] 07-23-2024 11:26-0400 Systolic blood pressure 144 mm[Hg] [facility] 07-12-2024 11:45-0400 Body height 168.91 cm [facility] 07-12-2024 11:45-0400 Body mass index (BMI) [Ratio] 25.2 kg/m2 [facility] 07-12-2024 11:45-0400 Body weight 72 kg [facility] 07-09-2024 [id number] Body height 168.91 cm [facility] 07-09-2024 11:21-0400 Body mass index (BMI) [Ratio] 25.2 kg/m2 [facility] 07-09-2024 11:21-0400 Body weight 72.12 kg [facility] 07-09-2024 11:21-0400 Diastolic blood pressure 89 mm[Hg] [facility] 07-09-2024 11:21-0400 Heart rate 64 /min [facility] 07-09-2024 11:21-0400 Systolic blood pressure 150 mm[Hg] [facility] 02-16-2024 11:09-0400 Body height 168.91 cm [facility] 02-16-2024 11:09-0400 Body mass index (BMI) [Ratio] 25.6 kg/m2 [facility] 02-16-2024 11:09-0400 Body temperature 97.8 [degF] [facility] 02-16-2024 11:09-0400 Body weight 73.19 kg [facility] 02-16-2024 11:09-0400 Diastolic blood pressure 77 mm[Hg] [facility] 02-16-2024 11:09-0400 Heart rate 73 /min [facility] 02-16-2024 11:09-0400 SaO2% (BldA) [Mass fraction] 97 % [facility] 02-16-2024 11:09-0400 Systolic blood pressure 142 mm[Hg] [facility] 02-09-2024 11:07-0400 Body height 168.91 cm [facility] 02-09-2024 11:07-0400 Body mass index (BMI) [Ratio] 25.9 kg/m2 [facility] 02-09-2024 11:07-0400 Body weight 74.16 kg [facility] 02-09-2024 11:07-0400 Diastolic blood pressure 81 mm[Hg] [facility] 02-09-2024 11:07-0400 Heart rate 63 /min [facility] 02-09-2024 11:07-0400 Systolic blood pressure 145 mm[Hg] [facility] 02-02-2024 08:42-0400 Body height 168.91 cm [facility] 02-02-2024 08:42-0400 Body mass index (BMI) [Ratio] 26.4 kg/m2 [facility] 02-02-2024 08:42-0400 Body weight 75.4 kg [facility] 02-02-2024 08:42-0400 Diastolic blood pressure 74 mm[Hg] [facility] 02-02-2024 08:42-0400 Heart rate 65 /min [facility] 02-02-2024 08:42-0400 Systolic blood pressure 155 mm[Hg] [facility] 06-10-2023 11:15-0400 Body height 168.91 cm Karl Kennedy Other [employer] Other 06-10-2023 11:15-0400 Body mass index (BMI) [Ratio] 24.48 kg/m2 Karl Kennedy Other [employer] [facility] 06-10-2023 11:15-0400 Body weight 69.85 kg Karl Kennedy Other [employer] Other 06-10-2023 11:15-0400 Diastolic blood pressure 80 mm[Hg] Karl Kennedy Other [employer] Other 06-10-2023 11:15-0400 SaO2% (BldA) [Mass fraction] 97 % Karl Kennedy Other [employer] Other 06-10-2023 11:15-0400 Systolic blood pressure 124 mm[Hg] Karl Kennedy Other [employer] Other 05-28-2023 13:53-0400 Body temperature 97.59 [degF] Ruby Sullivan MD Work Phone: [facility] 05-28-2023 13:53-0400 Body weight 72.21 kg Ruby Sullivan MD Work Phone: [facility] 05-28-2023 13:53-0400 Diastolic blood pressure 72 mm[Hg] Ruby Sullivan MD Work Phone: [facility] 05-28-2023 13:53-0400 Heart rate 74 /min Ruby Sullivan MD Work Phone: [facility] 05-28-2023 13:53-0400 Respiratory rate 18 /min Ruby Sullivan MD Work Phone: [facility] 05-28-2023 13:53-0400 SaO2% (BldA) [Mass fraction] 97 % Ruby Sullivan MD Work Phone: [facility] 05-28-2023 13:53-0400 Systolic blood pressure 143 mm[Hg] Ruby Sullivan MD Work Phone: [facility] 04-04-2023 14:31-0400 Body height 170.2 cm Pacc 2 Work Phone: [facility] 04-04-2023 14:31-0400 Body temperature 97.2 [degF] Pacc 2 Work Phone: [facility] 04-04-2023 14:31-0400 Body weight 73.48 kg Pacc 2 Work Phone: [facility] 04-04-2023 14:31-0400 Diastolic blood pressure 79 mm[Hg] Pacc 2 Work Phone: [facility] 04-04-2023 14:31-0400 Heart rate 66 /min Pacc 2 Work Phone: [facility] 04-04-2023 14:31-0400 Respiratory rate 14 /min Pacc 2 Work Phone: [facility] 04-04-2023 14:31-0400 SaO2% (BldA) [Mass fraction] 98 % Pacc 2 Work Phone: [facility] 04-04-2023 14:31-0400 Systolic blood pressure 157 mm[Hg] Pacc 2 Work Phone: [facility] 04-02-2023 13:52-0400 Body temperature 97.39 [degF] Ruby Sullivan MD Work Phone: [facility] 04-02-2023 13:52-0400 Body weight 74.12 kg Ruby Sullivan MD Work Phone: [facility] 04-02-2023 13:52-0400 Diastolic blood pressure 83 mm[Hg] Ruby Sullivan MD Work Phone: [facility] 04-02-2023 13:52-0400 Heart rate 71 /min Ruby Sullivan MD Work Phone: [facility] 04-02-2023 13:52-0400 Respiratory rate 18 /min Ruby Sullivan MD Work Phone: [facility] 04-02-2023 13:52-0400 SaO2% (BldA) [Mass fraction] 95 % Ruby Sullivan MD Work Phone: [facility] 04-02-2023 13:52-0400 Systolic blood pressure 153 mm[Hg] Ruby Sullivan MD Work Phone: [facility] 01-07-2023 10:00-0400 Body height 170.18 cm Karl Kennedy Other [employer] Other 01-07-2023 10:00-0400 Body mass index (BMI) [Ratio] 24.59 kg/m2 Karl Kennedy Other [employer] Other 01-07-2023 10:00-0400 Body weight 71.22 kg Karl Kennedy Other [employer] Other 01-07-2023 10:00-0400 Diastolic blood pressure 80 mm[Hg] Karl Kennedy Other [employer] Other 01-07-2023 10:00-0400 SaO2% (BldA) [Mass fraction] 97 % Karl Kennedy Other [employer] Other 01-07-2023 10:00-0400 Systolic blood pressure 132 mm[Hg] Karl Kennedy Other [employer] Other 07-18-2022 10:00-0400 Body height 171.45 cm Jos Kennedy Other [employer] Other 07-18-2022 10:00-0400 Body mass index (BMI) [Ratio] 25.61 kg/m2 Jos Kennedy Other [employer] Other 07-18-2022 10:00-0400 Body weight 75.3 kg Jos Kennedy Other [employer] Other 04-18-2022 10:40-0400 Body height 171.45 cm Jos Kennedy Other [employer] Other 04-18-2022 10:40-0400 Body mass index (BMI) [Ratio] 25.67 kg/m2 Jos Kennedy Other [employer] Other 04-18-2022 10:40-0400 Body weight 75.48 kg Jos Kennedy Other [employer] Other 01-10-2022 12:40-0400 Body height 171.45 cm Jos Kennedy Other [employer] Other 01-10-2022 12:40-0400 Body mass index (BMI) [Ratio] 25.92 kg/m2 Jos Kennedy Other [employer] Other 01-10-2022 12:40-0400 Body weight 76.2 kg Jos Kennedy Other [employer] Other 07-24-2021 17:00-0400 Body height 171.45 cm Jos Kennedy Other [employer] Other 07-24-2021 17:00-0400 Body mass index (BMI) [Ratio] 25.92 kg/m2 Jos Kennedy Other [employer] Other 07-24-2021 17:00-0400 Body weight 76.2 kg Jos Kennedy Other [employer] Other 07-24-2021 17:00-0400 Diastolic blood pressure 77 mm[Hg] Jos Kennedy Other [employer] Other 07-24-2021 17:00-0400 Systolic blood pressure 129 mm[Hg] Jos Kennedy Other [employer] Other Encounters Encounter Date Encounter Type Care Provider Facility Start: 06-23-2025 End: 06-23-2025 ambulatory Karl Kennedy MD Work Phone: [facility] Work Phone: Start: 06-23-2025 End: 06-23-2025 Patient encounter procedure Karl Kennedy MD -[facility] Work Phone: Start: 03-25-2025 End: 03-25-2025 Patient encounter procedure Karl Kennedy MD Work Phone: [facility] [place] Work Phone: Start: 03-25-2025 End: 03-25-2025 ambulatory Karl Kennedy MD Work Phone: [facility] Work Phone: Start: 03-18-2025 End: 03-18-2025 ambulatory [facility] Work Phone: Start: 03-18-2025 End: 03-18-2025 Patient encounter procedure [facility] Work Phone: Start: 03-16-2025 Non-patient / Non-visit [facility] Work Phone: Start: 02-08-2025 End: 02-08-2025 Office outpatient new 30 minutes Connie Ivy MD Work Phone: [facility] Comment on above: ETD (Eustachian tube dysfunction), bilateral (Primary Dx); Sensorineural hearing loss (SNHL), bilateral Start: 02-08-2025 End: 02-08-2025 ambulatory CONNIE IVY Not Available Start: 02-08-2025 End: 02-08-2025 Bamboo flowsheet Connie Ivy MD Work Phone: [facility] Start: 02-08-2025 End: 02-08-2025 Bamboo flowsheet Connie Ivy MD Work Phone: [facility] Start: 02-01-2025 End: 02-01-2025 Patient encounter procedure Margot Trujillo AUD Work Phone: [facility] Comment on above: Sensorineural hearin g loss, bilateral (Primary Dx); Dizziness Start: 02-01-2025 End: 02-01-2025 ambulatory MARGOT TRUJILLO Not Available Start: 02-01-2025 End: 02-01-2025 Bamboo flowsheet Margot Trujillo AUD Work Phone: [facility] Start: 02-01-2025 End: 02-01-2025 Bamboo flowsheet Margot Trujillo AUD Work Phone: [facility] Start: 12-24-2024 End: 12-24-2024 ambulatory [facility] Work Phone: Start: 12-24-2024 End: 12-24-2024 Patient encounter procedure [facility] Work Phone: Start: 11-30-2024 End: 11-30-2024 ambulatory [facility] Work Phone: Start: 11-30-2024 End: 11-30-2024 Patient encounter procedure [facility] Work Phone: Start: 11-25-2024 Non-patient / Non-visit [facility] Work Phone: Start: 08-11-2024 End: 08-11-2024 Bamboo flowsheet Christina B Apling MEDICINE TEACHER Work Phone: [facility] Start: 08-11-2024 End: 08-11-2024 Bamboo flowsheet Christina B Apling MEDICINE TEACHER Work Phone: [facility] Start: 08-11-2024 End: 08-11-2024 ambulatory CHRISTINA Judy APLING Not Available Start: 08-11-2024 End: 08-11-2024 Office outpatient visit 10 minutes Christina Judy Apling MEDICINE TEACHER Work Phone: [facility] Comment on above: Arthritis of right k nee (Primary Dx); Right knee pain, unspecified chronicity Start: 07-28-2024 End: 07-28-2024 Bamboo flowsheet Christina B Apling MEDICINE TEACHER Work Phone: [facility] Start: 07-28-2024 End: 07-28-2024 Bamboo flowsheet Christina B Apling MEDICINE TEACHER Work Phone: [facility] Start: 07-28-2024 End: 07-28-2024 Office outpatient new 45 minutes Christina Kim Apling MEDICINE TEACHER Work Phone: [facility] Comment on above: Right knee pain, uns pecified chronicity (Primary Dx); Arthritis of right knee Start: 07-28-2024 End: 07-28-2024 ambulatory Raman Rodriges PT Work Phone: [facility] Comment on above: Arthritis of right k nee (Primary Dx) Start: 07-27-2024 ambulatory [facility] Work Phone: Start: 07-27-2024 [facility] Work [facility]: Start: 07-23-2024 End: 07-23-2024 ambulatory [facility] Work Phone: Start: 07-23-2024 End: 07-23-2024 Patient encounter procedure [facility] Work Phone: Start: 07-12-2024 End: 07-12-2024 ambulatory [facility] Work Phone: Start: 07-12-2024 End: 07-12-2024 Patient encounter procedure [facility] Work Phone: Start: 07-09-2024 End: 07-09-2024 ambulatory [facility] Work Phone: Start: 07-09-2024 End: 07-09-2024 Patient encounter procedure [facility] Work Phone: Start: 03-19-2024 End: 03-19-2024 Office outpatient visit 10 minutes Melly Pérez MD Work Phone: [facility] Comment on above: Vertigo; Postural lightheadedness; Other specified disorders of brain Start: 03-19-2024 End: 03-19-2024 ambulatory TOM C WINDNAGEL Not Available Start: 03-03-2024 End: 03-03-2024 ambulatory TOM C WINDNAGEL Not Available Start: 02-16-2024 End: 02-16-2024 ambulatory [facility] Work Phone: Start: 02-16-2024 End: 02-16-2024 Patient encounter procedure [facility] Work Phone: Start: 02-09-2024 End: 02-09-2024 ambulatory [facility] Work Phone: Start: 02-09-2024 End: 02-09-2024 Patient encounter procedure [facility] Work Phone: Start: 02-02-2024 End: 02-02-2024 ambulatory [facility] Work Phone: Start: 02-02-2024 End: 02-02-2024 Patient encounter procedure [facility] Work Phone: Start: 11-05-2023 End: 11-05-2023 ambulatory Karl Rik Other [employer] Other Start: 11-05-2023 Telephone encounter Karl Rik [employer] Start: 10-15-2023 End: 10-15-2023 ambulatory Karl Rik Other [employer] Other Start: 10-15-2023 Telephone encounter Karl Kennedy [facility] Start: 08-06-2023 End: 08-06-2023 ambulatory Rubi Jain Other [employer] Other Start: 08-06-2023 Office outpatient ne w 30 minutes Rubimandi Jain [facility] Start: 08-01-2023 End: 08-01-2023 ambulatory Karl Rik Other [employer] Other Start: 08-01-2023 Telephone encounter Karl Rik [facility] Start: 07-31-2023 End: 07-31-2023 ambulatory Karl Rik Other [employer] Other Start: 07-31-2023 Telephone encounter Karl Rik [facility] Start: 07-29-2023 End: 07-29-2023 ambulatory Karl Rik Other [employer] Other Start: 07-29-2023 Telephone encounter Karl Rik [facility] Start: 06-19-2023 End: 06-19-2023 ambulatory Karl Rik Other [employer] Other Start: 06-19-2023 Telephone encounter Karl Kennedy [facility] Start: 06-10-2023 End: 06-10-2023 ambulatory Karl Rik Other [employer] Other Start: 06-10-2023 Office outpatient vi sit 15 minutes Karl Kenendy [facility] Start: 05-28-2023 End: 05-28-2023 ambulatory RUBY SULLIVAN Facility:[facility] Start: 05-28-2023 End: 05-28-2023 ambulatory Ruby Sullivan MD Work Phone: Gynecology Oncology Comment on above: Post-operative state [Z98.890] (Primary Dx) Start: 05-28-2023 End: 05-28-2023 Patient encounter procedure Ruby Sullivan MD Work Phone: [facility] Start: 04-30-2023 End: 04-30-2023 ambulatory RUBY SULLIVAN Facility:[facility] Start: 04-28-2023 Telephone encounter Jenny Condon RN Gynecology Comment on above: Post Op Follow Up Start: 04-18-2023 Telephone encounter Jenny Condon RN Gynecology Comment on above: Pre-Op Teaching Start: 04-04-2023 End: 04-05-2023 ambulatory RUBY SULLIVAN Facility:[facility] Start: 04-04-2023 Encounter for other preprocedural examination RUBY SULLIVAN [facility] Start: 04-04-2023 End: 04-04-2023 Admission to establishment [facility] Work Phone: [facility] Start: 04-04-2023 End: 04-04-2023 ambulatory Pac [facility] 2 Work Phone: Pre Anesthesia Comment on above: Pre-op evaluation (P rimary Dx); TIA (transient ischemic attack); Hypertension, unspecified type Start: 04-04-2023 End: 04-04-2023 Preprocedural examination done Pacc [facility] 2 Work Phone: Pre Anesthesia Start: 04-02-2023 [...] Gynecology Oncology Start: 03-05-[address] [facility] [place] Start: 02-26-2023 Telephone encounter Ruby Sullivan MD Work Phone: [facility] Comment on above: Request Outside [facility] Records Start: 02-26-2023 End: 02-27-2023 ambulatory KARL KENNEDY Facility:[facility] Start: 01-23-2023 End: 01-24-[address] NONE LISTED REQUEST Facility: Start: 01-16-2023 End: 01-16-[address] NONE LISTED REQUEST Facility: Start: 01-07-2023 End: 01-07-2023 ambulatory Karl Kennedy Other [facility] Other Start: 01-07-2023 Office outpatient vi sit 15 minutes Karl Kennedy [facility] Start: 12-31-2022 End: 12-31-2022 ambulatory Karl Kennedy Other [facility] Other Start: 12-31-2022 Telephone encounter Karl Kennedy [facility] Start: 12-27-2022 End: 12-28-2022 ambulatory NONE LISTED REQUEST Facility:[facility]1 Start: 12-25-2022 End: 12-25-2022 ambulatory Jos Kennedy Other [facility] Other Start: 12-25-2022 Telephone encounter Jos Kennedy [facility] Start: 12-11-2022 (Televisit) Televisit Karl Longo [facility] Start: 12-11-2022 End: 12-11-2022 ambulatory Karl Kennedy Other [facility] Other Start: 07-18-2022 End: 07-18-2022 ambulatory Jos Kennedy Other [facility] Other Start: 07-18-2022 Office outpatient vi sit 15 minutes Jos Kennedy [facility], [place], operated [facility] Start: 05-16-2022 Adult health examination Mala a Rik Other [facility] Other Start: 05-16-2022 Pre-procedure evalua tion check Karl Kennedy Other [facility] Other Start: 05-16-2022 Problem, abnormal examination Karl Rik Other [facility] Other Start: 04-18-2022 End: 04-18-2022 ambulatory Jos Kennedy Other [facility] Other Start: 04-18-2022 Office outpatient vi sit 15 minutes Jos Kennedy [facility] Start: 04-18-2022 End: 04-18-2022 Patient encounter procedure MD Karl Kennedy Work Phone: [facility] Start: 01-10-2022 End: 01-10-2022 ambulatory Jos Kennedy Other [facility] Start: 01-10-2022 Postop follow up vis it related to original px Jos Kennedy [facility] [place], operated [facility] Start: 01-10-2022 End: 01-10-2022 Patient encounter procedure MD Karl Kennedy Work Phone: [facility] Start: 10-08-2021 End: 10-08-2021 ambulatory Jos Kennedy Other [facility] Start: 10-08-2021 Telephone encounter Jos Kennedy [facility] [place], [facility] Start: 10-01-2021 Admission to same da surgery center Jos Rik [facility] Start: 10-01-2021 End: 10-01-2021 ambulatory [facility] Start: 07-24-2021 Office outpatient ne w 60 minutes Jos Kennedy [facility] Start: 03-18-2018 End: 03-19-2018 Ambulatory DEFAULT PHYSICIAN Facility:[facility] Procedures Date Procedure Procedure Detail Performing Clinician Start: 03-25-2025 US scan of thyroid Tyree Kennedy MD Work Phone: Start: 02-01-2025 AUDITORY FUNCTION TESTS Margot Trujillo AUD Work Phone: Start: 07-28-2024 Arthrocentesis aspir &/inj major jt/bursa w/o us Christina Paris MEDICINE TEACHER Work Phone: Start: 07-28-2024 Radiologic exam both knees standing anteropost Christina Paris MEDICINE TEACHER Work Phone: Start: 03-19-2024 Transcranial doppler stdy intracranial art compl Tomsary Carmona MEDICINE TEACHER Work Phone: Start: 04-04-2023 Antibody screen SARAHI SULLIVAN Comment on above: Order Comment: Speci men Type: BLOOD SPECIMEN Ordering Facility: [facility] Address: [address] [place] [address] Performed By: #### T [id number] #### CC MAIN BLOOD BANK [facility] [id number] [address] [place] [address] [place] Start: 04-18-2022 X-ray of cervical spine MD Karl Kennedy Work Phone: Start: 01-10-2022 X-ray of cervical spine MD Karl Kennedy Work Phone: Plan of Treatment Date Care Activity Detail Author Start: 04-04-2026 DIABETES SCREEN DIABETES SCREEN [facility] Start: 02-08-2025 End: 02-08-2025 Patient encounter procedure [facility] Comment on above: Arrived Start: 02-01-2025 End: 02-01-2025 Patient encounter procedure 02/01/2025 2:45 PM EDT Office Visit [facility] [address] [place] [id number] Margot Trujillo S, AUD [address] [facility] [place] [address] Arrived [facility] Comment on above: Arrived Start: 11-30-2024 Patient referral [facility] Work Phone: Start: 08-11-2024 End: 08-11-2024 Patient encounter procedure 08/11/2024 9:45 AM EDT Office Visit [facility] [address] [place] [address] Christina Paris, MEDICINE TEACHER [address] [place] [address] [facility] Start: 07-28-2024 End: 07-28-2024 Patient encounter procedure 07/28/2024 8:30 AM EDT Office Visit [facility] [address] [place] [address] Christina Paris, MEDICINE TEACHER [address] [place] [address] Right knee pain, unspecified chronicity (Primary Dx); Arthritis of right knee [facility] Comment on above: Right knee pain, uns pecified chronicity (Primary Dx); Arthritis of right knee Start: 07-27-2024 Patient referral [facility] Work Phone: Start: 06-20-2024 Influenza vaccination Influenza Vacc ine (#1) [facility] Start: 02-07-2024 Patient referral [facility] Work Phone: Start: 06-20-2023 Influenza vaccination [facility] Start: 04-02-2023 End: 06-02-2023 CBC panel - Blood by Automated count CBC Lab Routine Pre-op exam Expected: 04/02/2023, Expires: 06/02/2023 [facility] Work Phone: Comment on above: Expected: 04/02/2023 , Expires: 06/02/2023 Start: 04-02-2023 End: 06-02-2023 Comprehensive metabolic 2000 panel - Serum or Plasma COMP METABOLIC PANEL Lab Routine Pre-op exam Expected: 04/02/2023, Expires: 06/02/2023 [facility] Work Phone: Comment on above: Expected: 04/02/2023 , Expires: 06/02/2023 Start: 04-02-2023 End: 06-02-2023 TYPE AND SCREEN,30 DAY TYPE AND SCREEN,30 DAY Blood Bank Routine Pre-op exam Expected: 04/02/2023, Expires: 06/02/2023 [facility] Work Phone: Comment on above: Expected: 04/02/2023 , Expires: 06/02/2023 Start: 10-20-2022 ADVANCE DIRECTIVE DISCUSSION ADVANCE DIRECTIVE DISCUSSION [facility] Start: 10-20-2022 DEPRESSION ASSESSMENT DEPRESSION ASS ESSMENT [facility] Start: 04-14-2021 COVID-19 VACCINE (2 - Booster for Teresa series) COVID-19 VACCINE (2 - Booster for Teresa series) [facility] Start: 2011 BONE DENSITY BONE DENSITY [facility] Start: 2011 Pneumococcal Vaccine : 65+ Years (1 of 1 - PCV) Pneumococcal Vaccine: 65+ Years (1 of 1 - PCV) [facility] Start: 2011 PNEUMOCOCCAL: 65+ (1 - PCV) PNEUMOCOCCAL: 65+ (1 - PCV) [facility] Start: 1996 SHINGRIX VACCINE (1 of 2) SHINGRIX VACCINE (1 of 2) [facility] Start: 1991 DIABETES SCREEN DIABETES SCREEN [facility] Start: 1965 Urine microalbumin profile DTAP,TDAP,TD (1 - Tdap) [facility] Start: 1964 ANNUAL PCP TEAM SHOE IRONER MAREK DISEASE VISIT ANNUAL PCP TEAM CHRONIC DISEASE VISIT [facility] Start: 1964 BP CONTROLLED (<130/80) BP CON TROLLED (<130/80) [facility] Start: 1964 HEPATITIS C SCREENING HEPATITIS C [facility] Patient referral [facility] Work Phone: [place] Thyroid gland [facility] XR Knee - right 4 Views [facility] [place] [facility] [place] [facility] Immunizations Immunization Date Immunization Notes Care Provider Fa [facility] 09-20-2020 influenza virus vacc ine, unspecified formulation Christina Paris NP Work Phone: [facility] 08-15-2016 influenza, high dose seasonal, preservative-free Ruby Sullivan MD Work Phone: [facility] Payers Date Payer Category Payer Self-pay [id number] 2015 Private Health Insurance [id number] 2008 Medicare [id number] 1959 Medicare [id number] 1959 Private Health Insurance [id number] 1946 Unknown [id number] 2.16.84 [id number] 1946 Unknown [id number] 2.16.84 [id number] 1946 Unknown [id number] 2.16.84 [id number] 1946 Unknown [id number] 2.16.84 [id number] 1946 Unknown [id number] 2.16.84 [id number] 1946 Unknown [id number] 2.16.84 [id number] 1946 Unknown [id number] 2.16.84 [id number] 1946 Unknown [id number] 2.16.84 [id number] 1946 Unknown [id number] 2.16.84 [id number] 1946 Unknown [id number] 2.16.84 [id number] 1946 Unknown [id number] 2.16.84 [id number] 1946 Unknown [id number] 2.16.84 [id number] Unknown Unknown [id number] 2.16.8 [id number] Social History Date Type Detail Facility Start: 10-01-2021 End: 07-09-2024 Tobacco smoking status NHIS Never smoked tobacco (finding) [facility] Start: 1945 Sex Assigned At Female F [facility] Start: 04-04-2023 End: 02-08-2025 Sex Assigned At [facility] Start: 02-22-2016 End: 03-03-2024 Tobacco use and exposure Smokeless tobacco non-user [facility] Start: 02-26-2023 End: 05-28-2023 Alcohol intake Current non-drinker of alcohol (finding) [facility] Start: 1945 Sex Assigned At Not on file [facility] Start: 04-04-2023 End: 02-08-2025 History of Social function [facility] Adult Depression Screening Assessment 0 [facility] Start: 07-28-2024 End: 02-08-2025 Alcoholic beverage intake Ex-drinker (finding) [facility] Start: 11-30-2024 End: 03-26-2025 Sex Female (finding) [facility] Medical Equipment Procedure Code Equipment Code Equipment Origin al Text Equipment Identifier Dates Spinal fixation plate, non-bioabsorbable [id number] FDA Start: 10-01-2021 Intervertebral-b tanner internal spinal fixation system [id number] FDA Start: 10-01-2021 Intervertebral-b tanner internal spinal fixation system [id number] FDA Start: 10-01-2021 Intervertebral-b tanner internal spinal fixation system [id number] FDA Start: 10-01-2021 Spinal fixation plate, non-bioabsorbable ()[id number] FDA Start: 10-01-2021 Clinical Notes 07-24-2021 to 03-25-2025 Note Date & Type Note Facility 03-25-2025 Radiology Diagnostic study note [facility] [place] [address] Ultrasound Report Signed Patient: Farrah Del Valle MR#: [id number] : 1945 Acct:[id number] Age/Sex: 80 / F ADM Date: 5 Loc: Room: Type: [facility] Attending Dr: Karl Kennedy MD Ordering Provider: Karl Kennedy MD Date of Service: 03/25/25 US/US thyroid: E04.9 - Nontoxic goiter, unspecified Copies to: Karl Kennedy MD~ Thyroid Ultrasound HISTORY: Adnexal fullness. COMPARISON: None The RIGHT lobe measures 4.6 x 1.2 x 1.8cm. LEFT lobe measures 4.1 x 1.3 x 1.7 cm. Isthmus has an AP dimension of 0.2cm. The right superior hypoechoic nodule calcified component measures up to 11 mm. Right mid anechoic nodule measures up to 16 mm. Right inferior hypoechoic nodule at anechoic component measuring up to 11 mm. Left mid next echogenic nodule measures up to 11 mm. Left inferior next echogenic nodule measures up to8 mm.. No microcalcifications identified. Symmetric blood flow of the thyroid gland identified. US/US thyroid IMPRESSION: Bilateral thyroid nodules measuring up to 1.6 cm. Predominantly cystic nodules. Consider 1 year follow-up assessment. Impression dictated by: Dick Turcios M.D. 03/25/2025 8:38 PM Dictation Location: [facility] Tech: Margot Kothari Transcribed By: GAVIN 03/25/252037 Dictated By: Dick Turcios DO 03/25/252034 Signed By: 03/25/252037 [facility] 03-18-2025 Evaluation note Diagnosis Onset Date Resolution Goiter acute March 18, 2025 1:31pm Right conjunctivitis acute March 18, 2025 1:31pm [facility] Work Phone: 1(178) 411-717204-22-2025 History of Present illness Narrative* Connie Ivy MD - 02/08/2025 2:40 PM EDT Subjective Patient ID: Dominga Del Valle is a 79 y.o. female who presents for Dizziness (Audio 02/01/25) and Sinusitis Pt reports she has popping in her left ear. Also has loud tinnitus. 02/01 audio shows severe jan SNHL. RT tymp slightly negative. Pt wears a RT DENISE from [employer]. Family History Problem Relation Name Age of Onset Cancer Father Active Ambulatory Problems Diagnosis Date Noted Vertigo 03/03/2024 Postural lightheadedness 03/03/2024 Asymmetrical hearing loss 02/07/2025 Asymmetrical sensorineural hearing loss 02/07/2025 Bilateral tinnitus 02/07/2025 Bronchitis 02/07/2025 Cholesteatoma of attic 02/07/2025 Chronic reactive otitis externa of right ear 02/07/2025 Enlarged uterus 02/07/2025 History of recent fall 02/07/2025 History of TIA (transient ischemic attack) 02/07/2025 Hypertension (CMS/HCC) 04/09/2023 Degenerative arthritis of right knee 02/07/2025 Left arm numbness 02/07/2025 Left facial numbness 02/07/2025 Malignant neoplasm involving both nipple and areola of right breast in female (CMS/HCC) 10/01/2017 Malignant neoplasm of lower-inner quadrant of right female breast (CMS/HCC) 02/05/2017 Mixed conductive and sensorineural hearing loss of left ear 02/07/2025 Pelvic pain 02/07/2025 Right knee pain 02/07/2025 Sensorineural hearing loss, unilateral, right ear, with unrestricted hearing on the contralateral side 02/07/2025 Sinusitis, acute maxillary 02/07/2025 Thickened endometrium 02/07/2025 TIA (transient ischemic attack) 04/04/2023 Vaginal bleeding 04/02/2023 Visit for suture removal 02/07/2025 Resolved Ambulatory Problems Diagnosis Date Noted No Resolved Ambulatory Problems Past Medical History: Diagnosis Date Breast cancer ([facility]) Hyperlipidemia ([facility]) Past Surgical History: Procedure Laterality Date BACK SURGERY lumber disc CERVICAL SPINE SURGERY HYSTERECTOMY LYMPHADENECTOMY Right Breast Allergies Allergen Reactions Codeine Other Reaction(s): Vomiting Hydrocodone Other Reaction(s): Unknown Reaction Current Outpatient Medications on File Prior to Visit Medication Sig Dispense Refill aspirin (ASPIR) 81 MG EC tablet Take 81 mg by mouth Daily atenolol (Tenormin) 25 MG tablet Take 25 mg by mouth in the morning and 25 mg before bedtime. clopidogrel (Plavix) 75 MG tablet Take 75 mg by mouth Daily lisinopril 5 MG tablet Take 5 mg by mouth Daily No current facility-administered medications on file prior to visit. Objective Last Recorded Vitals Vitals: 02/08/25 1439 BP: 136/82 Pulse: 70 ENT Physical Exam Constitutional Appearance: patient appears well-developed, well-nourished and well-groomed, Head and Face Appearance: head appears normal and face appears atraumatic; Ear Ear Canals: right ear canal normal; left ear canal normal; Tympanic Membranes: right tympanic membrane normal; left tympanic membrane normal; Nose External Nose: nares patent bilaterally; external nose normal; Internal Nose: septum normal; Oral Cavity/Oropharynx Tongue: normal; Oral mucosa: normal; Hard palate: normal; Soft palate: normal; Tonsils: normal; Neck Neck: neck normal; neck palpation normal; Thyroid: thyroid normal; Respiratory Inspection: breathing unlabored; normal breathing rate; Auscultation: breath sounds are clear; Cardiovascular Inspection: extremities are warm and well perfused; no peripheral edema present; Auscultation: regular rate and rhythm; Assessment/Plan Diagnoses and all orders for this visit: ETD (Eustachian tube dysfunction), bilateral Sensorineural hearing loss (SNHL), bilateral Tx ETD with flonase. Pt happy with her DENISE from [employer] so I recommend she get one for the left from there documented in this [facility]04-15-2025 History of Present illness Narrative* HAYES Downing - 02/01/2025 2:45 PM EDT History: Patient was referred for an audiological evaluation, reporting episodes of vertigo. Symptoms began in the Fall 2023. Pt feels symptoms are present with quick movements. Pt is aware of hearing loss, wearing amplification in the right ear from [employer]. Pt reported occasional bilateral tinnitus andstated the left ear will plug up at times. She denies symptoms of ear pain. History is negative fornoise exposure. Otoscopic Exam: Revealed ear canals were clear from excessive cerumen, bilaterally. A bump is visible in the right ear canal. Pure Tone Audiometry Audio indicated a moderate to severe sensorineural hearing loss in the right ear. The left exhibited a moderately-severe to severe sensorineural hearing loss, with a slight conductive component recorded at 4000 Hz. Hallpike: Yielded negative results in both positions tested. Speech Audiometry Right SRT = 65 dB and word discrimination score at 95 dBHL = 100% Left SRT = 60 dB and word discrimination score at 85 dBHL = 84% Tympanometry Normal tympanograms, bilaterally, indicating normal middle ear function Impressions: Dr. Ivy 02-08-2025 documented in this [facility]03-07-2025 Evaluation note* Diagnosis Onset Date Resolution Status Admit Date Preseptal cellulitis acute Tyree 2024 9:58am Goiter acute March 18, 2025 1:31pm [facility] Work Phone: 1(353) 392-212602-11-2025 Evaluation note* Diagnosis Onset Date Resolution Status Admit Date Dizziness acute November 30, 2024 1:36pm Sinusitis, acute maxillary acute November 30, 2024 1:36pm [facility] Work Phone: 1(414) 215-707002-11-2025 Hospital Discharge instructionsAmbulatory Orders* Referral to ENT Time Frame: 11/30/24, Location: None [facility] Work Phone: 1(972) 599-556810-23-2024 History of Present illness Narrative* Christina Kim TATYANA Paris - 08/11/2024 9:45 AM EDT Images from the original note were not included. Subjective Patient ID: Dominga Del Valle is a 79 y.o. female. RT Knee Pain Recent fall *Edel Tao referral 2 weeks s/p FWW and depo medrol injection (07/28/24) with 85-90% improvement, doing a lot better butknee is stiff often, notes she tries to move and bend it a lot. Notes the medicine shop called and told her and said the walker is over $100 so she did not get it. She is pleased with the improvementat this point. Pt states she fell about [...] in the knee. Notes she has sciatica andpain has been radiating up her thigh lately. [...] B/L WB NOMS 07/28/24, TYL, ice, crutches, FWW,depo medrol injection 07/28/24 Objective Ortho Exam Knee [...] as tolerated, f/U prn documented in this encounterBarn[facility] [id number] History of Present illness Narrative* Christina Paris NP - 07/28/2024 8:30 AM EDTAssociated Order(s): L Inj/Asp: R knee Post-Procedure Diagnose(s): [...] xrays of the right knee done at [facility] on 07/23/24 reveals moderate arthritis in all [...] an injection, side effects of bleeding and infectiondiscussed, would like to proceed with the injection, using aspectic technique 40 mg of depo medrol was injected into the right lateral knee, pt tolerated well, bandaid applied, may do activities as tolerated, f/u in 2 weeks. Discussed warmth and also voltaren gel, sent to [place] [facility] today for gait training and eval for assistive device, will order a FWW and will fax to [employer] [place] documented in this encounterBarnes-Jewish [id number] History of Present illness Narrative* Alba Balderas RN - 03/19/2024 3:20 PM EDT Tech explains to patient the procedure process and answers any questions, patient is positioned supine on exam table ultrasound procedure(s)completed. Pt verbalizes no concerns, assisted to sitting position without difficulty. Discharged unassisted advised results will be read by a neurologist and f orwarded to ordering physician for review with patient at next appt or per phone. Pt confirms follow-up appt 04-26-24. REMY Balderas RN documented in this [facility]10-18-2023 Evaluation note* Encounter Date Diagnosis Assessment Notes Treatment Notes Treatment Clinical Notes Jul, Dupuytren's contracture of right hand [...] under sterile technique. No adverse reactions noted. [facility] Other 10-10-2023 Evaluation note* Encounter Date Diagnosis Assessment Notes Treatment Notes Treatment Clinical Notes Jul, Right hand pain (ICD-10 - M79.641) [facility] 08-31-2023 Evaluation note* Encounter Date Diagnosis Assessment Notes Treatment Notes Treatment Clinical Notes May, Right hand pain (ICD-10 - M79.641) [facility] Other 08-22-2023 Evaluation note* Encounter Date Diagnosis Assessment Notes Treatment Notes Treatment Clinical Notes May, De Quervain's tenosynovitis, right (ICD-10 - M65.4) Handout given on problem. Declines ortho referral for potential injection. Try voltaren and heat topically. [facility] Other 08-09-2023 NoteHNO ID: [id number] Author: Ruby Sullivan MD Service: ? Author Type: Physician Type: Progress Notes Filed: 05/28/2023 3:03 PM Note Text: DATE OF SERVICE: 05/28/2023 REASON FOR VISIT: Thickened endometrium, post op follow up DIAGNOSIS: Thickened endometrium HPI: 1.Farrah Del Valle is a 77 year old female with pmh of HTN, breast CA, sensorineural hearing loss and TIA who was evaluated by HOSTLER HELPER for a thickened endometrium noted on CT on 11/2021 and on follow up US in 01/2022. An [facility] ECC completed on 02/11/22 with benign findings. [...] Doing well post op PLAN: Return to merchandise buyer onc prn for new or worsening symptoms Ruby Sullivan [facility]08-09-2023 History of Present illness Narrative* Ruby Sullivan MD - 05/28/2023 2:15 PM EDT Images from the original note were not included. DATE OF SERVICE: 05/28/2023 REASON FOR VISIT: Thickened endometrium, post op follow up DIAGNOSIS: Thickened endometrium HPI: 1.Farrah Del Valle is a 77 year old female with pmh of HTN, breast CA, sensorineural hearing loss and TIA who was evaluated by HOSTLER HELPER for a thickened endometrium noted on CT [...] Doing well post op PLAN: Return to merchandise buyer onc prn for new or worsening symptoms Ruby Sullivan MD [facility] NoteHNO ID: [id number] Author: Ruby Sullivan MD Service: ? Author Type: Physician Type: Progress Notes Filed: 04/30/2023 4:35 PM Note Text: DATE OF SERVICE: 04/30/2023 REASON FOR VISIT: Thickened endometrium, post op follow up DIAGNOSIS: Thickened endometrium HPI: 1.Farrah Del Valle is a 77 year old female with pmh of HTN, breast CA, sensorineural hearing loss and TIA who was evaluated by HOSTLER HELPER for a thickened endometrium noted on CT on 11/2021 and on follow up US in 01/2022. An [facility] ECC completed on 02/11/22 with benign findings. [...] for 4 week post op visit Ruby Sullivan, [facility]07-10-2023 Miscellaneous Notes* Telephone Encounter - Jenny [...] summary initiated: path pending Jenny Condon RN documented in this encounterThe [facility]07-[facility]-2023 NoteHNO ID: [id number] Author: Christopher Brooks APRN.[place] Service: Anesthesiology Author Type: Nurse Robotics Technologist Type: Anesthesia Procedure Notes Filed: 04/25/2023 11:01 AM Note Text: ANESTHESIOLOGY PROCEDURE NOTE PIV General Information Procedure Start Time/Medication Administration: 04/25/2023 10:50 AM Patient Location: OR Staffing TOOL SHAPER SETUP OPERATOR: Christopher Brooks APRN.TOOL SHAPER SETUP OPERATOR Performed by: TOOL SHAPER SETUP OPERATOR Preparation Sterility Preparation: hand hygiene performed prior to procedure, surgical cap used, mask used, skin prep agent completely dried prior to procedure Site Prep: chlorhexidine Procedure Details Indication: need for IV access Needle Size/Type: 18 gauge angiocath Orientation: Left Location: Hand Imaging Guidance Used: No SIGNATURE: Christopher Brooks APRN.TOOL SHAPER SETUP OPERATOR PATIENT NAME: Farrah Del Valle DATE: April 25, 2023 TIME: 11:00 AM CSN: [id number] NoteHNO ID: [id number] Author: Christopher Brooks APRN.TOOL SHAPER SETUP OPERATOR Service: Anesthesiology Author Type: Nurse Robotics Technologist Type: Anesthesia Procedure Notes Filed: 04/25/2023 11:00 AM Note Text: ANESTHESIOLOGY PROCEDURE NOTE Airway General Information Procedure Start Time/Medication Administration: 04/25/2023 10:40 AM Patient location during procedure: OR Staffing TOOL SHAPER SETUP OPERATOR: Christopher Brooks APRN.TOOL SHAPER SETUP OPERATOR Performed by: TOOL SHAPER SETUP OPERATOR Indications and Patient Condition Indications for airway [...] 1 Airway not difficult SIGNATURE: Christopher Brooks APRN.TOOL SHAPER SETUP OPERATOR PATIENT NAME: Farrah Del Valle DATE: April 25, 2023 TIME: 10:59 AM CSN: [id number] Miscellaneous Notes* Telephone Encounter - Jenny Condon RN - 04/18/2023 11:13 AM EDT Attempted to call pt for preop teaching. Phone number not set up for VM. Will try back later. documented in [facility] encounterThe [facility] History and physical note * Karina Juarez APRN.CNP - 04/04/2023 2:20 PM EDT HISTORY AND [...] PACC for evaluation. Patient was seen by HOSTLER HELPER for thickened endometrium. She had a D&C [...] symptoms or problems. Cardiovascular: Negative for Recent MD, Angina, Chest Pain, PVD, DVT/PE +HTN GI: No history of GI symptoms or problems. No history of esophageal varices, recent ascites, or ETOH greater than 2 drinks per day. : No history of dysuria, frequency or incontinence,, stones or chronic kidney disease HOSTLER HELPER: See HPI : Denies, No LMP recorded. [...] 2023 TIME: 10:56 AM documented in this encounterThe [facility]06-16-[facility]23 Instructions* Patient Instructions* Karina Juarez APRN.CNP - 04/04/2023 10:56 AM EDT PATIENT PREOPERATIVE INSTRUCTIONS You Surgeon has scheduled you for your procedure at this surgery center: [facility]: [phone] --[address] [address]. Please check in on the1st floor at [...] - YOU MUST HAVE A RESPONSIBLE CORPORATE WELLNESS COORDINATOR TAKE YOU HOME. A HYBRID DERIVATIVES TRADER OR EDGE STAINER CANNOT BE MADE A RESPONSIBLE CORPORATE WELLNESS COORDINATOR. - We recommend that a responsible person [...] Advance Directive, please fax a copy to [phone] or email to for it to be [...] into your chart that day. Karina Juarez APRN.KENYATTA documented in this encounterThe [facility]06-14-2023 NoteHNO ID: [id number] Author: Ruby Sullivan MD Service: ? Author Type: Physician Type: Progress Notes Filed: 04/02/2023 2:37 PM Note Text: DATE OF SERVICE: 04/02/2023 REASON FOR VISIT: Thickened endometrium, review US, review medical clearance pre operatively DIAGNOSIS: Thickened endometrium HPI: 1Sabino Del Valle is a 77 year old female with pmh of HTN, breast CA, sensorineural hearing loss and TIA who was evaluated by HOSTLER HELPER for a thickened endometrium noted on CT on 11/2021 and on follow up US in 01/2022. [facility]22 with benign [...] today's office visit: MD Christiano Lynch MD [address] [place] [address] [place] [address] History of Present illness Narrative* [...] loss and TIA who was evaluated by HOSTLER HELPER for a thickened endometrium noted on CT [...] today's office visit: MD Christiano Lynch MD [address] [place] [address] [place] [address] documented in this encounterThe [facility]05-10-[facility]23 Miscellaneous Notes* Telephone Encounter - Edel Braden - 02/26/2023 1:25 PM EDT Letter faxed to Dr. Kennedy. * Telephone Encounter - Aura Krishna - 02/26/2023 12:[address] Sullivan is asking if we can send Dr. Karl Kennedy a letter that she is requesting medical clearance for a laparoscopic hysterectomy. Drea: The doctor would like you to request records from Dr. Karl Kennedy. documented in this encounterThe [facility]05-10-2023 NoteHNO ID: [id number] Author: Ruby Sullivan MD Service: ? Author [...] loss and TIA who was evaluated by HOSTLER HELPER for a thickened endometrium noted on CT [...] today's office visit: MD Christiano Lynch MD [address] [place] [address] [place] [address] Evaluation note* Encounter Date Diagnosis Assessment Notes Treatment Notes Treatment Clinical Notes Dec, Right sided abdominal pain (ICD-10 - R10.9) Called Dr. Cordoba's office and made appt for 01/10 at 9:50 - gave information to pt Dec, Enlarged uterus (ICD-10 - N85.2) Followup w HOSTLER HELPER Dec, Chronic fatigue (ICD-10 - R53.82) Labs reassuring. Will followup here in 3 months. [facility] Other 2023 Evaluation note* Encounter Date Diagnosis Assessment Notes Treatment Notes Treatment Clinical Notes Dec, Fatigue, unspecified type (ICD-10 - R53.83) [facility] Other 02-22-2023 Evaluation note* Encounter Date Diagnosis [...] even if you start to feel better. 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) [facility] Other evaluation noteNo assessment information available [facility] Work Phone: Evaluation noteNo InformationNortRiddle [facility] Other evaldlqfdc note* Diagnosis Pre-op exam- Primary Preoperative examination, unspecified Thickened endometrium [R93.89 (ICD-10-CM)] Nonspecific (abnormal) findings on radiological and other examination of genitourinary organs Vaginal bleeding [N93.9 (ICD-10-CM)] Other specified noninflammatory disorder of vagina documented in this encounter [facility]* Diagnosis Vaginal bleeding- Primary Other specified noninflammatory disorder of vagina Malignant neoplasm of lower-inner quadrant of right female breast, unspecified estrogen receptor status (HCC) Thickened endometrium Nonspecific (abnormal) findings on radiological and other examination of genitourinary organs documented in this encounter [facility]* Diagnosis Pre-op evaluation- Primary Preoperative examination, unspecified TIA (transient ischemic attack) Unspecified transient cerebral ischemia Hypertension, unspecified type Malignant neoplasm of lower-inner quadrant of right female breast, unspecified estrogen receptor status (HCC) Vaginal bleeding Other specified noninflammatory disorder of vagina Thickened endometrium Nonspecific (abnormal) findings on radiological and other examination of genitourinary organs documented in this encounter [facility]* Diagnosis Post-operative state [Z98.890]- Primary Other postprocedural status documented in this encounter [facility]* Diagnosis Onset Date Resolution Status History of TIA (transient ischemic attack) acute Left arm numbness acute Left facial numbness acute [facility] Work Phone: Evaluation note* Diagnosis Onset Date Resolution Status History of TIA (transient ischemic attack) acute Left arm numbness acute Left facial numbness acute History of TIA (transient ischemic attack) acute Left arm numbness acute Left facial numbness acute [facility] Work Phone: Evaluation note* Diagnosis Onset Date Resolution Status Dizziness acute History of TIA (transient ischemic attack) acute Visit for suture removal acu te History of recent fall acute Right knee pain acute [facility] Work Phone: Evaluation note* Diagnosis Arthritis of right knee- Primary documented in this encounter [facility]* Diagnosis Right knee pain, unspecified chronicity- Primary Arthritis of right knee documented in this encounter [facility] HealthcareEvaluation note* Diagnosis Arthritis of right knee- Primary Right knee pain, unspecified chronicity documented in this encounter [facility] HealthcareEvaluation note* Diagnosis Onset Date Resolution Status Admit Date Dizziness acute November 30, 2024 1:36pm Sinusitis, acute maxillary acute November 30, 2024 1:36pm [facility] Work Phone: Evaluation note* Diagnosis Sensorineural hearing loss, bilateral- Primary Dizziness Dizziness and giddiness documented in this encounter [facility] HealthcareEvaluation note* Diagnosis Vertigo Dizziness and giddiness Postural lightheadedness Dizziness and giddiness Other specified disorders of brain documented in this encounter [facility] HealthcareEvaluation note* Diagnosis ETD (Eustachian tube dysfunction), bilateral- Primary Sensorineural hearing loss (SNHL), bilateral documented in this encounter [facility] HealthcareHistory general Narrative - Reported* Type Description Date Medical History Hypertension Medical History hyperlipidemia Medical History stroke Surgical History tubal ligation Surgical History back surgery Surgical History breast cancer Hospitalization History See Above [facility] Other History general Narrative - [facility] Other History general Narrative - Reported* Type Description Date Medical History Hypertension Medical History hyperlipidemia Medical History stroke Surgical History tubal ligation Surgical History back surgery Surgical History breast cancer Surgical History Hyst BSO - 2022 - [facility] Hospitalization History See Above [facility] Other Hospital Discharge instructionsAmbulatory Orders* Referral to Orthopedic Surgery Time Frame: 07/27/24, Location: None [facility] Work Phone: Reason for referral (narrative)* Consultation (Routine) - Closed Specialty Diagnoses / Procedures Referred By Juvenal copeland Referred To Contact Physical Therapy Diagnoses Arthritis of right knee Procedures [place] OFFICE/OUTPATIENT NEW HIGH MDM 60 MINUTES Christina Paris NP [address] [place] [address] Raman Rodriges, PT [address] [place] [address] Referral ID Status Reason Start Date Expiration Date V isits Requested Visits Authorized [id number] Closed Consult and Treat 07/28/2024 07/29/2024 10 1 * Clinic-Administered Medication (Routine) - Closed Specialty Diagnoses / Procedures Referred By Juvenal copeland Referred To Contact Orthopaedic Surgery Diagnoses Arthritis of right knee Procedures L Inj/Asp: R knee Chrisitna Paris NP [address] [place] [address] Referral ID Status Reason Start Date Expiration Date Visits Re quested Visits Authorized [id number] Closed 07/28/2024 01/24/2025 1 1 [facility] HealthcareReason for referral (narrative)No reason for referral information [facility]Fire[facility] Work Phone: Reason for visit Narrative* Consultation (Routine) - Closed Specialty Diagnoses / Procedures Referred By Juvenal copeland Referred To Contact Physical Therapy Diagnoses Arthritis of right knee Procedures [place] OFFICE/OUTPATIENT NEW HIGH MDM 60 MINUTES Christina Paris, MEDICINE TEACHER [address] [place] [address] Franklyn Raman T, PT [address] [place] [address] Referral ID Status Reason Start Date Expiration Date V isits Requested Visits Authorized [id number] Closed Consult and Treat 07/28/2024 01/24/2025 10 10 [facility] HealthcareReason for visit Narrative* Imaging (Routine) - Closed Specialty Diagnoses / Procedures Referred By Juvenal copeland Referred To Contact Radiology Diagnoses Vertigo Postural lightheadedness Other specified disorders of brain Procedures Vascular US transcranial Doppler (TCD) complete Tom Carmona NP Phone: tel: fax: Referral ID Status Reason Start Date Expiration Date V isits Requested Visits Authorized [id number] Closed Perform Procedure 03/03/2024 08/30/2024 1 1 [facility] Summary Purpose Family History Relationship Condition Age at Onset [...] Unknown father Unknown mother Unknown Advance Directives Advance Directive Response Recorded Date/ Time Advance Directives No August 2:26pm Advance Directive Response Recorded Date/ Time Advance Directives No June 11:53am Advance Directive Response Recorded Date/ Time Advance Directives No June 10:53am Chief Complaint and Reason for Visit Chief Complaint Admit Date TBH:URI November 30, 2024 1:36pm Eye irritation December 24, 2024 9:58 am Reason for Visit Admit Date Dizziness November 30, 2024 1:36pm Sinusitis, acute maxillary November 1:36pm Chief Complaint m50.023 Chief Complaint M50.022 Chief Complaint Dizziness Chief Complaint Dizziness [facility] follow up Reason for Visit History of TIA (dao sient ischemic attack) Left arm numbness Left facial numbness Chief Complaint Dizziness [facility] follow up congestion, sick Reason for [...] History of recent fall Right knee pain Chief Complaint Admit Date TBH:URI November 30, 2024 1:36pm Chief Complaint Admit Date Eye irritation December 24, 2024 9:58 am Amb Documentation March 16, 2025 9:45a m Amb Documentation March 16, 2025 9:49a m TB ER follow up March 18, 2025 1:31p m Reason for Visit Admit Date Preseptal cellulitis December 24, 2024 9:5 8am Goiter March 18, 2025 1:31p m Chief Complaint Admit Date Amb Documentation March 16, 2025 9:45a m Amb Documentation March 16, 2025 9:49a m TB ER follow up March 18, 2025 1:31p m E04.9 March 25, 2025 4:13p m Reason for Visit Admit Date Goiter March 18, 2025 1:31p m Right conjunctivitis March 18, 2025 1:31 pm Chief Complaint Admit Date E04.9 March 25, 2025 4:13p m Wellness June 23, 2025 9:23am Reason for Referral Reason *Waiting for [employer] - last OV. R hand/wrist pain. thanks Diagnosis 1 Right hand pain (M79 .641) Referral Organization [facility] Jaden torres Referring Provider First Name Karl Referring Provider Last Name Rik Referring Provider Specialty Family [facility] Referred Organization [facility] Referred Provider Rubi Jain Referred Address [address],[place],[address] Referred Provider Specialty Orthopedic S urgery Referral Priority Routine General Notes Rowan Mustafa 02:06:01 PM >recieved today, sent P2P Additional Source Comments INFORMATION SOURCE (unrecogn ized section and content) DATE CREATED AUTHOR 04/08/2018 [facility] DATE CREATED AUTHOR AUTHOR'S ORGANIZ ATION 02/28/2023 [facility] DATE CREATED AUTHOR AUTHOR'S ORGANIZ ATION 05/29/2023 [facility] DATE CREATED AUTHOR AUTHOR'S ORGANIZ ATION 09/18/2023 [facility] DATE CREATED AUTHOR AUTHOR'S ORGANIZ ATION 02/09/2025 [facility] EPIC DATE CREATED AUTHOR AUTHOR'S ORGANIZ ATION 05/11/2025 [facility] ys[facility] Group Care Teams (unrecognized sec tion and content) Team Status: Active Member Role Status Dates Karl Kennedy MD Primary Care Provider Active Team Status: Inactive Member Role Status Dates Karl Kennedy MD Primary Care Provider Active Start: March 25, 2025 End: March 25, 2025 Karl Kennedy MD Attending Provider Active St art: March 25, 2025 End: March 25, 2025 Team Status: Inactive Member Role Status Dates Karl Kennedy MD Primary Care Provider Active Start: June 23, 2025 End: June 23, 2025 Karl Kennedy MD Attending Provider Active St art: June 23, 2025 End: June 23, 2025 Team Status: Active Member Role Status Dates Karl Kennedy MD Primary Care Provider Active Team Status: Active Member Role Status Dates Karl Kennedy MD Primary Care Provider Active Start: March 16, 2025 Jessica Patel CMA Attending Provider Active Start: March 16, 2025 Team Status: Inactive Member Role Status Dates Karl Kennedy MD Primary Care Provide r, Attending Provider Active Start: March 18, 2025 End: March 18, 2025 Team Status: Inactive Member Role Status Dates Karl Kennedy MD Primary Care Provide r, Attending Provider Active Start: March 25, 2025 End: March 25, 2025 Team Status: Inactive Member Role Status Dates Karl Kennedy MD Primary Care Provider Active Start: December 24, 2024 End: December 24, 2024 LEONIE Coppola RN MEDICINE TEACHER-C Attending Provider Active Start: December 24 End: December 24, 2024 Team Status: Active Member Role Status Dates Karl Kennedy MD Primary Care Provider Active Start: November 25, 2024 Jayshree Chakraborty DO Attending Provider Active Sta rt: November 25, 2024 Team Status: Inactive Member Role Status Dates Karl Kennedy MD Primary Care Provide r, Attending Provider Active Start: November 30, 2024 End: November 30, 2024 Team Status: Inactive Member Role Status Dates Karl Kennedy MD Primary Care Provide r, Attending Provider Active Start: February 02, 2024 End: February 02, 2024 Team Status: Inactive Member Role Status Dates Karl Kennedy MD Primary Care Provider Active Jos Kennedy MD Attending Provider Active New Home Sales Consultant Relationship Specialty Start Date End Date Karl Kennedy MD [address] [facility] [place] [phone] PCP - General Family Medicine 02/15/16 New Home Sales Consultant Relationship Specialty Start Date End Date Karl Kennedy MD [address] [facility] [place] [phone] PCP - General Family Medicine 02/15/16 New Home Sales Consultant Relationship Specialty Start Date End Date Karl Kennedy MD [address] [facility] [place] [address] PCP - General Family Medicine 02/15/16 New Home Sales Consultant Relationship Specialty Start Date End Date Karl Kennedy MD [address] [facility] [place] [address] PCP - General Family Medicine 02/15/16 New Home Sales Consultant Relationship Specialty Start Date End Date Karl Kennedy MD [address] [facility] [place] [phone] PCP - General Family Medicine 02/15/16 New Home Sales Consultant Relationship Specialty Start Date End Date Karl Kennedy MD [address] [facility] [place] [phone] PCP - General Family Medicine 02/15/16 New Home Sales Consultant Relationship Specialty Start Date End Date Karl Kennedy MD [address] [facility] [place] [phone] PCP - General Family Medicine 02/15/16 Team [...] July 23, 2024 End: July 23, 2024 Edel Tao APRN MEDICINE TEACHER-C Attending Provider Act tita Start: July 23, 2024 End: July 23, 2024 Team Status: Active Member Role Status Dates Karl Kennedy MD Primary Care Provider Active Start: July 27, 2024 Edel Tao APRN MEDICINE TEACHERLukeC Attending Provider Act tita Start: July 27, 2024 New Home Sales Consultant Relationship Specialty Start Date End Date Karl Kennedy MD [address] [facility] [place] [phone] PCP - General Family Medicine 03/03/24 New Home Sales Consultant Relationship Specialty Start Date End Date Karl Kennedy MD [address] [facility] [place] [phone] PCP - General Family Medicine 03/03/24 New Home Sales Consultant Relationship Specialty Start Date End Date Karl Kennedy MD [address] [facility] [place] [phone] PCP - General Family Medicine 03/03/24 New Home Sales Consultant Relationship Specialty Start Date End Date Karl Kennedy MD [address] [facility] [place] [address] PCP - General Family Medicine 03/03/24 New Home Sales Consultant Relationship Specialty Start Date End Date Karl Kennedy MD [address] [facility] [place] [address] PCP - General Family Medicine 03/03/24 New Home Sales Consultant Relationship Specialty Start Date End Date Karl Kennedy MD PCP - General Family Medicine 03/03/24 Eleno Patiño DO [address] [place] [address] Otolaryngology 02/01/25 Margot Trujillo AUD [address] [place] [address] Audiology 02/01/25 New Home Sales Consultant Relationship Specialty Start Date End Date Karl Kennedy MD PCP - General Family Medicine 03/03/24 Eleno Patiño DO [address] [place] [address] Otolaryngology 02/01/25 Margot Trujillo AUD [address] [place] [address] Audiology 02/01/25 New Home Sales Consultant Relationship Specialty Start Date End Date Karl Kennedy MD [address] [place] [phone] PCP - General Family Medicine 02/08/25 Eleno Patiño DO [address] [place] [address] Otolaryngology 02/01/25 Margot Trujillo AUD [address] [place] [address] Audiology 02/01/25 New Home Sales Consultant Relationship Specialty Start Date End Date Karl Kennedy MD [address] [place] [phone] PCP - General Family Medicine 02/08/25 Eleno Patiño, [address] [place] [address] Otolaryngology 02/01/25 Margot Trujillo AUD [address] [place] [address] Audiology 02/01/25 Team Status: Inactive Member Role Status Dates Karl Kennedy MD Primary Care Provider Active Start: March 25, 2025 End: March 25, 2025 Karl Kennedy MD Attending Provider Active St art: March 25, 2025 End: March 25, 2025 Team Status: Inactive Member Role Status Dates Karl Kennedy MD Primary Care Provider Active Start: June 23, 2025 End: June 23, 2025 Karl Kennedy MD Attending Provider Active St art: June 23, 2025 End: June 23, 2025 Goals (unrecognized section and content) Goals may [...] knee Unilateral primary osteoarthritis, right knee Procedures [place] UNLISTED EVALUATION AND MANAGEMENT Karl Kennedy MD [address] [place] [address] Navi Camacho DO [address] [address] Referral ID Status Reason Start Date Expiration Date Visits Re quested Visits Authorized [id number] Closed 07/27/2024 01/23/2025 1 1 Reason Comments Follow-up Reason Comments Dizziness Audio 02/01/25 Sinusitis Specialty Diagnoses / Procedures Referred By Contac t Referred To Contact Otolaryngology Diagnoses dizziness; sinusitis Procedures [place] UNLISTED EVALUATION AND MANAGEMENT SERVICE Karl Kennedy MD Phone: tel: fax: Connie Ivy MD [address] [facility] [address] [place] [address] Phone: tel: fax: Referral ID Status Reason Start Date Expiration Date Visits Re quested Visits Authorized [id number] Closed 12/01/2024 05/30/2025 1 1 Source Comments (unrecognize d section and content) In the event this informatio n is protected by the Federal Confidentiality of Alcohol and Drug Abuse Patient Records regulations: The Federal rules restrict any use of the information to criminally investigate or prosecute any alcohol or drug abuse patient.[facility] HospitalIn the event this information is protected by the Federal Confidentiality of Alcohol and Drug Abuse Patient Records regulations: The Federal rules restrict any use of the information to criminally investigate or prosecute any alcohol or drug abuse patient.[facility] HospitalIn the event this information is protected by the Federal Confidentiality of Alcohol and Drug Abuse Patient Records regulations: The Federal rules restrict any use of the information to criminally investigate or prosecute any alcohol or drug abuse patient.[facility] HospitalIn the event this information is protected by the Federal Confidentiality of Alcohol and Drug Abuse Patient Records regulations: The Federal rules restrict any use of the information to criminally investigate or prosecute any alcohol or drug abuse patient.[facility] HospitalIn the event this information is protected by the Federal Confidentiality of Alcohol and Drug Abuse Patient Records regulations: The Federal rules restrict any use of the information to criminally investigate or prosecute any alcohol or drug abuse patient.[facility] HospitalIn the event this information is protected by the Federal Confidentiality of Alcohol and Drug Abuse Patient Records regulations: The Federal rules restrict any use of the information to criminally investigate or prosecute any alcohol or drug abuse patient.[facility] the event this information is protected by the Federal Confidentiality of Alcohol and Drug Abuse Patient Records regulations: The Federal rules restrict any use of the information to criminally investigate or prosecute any alcohol or drug abuse patient.[facility] FOR RECORDS PERTAINING TO PATIENTS WHO [...] BE BASED ON THE PRIMARY CLINICAL RECORDS. [facility] provides no warranty or guarantee of the accuracy or completeness of information in this document.
== END 2025-07-07 13:57 | disposition home or self-care (01) ==
LOC: RAD 13:58
PROVIDERS: PCP Family Medicine; Visit Provider Family Medicine
DX: M79.642 Pain in left hand (principal); M25.532 Pain in left wrist
CPT/HCPCS: 73110; 73130